=== PATIENT | male | born 1960 | race Two or more races ===

== ENCOUNTER → 2020-05-09 12:31 | Outpatient (BNVA) | payer OTHER, SELFPAY | PROVIDERS: PCP Internal Medicine; Visit Provider Internal Medicine Cardiovascular Disease | DX: I48.0 Paroxysmal atrial fibrillation (principal); I25.10 Atherosclerotic heart disease of native coronary artery without angina pectoris | CPT/HCPCS: 93005 ==

== ENCOUNTER → 2020-05-11 15:02 | Outpatient (BNVA) | payer OTHER, SELFPAY | PROVIDERS: PCP Internal Medicine; Visit Provider Nurse Practitioner Gerontology ==

== ENCOUNTER → 2020-08-01 14:59 | Outpatient (BNVA) | payer OTHER, SELFPAY | PROVIDERS: PCP Internal Medicine; Referring Provider Family Medicine Adult Medicine; Visit Provider Internal Medicine Cardiovascular Disease ==

== ENCOUNTER → 2020-09-14 08:10 | Outpatient (BNVA) | payer OTHER, SELFPAY | PROVIDERS: PCP Internal Medicine; Visit Provider Nurse Practitioner Gerontology | DX: E11.42 Type 2 diabetes mellitus with diabetic polyneuropathy (principal); E11.29 Type 2 diabetes mellitus with other diabetic kidney complication; E78.5 Hyperlipidemia, unspecified; R80.9 Proteinuria, unspecified; I10 Essential (primary) hypertension; Z79.4 Long term (current) use of insulin | CPT/HCPCS: 82947 ==

== ENCOUNTER → 2020-11-08 14:42 | Outpatient (BNVA) | payer OTHER, SELFPAY | PROVIDERS: PCP Internal Medicine; Referring Provider Internal Medicine; Visit Provider Internal Medicine Cardiovascular Disease | DX: I48.0 Paroxysmal atrial fibrillation (principal); I25.10 Atherosclerotic heart disease of native coronary artery without angina pectoris; I10 Essential (primary) hypertension; E11.42 Type 2 diabetes mellitus with diabetic polyneuropathy; R80.9 Proteinuria, unspecified; E78.5 Hyperlipidemia, unspecified; Z87.891 Personal history of nicotine dependence | CPT/HCPCS: 93005 ==

== ENCOUNTER 2020-12-13 07:29 | Emergency (ER) | payer OTHER, SELFPAY ==
[2020-12-13 08:01] VITALS: BP 147/75; PULSE 78; RESP 18; TEMP 36.1; O2SAT 96; BMI 32.3
--- NOTE | 2020-12-13 08:29 | ED.EAR ---
HPI - Ear Problem General Chief complaint: Ear Problems Stated complaint: ear pain Time Seen by Provider: 12/13/20 08:13 Source: patient Mode of arrival: ambulatory Limitations: no limitations History of Present Illness HPI Narrative: 60-year-old male with right ear pain that started yesterday. No fevers, no sore throat, no nasal congestion. Patient feels that his right ear is muffled, and feels a ringing in his ear. No recent trauma or illness, no ear discharge, no headache, no neck pain. No other symptoms. MD Complaint: ear pain Location: right ear Duration: constant Severity: mild Relieving factors: nothing Exacerbating factors: nothing Discharge from ear: no Related Data Home Medications Medication Instructions Recorded Confirmed trazodone 50 mg tablet 25 mg PO BEDTIME cap 11/08/20 11/08/20 Previous Rx's Medication Instructions Recorded pen needle, diabetic 32 gauge x #30 ea 02/20/20 5/32 (BD Ultra-Fine Lou Pen Needle) pen needle, diabetic 32 gauge x #150 ea 03/13/20 5/32 (BD Ultra-Fine Lou Pen Needle) rosuvastatin 20 mg tablet 20 mg PO DAILY #90 tab 04/18/20 dronedarone 400 mg tablet (Multaq) 400 mg PO BID #180 cap 06/20/20 rivaroxaban 20 mg tablet (Xarelto) 20 mg PO DAILY #90 cap 06/20/20 flash glucose sensor (FreeStyle 1 ea TOPICAL .COMPLEX #2 cap 09/08/20 Iris 14 Day Sensor) Humalog KwikPen Insulin 100 See Rx Instructions SUBCUT QID 30 09/14/20 unit/mL subcutaneous (insulin Days #30 ml NS lispro) insulin degludec 200 unit/mL (3 80 unit SUBCUT DAILY 30 Days #18 ml 09/14/20 mL) subcutaneous pen (Tresiba FlexTouch U-200 insulin) empagliflozin 25 mg tablet 25 mg PO QAM #30 tab 09/23/20 (Jardiance) lisinopril 20 mg tablet 20 mg PO DAILY #30 tab 09/30/20 omeprazole 20 mg capsule,delayed 20 mg PO DAILY #30 cap 09/30/20 release metformin 1,000 mg tablet 1,000 mg PO BID #180 tab 10/24/20 amoxicillin 875 mg-potassium 1 tab PO BID 7 Days #14 tab 12/13/20 clavulanate 125 mg tablet (Augmentin) ofloxacin 0.3 % ear drops 10 drp OTIC (EARS) BID 14 Days 12/13/20 #280 ml Allergies Allergy/AdvReac Type Severity Reaction Status Date / Time acetaminophen [From PERCOCET] Allergy Intermediate CONSTIPATED Verified 09/14/20 08:47 oxycodone [From PERCOCET] Allergy Intermediate CONSTIPATED Verified 09/14/20 08:47 Review of Systems Review of Systems: Constitutional : No Weight loss, No Fever, No Chills, No Night Sweats,No Fatigue, No Malaise ENT/Mouth : No Hearing loss, No Ear Pain, No Nasal Congestion, NoSinus Pain, No Hoarseness, No sore throat, No Rhinorrhea, NoSwallowing Difficulty Eyes: No Eye Pain, No Swelling, No Redness, No Foreign Body, NoDischarge, No Vision Changes Cardiovascular : No Chest Pain, No SOB, No Dyspnea on Exertion, NoOrthopnea, No Edema, No Palpitations Respiratory : No Cough, No Sputum, No Wheezing, No Smoke Exposure, No Dyspnea Gastrointestinal : No Nausea, No Vomiting, No Diarrhea, NoConstipation, No abdominal Pain, No Hematochezia, No Melena Musculoskeletal : No joint pain, No Myalgias, No Joint Swelling Skin : No Skin Lesions, No rash Neuro: NO headache PMFSH Past Medical History Medical History Afib BMI 33.0-33.9,adult CAD (coronary artery disease) Depression Essential hypertension GERD (gastroesophageal reflux disease) Hyperlipidemia LDL goal <100 Paroxysmal atrial fibrillation 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 Surgical History History of arthroscopy of right shoulder History of cataract surgery History of eye surgery History of inguinal hernia repair History of laparoscopic cholecystectomy Family History Family History Father Diabetes Mother Alzheimers disease Bone cancer Sister Heart failure Sister Hypertension Sister Diabetes Kidney failure Social History Social History Household Members: Spouse Patient Tobacco Use Status: Former Tobacco user Advance Directives: No Advance Directives Information Provided: No Physical Exam Vital Signs: Vital Signs: Last Vital Signs Temp 97.0 F 12/13/20 08:01 Pulse 78 12/13/20 08:01 Resp 18 12/13/20 08:01 BP 147/75 H 12/13/20 08:01 Pulse Ox 96 12/13/20 08:01 Body Mass Index 32.3 Const: General: cooperative, no acute distress, well developed, alert and awake Nutritional Appearance: well nourished Orientation/consciousness: patient oriented x3 Limitations: no limitations HENMT: Head: Yes normal to inspection, Yes normocephalic and Yes atraumatic Ears: external ears normal, TM normal on the left, EAC's normal and TM abnormal wth effusion purulent (surrounding perforation) and perforated (central) Outer ear/TM images: 1. 2. perforation 3. surrounding purulence behind TM Eyes: Conjunctivae: conjunctivae normal Pupils: Equal, round and reactive pupils present EOM: EOMs intact bilaterally Neck: Neck: Yes full ROM, Yes no lymphadenopathy and Yes supple Resp: Effort & Inspection: normal respiratory effort and able to speak in complete sentences Auscultation: clear to auscultation bilaterally, no crackles, no rales, no rhonchi and no wheezes Cardio: Rate: regular rate Rhythm: regular rhythm Heart sounds: S1 normal heart sound present and S2 normal heart sound present Skin: General skin exam: no rashes or lesions noted Neuro: General: patient oriented x3, tone normal and moves all extremities Cranial nerves: Yes Equal, round and reactive pupils present Extrem: General: Yes normal to inspection and Yes full ROM Psych: Appearance: grossly normal Affect: normal affect Attitude: cooperative Thought process: Normal thought process present Course Course Course Narrative: Eight TM perforation withsurrounding purulent effusion Ofloxacin drops, Augmentin, f/u with ENT Discharge Plan Discharge Clinical Impression: Acute otitis media of right ear with perforated tympanic membrane Patient Disposition: Home, Self-Care Instructions: Ear Infection (ED) Additional Instructions: Use the ear drops, 10 drops in your right ear twice a day for 14 days. Take the antibiotic I prescribed as well. Please call ear nose throat, Dr Shearer, at [phone]. I have referred you to them, but I want you to call them if you have not heard by the end of the day. Prescriptions: New ofloxacin 0.3 % drops 10 drp otic (ears) BID 14 Days Qty: 280 RF: 0 amoxicillin-pot clavulanate [Augmentin] 875-125 mg tablet 1 tab PO BID 7 Days Qty: 14 RF: 0 No Action (DME) pen needle, diabetic [BD Ultra-Fine Lou Pen Needle] 32 gauge x 5/32 needle See Rx Instructions .ROUTE .MEDSUPPLY Qty: 30 RF: 1 (DME) pen needle, diabetic [BD Ultra-Fine Lou Pen Needle] 32 gauge x 5/32 needle See Rx Instructions .ROUTE .MEDSUPPLY Qty: 150 RF: 11 rosuvastatin 20 mg tablet 20 mg PO DAILY Qty: 90 RF: 4 rivaroxaban [Xarelto] 20 mg tablet 20 mg PO DAILY Qty: 90 RF: 1 dronedarone [Multaq] 400 mg tablet 400 mg PO BID Qty: 180 RF: 1 FreeStyle Iris 14 Day Sensor Kit 1 ea topical .COMPLEX Qty: 2 RF: 0 empagliflozin [Jardiance] 25 mg tablet 25 mg PO QAM Qty: 30 RF: 3 lisinopril 20 mg tablet 20 mg PO DAILY Qty: 30 RF: 1 omeprazole 20 mg capsule,delayed release(DR/EC) 20 mg PO DAILY Qty: 30 RF: 1 metformin 1,000 mg tablet 1,000 mg PO BID Qty: 180 RF: 0 trazodone 50 mg tablet 25 mg PO BEDTIME RF: 0 Tresiba FlexTouch U-200 200 unit/mL (3 mL) insulin pen 80 unit subcut DAILY 30 Days Qty: 18 RF: 3 insulin lispro [Humalog KwikPen Insulin] 100 unit/mL insulin pen See Rx Instructions subcut QID 30 Days Qty: 30 RF: 3 Referrals: Julius Shearer [Physician] - 2 days (right perforated TM with purulent effusion, tinnitus) Interventions: ED Discharge Assessment Last Done: 12/13/20 08:44 Discharge Date/Time: 12/13/20 08:46
--- NOTE | 2020-12-13 08:38 | PC.NURSE ---
PT EVALUATED BY ATIYA STERN PLAN IS FOR [place] HOME. PT AGREEABLE TO PLAN. STATES NO QUESTIONS.
== END 2020-12-13 08:46 | disposition home or self-care (01) ==
PROVIDERS: Emergency Provider Internal Medicine; PCP Internal Medicine
DX: H66.91 Otitis media, unspecified, right ear (principal); H72.91 Unspecified perforation of tympanic membrane, right ear
CPT/HCPCS: 99283

== ENCOUNTER → 2020-12-21 14:32 | Outpatient (BNVA) | payer OTHER, SELFPAY | PROVIDERS: PCP Internal Medicine; Visit Provider Nurse Practitioner Gerontology | DX: E11.42 Type 2 diabetes mellitus with diabetic polyneuropathy (principal); E11.29 Type 2 diabetes mellitus with other diabetic kidney complication; E78.5 Hyperlipidemia, unspecified; I10 Essential (primary) hypertension; R80.9 Proteinuria, unspecified; Z68.33 Body mass index [BMI] 33.0-33.9, adult; Z79.4 Long term (current) use of insulin | CPT/HCPCS: 82947; 83036 ==

== ENCOUNTER 2021-02-01 14:29 | Outpatient (REF) | payer OTHER, SELFPAY ==
--- NOTE | ~2021-02-01 | MR_ITS ---
EXAMINATION: MR BRAIN WITHOUT AND WITH CONTRAST CLINICAL INFORMATION: Sudden hearing loss right ear. COMPARISON: CT head 03/20/2019. CT head 03/19/2019. TECHNIQUE: Multiplanar, multisequence MRI of the brain was obtained before and after the intravenous administration of 10 mL Gadavist. Internal auditory canal protocol images are obtained. FINDINGS: Mild diffuse commensurate prominence of ventricles and sulci is noted. A mild number scattered supratentorial subcortical and periventricular white matter punctate T2 hyperintensities are visualized. No intracranial hemorrhage, tumors or acute infarcts are noted. Susceptibility weighted images reveal no evidence of acute or chronic hemorrhage within the brain parenchyma. The craniocervical junction cerebellar tonsils are normal in configuration. No suspicious marrow abnormalities. Normal flow-related signal intensity is identified in the major intrarenal vessels and dural sinuses. Normal appearance of the internal auditory canals and visualized components of the left and right 7th and 8th cranial nerve complexes. Normal configuration of the left and right temporal bone labyrinths. No mastoid effusions. No abnormal enhancement within the internal auditory canals to suggest the presence of vestibular schwannomas. No abnormal enhancement the brain parenchyma. MR/MR head/brain wo/w con IMPRESSION: -Mild white matter chronic small vessel ischemic changes. -No evidence of vestibular schwannomas. No findings to specifically correlate with right-sided hearing loss.
[2021-02-01 14:33] LABS: Blood Urea Nitrogen 19 mg/dL (9-16); Estimated Glomerular Filt Rate 58
== END 2021-02-01 14:30 | disposition home or self-care (01) ==
LOC: HO.MRI 14:29
PROVIDERS: Visit Provider Otolaryngology
DX: H91.21 Sudden idiopathic hearing loss, right ear (principal); H81.13 Benign paroxysmal vertigo, bilateral; D33.3 Benign neoplasm of cranial nerves
CPT/HCPCS: 36415; 70553; 82565; 84520; A9585

== ENCOUNTER → 2021-02-16 14:25 | Outpatient (BNVA) | payer OTHER, SELFPAY | PROVIDERS: PCP Internal Medicine; Referring Provider Internal Medicine; Visit Provider Internal Medicine Cardiovascular Disease ==

== ENCOUNTER → 2021-04-28 14:21 | Outpatient (BNVA) | payer OTHER, SELFPAY | PROVIDERS: PCP Internal Medicine; Visit Provider Nurse Practitioner Gerontology | DX: E11.42 Type 2 diabetes mellitus with diabetic polyneuropathy (principal); E11.29 Type 2 diabetes mellitus with other diabetic kidney complication; Z79.4 Long term (current) use of insulin; I10 Essential (primary) hypertension; E78.5 Hyperlipidemia, unspecified | CPT/HCPCS: 82947 ==

== ENCOUNTER → 2021-05-08 08:47 | Outpatient (REF) | payer OTHER, SELFPAY ==
--- NOTE | 2021-05-08 08:52 | CA_ITS ---
Transthoracic Echocardiogram Patient (Last, First, Middle): Abdoulaye Luo, Gender: Male Date of : 1960 Age: 61 Procedure Date: 05/08/2021 Procedure Type: Transthoracic Echocardiogram Location: OP Height: 167.64 cm Weight: 90.72 kg BSA: 2.00 m2 Heart Rate: bpm BP: 132 / 80 mmHg [facility] Agent: ALEIDA Referring MD: Ian Pappas MD Symptoms: I48.0 - Paroxysmal atrial fibrillation Study Quality: Fair Conclusions: - The left ventricular systolic function is normal. The calculated ejection fraction is 61% by biplane method. There is no evidence of regional wall motion abnormalities. - No obvious valvular pathology seen on this study. Findings Left Ventricle Normal left ventricular cavity size. There is mildly increased left ventricular wall thickness. The left ventricular systolic function is normal. The calculated ejection fraction is 61% by biplane method. There is no evidence of regional wall motion abnormalities. Diastolic function is normal for age. Right Ventricle Normal right ventricular cavity size and systolic function. Atria Both atria are normal in size. Aortic Valve There is a normal trileaflet aortic valve. There is no aortic valve stenosis. There is no aortic valve regurgitation. Mitral Valve The mitral valve appears normal. There is trace mitral valve regurgitation. There is no mitral valve stenosis. Pulmonic Valve The pulmonic valve was not well visualized. Tricuspid Valve Normal tricuspid valve structure. There is trace tricuspid valve regurgitation. The pulmonary artery systolic pressure is normal. Great Vessels The aortic annulus, sinuses of valsalva, and asc aorta are normal in size. Venous The inferior vena cava is normal in size and collapses greater than 50% with inspiration. Pericardium/Pleural There is no evidence of pericardial effusion. Prior Study Comparison No significant change compared to prior study dated: 05/26/2019. Recommendations, Care & Conclusions No obvious valvular pathology seen on this study. Measurements 2D Linear Measurements IVSd: 1.08 0.6-0.9/0.6-1.0 cm LVIDd: 4.56 3.9-5.3/4.2-5.9 cm LVIDd Index: 2.28 2.4-3.2/2.2-3.1 cm/m2 LVIDs: 3.33 2.0-3.6 cm LVPWd: 1.07 0.7-1.1 cm Ao Root: 3.10 2.1-3.5 cm LA Diam: 3.60 2.7-3.8/3.0-4.0 cm LAIDs Index: 1.80 1.5-2.3 cm/m2 LV Mass: 215.58 67-162/88-224 g LV Mass Index: 107.79 43-95/49-115 g/m2 LVOT Diam: 2.00 3.0+(-)1.3 cm 2D Systolic Function EF 4C: 59.70 >55% EF 2C: 61.60 >55% EF BiP: 60.70 >55% Mitral Valve MV Pk E: 0.80 MV PK A: 0.69 MV Decel Time: 243.00 E/A: 1.20 E'Lateral: 7.29 E'Medial: 5.87 E/E' Med: 13.60 E/E' Lat: 11.00 PHT: 71.00 MVA PHT: 3.10 Decel [place]: 3.30 Aortic Valve AoV Pk Kobe: 1.48 AoV Mn Kobe: 1.04 AoV VTI: 0.31 AoV Pk Grad: 9.00 Aov Mn Grad: 5.00 TELMA Cont.VTI: 1.96 LVOT LVOT Pk Kobe: 0.93 LVOT Mn Kobe: 0.63 LVOT VTI: 0.19 LVOT Pk Grad: 3.00 LVOT Mn Grad: 2.00 LVOT Diam: 2.00 LVOT Area: 3.14 Diastolic Function MV Pk E: 0.80 MV Pk A: 0.69 E/A: 1.20 E'Medial: 5.87 E/E' Med: 13.60 E' Laterial: 7.29 E/E' Lat: 11.00 Right Ventricle TAPSE (mm): 1.95 TVS' Kobe: 13.20 Tricuspid Valve TR Pk Kobe: 2.42 TR Pk Grad: 23.00 RA Press: 3.00 RVSP: 26.00 Great Vessels Aorta Ao Root-2D: 3.10 2.0-3.7 cm Ao Asc: 3.00 2.1-3.4 cm Ao Arch: 2.90 Updated in Other Vendor System with Status of Final Rafael Hanley MD electronically signed on 05/08/2021 1:22:41 PM with status of Final
== END ==
LOC: HO.CARD 08:47
PROVIDERS: PCP Internal Medicine; Visit Provider Internal Medicine Cardiovascular Disease
DX: I48.0 Paroxysmal atrial fibrillation (principal)
CPT/HCPCS: 93005; 93306

== ENCOUNTER → 2021-08-07 15:29 | Outpatient (BNVA) | payer OTHER, SELFPAY | PROVIDERS: PCP Internal Medicine; Referring Provider Internal Medicine; Visit Provider Internal Medicine Cardiovascular Disease | DX: Z13.89 Encounter for screening for other disorder (principal) ==

== ENCOUNTER 2021-08-11 05:59 | Outpatient (REF) | payer OTHER, SELFPAY ==
[2021-08-11 06:14] LABS: MANUAL DIFF FLAG NO
[2021-08-11 06:20] LABS: Basophils Percent Auto 0.7 % (0-2); Eosinophils Absolute Auto 0.2 X10*3/uL (0.0-0.4); Eosinophils Percent Auto 3.7 % (0-4); Hematocrit 38.1 % (42.0-52.0); Hemoglobin 13.1 g/dl (14.0-18.0); Imm Gran Abs Auto 0.01 X10*3/uL (0.00-0.03); Imm Gran Pct Auto 0.2 % (0.0-0.4); Lymphocytes Absolute Auto 1.7 X10*3/uL (1.2-4.9); Lymphocytes Percent Auto 30.1 % (20-40); Mean Corpuscular HGB Conc 34.4 g/dl (31.0-36.0); Mean Corpuscular Hemoglobin 28.4 pg (27.0-33.0); Mean Corpuscular Volume 82.6 fL (80.0-98.0); Mean Platelet Volume 11.1 fL (9.4-12.4); Monocytes Absolute Auto 0.5 X10*3/uL (0.1-1.2); Monocytes Percent Auto 9.2 % (2-11); Neutrophils Absolute Auto 3.2 x10*3/uL (2.0-8.3); Neutrophils Percent Auto 56.1 % (45-73); Platelet Count 161 X10*3/uL (160-400); Red Blood Count 4.61 X10*6/uL (4.60-5.80); Red Cell Distribution Width 12.7 % (11.0-16.0); White Blood Count 5.7 X10*3/uL (4.8-10.8)
[2021-08-11 06:45] LABS: Alanine Aminotransferase 31 U/L (0-40); Albumin Level 4.1 g/dL (3.5-5.0); Alkaline Phosphatase 80 U/L (39-117); Anion Gap 12 (12-20); Aspartate Amino Transferase 32 U/L (5-37); Bilirubin Total 0.3 mg/dL (0.0-1.0); Blood Urea Nitrogen 17 mg/dL (9-16); Calcium 9.3 mg/dL (8.4-10.2); Carbon Dioxide 24 mmol/L (22-29); Chloride 108 mmol/L (96-108); Cholesterol 139 mg/dL; Estimated Glomerular Filt Rate 57; Glucose Fasting 150 mg/dL (60-99); HDL Cholesterol 32 mg/dL; LDL Cholesterol Calculated 45 mg/dl; Potassium 4.2 mmol/L (3.3-5.1); Sodium 140 mmol/L (135-145); Total Protein 7.1 g/dL (6.5-8.0); Triglycerides 314 mg/dL
[2021-08-11 06:59] LABS: Prostate Specific Antigen 0.37 ng/mL (<0.05-4.0); Vitamin D 25-OH Total 15.1 ng/mL (>30)
[2021-08-11 07:23] LABS: Appearance Urine CLEAR; Color Urine YELLOW; Glucose Urine UA >=1000 MG/DL (NEG); Leukocyte Esterase Urine NEG (NEG); Nitrite Urine NEG (NEG); PH 5.5 (5.0-8.0); Urine Blood NEG (NEG); Urine Ketones NEG (NEG); Urine Protein NEG (NEG-TRACE)
[2021-08-11 07:36] LABS: RBC Urine 0 /HPF (0); Squamous Epithelial Cell Urine TRACE /LPF; WBC Urine 0 /HPF (0-4)
[2021-08-11 08:00] LABS: Creatinine Urine 85.51 mg/dL; Microalbum/Creatinine Ratio Ur 67.8 ug/mg cr
== END 2021-08-11 06:00 | disposition home or self-care (01) ==
LOC: HO.LAB 05:59
PROVIDERS: PCP Internal Medicine; Visit Provider Internal Medicine
DX: Z12.5 Encounter for screening for malignant neoplasm of prostate (principal); E11.9 Type 2 diabetes mellitus without complications; I10 Essential (primary) hypertension; E55.9 Vitamin D deficiency, unspecified; E78.00 Pure hypercholesterolemia, unspecified; N40.0 Benign prostatic hyperplasia without lower urinary tract symptoms
CPT/HCPCS: 36415; 80053; 80061; 81001; 82043; 82306; 84153; 84443; 85025

== ENCOUNTER → 2021-11-06 15:48 | Outpatient (BNVA) | payer OTHER, SELFPAY | PROVIDERS: PCP Internal Medicine; Referring Provider Internal Medicine; Visit Provider Internal Medicine Cardiovascular Disease | DX: Z13.6 Encounter for screening for cardiovascular disorders (principal) | CPT/HCPCS: 93005 ==

== ENCOUNTER 2022-01-07 05:55 | Emergency (ER) | payer OTHER, SELFPAY ==
[2022-01-07 06:03] VITALS: BP 154/50; PULSE 79; RESP 18; TEMP 36.6; O2SAT 96; BMI 32.3
[2022-01-07 06:12] LABS: Hematocrit 39.6 % (42.0-52.0); Hemoglobin 13.4 g/dl (14.0-18.0); Mean Corpuscular HGB Conc 33.8 g/dl (31.0-36.0); Mean Corpuscular Hemoglobin 28.5 pg (27.0-33.0); Mean Corpuscular Volume 84.3 fL (80.0-98.0); Mean Platelet Volume 10.7 fL (9.4-12.4); Platelet Count 167 X10*3/uL (160-400); Red Cell Distribution Width 12.8 % (11.0-16.0); White Blood Count 8.2 X10*3/uL (4.8-10.8)
[2022-01-07 06:14] LABS: Appearance Urine Clear; Color Urine Yellow; Glucose Urine UA >=1000 mg/dL (Negative); Leukocyte Esterase Urine Negative (Negative); Nitrite Urine Negative (Negative); Specific Gravity - Urine >= 1.030 (1.005-1.025); UMIC TRIGGER UACC YES; Urine Blood Negative (Negative); Urine Ketones Negative (Negative); Urine Protein 30 (1+) mg/dL (Neg-Trace)
[2022-01-07 06:19] LABS: Bacteria Urine None Seen (None Seen); Hyaline Casts Urine 0-2 /LPF (0-2); RBC Urine 0-2 /HPF (0-2); Squamous Epithelial Cell Urine 0-2 /HPF (0-2); WBC Urine 0-5 /HPF (0-5)
[2022-01-07 06:42] LABS: Alanine Aminotransferase 25 U/L (0-40); Albumin Level 4.3 g/dL (3.5-5.0); Alkaline Phosphatase 98 U/L (39-117); Anion Gap 16 (12-20); Aspartate Amino Transferase 25 U/L (5-37); Bilirubin Direct 0.3 mg/dL (0.0-0.5); Bilirubin Total 0.6 mg/dL (0.0-1.0); Blood Urea Nitrogen 15 mg/dL (9-16); Calcium 9.1 mg/dL (8.4-10.2); Carbon Dioxide 23 mmol/L (22-29); Chloride 107 mmol/L (96-108); Creatinine Clr Calc Pharmacy 91.9; Estimated Glomerular Filt Rate > 60; Glucose Random 102 mg/dL (60-115); Lipase 127 U/L (8-78); Potassium 4.2 mmol/L (3.3-5.1); Sodium 142 mmol/L (135-145); Total Protein 7.5 g/dL (6.5-8.0)
[2022-01-07 08:00] VITALS: BP 151/67; PULSE 75; RESP 18; O2SAT 96
--- NOTE | 2022-01-07 08:41 | ED.GENADULT ---
HPI - General Adult General Chief complaint: Abdominal Pain Stated complaint: Flank pain Time Seen by Provider: 01/07/22 08:16 Source: patient Mode of arrival: ambulatory Limitations: no limitations History of Present Illness HPI narrative: Since 1-year-old male past medical history of GERD, atrial fibrillation, diabetes, hypertension, coronary artery disease presents to ED abdominal pain, nausea, right flank pain, and constipation for the past 5 days. Patient secondary complaints 3 days ago he had mild epigastric pain and slight palpitation but presently does not have any palpitation or chest pain. Patient wanted make sure he was not in uncontrolled AFib. Patient presently denies any chest pain, shortness of breath, weakness, dizziness, leg sweling, calf pain, fever, or chills. Related Data Home Medications Medication Instructions Recorded Confirmed trazodone 50 mg tablet 25 mg PO BEDTIME 11/08/20 12/12/21 Previous Rx's Medication Instructions Recorded pen needle, diabetic 32 gauge x #30 ea 02/20/20/32 (BD Ultra-Fine Lou Pen Needle) ofloxacin 0.3 % ear drops 10 drp otic (ears) BID 14 days 12/13/20 #280 mL pen needle, diabetic 32 gauge x 1 ea miscellaneous .COMPLEX #150 ea 03/16/21/32 (BD Lou 2nd Gen Pen Needle) Humalog KwikPen Insulin 100 See Rx Instructions subcut QID 30 04/28/21 unit/mL subcutaneous (insulin days #30 mL lispro) dulaglutide 1.5 mg/0.5 mL 1.5 mg (0.5 mL) subcut QWEEK 28 04/28/21 subcutaneous pen injector days #2 mL (Trulicity) dronedarone 400 mg tablet (Multaq) 400 mg PO BID #180 caps 07/03/21 rivaroxaban 20 mg tablet (Xarelto) 20 mg PO DAILY #90 caps 07/05/21 empagliflozin 25 mg tablet 25 mg PO QAM #30 tabs 08/07/21 (Jardiance) rosuvastatin 20 mg tablet 20 mg PO DAILY #90 tabs 08/22/21 metformin 1,000 mg tablet 1,000 mg PO BID #180 tabs 08/23/21 insulin degludec 200 unit/mL (3 86 unit (0.43 mL) subcut DAILY 30 06/20/22 mL) subcutaneous pen (Tresiba days #12.9 mL FlexTouch U-200 insulin) omeprazole 20 mg capsule,delayed 20 mg PO DAILY 90 days #90 caps 09/20/21 release flash glucose sensor (FreeStyle 1 ea topical .COMPLEX #2 caps 10/27/21 Iris 14 Day Sensor kit) lisinopril 20 mg tablet 20 mg PO DAILY #30 tabs 12/13/21 ondansetron HCl 4 mg tablet 4 mg PO Q6H PRN nausea and 01/07/22 vomiting 2 days #8 tabs tramadol 50 mg tablet 50 mg PO TID PRN pain 3 days #9 01/07/22 tabs Allergies Allergy/AdvReac Type Severity Reaction Status Date / Time acetaminophen [From PERCOCET] Allergy Intermediate CONSTIPATED Verified 12/01/21 16:11 oxycodone [From PERCOCET] Allergy Intermediate CONSTIPATED Verified 12/01/21 16:11 Review of Systems Review of Systems: abdominal pain, constipation, nausea, right flank pain. 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 Vitamin D deficiency Surgical History History of arthroscopy of right shoulder History of cataract surgery History of eye surgery History of inguinal hernia repair History of laparoscopic cholecystectomy Family History Family History Father Diabetes Mother Alzheimers disease Bone cancer Sister Heart failure Sister Hypertension Sister Diabetes Kidney failure Social History Social History Household Members: Spouse Housing: House Alcohol intake: current Alcohol intake frequency: holidays/special occasions only Patient Tobacco Use Status: Former Tobacco user Quit Date: 35 years ago Years Smoked: 8 years Second Hand Smoke Exposure: Yes Advance Directives: No Advance Directives Information Provided: Yes service: No Current occupational status: employed 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 [employer] Cognitive needs: No Hearing needs: No Vision needs: Yes Physical Exam ED Vital Signs: Vital Signs - 24 hr 01/07/22 06:03 01/07/22 08:00 01/07/22 10:15 Temperature 98 F Pulse Rate 79 75 Respiratory Rate 18 18 16 Blood Pressure 154/50 H 151/67 H Pulse Oximetry 96 96 Oxygen Delivery Method Room Air Room Air 01/07/22 12:00 Temperature Pulse Rate 79 Respiratory Rate 20 Blood Pressure 136/70 Pulse Oximetry 93 Oxygen Delivery Method Room Air BMI result Body Mass Index 32.3 Const General: cooperative, healthy appearing, comfortable, no acute distress, well developed, alert, awake and Physically active Orientation/consciousness: oriented to time and patient oriented x3 HENMT Head: Yes normal to inspection, Yes No palpable skull fracture present, Yes normocephalic, Yes atraumatic and No abrasion Eyes General: appearance normal, both eyes and all related structures Neck Neck: Yes normal visual inspection, Yes full ROM, Yes no lymphadenopathy, Yes no meningeal signs, Yes trachea midline, Yes supple, No anterior neck swelling and No tender Chest Chest palpation & inspection: normal inspection of the chest and normal palpation of entire chest wall Resp Effort & Inspection: normal respiratory effort and able to speak in complete sentences Auscultation: clear to auscultation bilaterally Cardio Jugular venous distension: no JVD Heart sounds: S1 normal heart sound present and S2 normal heart sound present GI Inspection: Yes normal to inspection and No abdominal wall ecchymosis Palpation (GI): Soft to palpation, not firm, nontender, no guarding and not rigid General: No CVA tenderness and Yes no CVA tenderness Back/Spine/Pelvis Back: no CVA tenderness, No CVA tenderness and No back tenderness Skin General skin exam: no rashes or lesions noted and elasticity normal Neuro General: oriented to time, patient oriented x3, gait normal, no meningeal signs and CN's II-XI intact bilaterally Cranial nerves: Yes CN's II-XII intact bilaterally Extrem General: Yes normal to inspection and Yes full ROM Psych Appearance: grossly normal, well kempt and not disheveled Course Course Course Narrative: Initial labs drawn in triage. Although patient does not have any chest pain or palpitation presently will do EKG and is 1 troponin. UA came back negative for any blood or infection was sent for CT scan to rule out any small bowel obstruction. Patient well-appearing Reevaluation(s) Reevaluation #1: EKG negative STEMI. troponin negative. UA normal. White blood cell count normal. Patient was sent for abdominal CT scan to rule out any small bowel obstruction instead CT scan showed acute pancreatitis without any abscess. Lipase 127. Patient denies history of alcohol abuse. CT scan does not show any gallstones. Patient was observed in the ED and passed p.o. challenge. Patient drank can of kelsey chantelle and 3 packs of crackers. Admission was discussed with patient, but patient feels better and preferred to go home. [place] [employer] Attendant Dr. Joya was informed of case and agreed that patient can go home. Patient educated on low fat diet. Patient educated oral hydration. Patient informed to follow-up with supervisor paper products. Patient well-appearing and was asymptomatic at discharge. Time: 12:44 Medical Decision Making MDM Narrative Medical decision making narrative: Acute pancreatitis Lab Data Result diagrams: 01/07/22 06:07 01/07/22 06:07 Labs: Lab Results 01/07/22 01/07/22 01/07/22 Range/Units 06:07 06:07 06:07 WBC 8.2 (4.8-10.8) X10*3/uL RBC 4.70 (4.60-5.80) X10*6/uL Hgb 13.4 L (14.0-18.0) g/dl Hct 39.6 L (42.0-52.0) % MCV 84.3 (80.0-98.0) fL MCH 28.5 (27.0-33.0) pg MCHC 33.8 (31.0-36.0) g/dl RDW 12.8 (11.0-16.0) % Plt Count 167 (160-400) X10*3/uL MPV 10.7 (9.4-12.4) fL Absolute Nucleated RBC 0.000 (0.0-0.012) X10*3/uL Nucleated RBC % (auto) 0.0 (0.0-0.2) /100WBC Sodium 142 (135-145) mmol/L Potassium 4.2 (3.3-5.1) mmol/L Chloride 107 (96-108) mmol/L Carbon Dioxide 23 (22-29) mmol/L Anion Gap 16 (12-20) BUN 15 (9-16) mg/dL Creatinine 0.89 (0.5-1.4) mg/dL Estim Creat Clear Calc 91.9 Estimated GFR > 60 Random Glucose 102 (60-115) mg/dL Calcium 9.1 (8.4-10.2) mg/dL Total Bilirubin 0.6 (0.0-1.0) mg/dL Direct Bilirubin 0.3 (0.0-0.5) mg/dL AST 25 (5-37) U/L ALT 25 (0-40) U/L Alkaline Phosphatase 98 D (39-117) U/L Troponin I High Sens (<3.5-35.0) ng/L Total Protein 7.5 (6.5-8.0) g/dL Albumin 4.3 (3.5-5.0) g/dL Lipase 127 H (8-78) U/L Urine Color Yellow Urine Appearance Clear Urine pH 6.0 (5.0-9.0) Ur Specific [place] >= 1.030 H (1.005-1.025) Urine Protein 30 (1+) H (Neg-Trace) mg/dL Urine Glucose (UA) >=1000 H (Negative) mg/dL Urine Ketones Negative (Negative) mg/dL Urine Blood Negative (Negative) Urine Nitrite Negative (Negative) Ur Leukocyte Esterase Negative (Negative) Urine RBC 0-2 (0-2) /HPF Urine WBC 0-5 (0-5) /HPF Ur Squamous Epith Cells 0-2 (0-2) /HPF Urine Bacteria None Seen (None Seen) Hyaline Casts 0-2 (0-2) /LPF 01/07/22 Range/Units 06:11 WBC (4.8-10.8) X10*3/uL RBC (4.60-5.80) X10*6/uL Hgb (14.0-18.0) g/dl Hct (42.0-52.0) % MCV (80.0-98.0) fL MCH (27.0-33.0) pg MCHC (31.0-36.0) g/dl RDW (11.0-16.0) % Plt Count (160-400) X10*3/uL MPV (9.4-12.4) fL Absolute Nucleated RBC (0.0-0.012) X10*3/uL Nucleated RBC % (auto) (0.0-0.2) /100WBC Sodium (135-145) mmol/L Potassium (3.3-5.1) mmol/L Chloride (96-108) mmol/L Carbon Dioxide (22-29) mmol/L Anion Gap (12-20) BUN (9-16) mg/dL Creatinine (0.5-1.4) mg/dL Estim Creat Clear Calc Estimated GFR Random Glucose (60-115) mg/dL Calcium (8.4-10.2) mg/dL Total Bilirubin (0.0-1.0) mg/dL Direct Bilirubin (0.0-0.5) mg/dL AST (5-37) U/L ALT (0-40) U/L Alkaline Phosphatase (39-117) U/L Troponin I High Sens 3.6 (<3.5-35.0) ng/L Total Protein (6.5-8.0) g/dL Albumin (3.5-5.0) g/dL Lipase (8-78) U/L Urine Color Urine Appearance Urine pH (5.0-9.0) Ur Specific [place] (1.005-1.025) Urine Protein (Neg-Trace) mg/dL Urine Glucose (UA) (Negative) mg/dL Urine Ketones (Negative) mg/dL Urine Blood (Negative) Urine Nitrite (Negative) Ur Leukocyte Esterase (Negative) Urine RBC (0-2) /HPF Urine WBC (0-5) /HPF Ur Squamous Epith Cells (0-2) /HPF Urine Bacteria (None Seen) Hyaline Casts (0-2) /LPF ECG Data Interpretation: Normal sinus rhythm. Ventricular rate 70. MO interval 140. QRS 84. QTC 436. Negative STEMI Discharge Plan Discharge Clinical Impression: Pancreatitis Patient Disposition: Home, Self-Care Instructions: Pancreatitis (ED) Additional Instructions: Return to the ED immediately for worsening abdominal pain, nausea, vomiting, fever, chills, flank pain, dysuria, hematuria, weakness, dehydration, or any other concerning symptoms. Recommend low-fat soft diet. Recommend oral hydration, mostly broth and soup, at least the 1st 24 hours. You will need follow-up with supervisor paper products and primary care provider Prescriptions: New tramadol 50 mg tablet 50 mg PO TID PRN (Reason: pain) 3 Days Qty: 9 0RF Rx Instructions: side effect is drowsiness. Do not take while driving or at work. ondansetron HCl 4 mg tablet 4 mg PO Q6H PRN (Reason: nausea and vomiting) 2 Days Qty: 8 0RF No Action (DME) pen needle, diabetic [BD Ultra-Fine Lou Pen Needle] 32 gauge x 5/32 needle See Rx Instructions .ROUTE .MEDSUPPLY Qty: 30 1RF Rx Instructions: As directed once aday pen needle, diabetic [BD Lou 2nd Gen Pen Needle] 32 gauge x 5/32 needle 1 ea miscellaneous .COMPLEX Qty: 150 11RF Rx Instructions: 1 ea miscellaneous five times a day; Multaq 400 mg tablet 400 mg PO BID Qty: 180 3RF Xarelto 20 mg tablet 20 mg PO DAILY Qty: 90 3RF Jardiance 25 mg tablet 25 mg PO QAM Qty: 30 6RF rosuvastatin 20 mg tablet 20 mg PO DAILY Qty: 90 3RF metformin 1,000 mg tablet 1,000 mg PO BID Qty: 180 2RF Tresiba FlexTouch U-200 200 unit/mL (3 mL) insulin pen 86 unit subcut DAILY 30 Days Qty: 12.9 4RF omeprazole 20 mg capsule,delayed release(DR/EC) 20 mg PO DAILY 90 Days Qty: 90 1RF FreeStyle Iris 14 Day Sensor Kit 1 ea topical .COMPLEX Qty: 2 6RF Rx Instructions: 1 ea topical every 14 days; lisinopril 20 mg tablet 20 mg PO DAILY Qty: 30 3RF ofloxacin 0.3 % drops 10 drp otic (ears) BID 14 Days Qty: 280 0RF trazodone 50 mg tablet 25 mg PO BEDTIME insulin lispro [Humalog KwikPen Insulin] 100 unit/mL insulin pen See Rx Instructions subcut QID 30 Days Qty: 30 3RF Rx Instructions: breakfast 16 units, Lunch 26 units, Dinner 28 units, Snack 10 units subcut 4 times a day; No substitutions. Trulicity 1.5 mg/0.5 mL pen injector 1.5 mg subcut QWEEK 28 Days Qty: 2 6RF Referrals: [facility] G[facility] Services [Provider Group] (Acute pancreatitis) Interventions: ED Discharge Assessment Last Done: 01/07/22 13:21 Discharge Date/Time: 01/07/22 13:21 Print Language: Kiswahili
[2022-01-07 09:01] LABS: Troponin-I High Sensitivity 3.6 ng/L (<3.5-35.0)
[2022-01-07] MEDS: 0.9 % Sodium Chloride 1,000 ML 999 ML IV ×2 (10:09→11:05)
[2022-01-07 10:15] VITALS: RESP 16
[2022-01-07] MEDS: Morphine Sulfate 4 MG/ML CARTRIDGE IVPUSH (10:15)
--- NOTE | 2022-01-07 10:25 | PC.NURSE ---
PT reports upper gastric pain radiating to the right side with nausea and vomiting. +BSx4, last BM was 4 days ago. Reports tender to touch. Also reports palpitations for the past 3 days, denies chest pain and SOB.
[2022-01-07 12:00] VITALS: BP 136/70; PULSE 79; RESP 20; O2SAT 93
== END 2022-01-07 13:21 | disposition home or self-care (01) ==
PROVIDERS: Emergency Provider Emergency Medicine; PCP Internal Medicine
DX: K85.90 Acute pancreatitis without necrosis or infection, unspecified (principal); R00.2 Palpitations; Z87.891 Personal history of nicotine dependence; Z79.899 Other long term (current) drug therapy
CPT/HCPCS: 36415; 74176; 80053; 81001; 82248; 83690; 84484; 85027; 93005; 96374; 99284; 99285; J2270

== ENCOUNTER 2022-01-08 17:06 | Emergency (ER) | payer OTHER, SELFPAY ==
[2022-01-08 18:00] VITALS: BP 144/65; PULSE 75; RESP 20; TEMP 36.8; O2SAT 94; BMI 32.3
[2022-01-08 18:11] LABS: MANUAL DIFF FLAG NO
[2022-01-08 18:13] LABS: Basophils Percent Auto 0.5 % (0-2); Eosinophils Absolute Auto 0.3 X10*3/uL (0.0-0.4); Eosinophils Percent Auto 3.4 % (0-4); Hemoglobin 12.2 g/dl (14.0-18.0); Imm Gran Abs Auto 0.02 X10*3/uL (0.00-0.03); Imm Gran Pct Auto 0.2 % (0.0-0.4); Lymphocytes Absolute Auto 1.1 X10*3/uL (1.2-4.9); Lymphocytes Percent Auto 12.4 % (20-40); Mean Corpuscular HGB Conc 33.9 g/dl (31.0-36.0); Mean Corpuscular Hemoglobin 28.4 pg (27.0-33.0); Mean Corpuscular Volume 83.9 fL (80.0-98.0); Mean Platelet Volume 11.1 fL (9.4-12.4); Monocytes Absolute Auto 0.7 X10*3/uL (0.1-1.2); Monocytes Percent Auto 8.2 % (2-11); Neutrophils Absolute Auto 6.5 x10*3/uL (2.0-8.3); Neutrophils Percent Auto 75.3 % (45-73); Platelet Count 170 X10*3/uL (160-400); Red Blood Count 4.29 X10*6/uL (4.60-5.80); Red Cell Distribution Width 12.5 % (11.0-16.0); White Blood Count 8.6 X10*3/uL (4.8-10.8)
[2022-01-08 18:32] LABS: Alanine Aminotransferase 26 U/L (0-40); Albumin Level 4.1 g/dL (3.5-5.0); Alkaline Phosphatase 105 U/L (39-117); Anion Gap 14 (12-20); Aspartate Amino Transferase 27 U/L (5-37); Bilirubin Direct 0.2 mg/dL (0.0-0.5); Bilirubin Total 0.4 mg/dL (0.0-1.0); Blood Urea Nitrogen 17 mg/dL (9-16); Carbon Dioxide 25 mmol/L (22-29); Chloride 105 mmol/L (96-108); Creatinine Clr Calc Pharmacy 80.2; Estimated Glomerular Filt Rate > 60; Glucose Random 138 mg/dL (60-115); Lipase 45 U/L (8-78); Potassium 4.4 mmol/L (3.3-5.1); Sodium 140 mmol/L (135-145)
[2022-01-08 23:33] VITALS: BP 151/61; PULSE 81; RESP 16; TEMP 36.6; O2SAT 96
--- NOTE | 2022-01-09 00:01 | ED_ITS ---
HPI - Abdominal Pain General Chief Complaint: Abdominal Pain Stated Complaint: Abdominal pain/Nose bleed Time Seen by Provider: 01/08/22 23:58 Source: patient Mode of arrival: ambulatory Limitations: no limitations History of Present Illness HPI narrative: Patient been complaining of upper abdominal pain for last 2 days was seen here yesterday for the same diagnosed with acute pancreatitis. Apparently patient rodgers d few drinks 3 days ago since then pain started now getting worse with nausea and vomiting. Patient was seen yesterday and went home pain got worse with increased nausea and vomiting unable to hold down much fluid today no fever no chills Related Data Home Medications Medication Instructions Recorded Confirmed trazodone 50 mg tablet 25 mg PO BEDTIME 11/08/20 12/12/21 Previous Rx's Medication Instructions Recorded pen needle, diabetic 32 gauge x #30 ea 02/20/20/32 (BD Ultra-Fine Lou Pen Needle) ofloxacin 0.3 % ear drops 10 drp otic (ears) BID 14 days 12/13/20 #280 mL pen needle, diabetic 32 gauge x 1 ea miscellaneous .COMPLEX #150 ea 03/16/21/32 (BD Lou 2nd Gen Pen Needle) Humalog KwikPen Insulin 100 See Rx Instructions subcut QID 30 04/28/21 unit/mL subcutaneous (insulin days #30 mL lispro) dulaglutide 1.5 mg/0.5 mL 1.5 mg (0.5 mL) subcut QWEEK 28 04/28/21 subcutaneous pen injector days #2 mL (Trulicity) dronedarone 400 mg tablet (Multaq) 400 mg PO BID #180 caps 07/03/21 rivaroxaban 20 mg tablet (Xarelto) 20 mg PO DAILY #90 caps 07/05/21 empagliflozin 25 mg tablet 25 mg PO QAM #30 tabs 08/07/21 (Jardiance) rosuvastatin 20 mg tablet 20 mg PO DAILY #90 tabs 08/22/21 metformin 1,000 mg tablet 1,000 mg PO BID #180 tabs 08/23/21 insulin degludec 200 unit/mL (3 86 unit (0.43 mL) subcut DAILY 30 09/18/21 mL) subcutaneous pen (Tresiba days #12.9 mL FlexTouch U-200 insulin) omeprazole 20 mg capsule,delayed 20 mg PO DAILY 90 days #90 caps 09/20/21 release flash glucose sensor (FreeStyle 1 ea topical .COMPLEX #2 caps 10/27/21 Iris 14 Day Sensor kit) lisinopril 20 mg tablet 20 mg PO DAILY #30 tabs 12/13/21 ondansetron HCl 4 mg tablet 4 mg PO Q6H PRN nausea and 01/07/22 vomiting 2 days #8 tabs tramadol 50 mg tablet 50 mg PO TID PRN pain 3 days #9 01/07/22 tabs acetaminophen 300 mg-codeine 15 mg 1 tab PO Q6H PRN pain #20 tabs 01/09/22 tablet lipase 16,800-protease 1 cap PO TID #30 caps 01/09/22 56,800-amylase 98,400 unit capsule, delayed rel (Pancreaze) sucralfate 1 gram tablet 1 g PO TID #60 tabs 01/09/22 Allergies Allergy/AdvReac Type Severity Reaction Status Date / Time acetaminophen [From PERCOCET] Allergy Intermediate CONSTIPATED Verified 12/01/21 16:11 oxycodone [From PERCOCET] Allergy Intermediate CONSTIPATED Verified 12/01/21 16:11 Review of Systems Review of Systems Yes all other systems are reviewed and are negative [facility] Past Medical History Medical History Afib BMI 33.0-33.9,adult CAD (coronary artery disease) Diabetic polyneuropathy Diabetic retinopathy Essential hypertension GERD (gastroesophageal reflux disease) Hearing loss Hyperlipidemia LDL goal <100 Insomnia Obesity (BMI 30-39.9) On anticoagulant therapy Paroxysmal atrial fibrillation Pure hypercholesterolemia 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 Vitamin D deficiency Surgical History History of arthroscopy of right shoulder History of cataract surgery History of eye surgery History of inguinal hernia repair History of laparoscopic cholecystectomy Family History Family History Father Diabetes Mother Alzheimers disease Bone cancer Sister Heart failure Sister Hypertension Sister Diabetes Kidney failure Social History Social History Household Members: Spouse Housing: House Alcohol intake: current Alcohol intake frequency: holidays/special occasions only Alcohol type: beer Patient Tobacco Use Status: Former Tobacco user Quit Date: 35 years ago Years Smoked: 8 years Second Hand Smoke Exposure: Yes Use of substances other than those prescribed or required for medical reasons: No Advance Directives: No service: No Current occupational status: employed 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 Oriented X3. No acute distress. Eyes: PERRLA, No Nystagmus ENT: Pharynx normal. Oral Mucosa moist Neck: Normal inspection. Neck supple. CVS: Normal heart rate and rhythm. Pulses normal. Respiratory: No respiratory distress. Equal air entry bilateral, no wheezing /rales/rhonchi Abdomen: Soft and tender epigastric with abdomen area no rebound tenderness or guarding Bowel sounds are present, no mass palpable, no CVA tenderness Skin: Skin warm and dry. Normal skin color. Normal skin turgor. Extremities: No lower extremity edema. No calf tenderness Neuro: Oriented X 3. No motor deficit. No sensory deficit.No cerebellar signs , cranial nerves II-XII intact MDM - Abdominal Pain MDM Narrative Medical decision making narrative: Patient with normal lipase level stable labs tramadol did not work will give Tylenol with codeine from pancreatic tablets advised to have clear liquids report to the ER if pain continued to get worse patient triglyceride level was 314 on 08/20 and patient is on rosuvastatin Differential Diagnosis Differential diagnosis: Likely pancreatitis Medical Records Attestation: I reviewed the patient's medical records. Lab Data Attestation: I reviewed the patient's lab results. Result diagrams: 01/08/22 18:06 01/08/22 18:06 Labs: Lab Results 01/08/22 01/08/22 Range/Units 18:06 18:06 WBC 8.6 (4.8-10.8) X10*3/uL RBC 4.29 L (4.60-5.80) X10*6/uL Hgb 12.2 L (14.0-18.0) g/dl Hct 36.0 L (42.0-52.0) % MCV 83.9 (80.0-98.0) fL MCH 28.4 (27.0-33.0) pg MCHC 33.9 (31.0-36.0) g/dl RDW 12.5 (11.0-16.0) % Plt Count 170 (160-400) X10*3/uL MPV 11.1 (9.4-12.4) fL Immature Gran % (Auto) 0.2 (0.0-0.4) % Neut % (Auto) 75.3 H (45-73) % Lymph % (Auto) 12.4 L (20-40) % Cook % (Auto) 8.2 (2-11) % Eos % (Auto) 3.4 (0-4) % Baso % (Auto) 0.5 (0-2) % Lymph # (Auto) 1.1 L (1.2-4.9) X10*3/uL Cook # (Auto) 0.7 (0.1-1.2) X10*3/uL Eos # (Auto) 0.3 (0.0-0.4) X10*3/uL Baso # (Auto) 0.0 (0.0-0.2) X10*3/uL Abs Immat Gran (auto) 0.02 (0.00-0.03) X10*3/uL Absolute Neuts (auto) 6.5 (2.0-8.3) x10*3/uL Absolute Nucleated RBC 0.000 (0.0-0.012) X10*3/uL Nucleated RBC % (auto) 0.0 (0.0-0.2) /100WBC Sodium 140 (135-145) mmol/L Potassium 4.4 (3.3-5.1) mmol/L Chloride 105 (96-108) mmol/L Carbon Dioxide 25 (22-29) mmol/L Anion Gap 14 (12-20) BUN 17 H (9-16) mg/dL Creatinine 1.02 (0.5-1.4) mg/dL Estim Creat Clear Calc 80.2 Estimated GFR > 60 Random Glucose 138 H D (60-115) mg/dL Calcium 9.0 (8.4-10.2) mg/dL Total Bilirubin 0.4 (0.0-1.0) mg/dL Direct Bilirubin 0.2 (0.0-0.5) mg/dL AST 27 (5-37) U/L ALT 26 (0-40) U/L Alkaline Phosphatase 105 (39-117) U/L Total Protein 7.0 (6.5-8.0) g/dL Albumin 4.1 (3.5-5.0) g/dL Lipase 45 (8-78) U/L Discharge Plan Discharge Clinical Impression: Pancreatitis, acute Patient Disposition: Home, Self-Care Instructions: Pancreatitis (ED) Additional Instructions: Drink plenty of fluids Pain medication as prescribed Continue Prilosec Will add sucralfate in the regimen Prescriptions: New acetaminophen-codeine 300-15 mg tablet 1 tab PO Q6H PRN (Reason: pain) Qty: 20 0RF sucralfate 1 gram tablet 1 g PO TID Qty: 60 0RF Pancreaze 16,800-56,800- 98,400 unit capsule,delayed release(DR/EC) 1 cap PO TID Qty: 30 0RF Rx Instructions: administer with meals and/or snacks No Action (DME) pen needle, diabetic [BD Ultra-Fine Lou Pen Needle] 32 gauge x 5/32 needle See Rx Instructions .ROUTE .MEDSUPPLY Qty: 30 1RF Rx Instructions: As directed once aday pen needle, diabetic [BD Lou 2nd Gen Pen Needle] 32 gauge x 5/32 needle 1 ea miscellaneous .COMPLEX Qty: 150 11RF Rx Instructions: 1 ea miscellaneous five times a day; Multaq 400 mg tablet 400 mg PO BID Qty: 180 3RF Xarelto 20 mg tablet 20 mg PO DAILY Qty: 90 3RF Jardiance 25 mg tablet 25 mg PO QAM Qty: 30 6RF rosuvastatin 20 mg tablet 20 mg PO DAILY Qty: 90 3RF metformin 1,000 mg tablet 1,000 mg PO BID Qty: 180 2RF Tresiba FlexTouch U-200 200 unit/mL (3 mL) insulin pen 86 unit subcut DAILY 30 Days Qty: 12.9 4RF omeprazole 20 mg capsule,delayed release(DR/EC) 20 mg PO DAILY 90 Days Qty: 90 1RF FreeStyle Iris 14 Day Sensor Kit 1 ea topical .COMPLEX Qty: 2 6RF Rx Instructions: 1 ea topical every 14 days; lisinopril 20 mg tablet 20 mg PO DAILY Qty: 30 3RF ofloxacin 0.3 % drops 10 drp otic (ears) BID 14 Days Qty: 280 0RF tramadol 50 mg tablet 50 mg PO TID PRN (Reason: pain) 3 Days Qty: 9 0RF Rx Instructions: side effect is drowsiness. Do not take while driving or at work. ondansetron HCl 4 mg tablet 4 mg PO Q6H PRN (Reason: nausea and vomiting) 2 Days Qty: 8 0RF trazodone 50 mg tablet 25 mg PO BEDTIME insulin lispro [Humalog KwikPen Insulin] 100 unit/mL insulin pen See Rx Instructions subcut QID 30 Days Qty: 30 3RF Rx Instructions: breakfast 16 units, Lunch 26 units, Dinner 28 units, Snack 10 units subcut 4 times a day; No substitutions. Trulicity 1.5 mg/0.5 mL pen injector 1.5 mg subcut QWEEK 28 Days Qty: 2 6RF
--- NOTE | 2022-01-09 00:27 | PC.NURSE ---
Pt. on secured entrance monitor at this time
[2022-01-09 00:30] VITALS: BP 154/73; PULSE 72; RESP 22; TEMP 36.8; O2SAT 94
[2022-01-09] MEDS: 0.9 % Sodium Chloride 1,000 ML 999 ML IV (00:42)
[2022-01-09] MEDS: ondansetron HCL 4 MG/2 ML VIAL IVPUSH (00:46)
[2022-01-09] MEDS: Morphine Sulfate 4 MG/ML CARTRIDGE IVPUSH (00:46)
--- NOTE | 2022-01-09 00:48 | PC.NURSE ---
Zofran and Morphine administered to pt. Call light within reach.
[2022-01-09 02:30] VITALS: BP 145/71; PULSE 74; RESP 20; O2SAT 95
== END 2022-01-09 02:50 | disposition home or self-care (01) ==
PROVIDERS: Emergency Provider Internal Medicine; PCP Internal Medicine
DX: K85.90 Acute pancreatitis without necrosis or infection, unspecified (principal); R11.2 Nausea with vomiting, unspecified; I10 Essential (primary) hypertension; E11.9 Type 2 diabetes mellitus without complications; E78.00 Pure hypercholesterolemia, unspecified; I48.0 Paroxysmal atrial fibrillation; K21.9 Gastro-esophageal reflux disease without esophagitis; E66.9 Obesity, unspecified; Z68.32 Body mass index [BMI] 32.0-32.9, adult; Z87.891 Personal history of nicotine dependence; Z79.4 Long term (current) use of insulin; Z79.01 Long term (current) use of anticoagulants; Z79.02 Long term (current) use of antithrombotics/antiplatelets; Z79.899 Other long term (current) drug therapy
CPT/HCPCS: 36415; 80048; 80076; 83690; 85025; 96361; 96374; 96375; 99284; J2270; J2405

== ENCOUNTER 2022-01-31 07:13 | Day surgery (SDC) | payer OTHER, SELFPAY ==
--- NOTE | 2022-01-30 10:57 | HO.ANESPROP2 ---
Documented by User: Lenora Santizo NP 01/30/22 10:59 HPI - Anesthesia Eval Consult details Narrative: 61yo M for Upper Endoscopy and Colonoscopy Xarelto for afib 12/2021 [facility] [place] [facility] with pancreatitis. Per PCP f/u, resolved Stable at yearly cardiology visit 05/2021 [facility] Active Problems Active Problems: All Active Problems (Updated 01/15/22 @ 13:33 by Patrick Eden MD) Benign prostatic hyperplasia (BPH) with straining on urination (Acute) Allergic rhinitis (Acute) Pancreatitis (Acute) Tubular adenoma of colon (Acute) Hearing loss in right ear (Acute) Decreased urine stream (Acute) Obesity (BMI 30-39.9) (Acute) Insomnia (Acute) GERD (gastroesophageal reflux disease) (Acute) Vitamin D deficiency (Acute) Diabetic retinopathy (Acute) Pure hypercholesterolemia (Acute) Diabetic polyneuropathy (Acute) Paroxysmal atrial fibrillation (Acute) CAD (coronary artery disease) (Acute) Type 2 diabetes mellitus with diabetic polyneuropathy (Acute) Type 2 diabetes mellitus with proteinuria (Acute) Essential hypertension (Acute) Hyperlipidemia LDL goal <100 (Acute) BMI 33.0-33.9,adult (Acute) Past Medical History Medical History Afib Allergic rhinitis BMI 33.0-33.9,adult CAD (coronary artery disease) Diabetic polyneuropathy Diabetic retinopathy Essential hypertension GERD (gastroesophageal reflux disease) Hearing loss Hyperlipidemia LDL goal <100 Insomnia Obesity (BMI 30-39.9) On anticoagulant therapy Paroxysmal atrial fibrillation Pure hypercholesterolemia 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 Vitamin D deficiency Family History Family History Father Diabetes Mother Alzheimers disease Bone cancer Sister Heart failure Sister Hypertension Sister Diabetes Kidney failure Surgical History Surgical History History of arthroscopy of right shoulder History of cataract surgery History of eye surgery History of inguinal hernia repair History of laparoscopic cholecystectomy Social History Social History Household Members: Spouse Housing: House Alcohol intake: current Alcohol intake frequency: a few times a month Alcohol type: beer Patient Tobacco Use Status: Former Tobacco user Quit Date: 35 years ago Tobacco use type: Cigarette Years Smoked: 7 Smoked in Last 30 Days: No Second Hand Smoke Exposure: Yes Use of substances other than those prescribed or required for medical reasons: No Are you DNR?: No Advance Directives: No Advance Directives Information Provided: Yes service: No Current occupational status: employed 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 Rate : 070 BPM ? ? Atrial Rate : 070 BPM ?? P-R Int : 140 ms? QRS Dur : 084 ms ? ? QT Int : 404 ms ? ? ? P-R-T Axes : 091 037 070 degrees ?? QTc Int : 436 ms ? Normal sinus rhythm Normal ECG When compared with ECG of 19-MAR-2019 22:17, No significant change was found ECHO 05/2021 Conclusions: - The left ventricular systolic function is normal.? The ? calculated ejection fraction is 61% by biplane method.? There is no evidence of regional wall motion abnormalities. ? - No obvious valvular pathology seen on this study.? 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 Vitamin D deficiency Functional capacity: independent ambulation Family History Family History Father Diabetes Mother Alzheimers disease Bone cancer Sister Heart failure Sister Hypertension Sister Diabetes Kidney failure Family history of problems with anesthesia: No Surgical History Surgical History History of arthroscopy of right shoulder History of cataract surgery History of eye surgery History of inguinal hernia repair History of laparoscopic cholecystectomy History of Problems with Anesthesia: No Social History Social History Household Members: Spouse Housing: House Alcohol intake: current Alcohol intake frequency: a few times a month Alcohol type: beer Patient Tobacco Use Status: Former Tobacco user Quit Date: 35 years ago Tobacco use type: Cigarette Years Smoked: 7 Smoked in Last 30 Days: No Second Hand Smoke Exposure: Yes Use of substances other than those prescribed or required for medical reasons: No Are you DNR?: No Advance Directives: No Advance Directives Information Provided: Yes service: No Current occupational status: employed 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[employer] Cognitive needs: No Hearing needs: No Vision needs: Yes Meds Allergies Allergy/AdvReac Type Severity Reaction Status Date / Time acetaminophen [From PERCOCET] Allergy Intermediate CONSTIPATED Verified 01/31/22 08:05 oxycodone [From PERCOCET] Allergy Intermediate CONSTIPATED Verified 01/31/22 08:05 Home Medications Medication Instructions Recorded Confirmed Last Taken Type trazodone 50 mg tablet 25 mg PO BEDTIME 11/08/20 01/15/22 Unknown History Exam Airway Mallampati Class: II Denture: Upper Loose/Missing/Broken Teeth: Yes Heart: S1,S2 Lungs: b/l breath sounds Assessment and Plan Assessment Anesthesia Assessment: Anesthesia Plan Discussed Final Anesthetic Review Family History of Problems with Anesthesia: No History of Problems with Anesthesia: No NPO: Yes ASA Class: III Final Preanesthetic Review: Meds/Allgs Chart Reviewed, Consent Obtained/Reviewed and Anes Risks/Benef Reviewed Patient Risk: Intermediate Procedure Risk: Intermediate Anesthetic Plan Anesthetic Plan: MAC: Disposition: Standard PACU
[2022-01-31 07:52] VITALS: BMI 32.3
[2022-01-31 07:58] VITALS: BP 146/71; PULSE 92; RESP 16; TEMP 36.5; O2SAT 99
[2022-01-31 08:01] LABS: Glucose, Whole Blood 80 mg/dL (60-115)
[2022-01-31] MEDS: Lactated Ringers 1,000 ML 100 ML IVCONT (08:11)
--- NOTE | 2022-01-31 08:22 | MHC.SHP ---
Pre-Procedural Eval Section A Date of Service: 01/31/22 Section B Chief Complaint: screening,reflux Details of Present Illness: see H&P Relevant Family History (Specify if Yes): No Relevant Social History: None Present Medications: see Short Stay Collaborative assessment Medical History: No relevant PMH History of Previous Operations: No relevant previous surgery Allergies: Allergies Allergy/AdvReac Type Severity Reaction Status Date / Time acetaminophen [From PERCOCET] Allergy Intermediate CONSTIPATED Verified 01/31/22 08:05 oxycodone [From PERCOCET] Allergy Intermediate CONSTIPATED Verified 01/31/22 08:05 Review of Systems Sugical H&P ROS: Negative: Constitution, Cardiovascular, Respiratory, Neurological, Psychiatric, Hem-Onc, Allergic/Immunologic, Gastrointestinal, Genitourinary, Musculoskeletal, Integumentary, Endocrine and Eyes/Ears/Nose/Throat Exam Surgical H&P Exam: Normal: HEENT, Normal: Heart, Normal: Lungs, Normal: Extremities, Normal: Abdomen, Normal: Skin and Normal: Neurological Plan Diagnosis/Plan: Unchanged I have reviewed the history and physical and performed a pertinent physical examination on my patient. No changes have occurred unless specified.
[2022-01-31 09:06] VITALS: BP 95/35; PULSE 70; RESP 18; TEMP 36.9; O2SAT 96
--- NOTE | 2022-01-31 09:12 | PM.OP ---
Brief Operative Note Date of Service: 01/31/22 Pre-op diagnosis: gerd, screening Post-op diagnosis: same Surgeon: Hector Pepe Anesthesia: MAC Was an Online Merchandising Manager used for this Procedure?: No Estimated blood loss (mL): 2 Pathology: other Condition: stable Disposition: PACU
[2022-01-31 09:21] VITALS: BP 120/44; PULSE 79; RESP 18; TEMP 36.9; O2SAT 96
--- NOTE | 2022-01-31 09:46 | OP_ITS ---
SURGEON: Hector Pepe MD INDICATIONS: 1. Gastroesophageal reflux disease. 2. Colon cancer screening. PREOPERATIVE DIAGNOSIS: POSTOPERATIVE DIAGNOSIS: PROCEDURE PERFORMED: ESTIMATED BLOOD LOSS: COMPLICATIONS: ANESTHESIA: ASSISTANTS: SPECIMENS: PROCEDURES: Upper endoscopy with biopsy, colonoscopy to the cecum. MEDICATIONS: Monitored anesthesia care. PROCEDURE DESCRIPTION: The procedure was performed on 01/31/2022. History and physical was performed. The risks and benefits of the procedure were explained to the patient. Informed consent was obtained. The patient was placed in the left lateral decubitus position. The Olympus video gastroscope was introduced into the esophagus, stomach, and duodenum. Examination was performed and the scope was removed. He was repositioned for colonoscopy. A digital rectal exam was performed and was found to be normal. The Olympus pediatric video colonoscope was introduced into the rectum and advanced to the cecum without difficulty. The cecum was identified by transillumination, palpation, and identification of ileocecal valve. Examination was performed and the scope was removed. He tolerated both procedures well and sent to recovery area in stable condition. FINDINGS: UPPER ENDOSCOPY: 1. Esophagus: The esophagus showed an irregular EG junction. This was biopsied. There was no esophagitis. 2. Stomach: Stomach showed no evidence of masses, ulcers, or polyps. Antral biopsies were obtained to rule out H. pylori. 3. Duodenum: The bulb and second portion were normal. COLONOSCOPY: The terminal ileum was not examined. The exam was extremely limited by large amount of undigested food and liquid stool. This was washed and suctioned, but small polyps could have been missed. No polyps were identified. Retroflexed examination showed some small internal hemorrhoids. IMPRESSION: 1. Gastroesophageal reflux disease. 2. Limited colonoscopy, no lesions identified. RECOMMENDATIONS: 1. Follow up the biopsy results. 2. The colonoscopy exam is inadequate for screening and should be repeated with a different prep in 6 to 12 months. MD TITI Vazquez/LYNDSEY / [id number] MTDHema
== END 2022-01-31 09:40 | disposition home or self-care (01) ==
PROVIDERS: PCP Internal Medicine; Visit Provider Internal Medicine Gastroenterology
PROC: (CPT 45378; principal; 2022-01-31 08:30)
DX: Z12.11 Encounter for screening for malignant neoplasm of colon (principal); Z86.010 Personal history of colon polyps; K64.8 Other hemorrhoids; K21.9 Gastro-esophageal reflux disease without esophagitis; I48.91 Unspecified atrial fibrillation; E78.5 Hyperlipidemia, unspecified; E11.9 Type 2 diabetes mellitus without complications; Z79.4 Long term (current) use of insulin; Z90.49 Acquired absence of other specified parts of digestive tract; Z79.899 Other long term (current) drug therapy
CPT/HCPCS: 45378; 43239; 82947; 88305; 88342; J3010

== ENCOUNTER → 2022-02-06 15:19 | Outpatient (BNVA) | payer OTHER, SELFPAY | PROVIDERS: PCP Internal Medicine; Referring Provider Internal Medicine; Visit Provider Internal Medicine Cardiovascular Disease | DX: I48.0 Paroxysmal atrial fibrillation (principal) | CPT/HCPCS: 93005 ==

== ENCOUNTER 2022-03-10 07:23 | Outpatient (REF) | payer OTHER, SELFPAY ==
[2022-03-10 07:45] LABS: MANUAL DIFF FLAG NO
[2022-03-10 08:12] LABS: Basophils Percent Auto 0.6 % (0-2); Eosinophils Absolute Auto 0.1 X10*3/uL (0.0-0.4); Eosinophils Percent Auto 2.6 % (0-4); Hematocrit 39.8 % (42.0-52.0); Hemoglobin 13.4 g/dl (14.0-18.0); Imm Gran Abs Auto 0.01 X10*3/uL (0.00-0.03); Imm Gran Pct Auto 0.2 % (0.0-0.4); Lymphocytes Absolute Auto 1.3 X10*3/uL (1.2-4.9); Lymphocytes Percent Auto 25.1 % (20-40); Mean Corpuscular HGB Conc 33.7 g/dl (31.0-36.0); Mean Corpuscular Hemoglobin 27.7 pg (27.0-33.0); Mean Corpuscular Volume 82.4 fL (80.0-98.0); Mean Platelet Volume 11.2 fL (9.4-12.4); Monocytes Absolute Auto 0.5 X10*3/uL (0.1-1.2); Monocytes Percent Auto 9.4 % (2-11); Neutrophils Absolute Auto 3.1 x10*3/uL (2.0-8.3); Neutrophils Percent Auto 62.1 % (45-73); Platelet Count 161 X10*3/uL (160-400); Red Blood Count 4.83 X10*6/uL (4.60-5.80); Red Cell Distribution Width 12.3 % (11.0-16.0)
[2022-03-10 08:32] LABS: Estimated Average Glucose 177 mg/dL; Hemoglobin A1c % 7.8 %
[2022-03-10 09:00] LABS: Alanine Aminotransferase 32 U/L (0-40); Albumin Level 4.3 g/dL (3.5-5.0); Alkaline Phosphatase 79 U/L (39-117); Anion Gap 13 (12-20); Aspartate Amino Transferase 31 U/L (5-37); Bilirubin Total 0.4 mg/dL (0.0-1.0); Blood Urea Nitrogen 15 mg/dL (9-16); Calcium 9.6 mg/dL (8.4-10.2); Carbon Dioxide 25 mmol/L (22-29); Chloride 109 mmol/L (96-108); Cholesterol 113 mg/dL; Estimated Glomerular Filt Rate > 60; Glucose Fasting 150 mg/dL (60-99); HDL Cholesterol 35 mg/dL; LDL Cholesterol Calculated 39 mg/dl; Lipase 24 U/L (8-78); Potassium 5.1 mmol/L (3.3-5.1); Sodium 142 mmol/L (135-145); TSH reflex Free T4 0.88 uIU/mL (0.32-4.0); Total Protein 7.3 g/dL (6.5-8.0); Triglycerides 196 mg/dL; Vitamin D 25-OH Total 19.6 ng/mL (>30)
[2022-03-10 10:35] LABS: Appearance Urine Clear; Color Urine Yellow; Glucose Urine UA >=1000 mg/dL (Negative); Leukocyte Esterase Urine Negative (Negative); Nitrite Urine Negative (Negative); Specific Gravity - Urine >= 1.030 (1.005-1.025); UMIC TRIGGER UACC YES; Urine Blood Negative (Negative); Urine Ketones Negative (Negative); Urine Protein Negative (Neg-Trace)
[2022-03-10 10:42] LABS: Bacteria Urine None Seen (None Seen); Hyaline Casts Urine 0-2 /LPF (0-2); RBC Urine 0-2 /HPF (0-2); Squamous Epithelial Cell Urine 0-2 /HPF (0-2); WBC Urine 0-5 /HPF (0-5)
[2022-03-10 11:42] LABS: Creatinine Urine 58.99 mg/dL; Microalbum/Creatinine Ratio Ur 84.7 ug/mg cr
== END 2022-03-10 07:24 | disposition home or self-care (01) ==
LOC: HO.LAB 07:23
PROVIDERS: PCP Internal Medicine; Visit Provider Internal Medicine
DX: K85.90 Acute pancreatitis without necrosis or infection, unspecified (principal); I10 Essential (primary) hypertension; E55.9 Vitamin D deficiency, unspecified; E78.00 Pure hypercholesterolemia, unspecified; E11.9 Type 2 diabetes mellitus without complications
CPT/HCPCS: 36415; 80053; 80061; 81001; 82043; 82306; 83036; 83690; 84443; 85025

== ENCOUNTER 2022-04-27 05:53 | Day surgery (SDC) | payer OTHER, SELFPAY ==
--- NOTE | 2022-04-26 11:56 | P.CONAN_ITS ---
Documented by User: Lenora Santizo NP 04/26/22 12:13 HPI - Anesthesia Eval Consult details Narrative: 62yo M for Colonoscopy Xarelto for afib s/p EGD, [place] 01/2022 with MAC (poor prep) 12/2021 [facility] [place] [facility] with pancreatitis. Per PCP f/u, resolved Stable at yearly cardiology visit 05/2021 [facility] Active Problems Active Problems: All Active Problems (Updated 01/15/22 @ 13:33 by Patrick Eden MD) Benign prostatic hyperplasia (BPH) with straining on urination (Acute) Allergic rhinitis (Acute) Pancreatitis (Acute) Tubular adenoma of colon (Acute) Hearing loss in right ear (Acute) Decreased urine stream (Acute) Obesity (BMI 30-39.9) (Acute) Insomnia (Acute) GERD (gastroesophageal reflux disease) (Acute) Vitamin D deficiency (Acute) Diabetic retinopathy (Acute) Pure hypercholesterolemia (Acute) Diabetic polyneuropathy (Acute) Paroxysmal atrial fibrillation (Acute) CAD (coronary artery disease) (Acute) Type 2 diabetes mellitus with diabetic polyneuropathy (Acute) Type 2 diabetes mellitus with proteinuria (Acute) Essential hypertension (Acute) Hyperlipidemia LDL goal <100 (Acute) BMI 33.0-33.9,adult (Acute) Past Medical History Medical History Afib Allergic rhinitis BMI 33.0-33.9,adult CAD (coronary artery disease) Diabetic polyneuropathy Diabetic retinopathy Essential hypertension GERD (gastroesophageal reflux disease) Hearing loss Hyperlipidemia LDL goal <100 Insomnia Obesity (BMI 30-39.9) On anticoagulant therapy Paroxysmal atrial fibrillation Pure hypercholesterolemia 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 Vitamin D deficiency Family History Family History Father Diabetes Mother Alzheimers disease Bone cancer Sister Heart failure Sister Hypertension Sister Diabetes Kidney failure Family history of problems with anesthesia: No Surgical History Surgical History (Updated 04/27/22 @ 06:15 by Kristy Granger) H/O colonoscopy H/O endoscopy History of arthroscopy of right shoulder History of cataract surgery History of eye surgery History of inguinal hernia repair History of laparoscopic cholecystectomy History of Problems with Anesthesia: No Social History Social History Household Members: Spouse Housing: House Alcohol intake: current Alcohol intake frequency: holidays/special occasions only Alcohol type: beer Patient Tobacco Use Status: Former Tobacco user Quit Date: 1987 Tobacco use type: Cigarette Cigarette Packs Per Day: 1.5 Cigarettes Per Day: 30.0 Years Smoked: 25 Smoked in Last 30 Days: No Second Hand Smoke Exposure: Yes Use of substances other than those prescribed or required for medical reasons: No Are you DNR?: No Advance Directives: No Advance Directives Information Provided: Yes service: No Current occupational status: employed 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[employer] Cognitive needs: No Hearing needs: No Vision needs: Yes Meds Allergies Allergy/AdvReac Type Severity Reaction Status Date / Time acetaminophen [From PERCOCET] Allergy Intermediate CONSTIPATED Verified 04/27/22 06:15 oxycodone [From PERCOCET] Allergy Intermediate CONSTIPATED Verified 04/27/22 06:15 Home Medications Medication Instructions Recorded Confirmed Last Taken Type insulin degludec 200 unit/mL (3 86 unit subcut BEDTIME 04/27/22 04/27/22 04/25/22 History mL) subcutaneous pen (Tresiba FlexTouch U-200 insulin) Exam Exam Date and Time: April 26, 2022 1156 Pertinent Lab Results Pertinent Lab Results: Laboratory Tests 03/10/22 03/10/22 07:42 07:42 WBC 5.0 Hgb 13.4 L Hct 39.8 L Plt Count 161 Sodium 142 Potassium 5.1 Chloride 109 H Carbon Dioxide 25 BUN 15 Creatinine 1.12 Narrative Narrative: EKG 12/2021 Vent. Rate : 070 BPM ? ? Atrial Rate : 070 BPM ?? P-R Int : 140 ms? QRS Dur : 084 ms ? ? QT Int : 404 ms ? ? ? P-R-T Axes : 091 037 070 degrees ?? QTc Int : 436 ms ? Normal sinus rhythm Normal ECG When compared with ECG of 19-MAR-2019 22:17, No significant change was found ECHO 05/2021 Conclusions: - The left ventricular systolic function is normal.? The ? calculated ejection fraction is 61% by biplane method.? There is no evidence of regional wall motion abnormalities. ? - No obvious valvular pathology seen on this study.? Assessment and Plan Assessment Anesthesia Assessment: Chart Reviewed Final Anesthetic Review Family History of Problems with Anesthesia: No History of Problems with Anesthesia: No Documented by User: Ozzie Renner MD 04/27/22 13:24 [facility] Past Medical History Medical History Afib Allergic rhinitis BMI 33.0-33.9,adult CAD (coronary artery disease) Diabetic polyneuropathy Diabetic retinopathy Essential hypertension GERD (gastroesophageal reflux disease) Hearing loss Hyperlipidemia LDL goal <100 Insomnia Obesity (BMI 30-39.9) On anticoagulant therapy Paroxysmal atrial fibrillation Pure hypercholesterolemia 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 Vitamin D deficiency Family History Family History Father Diabetes Mother Alzheimers disease Bone cancer Sister Heart failure Sister Hypertension Sister Diabetes Kidney failure Surgical History Surgical History (Updated 04/27/22 @ 06:15 by Kristy Granger) H/O colonoscopy H/O endoscopy History of arthroscopy of right shoulder History of cataract surgery History of eye surgery History of inguinal hernia repair History of laparoscopic cholecystectomy Social History Social History Household Members: Spouse Housing: House Alcohol intake: current Alcohol intake frequency: holidays/special occasions only Alcohol type: beer Patient Tobacco Use Status: Former Tobacco user Quit Date: 1987 Tobacco use type: Cigarette Cigarette Packs Per Day: 1.5 Cigarettes Per Day: 30.0 Years Smoked: 25 Smoked in Last 30 Days: No Second Hand Smoke Exposure: Yes Use of substances other than those prescribed or required for medical reasons: No Are you DNR?: No Advance Directives: No Advance Directives Information Provided: Yes service: No Current occupational status: employed 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[employer] Cognitive needs: No Hearing needs: No Vision needs: Yes Meds Allergies Allergy/AdvReac Type Severity Reaction Status Date / Time acetaminophen [From PERCOCET] Allergy Intermediate CONSTIPATED Verified 04/27/22 06:15 oxycodone [From PERCOCET] Allergy Intermediate CONSTIPATED Verified 04/27/22 06:15 Home Medications Medication Instructions Recorded Confirmed Last Taken Type insulin degludec 200 unit/mL (3 86 unit subcut BEDTIME 04/27/22 04/27/22 04/25/22 History mL) subcutaneous pen (Tresiba FlexTouch U-200 insulin) Exam Airway Mallampati Class: IV TM Dist: >3cm Neck ROM: Full Denture: Upper Loose/Missing/Broken Teeth: Yes Heart: S1,S2 Lungs: b/l breath sounds Assessment and Plan Assessment Anesthesia Assessment: Anesthesia Plan Discussed Final Anesthetic Review NPO: Yes ASA Class: III Final Preanesthetic Review: Meds/Allgs Chart Reviewed, Consent Obtained/Reviewed and Anes Risks/Benef Reviewed Patient Risk: Intermediate Procedure Risk: Intermediate Anesthetic Plan Anesthetic Plan: MAC: Disposition: Standard PACU
[2022-04-27 06:30] VITALS: BP 133/70; PULSE 90; RESP 16; TEMP 36.3; O2SAT 97; BMI 31.9
[2022-04-27] MEDS: Lactated Ringers 1,000 ML 100 ML IVCONT (06:40)
[2022-04-27 06:41] LABS: Glucose, Whole Blood 86 mg/dL (60-115)
--- NOTE | 2022-04-27 06:42 | PC.NURSE ---
Patients blood sugar results in preop 86. States he is asymptomatic. Dr. Meyer made aware. No new orders at this time.
[2022-04-27 08:41] VITALS: BP 105/56; PULSE 79; RESP 17; TEMP 36.7; O2SAT 99
--- NOTE | 2022-04-27 08:41 | P.BOP_ITS ---
Brief Operative Note Date of Service: 04/27/22 Pre-op diagnosis: Screening Post-op diagnosis: other (Diverticulosis) Procedure: Colonoscopy to the cecum and TI Surgeon: Alex Valdovinos Anesthesia: MAC Was an Chinese Herbalist used for this Procedure?: No Estimated blood loss (mL): 0 Pathology: none sent Condition: stable Disposition: PACU
[2022-04-27 08:45] LABS: Glucose, Whole Blood 84 mg/dL (60-115)
[2022-04-27 08:56] VITALS: BP 120/65; PULSE 79; RESP 18; TEMP 36.7; O2SAT 99
--- NOTE | 2022-04-30 10:25 | OP_ITS ---
SURGEON: Alex Valdovinos MD INDICATIONS: The patient presents for evaluation of colorectal cancer screening and personal history of a tubular adenoma of colon. Full consent was obtained from him for this, including risks of bleeding and perforation. PREOPERATIVE DIAGNOSIS: Colorectal cancer screening and personal history of a tubular adenoma of colon. POSTOPERATIVE DIAGNOSIS: Colorectal cancer screening and personal history of a tubular adenoma of the colon, diverticulosis, and internal hemorrhoids. PROCEDURE PERFORMED: Colonoscopy to the cecum and terminal ileum. ESTIMATED BLOOD LOSS: COMPLICATIONS: ANESTHESIA: Monitored anesthesia care. ASSISTANTS: SPECIMENS: INSTRUMENT: Olympus. PROCEDURE IN DETAIL: The patient was placed in the left lateral decubitus position. The digital rectal exam revealed no abnormalities. The Olympus video pediatric colonoscope was entered into the rectum and advanced easily to the cecum. Once in the cecum, I did identify normal appearing cecal pouch with appendiceal orifice and a normal-appearing ileocecal valve. The terminal ileum was cannulated and appeared normal. The scope was then drawn back in the colon. The entire cecum was well visualized and appeared normal, without any sign of mass or ulceration. The scope was slowly withdrawn, assessing all mucosal surfaces carefully. Preparation throughout the colon was very good, althouigh there some small areas of liquid stool, which were irrigated and suctioned away. I did not visualize any type of polyps, colitis, or angiodysplasia. There was a mild amount diverticulosis. In the rectum the scope was reflexed visualizing internal hemorrhoids, but no other pathology. The rectal mucosa appeared normal. The scope was straightened and withdrawn from with the patient. He tolerated the procedure well and was returned to recovery area in stable condition. IMPRESSION: 1. Diverticulosis. 2. Internal hemorrhoids. PLAN: Given his previous history of a tubular adenoma, I wound recommend a repeat colonoscopy in 5 years for surveillance. He will otherwise see me on a p.r.n. basis. Of note, he did a 2-day prep for this procedure, which worked very well and he will do that again in the future for his other colonoscopies. MD KACY Miramontes/LYNDSEY / [id number] SELAM
== END 2022-04-27 09:40 | disposition home or self-care (01) ==
PROVIDERS: PCP Internal Medicine; Visit Provider Internal Medicine
PROC: 0DJD8ZZ Inspection of Lower Intestinal Tract, Via Natural or Artificial Opening Endoscopic (ICD-10-PCS; CPT 45378; principal; 2022-04-27 07:30)
DX: Z12.11 Encounter for screening for malignant neoplasm of colon (principal); Z86.010 Personal history of colon polyps; K57.30 Diverticulosis of large intestine without perforation or abscess without bleeding; K64.8 Other hemorrhoids; K21.9 Gastro-esophageal reflux disease without esophagitis; I48.91 Unspecified atrial fibrillation; E78.5 Hyperlipidemia, unspecified; E11.9 Type 2 diabetes mellitus without complications; Z79.4 Long term (current) use of insulin; Z79.899 Other long term (current) drug therapy; Z88.8 Allergy status to other drugs, medicaments and biological substances
CPT/HCPCS: 45378; 82947

== ENCOUNTER → 2022-05-08 14:50 | Outpatient (BNVA) | payer OTHER, SELFPAY | PROVIDERS: PCP Internal Medicine; Referring Provider Internal Medicine; Visit Provider Internal Medicine Cardiovascular Disease | DX: I48.0 Paroxysmal atrial fibrillation (principal); I25.10 Atherosclerotic heart disease of native coronary artery without angina pectoris | CPT/HCPCS: 93005 ==

== ENCOUNTER 2022-05-24 06:58 | Emergency (ER) | payer OTHER, SELFPAY ==
--- NOTE | ~2022-05-24 | CT_ITS ---
EXAMINATION: CT ABDOMEN AND PELVIS WITH CONTRAST CLINICAL INFORMATION: Abdominal pain with nausea and vomiting. History of colon carcinoma COMPARISON: CT abdomen pelvis 01/07/2022 TECHNIQUE: Multidetector volumetric images were obtained from the superior aspect of the liver through the pubic symphysis following administration 85 mL of Omnipaque 350 intravenous contrast. Sagittal and coronal reformatted images were obtained on the technologist's workstation. Oral contrast: No This CT examination was performed using dose optimization techniques as appropriate, variously including the following: *Automated exposure control *Adjustment of mA and/or kV according to patient size (this includes techniques or standardized protocols for targeted exams where dose is matched to indication/reason for exam; i.e. extremities or head) *Use of iterative reconstruction technique DLP: 599 mGy-cm FINDINGS: LUNG BASES: Bibasilar atelectasis is seen with some mild traction bronchiectasis. Arch size normal. No pleural effusions. LIVER, GALLBLADDER, AND BILIARY TREE: Status post cholecystectomy with air in the biliary tree. The liver is normal in size and shape. No focal hepatic lesion or biliary ductal dilatation is present. PANCREAS: There is fatty infiltration of the pancreas. The previously seen peripancreatic edematous changes in the surrounding fat in the region of the pancreatic head have resolved SPLEEN: Spleen is enlarged at 14.8 cm in greatest cephalocaudad dimension, previously 13.2 cm ADRENAL GLANDS: Unremarkable. KIDNEYS AND URETERS: The kidneys are normal in size, shape, and attenuation. No hydronephrosis, hydroureter, or calculi seen. No perinephric stranding. BLADDER: Unremarkable. GASTROINTESTINAL TRACT: The small and large bowel are unremarkable. The appendix is unremarkable. ABDOMINAL WALL: Small right inguinal hernia seen containing fat and a small amount of fluid similar in appearance to 01/07/2022. Tiny periumbilical hernia containing only fat is again seen. LYMPH NODES: No retroperitoneal lymphadenopathy. VASCULAR: Unremarkable. PELVIC VISCERA: The prostate and seminal vesicles are unremarkable. OSSEOUS STRUCTURES: Degenerative changes are present in the spine most marked at L4-L5 and L5-S1. CT/CT abdomen pelvis w IV con IMPRESSION: 1. A cause for the patient's acute abdominal pain and nausea has not been found. 2. Incidental note made of cholecystectomy, increasing splenomegaly resolved peripancreatic inflammatory change, small right inguinal hernia, degenerative changes in the spine and tiny periumbilical hernia containing only fat. Fleischner guidelines were followed.
[2022-05-24 07:39] VITALS: BP 113/71; PULSE 105; RESP 16; TEMP 36.8; O2SAT 100; BMI 31.9
[2022-05-24 07:55] LABS: MANUAL DIFF FLAG NO
[2022-05-24 07:58] LABS: Basophils Percent Auto 0.3 % (0-2); Eosinophils Absolute Auto 0.1 X10*3/uL (0.0-0.4); Eosinophils Percent Auto 0.7 % (0-4); Hemoglobin 13.9 g/dl (14.0-18.0); Imm Gran Abs Auto 0.05 X10*3/uL (0.00-0.03); Imm Gran Pct Auto 0.4 % (0.0-0.4); Lymphocytes Absolute Auto 0.7 X10*3/uL (1.2-4.9); Lymphocytes Percent Auto 6.3 % (20-40); Mean Corpuscular HGB Conc 33.9 g/dl (31.0-36.0); Mean Corpuscular Hemoglobin 27.1 pg (27.0-33.0); Mean Corpuscular Volume 80.1 fL (80.0-98.0); Mean Platelet Volume 10.5 fL (9.4-12.4); Monocytes Absolute Auto 0.7 X10*3/uL (0.1-1.2); Monocytes Percent Auto 6.1 % (2-11); Neutrophils Absolute Auto 9.8 x10*3/uL (2.0-8.3); Neutrophils Percent Auto 86.2 % (45-73); Platelet Count 145 X10*3/uL (160-400); Red Blood Count 5.12 X10*6/uL (4.60-5.80); Red Cell Distribution Width 12.9 % (11.0-16.0); White Blood Count 11.4 X10*3/uL (4.8-10.8)
[2022-05-24 08:07] LABS: Appearance Urine Clear; Color Urine Yellow; Glucose Urine UA >=1000 mg/dL (Negative); Leukocyte Esterase Urine Negative (Negative); Nitrite Urine Negative (Negative); Specific Gravity - Urine >= 1.030 (1.005-1.025); UMIC TRIGGER UACC YES; Urine Blood Negative (Negative); Urine Ketones Negative (Negative); Urine Protein 30 (1+) mg/dL (Neg-Trace)
[2022-05-24 08:12] LABS: Bacteria Urine None Seen (None Seen); Hyaline Casts Urine 0-2 /LPF (0-2); RBC Urine 0-2 /HPF (0-2); Squamous Epithelial Cell Urine 0-2 /HPF (0-2); WBC Urine 0-5 /HPF (0-5)
[2022-05-24 08:12] LABS: COVID-19 Test Negative (Negative); IDNOW Serial# 16C4AD1C
[2022-05-24 08:15] LABS: Anion Gap 14 (12-20); Blood Urea Nitrogen 15 mg/dL (9-16); Calcium 9.5 mg/dL (8.4-10.2); Carbon Dioxide 25 mmol/L (22-29); Chloride 111 mmol/L (96-108); Creatinine Clr Calc Pharmacy 65.8; Estimated Glomerular Filt Rate > 60; Glucose Random 138 mg/dL (60-115); Sodium 145 mmol/L (135-145)
--- NOTE | 2022-05-24 08:46 | ED.GENADULT ---
HPI - General Adult General Chief complaint: Nausea/Vomiting/Diarrhea Stated complaint: diarrhea vomiting shaking Time Seen by Provider: 05/24/22 08:45 Source: patient Mode of arrival: ambulatory Limitations: no limitations History of Present Illness HPI narrative: 62 year-old male with pmHx of pancreatitis, BPH, obesity, DM II, atrial fibrillation, HTN, and HLD, c/o diarrhea, nausea, and abdominal pain x 1.5 weeks. He reports approximately four episodes of watery diarrhea daily that is foul smelling and void of blood or mucus. He also endorses a generalized umbilical pain that occurred yesterday but is no longer present today. Last regular bowel movement was 1.5 weeks ago. He reports a prior history of this several years ago for which he had to have a cholecystectomy. He also reports a colonoscopy three weeks ago that was normal and after which he had normal bowel movements prior to diarrhea. He endorses chills, rigors, but denies fever, weight loss, fatigue. He denies recent travel, sick contacts, recent abx use, or questionable foods. He denies epigastric pain, dysuria, or chest pain. Onset (ago): week(s) (1.5) Location: abdomen Radiation: non-radiation Severity: mild Severity scale (1-10): 3 Pain Consistency: constant Relieving factors: none Exacerbating factors: none Associated symptoms: nausea/vomiting Treatments prior to arrival: none Related Data Previous Rx's Medication Instructions Recorded pen needle, diabetic 32 gauge x #30 ea 02/20/20 (BD Ultra-Fine Lou Pen Needle) dronedarone 400 mg tablet (Multaq) 400 mg PO BID #180 caps 07/03/21 rosuvastatin 20 mg tablet 20 mg PO DAILY #90 tabs 08/22/21 metformin 1,000 mg tablet 1,000 mg PO BID #180 tabs 08/23/21 fluticasone propionate 50 2 spray intranasal DAILY 30 days 01/15/22 mcg/actuation nasal #16 grams spray,suspension loratadine 10 mg tablet 10 mg PO DAILY PRN allergy 01/15/22 symptoms 90 days #90 tabs tamsulosin 0.4 mg capsule 0.4 mg PO BEDTIME 90 days #90 caps 01/15/22 rivaroxaban 20 mg tablet (Xarelto) 20 mg PO DAILY #90 caps 01/23/22 cholecalciferol (vitamin D3) 50 50 mcg PO DAILY 90 days #90 caps 03/16/22 mcg (2,000 unit) capsule pen needle, diabetic 32 gauge x 1 ea miscellaneous .COMPLEX #150 ea 03/20/22 (BD Lou 2nd Gen Pen Needle) omeprazole 20 mg capsule,delayed 20 mg PO DAILY 90 days #90 caps 04/02/22 release Humalog KwikPen Insulin 100 See Rx Instructions subcut QID 30 04/06/22 unit/mL subcutaneous (insulin days #30 mL lispro) empagliflozin 25 mg tablet 25 mg PO QAM #30 tabs 04/06/22 (Jardiance) flash glucose sensor (FreeStyle 1 ea topical .COMPLEX #2 caps 04/09/22 Iris 14 Day Sensor kit) Tresiba FlexTouch U-200 200 86 unit (0.43 mL) subcut BEDTIME 05/07/22 unit/mL (3 mL) subcutaneous pen #9 mL (insulin degludec) lisinopril 20 mg tablet 20 mg PO DAILY #90 tabs 05/07/22 dulaglutide 1.5 mg/0.5 mL 1.5 mg (0.5 mL) subcut QWEEK 28 05/17/22 subcutaneous pen injector days #2 mL (Trulicity) Allergies Allergy/AdvReac Type Severity Reaction Status Date / Time acetaminophen [From PERCOCET] Allergy Intermediate CONSTIPATED Verified 04/27/22 06:15 oxycodone [From PERCOCET] Allergy Intermediate CONSTIPATED Verified 04/27/22 06:15 Review of Systems Constitutional: Constitutional: Reports no additional constitutional complaints, Reports chills, Denies fever(s) and Denies night sweats Eyes: Eyes: Reports no additional eye complaints, Denies blurry vision, Denies change in vision, Denies diplopia, Denies eye discharge, Denies loss of vision and Denies eye pain ENT: Denies dizziness Cardiovascular: Cardiovascular: Reports no additional cardiovascular complaints, Denies chest pain, Denies lightheadedness, Denies Loss of Consciousness and Denies dyspnea Respiratory: Respiratory: Reports no additional respiratory complaints and Denies dyspnea Gastrointestinal: Gastrointestinal: Reports no additional gastrointestinal complaints, Reports abdominal pain, Denies melena, Reports bloating, Denies hematochezia, Denies change in bowel habits, Denies coffee ground emesis, Denies constipation, Reports diarrhea, Reports loose stools, Reports nausea and Reports vomiting Genitourinary: Genitourinary: Reports no additional male genitourinary complaints, Denies hematuria, Denies oliguria, Denies difficulty urinating, Denies dysuria, Denies urinary frequency, Denies urinary hesitancy, Denies urinary incontinence and Denies urinary urgency Musculoskeletal: Musculoskeletal: Reports no additional musculoskeletal complaints, Denies numbness and Denies tingling Neurologic: Denies dizziness, Denies loss of vision, Denies numbness and Denies tingling Psychiatric: Psychiatric: Reports no additional psychiatric complaints Endocrine: Endocrine: Reports no additional endocrine complaints Hematologic/Lymphatic: Hematologic/Lymphatic: Reports no additional hematologic/lymphatic complaints Allergic/Immunologic: Allergic/Immunologic: Reports no additional allergic/immunologic complaints [facility] Past Medical History Attestation statement: The following information was validated with the patient. 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 Vitamin D deficiency Surgical History H/O colonoscopy H/O endoscopy History of arthroscopy of right shoulder History of cataract surgery History of eye surgery History of inguinal hernia repair History of laparoscopic cholecystectomy Family History Family History Father Diabetes Mother Alzheimers disease Bone cancer Sister Heart failure Sister Hypertension Sister Diabetes Kidney failure Social History Social History Household Members: Spouse Housing: House Alcohol intake: current Alcohol intake frequency: holidays/special occasions only Alcohol type: beer Patient Tobacco Use Status: Former Tobacco user Quit Date: 1987 Tobacco use type: Cigarette Cigarette Packs Per Day: 1.5 Cigarettes Per Day: 30.0 Years Smoked: 25 Smoked in Last 30 Days: No Second Hand Smoke Exposure: Yes Advance Directives: No Advance Directives Information Provided: Yes service: No Current occupational status: employed 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 [employer] Cognitive needs: No Hearing needs: No Vision needs: Yes Physical Exam ED Vital Signs: Vital Signs - 24 hr 05/24/22 07:39 05/24/22 11:35 Temperature 98.3 F 99.1 F Pulse Rate 105 H 91 Respiratory Rate 16 20 Blood Pressure 113/71 131/69 Pulse Oximetry 100 94 Oxygen Delivery Method Room Air Room Air BMI result Body Mass Index 31.9 Const General: cooperative Nutritional Appearance: well nourished Orientation/consciousness: patient oriented x3 Limitations: no limitations HENMT Head: Yes normal to inspection and Yes atraumatic Ears: hearing grossly normal bilaterally and external ears normal General nose exam: Normal external nose present, no nasal discharge noted and no epistaxis Face and sinus: Yes normal facial exam, No abrasion and No laceration Mouth: Normal oral and palatal mucosa present, no drooling and no muffled voice Eyes General: appearance normal, both eyes and all related structures Periorbital: periorbital findings normal Eyelids: Yes eyelids normal Conjunctivae: conjunctivae normal Pupils: Equal, round and reactive pupils present EOM: EOMs intact bilaterally Neck Neck: Yes normal visual inspection, Yes full ROM and Yes no lymphadenopathy Chest Chest palpation & inspection: normal inspection of the chest Resp Effort & Inspection: normal respiratory effort and able to speak in complete sentences Auscultation: clear to auscultation bilaterally Cardio Palpation: normal PMI Rate: tachycardic Rhythm: regular rhythm Heart sounds: S1 normal heart sound present and S2 normal heart sound present GI Inspection: Yes normal to inspection and Yes distended (mildly) Percussion: Yes tympanic to percussion Auscultation: Hyperactive bowel sounds present Neuro General: patient oriented x3 and moves all extremities Cranial nerves: Yes Equal, round and reactive pupils present Cognition (Neuro): normal cognition Motor exam (neuro): 5/5 motor strength present throughout Sensory Exam: Normal double simultaneous stimulation for sensation Coordination: [id number] test normal Extrem General: Yes normal to inspection, Yes full ROM and Yes capillary refill normal Psych Appearance: grossly normal Mental Status: mental status grossly normal Affect: normal affect Attitude: cooperative Thought process: Normal thought process present Thought content: Normal thought content present Insight: Good insight present (Psych) Medications Administered Discontinued Medications Generic Name Dose Route Start Last Admin Trade Name Donovan PRN Reason Stop Dose Admin Sodium Chloride 1,000 mls @ 999 mls/hr 05/24/22 09:00 05/24/22 11:44 Ns IV 05/24/22 10:00 Infused .Q1H1M BRENDA Infusion Iohexol 85 ml 05/24/22 10:01 05/24/22 10:02 Iohexol 350 Mg/Ml 100 Ml Infus..Btl IV 05/24/22 10:02 85 ml ONCE ONE Administration Ondansetron HCl 4 mg 05/24/22 08:50 05/24/22 09:36 Ondansetron Hcl 4 Mg/2 Ml Vial IVPUSH 05/24/22 08:51 4 mg ONCE ONE Administration Medical Decision Making Medical Decision Making [facility] Narrative: 62 year-old male with pmHx of pancreatitis, BPH, DM II, atrial fibrillation, HTN, and HLD, c/o diarrhea, nausea, and abdominal pain x 1.5 weeks. Differential diagnosis includes but is not limited to gastroenteritis, colitis, IBD, SBO, LBO. Plan CBC, CMP, CT abd/pelvis with IV contrast Reeval Patient's lab work up was unremarkable. Patient's CT abd/pelvis was unremarkable. Patient felt significantly better after receiving IV fluids. I explained all results and my physical exam findings to the patient. I stressed the importance of the patient following up with his PCP and his GI specialist. Patient verbalized agreement and understanding with this treatment plan and discharge. Differential Diagnosis Differential Diagnoses: The differential diagnosis associated with the presentation includes Gastroenteritis, colitis, IBD, SBO, LBO Lab Data [facility] Lab Attestation statement: I reviewed the patient's lab results. 05/24/22 07:49 05/24/22 07:49 Labs: Lab Results 05/24/22 05/24/22 05/24/22 Range/Units 07:46 07:49 07:49 WBC 11.4 H (4.8-10.8) X10*3/uL RBC 5.12 (4.60-5.80) X10*6/uL Hgb 13.9 L (14.0-18.0) g/dl Hct 41.0 L (42.0-52.0) % MCV 80.1 (80.0-98.0) fL MCH 27.1 (27.0-33.0) pg MCHC 33.9 (31.0-36.0) g/dl RDW 12.9 (11.0-16.0) % Plt Count 145 L (160-400) X10*3/uL MPV 10.5 (9.4-12.4) fL Immature Gran % (Auto) 0.4 (0.0-0.4) % Neut % (Auto) 86.2 H (45-73) % Lymph % (Auto) 6.3 L (20-40) % [place] % (Auto) 6.1 (2-11) % Eos % (Auto) 0.7 (0-4) % Baso % (Auto) 0.3 (0-2) % Lymph # (Auto) 0.7 L (1.2-4.9) X10*3/uL [place] # (Auto) 0.7 (0.1-1.2) X10*3/uL Eos # (Auto) 0.1 (0.0-0.4) X10*3/uL Baso # (Auto) 0.0 (0.0-0.2) X10*3/uL Abs Immat Gran (auto) 0.05 H (0.00-0.03) X10*3/uL Absolute Neuts (auto) 9.8 H (2.0-8.3) x10*3/uL Absolute Nucleated RBC 0.000 (0.0-0.012) X10*3/uL Nucleated RBC % (auto) 0.0 (0.0-0.2) /100WBC Sodium 145 (135-145) mmol/L Potassium 5.0 (3.3-5.1) mmol/L Chloride 111 H (96-108) mmol/L Carbon Dioxide 25 (22-29) mmol/L Anion Gap 14 (12-20) BUN 15 (9-16) mg/dL Creatinine 1.22 (0.5-1.4) mg/dL Estim Creat Clear Calc 65.8 Estimated GFR > 60 Random Glucose 138 H (60-115) mg/dL Calcium 9.5 (8.4-10.2) mg/dL Magnesium 2.0 (1.6-2.6) mg/dL Urine Color Urine Appearance Urine pH (5.0-9.0) Ur Specific Parker (1.005-1.025) Urine Protein (Neg-Trace) mg/dL Urine Glucose (UA) (Negative) mg/dL Urine Ketones (Negative) mg/dL Urine Blood (Negative) Urine Nitrite (Negative) Ur Leukocyte Esterase (Negative) Urine RBC (0-2) /HPF Urine WBC (0-5) /HPF Ur Squamous Epith Cells (0-2) /HPF Urine Bacteria (None Seen) Hyaline Casts (0-2) /LPF COVID-19 (MANUEL) Negative (Negative) COVID-19 Clin Com See Note 05/24/22 Range/Units 07:56 WBC (4.8-10.8) X10*3/uL RBC (4.60-5.80) X10*6/uL Hgb (14.0-18.0) g/dl Hct (42.0-52.0) % MCV (80.0-98.0) fL MCH (27.0-33.0) pg MCHC (31.0-36.0) g/dl RDW (11.0-16.0) % Plt Count (160-400) X10*3/uL MPV (9.4-12.4) fL Immature Gran % (Auto) (0.0-0.4) % Neut % (Auto) (45-73) % Lymph % (Auto) (20-40) % [place] % (Auto) (2-11) % Eos % (Auto) (0-4) % Baso % (Auto) (0-2) % Lymph # (Auto) (1.2-4.9) X10*3/uL [place] # (Auto) (0.1-1.2) X10*3/uL Eos # (Auto) (0.0-0.4) X10*3/uL Baso # (Auto) (0.0-0.2) X10*3/uL Abs Immat Gran (auto) (0.00-0.03) X10*3/uL Absolute Neuts (auto) (2.0-8.3) x10*3/uL Absolute Nucleated RBC (0.0-0.012) X10*3/uL Nucleated RBC % (auto) (0.0-0.2) /100WBC Sodium (135-145) mmol/L Potassium (3.3-5.1) mmol/L Chloride (96-108) mmol/L Carbon Dioxide (22-29) mmol/L Anion Gap (12-20) BUN (9-16) mg/dL Creatinine (0.5-1.4) mg/dL Estim Creat Clear Calc Estimated GFR Random Glucose (60-115) mg/dL Calcium (8.4-10.2) mg/dL Magnesium (1.6-2.6) mg/dL Urine Color Yellow Urine Appearance Clear Urine pH 5.0 (5.0-9.0) Ur Specific Parker >= 1.030 H (1.005-1.025) Urine Protein 30 (1+) H (Neg-Trace) mg/dL Urine Glucose (UA) >=1000 H (Negative) mg/dL Urine Ketones Negative (Negative) mg/dL Urine Blood Negative (Negative) Urine Nitrite Negative (Negative) Ur Leukocyte Esterase Negative (Negative) Urine RBC 0-2 (0-2) /HPF Urine WBC 0-5 (0-5) /HPF Ur Squamous Epith Cells 0-2 (0-2) /HPF Urine Bacteria None Seen (None Seen) Hyaline Casts 0-2 (0-2) /LPF COVID-19 (MANUEL) (Negative) COVID-19 Clin Com Radiology Impression Radiologist Impression: My interpretation is in agreement with the radiologist's impression of this imaging study. EXAMINATION: CT ABDOMEN AND PELVIS WITH CONTRAST? CLINICAL INFORMATION: Abdominal pain with nausea and vomiting. History of colon carcinoma? COMPARISON: CT abdomen pelvis 01/07/2022? TECHNIQUE: Multidetector volumetric images were obtained from the superior aspect of the liver through the pubic symphysis following administration 85 mL of Omnipaque 350 intravenous contrast. Sagittal and coronal reformatted images were obtained on the technologist's workstation.? Oral contrast: No This CT examination was performed using dose optimization techniques as appropriate, variously including the following: *Automated exposure control *Adjustment of mA and/or kV according to patient size (this includes techniques or standardized protocols for targeted exams where dose is matched to indication/reason for exam; i.e. extremities or head) *Use of iterative reconstruction technique DLP: 599 mGy-cm FINDINGS: LUNG BASES: Bibasilar atelectasis is seen with some mild traction bronchiectasis. Arch size normal. No pleural effusions. LIVER, GALLBLADDER, AND BILIARY TREE: Status post cholecystectomy with air in the biliary tree. The liver is normal in size and shape. No focal hepatic lesion or biliary ductal dilatation is present. ? PANCREAS: There is fatty infiltration of the pancreas. The previously seen peripancreatic edematous changes in the surrounding fat in the region of the pancreatic head have resolved? SPLEEN: Spleen is enlarged at 14.8 cm in greatest cephalocaudad dimension, previously 13.2 cm ADRENAL GLANDS: Unremarkable.? KIDNEYS AND URETERS: The kidneys are normal in size, shape, and attenuation. No hydronephrosis, hydroureter, or calculi seen. No perinephric stranding. ? BLADDER: Unremarkable.? GASTROINTESTINAL TRACT: The small and large bowel are unremarkable. The appendix is unremarkable.? ABDOMINAL WALL: Small right inguinal hernia seen containing fat and a small amount of fluid similar in appearance to 01/07/2022. Tiny periumbilical hernia containing only fat is again seen. LYMPH NODES: No retroperitoneal lymphadenopathy. VASCULAR: Unremarkable. PELVIC VISCERA: The prostate and seminal vesicles are unremarkable.? OSSEOUS STRUCTURES: Degenerative changes are present in the spine most marked at L4-L5 and L5-S1.? CT/CT abdomen pelvis w IV con IMPRESSION: 1.? A cause for the patient's acute abdominal pain and nausea has not been found. 2.? Incidental note made of cholecystectomy, increasing splenomegaly resolved peripancreatic inflammatory change, small right inguinal hernia, degenerative changes in the spine and tiny periumbilical hernia containing only fat. ? Fleischner guidelines were followed. Dictated By: Celestino Ruiz MD Signed By: Electronically signed by Celestino Ruiz MD 05/24/22 1116 Discharge Plan Discharge Clinical Impression: Diarrhea Patient Disposition: Home, Self-Care Instructions: Acute Diarrhea (ED) Additional Instructions: Follow up with your primary care provider and your GI specialist. Return to the emergency department immediately if your symptoms worsen or if you develop any dizziness, shortness of breath, difficulty breathing, chest pain, blurry vision, loss of vision, nausea, vomiting, abdominal pain, fever, chills, back pain, or any other complaints. Prescriptions: No Action (DME) pen needle, diabetic [BD Ultra-Fine Lou Pen Needle] 32 gauge x 5/32 needle See Rx Instructions .ROUTE .MEDSUPPLY Qty: 30 1RF Rx Instructions: As directed once aday Multaq 400 mg tablet 400 mg PO BID Qty: 180 3RF rosuvastatin 20 mg tablet 20 mg PO DAILY Qty: 90 3RF metformin 1,000 mg tablet 1,000 mg PO BID Qty: 180 2RF Xarelto 20 mg tablet 20 mg PO DAILY Qty: 90 3RF pen needle, diabetic [BD Lou 2nd Gen Pen Needle] 32 gauge x 5/32 needle 1 ea miscellaneous .COMPLEX Qty: 150 0RF Rx Instructions: 1 ea miscellaneous five times a day; omeprazole 20 mg capsule,delayed release(DR/EC) 20 mg PO DAILY 90 Days Qty: 90 1RF Jardiance 25 mg tablet 25 mg PO QAM Qty: 30 6RF insulin lispro [Humalog KwikPen Insulin] 100 unit/mL insulin pen See Rx Instructions subcut QID 30 Days Qty: 30 3RF Rx Instructions: breakfast 16 units, Lunch 26 units, Dinner 28 units, Snack 10 units subcut 4 times a day; No substitutions. FreeStyle Iris 14 Day Sensor Kit 1 ea topical .COMPLEX Qty: 2 6RF Rx Instructions: 1 ea topical every 14 days; lisinopril 20 mg tablet 20 mg PO DAILY Qty: 90 3RF insulin degludec [Tresiba FlexTouch U-200] 200 unit/mL (3 mL) insulin pen 86 unit subcut BEDTIME Qty: 9 1RF Trulicity 1.5 mg/0.5 mL pen injector 1.5 mg subcut QWEEK 28 Days Qty: 2 3RF cholecalciferol (vitamin D3) 50 mcg (2,000 unit) capsule 50 mcg PO DAILY 90 Days Qty: 90 3RF loratadine 10 mg tablet 10 mg PO DAILY PRN (Reason: allergy symptoms) 90 Days Qty: 90 3RF fluticasone propionate 50 mcg/actuation spray,suspension 2 spray intranasal DAILY 30 Days Qty: 16 5RF Rx Instructions: administer into each nostril tamsulosin 0.4 mg capsule 0.4 mg PO BEDTIME 90 Days Qty: 90 1RF Referrals: Patrick Eden MD [Primary Care Provider] - Interventions: ED Discharge Assessment Last Done: 05/24/22 12:42 Print Language: Upper Sorbian
[2022-05-24] MEDS: 0.9 % Sodium Chloride 1,000 ML 999 ML IV (09:36)
[2022-05-24] MEDS: ondansetron HCL 4 MG/2 ML VIAL IVPUSH (09:36)
[2022-05-24] MEDS: iohexoL 350 MG/ML 100 ML INFUS..BTL 85 ML IV (10:02)
[2022-05-24 11:35] VITALS: BP 131/69; PULSE 91; RESP 20; TEMP 37.3; O2SAT 94
== END 2022-05-24 12:43 | disposition home or self-care (01) ==
PROVIDERS: Emergency Provider Emergency Medicine; PCP Internal Medicine
DX: R19.7 Diarrhea, unspecified (principal); Z20.822 Contact with and (suspected) exposure to COVID-19; E11.9 Type 2 diabetes mellitus without complications; I10 Essential (primary) hypertension; E78.5 Hyperlipidemia, unspecified; I48.91 Unspecified atrial fibrillation; Z79.02 Long term (current) use of antithrombotics/antiplatelets; Z79.84 Long term (current) use of oral hypoglycemic drugs; Z79.01 Long term (current) use of anticoagulants; Z87.891 Personal history of nicotine dependence
CPT/HCPCS: 74177; 80048; 81001; 83735; 85025; 87635; 96361; 96374; 99284; J2405; Q9967

== ENCOUNTER 2022-06-22 06:04 | Outpatient (REF) | payer OTHER, SELFPAY ==
[2022-06-22 06:17] LABS: MANUAL DIFF FLAG NO
[2022-06-22 07:31] LABS: Basophils Percent Auto 0.4 % (0-2); Eosinophils Absolute Auto 0.2 X10*3/uL (0.0-0.4); Eosinophils Percent Auto 3.1 % (0-4); Hematocrit 40.1 % (42.0-52.0); Hemoglobin 13.2 g/dl (14.0-18.0); Imm Gran Abs Auto 0.01 X10*3/uL (0.00-0.03); Imm Gran Pct Auto 0.1 % (0.0-0.4); Lymphocytes Absolute Auto 1.4 X10*3/uL (1.2-4.9); Lymphocytes Percent Auto 20.7 % (20-40); Mean Corpuscular HGB Conc 32.9 g/dl (31.0-36.0); Mean Corpuscular Hemoglobin 26.8 pg (27.0-33.0); Mean Corpuscular Volume 81.3 fL (80.0-98.0); Mean Platelet Volume 11.7 fL (9.4-12.4); Monocytes Absolute Auto 0.7 X10*3/uL (0.1-1.2); Monocytes Percent Auto 10.2 % (2-11); Neutrophils Absolute Auto 4.4 x10*3/uL (2.0-8.3); Neutrophils Percent Auto 65.5 % (45-73); Platelet Count 170 X10*3/uL (160-400); Red Blood Count 4.93 X10*6/uL (4.60-5.80); Red Cell Distribution Width 13.4 % (11.0-16.0); White Blood Count 6.7 X10*3/uL (4.8-10.8)
[2022-06-22 07:47] LABS: Estimated Average Glucose 174 mg/dL; Hemoglobin A1c % 7.7 %
[2022-06-22 07:58] LABS: Appearance Urine Clear; Color Urine Yellow; Glucose Urine UA >=1000 mg/dL (Negative); Leukocyte Esterase Urine Negative (Negative); Nitrite Urine Negative (Negative); PH 5.5 (5.0-9.0); Specific Gravity - Urine >= 1.030 (1.005-1.025); UMIC TRIGGER UACC YES; Urine Blood Negative (Negative); Urine Ketones Negative (Negative); Urine Protein Trace mg/dL (Neg-Trace)
[2022-06-22 08:04] LABS: Bacteria Urine None Seen (None Seen); Hyaline Casts Urine 0-2 /LPF (0-2); RBC Urine 0-2 /HPF (0-2); Squamous Epithelial Cell Urine 0-2 /HPF (0-2); WBC Urine 0-5 /HPF (0-5)
[2022-06-22 08:08] LABS: Alanine Aminotransferase 27 U/L (0-40); Albumin Level 4.1 g/dL (3.5-5.0); Alkaline Phosphatase 71 U/L (39-117); Anion Gap 14 (12-20); Aspartate Amino Transferase 36 U/L (5-37); Bilirubin Total 0.6 mg/dL (0.0-1.0); Blood Urea Nitrogen 18 mg/dL (9-16); Calcium 8.8 mg/dL (8.4-10.2); Carbon Dioxide 22 mmol/L (22-29); Chloride 110 mmol/L (96-108); Cholesterol 105 mg/dL; Estimated Glomerular Filt Rate > 60; Glucose Fasting 133 mg/dL (60-99); HDL Cholesterol 31 mg/dL; LDL Cholesterol Calculated 35 mg/dl; Potassium 4.7 mmol/L (3.3-5.1); Sodium 141 mmol/L (135-145); Total Protein 7.1 g/dL (6.5-8.0); Triglycerides 199 mg/dL
[2022-06-22 08:15] LABS: TSH reflex Free T4 0.93 uIU/mL (0.32-4.0); Vitamin D 25-OH Total 34.1 ng/mL (>30)
[2022-06-22 08:22] LABS: Creatinine Urine 114.87 mg/dL; Microalbum/Creatinine Ratio Ur 100.1 ug/mg cr
== END 2022-06-22 06:05 | disposition home or self-care (01) ==
LOC: HO.LAB 06:04
PROVIDERS: PCP Internal Medicine; Visit Provider Internal Medicine
DX: I10 Essential (primary) hypertension (principal); E78.00 Pure hypercholesterolemia, unspecified; E11.9 Type 2 diabetes mellitus without complications; E55.9 Vitamin D deficiency, unspecified; R30.0 Dysuria
CPT/HCPCS: 36415; 80053; 80061; 81001; 81003; 82043; 82306; 83036; 84443; 85025

== ENCOUNTER → 2022-07-10 14:24 | Outpatient (BNVA) | payer OTHER, SELFPAY | PROVIDERS: PCP Internal Medicine; Referring Provider Internal Medicine; Visit Provider Surgery | DX: Z13.89 Encounter for screening for other disorder (principal) ==

== ENCOUNTER → 2022-08-09 14:31 | Outpatient (BNVA) | payer OTHER, SELFPAY | PROVIDERS: PCP Internal Medicine; Referring Provider Internal Medicine; Visit Provider Internal Medicine Cardiovascular Disease | DX: Z79.899 Other long term (current) drug therapy (principal) | CPT/HCPCS: 93005 ==

== ENCOUNTER 2022-09-07 11:54 | Emergency (ER) | payer OTHER, SELFPAY ==
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
[2022-09-07 12:08] VITALS: BP 137/67; BP 138/82; PULSE 72; PULSE 78; RESP 18; TEMP 36.7; O2SAT 94; O2SAT 97; BMI 32.3
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
--- NOTE | 2022-09-07 12:13 | PC.NURSE ---
patient a&ox3, vss, pt c/o neck pain, no collar at this time-ems stated pt refused collar, pt to have ct scan, family at bedside, call [facility] within reach, will continue to monitor o
== END 2022-09-07 15:24 | disposition home or self-care (01) ==
PROVIDERS: Emergency Provider Internal Medicine; PCP Internal Medicine
DX: S13.4XXA Sprain of ligaments of cervical spine, initial encounter (principal); S16.1XXA Strain of muscle, fascia and tendon at neck level, initial encounter; M54.2 Cervicalgia; V53.5XXA Driver of pick-up truck or van injured in collision with car, pick-up truck or van in traffic accident, initial encounter; Y93.9 Activity, unspecified; Y92.410 Unspecified street and highway as the place of occurrence of the external cause; Y99.0 Civilian activity done for income or pay; R51.9 Headache, unspecified; Z79.899 Other long term (current) drug therapy; Z87.891 Personal history of nicotine dependence
CPT/HCPCS: 70450; 72125; 99283; 99284

== ENCOUNTER → 2022-09-11 12:14 | Outpatient (BNVA) | payer OTHER, SELFPAY | PROVIDERS: PCP Internal Medicine; Visit Provider Internal Medicine | DX: S16.1XXA Strain of muscle, fascia and tendon at neck level, initial encounter (principal); S09.90XA Unspecified injury of head, initial encounter; V89.0XXA Person injured in unspecified motor-vehicle accident, nontraffic, initial encounter | CPT/HCPCS: 99202 ==

== ENCOUNTER 2022-09-24 06:13 | Outpatient (REF) | payer OTHER, SELFPAY ==
[2022-09-24 06:33] LABS: MANUAL DIFF FLAG NO
[2022-09-24 07:24] LABS: Basophils Percent Auto 0.5 % (0-2); Eosinophils Absolute Auto 0.2 X10*3/uL (0.0-0.4); Eosinophils Percent Auto 3.5 % (0-4); Hematocrit 38.4 % (42.0-52.0); Hemoglobin 13.3 g/dl (14.0-18.0); Imm Gran Abs Auto 0.02 X10*3/uL (0.00-0.03); Imm Gran Pct Auto 0.3 % (0.0-0.4); Lymphocytes Absolute Auto 1.7 X10*3/uL (1.2-4.9); Lymphocytes Percent Auto 28.5 % (20-40); Mean Corpuscular HGB Conc 34.6 g/dl (31.0-36.0); Mean Corpuscular Hemoglobin 28.4 pg (27.0-33.0); Mean Corpuscular Volume 81.9 fL (80.0-98.0); Mean Platelet Volume 11.9 fL (9.4-12.4); Monocytes Absolute Auto 0.7 X10*3/uL (0.1-1.2); Neutrophils Absolute Auto 3.3 x10*3/uL (2.0-8.3); Neutrophils Percent Auto 55.2 % (45-73); Platelet Count 158 X10*3/uL (160-400); Red Blood Count 4.69 X10*6/uL (4.60-5.80); Red Cell Distribution Width 13.4 % (11.0-16.0); White Blood Count 6.1 X10*3/uL (4.8-10.8)
[2022-09-24 08:03] LABS: Estimated Average Glucose 169 mg/dL; Hemoglobin A1c % 7.5 %
[2022-09-24 08:15] LABS: Alanine Aminotransferase 23 U/L (0-40); Albumin Level 4.1 g/dL (3.5-5.0); Alkaline Phosphatase 75 U/L (39-117); Anion Gap 12 (12-20); Aspartate Amino Transferase 24 U/L (5-37); Bilirubin Total 0.6 mg/dL (0.0-1.0); Blood Urea Nitrogen 18 mg/dL (9-16); Calcium 9.7 mg/dL (8.4-10.2); Carbon Dioxide 27 mmol/L (22-29); Chloride 109 mmol/L (96-108); Cholesterol 124 mg/dL; Estimated Glomerular Filt Rate > 60; Glucose Fasting 94 mg/dL (60-99); HDL Cholesterol 37 mg/dL; LDL Cholesterol Calculated 53 mg/dl; Potassium 4.6 mmol/L (3.3-5.1); Sodium 143 mmol/L (135-145); Total Protein 7.2 g/dL (6.5-8.0); Triglycerides 171 mg/dL
[2022-09-24 08:20] LABS: Vitamin D 25-OH Total 40.3 ng/mL (>30)
[2022-09-24 08:27] LABS: Appearance Urine Clear; Color Urine Yellow; Glucose Urine UA >=1000 mg/dL (Negative); Leukocyte Esterase Urine Negative (Negative); Nitrite Urine Negative (Negative); PH 5.5 (5.0-9.0); Specific Gravity - Urine >= 1.030 (1.005-1.025); UMIC TRIGGER UACC YES; Urine Blood Negative (Negative); Urine Ketones Negative (Negative); Urine Protein Negative (Neg-Trace)
[2022-09-24 08:35] LABS: Bacteria Urine None Seen (None Seen); Hyaline Casts Urine 0-2 /LPF (0-2); RBC Urine 0-2 /HPF (0-2); Squamous Epithelial Cell Urine 0-2 /HPF (0-2); WBC Urine 0-5 /HPF (0-5)
[2022-09-24 09:00] LABS: Creatinine Urine 81.72 mg/dL; Microalbum/Creatinine Ratio Ur 64.8 ug/mg cr
== END 2022-09-24 06:14 | disposition home or self-care (01) ==
LOC: HO.LAB 06:13
PROVIDERS: PCP Internal Medicine; Visit Provider Internal Medicine
DX: E11.9 Type 2 diabetes mellitus without complications (principal); I10 Essential (primary) hypertension; E55.9 Vitamin D deficiency, unspecified; E78.00 Pure hypercholesterolemia, unspecified
CPT/HCPCS: 36415; 80053; 80061; 81001; 82043; 82306; 83036; 84443; 85025

== ENCOUNTER 2022-11-15 14:28 | Outpatient (AMB) | payer OTHER, SELFPAY ==
--- NOTE | 2022-11-15 14:54 | AM.OFFVISNUR ---
Intake Intake Visit Reasons: 3 MON EKG Intake Note: Pt here for f/up EKG. H/O afib. Feels good. No complaints. 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 Papaps Nursing Note EKG completed, EKG auto-reading sinus rhythm at 95bpm. EKG on Dr. Perry's desk for review and signature. Office Procedures EKG [id number], Complete Coding Level of Care Code Est Pt Level 1 (24325) Diagnoses CPT Codes EKG - CPT: 82048-[id number], Complete ([id number]) Comment EKG, Medication Reconciliation, Documentation, Education
== END 2022-11-15 14:52 | disposition home or self-care (01) ==
PROVIDERS: PCP Internal Medicine; Referring Provider Internal Medicine; Visit Provider Internal Medicine Cardiovascular Disease
DX: I48.0 Paroxysmal atrial fibrillation (principal)
CPT/HCPCS: 93010

== ENCOUNTER → 2022-11-15 14:28 | Outpatient (BNVA) | payer OTHER, SELFPAY | PROVIDERS: PCP Internal Medicine; Referring Provider Internal Medicine; Visit Provider Internal Medicine Cardiovascular Disease | DX: I48.91 Unspecified atrial fibrillation (principal) | CPT/HCPCS: 93005 ==

== ENCOUNTER → 2022-11-19 10:07 | Outpatient (BNVA) | payer OTHER, SELFPAY | PROVIDERS: PCP Internal Medicine; Visit Provider Physician Assistant Medical | DX: M54.50 Low back pain, unspecified (principal) | CPT/HCPCS: 99203 ==

== ENCOUNTER 2022-12-25 15:44 | Outpatient (AMB) | payer OTHER, SELFPAY ==
[2022-12-25 15:53] VITALS: BP 130/64; PULSE 84; O2SAT 94; BMI 33.6
--- NOTE | 2022-12-25 15:53 | MHC.PC.OV ---
Vital Signs 12/25/22 15:53 Height 5 ft 6 in Weight 208 lb BMI 33.6 BP 130/64 Blood Pressure Location Lt brachial Position Sitting Pulse 84 Pulse Source Pulse Oximeter Temp Source Skin Pulse Oximetry (%) 94 Oxygen Delivery Method Room Air Intake Visit Reasons: DM, hyperlipidemia Jet Worker Required: No Allergies acetaminophen [From PERCOCET] Allergy (Intermediate, Verified 12/25/22 16:02) CONSTIPATED oxycodone [From PERCOCET] Allergy (Intermediate, Verified 12/25/22 16:02) CONSTIPATED Medication List - Last Reconciled 12/25/22 by CAITIE Mckeon cholecalciferol (vitamin D3) 50 mcg PO DAILY 90 days cyclobenzaprine 10 mg PO TID PRN dronedarone (Multaq) 400 mg PO BID dulaglutide (Trulicity) 1.5 mg (0.5 mL) subcut QWEEK 28 days empagliflozin (Jardiance) 25 mg PO QAM flash glucose sensor (FreeStyle Iris 14 Day Sensor kit) 1 ea topical every 14 days; fluticasone propionate 50 mcg/actuation 2 sprays intranasal DAILY 30 days Humalog KwikPen Insulin (insulin lispro) breakfast 16 units, Lunch 26 units, Dinner 28 units, Snack 10 units subcut 4 times a day; No substitutions. 30 days NS lidocaine 5% 1 patch topical DAILY lisinopril 20 mg PO DAILY loratadine 10 mg PO DAILY PRN 90 days metformin 1,000 mg PO BID omeprazole 20 mg PO DAILY 90 days pen needle, diabetic (BD Lou 2nd Gen Pen Needle) 1 ea miscellaneous five times a day; pen needle, diabetic (BD Ultra-Fine Lou Pen Needle) As directed once aday rivaroxaban (Xarelto) 20 mg PO DAILY rosuvastatin 20 mg PO DAILY tamsulosin 0.4 mg PO BEDTIME 90 days Tresiba FlexTouch U-200 (insulin degludec) 86 units (0.43 mL) subcut BEDTIME NS Tobacco use date assessed: 12/25/22 Dental Screening Dental Screen Date: 12/25/22 (dentures ) Did you have a dental visit in the last 12 months?: No Did you have a dental problem in the last 6 months where you did not have access to dental care?: No HPI DM, hyperlipidemia HPI Details Patient is a 62-year-old male who presents today for a routine follow-up. Patient of Dr. Eden. Medical history significant for hyperlipidemia, hypertension, diabetes type 2, CAD, AFib-followed by Cardiology, diabetic retinopathy-patient reports diabetic eye exam couple weeks ago at [facility], GERD, obesity among others. Patient reports that he is compliant with medications and denies side effects. He reports blood sugars at home ranging between 80 and 150. He denies shortness of breath or chest pain. 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 Essential hypertension Hyperlipidemia LDL goal <100 Surgical History H/O colonoscopy H/O endoscopy History of laparoscopic cholecystectomy History of cataract surgery History of eye surgery History of inguinal hernia repair History of arthroscopy of right shoulder Family History Father Diabetes Mother Alzheimers disease Bone cancer Sister Heart failure Sister Hypertension Sister Diabetes Kidney failure Social History Household Members: Spouse Housing: House Alcohol intake: current Alcohol intake frequency: holidays/special occasions only Alcohol type: beer Patient Tobacco Use Status: Former Tobacco user Quit Date: 1987 Tobacco use type: Cigarette Cigarette Packs Per Day: 1.5 Cigarettes Per Day: 30.0 Years Smoked: 25 e-Cigarette/Vaping Use: Never Used Second Hand Smoke Exposure: Yes service: No Current occupational status: employed 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 1. Little interest or pleasure in doing things: not at all 2. Feeling down, depressed, or hopeless: not at all 3. Trouble falling or staying asleep, or sleeping too much: not at all 4. Feeling tired or having little energy: not at all 5. Poor appetite or overeating: not at all 6. Feeling bad about yourself - or that you are a failure or have let yourself or your family down: not at all 7. Trouble concentrating on things, such as reading the newspaper or watching television: not at all 8. Moving or speaking so slowly that other people could have noticed. Or the opposite - being so fidgety or restless that you have been moving around a lot more than usual: not at all 9. Thoughts that you would be better off or of hurting yourself in some way: not at all Total score: 0 Depression Screening Interpretation: Negative 15379 - PHQ-9 Billing: Yes Source: Developed by Drs. Alex Pack, Iva Zhao, Kd Jones and colleagues, with an educational sonu from [employer]. Thrive Questionnaire Date Thrive assessed: 06/26/22 AUDIT C Alcohol Use Questionnaire (AUDIT-C) 1. How often do you have a drink containing alcohol?: Never 3. How often do you have six or more drinks on one occasion?: Never Total Score: 0 Score Reviewed/Action Taken: No HANK-7 AMB Questionnaire HANK-7 Date HANK - 7 assessed: 06/26/22 Source: Developed by Drs. Alex Pack, Iva Zhao, Kd Jones and colleagues, with an educational sonu from [employer]. Review of Systems Const Denies body aches, Denies chills, Denies fever(s) and Denies headache(s) Eyes Denies change in vision ENT Denies dizziness, Denies otalgia, Denies headache(s), Denies nasal discharge, Denies sinus pain and Denies sore throat Card Denies chest pain, Denies edema, Denies lightheadedness and Denies dyspnea Resp Denies cough, Denies dyspnea and Denies wheezing GI Denies abdominal pain Denies dysuria Musc Denies myalgias Skin/Breast Denies rash Neuro Denies dizziness and Denies headache(s) Aller/Immun Denies wheezing Physical exam (Primary Care) Vital Signs: Last Vital Signs Pulse 84 12/25/22 15:53 BP 130/64 12/25/22 15:53 Pulse Ox 94 12/25/22 15:53 Oxygen Delivery Method Room Air 12/25/22 15:53 BMI result Body Mass Index 33.6 Tobacco/Smoking Status: Tobacco use Status Tobacco use date assessed 12/25/22 12/25/22 15:54 Patient Tobacco Use Status Former Tobacco user 12/25/22 15:54 Tobacco use type Cigarette 12/25/22 15:54 e-Cigarette/Vaping Use Never Used 12/25/22 15:54 PHQ-9: PHQ-9 Score PHQ-9: Total score 0 12/25/22 16:35 Depression Screening Interpretation: Negative Thrive Assessment: Date of Thrive Assessment Date Thrive assessed 06/26/22 12/25/22 15:54 Const General: cooperative and no acute distress Orientation/consciousness: patient oriented x3 HENMT Head: Yes normocephalic and Yes atraumatic Mouth: oropharynx normal and moist mucous membranes Throat: Yes posterior oropharynx normal Eyes General: appearance normal, both eyes and all related structures Pupils: Equal, round and reactive pupils present Neck Neck: Yes normal visual inspection and Yes full ROM Resp Effort & Inspection: normal respiratory effort and able to speak in complete sentences Auscultation: clear to auscultation bilaterally, no crackles, no rales, no rhonchi and no wheezes Cardio Rate: regular rate Rhythm: regular rhythm Heart sounds: S1 normal heart sound present and S2 normal heart sound present GI Auscultation: normal bowel sounds Skin General skin exam: no rashes or lesions noted Neuro General: patient oriented x3 Cranial nerves: Yes Equal, round and reactive pupils present Gait exam (Neuro): Normal gait present Extrem Other: Trace edema to bilateral lower extremity General: Yes full ROM Results AMB Hemoglobin A1c AMB Hemoglobin A1c 8.2 % Last Edit by DAPHNE Myles on 12/25/22 16:35 Results Reviewed Results Reviewed: Laboratory Last Values Hgb A1c (Clinic) 8.2 % (4.0-6.0) H 12/25/22 15:55 Assessment and Plan Assessment & Plan (1) Obesity (BMI 30-39.9): Code(s): E66.9 - Obesity, unspecified Plan: Healthy food choices and exercise as tolerated (2) GERD (gastroesophageal reflux disease): Code(s): K21.9 - Gastro-esophageal reflux disease without esophagitis Qualifiers: Esophagitis presence: without esophagitis Qualified Code(s): K21.9 - Gastro-esophageal reflux disease without esophagitis Plan: Continue omeprazole Avoid GERD trigger foods Do not lay down 2-3 hours after evening meal (3) Paroxysmal atrial fibrillation: Code(s): I48.0 - Paroxysmal atrial fibrillation Plan: Continue to follow-up with [facility] Continue Multaq and Xarelto (4) Type 2 diabetes mellitus with diabetic polyneuropathy: Code(s): E11.42 - Type 2 diabetes mellitus with diabetic polyneuropathy Qualifiers: Diabetes mellitus terminal makeup operator insulin use: with terminal makeup operator use Qualified Code(s): E11.42 - Type 2 diabetes mellitus with diabetic polyneuropathy; Z79.4 - remote computer terminal operator (current) use of insulin Plan: A1c 8.2 today, goal less than 7 Patient is to continue Trulicity, Jardiance, insulin lispro, metformin, and tresiba Reinforced low-carbohydrate diet and weight loss Continue to monitor blood sugars at home (5) Essential hypertension: Code(s): I10 - Essential (primary) hypertension Plan: Continue current treatment Low-sodium diet and weight loss (6) Hyperlipidemia LDL goal <100: Code(s): E78.5 - Hyperlipidemia, unspecified Plan: Continue rosuvastatin Low-cholesterol diet and weight loss Orders: Orders AMB Hemoglobin A1c Today E11.29 - Type 2 diabetes mellitus with other diabetic kidney complication, R80.9 - Proteinuria, unspecified Comprehensive [place]. Panel Fast 3 Months E11.42 - Type 2 diabetes mellitus with diabetic polyneuropathy Hemoglobin A1c 3 Months E11.42 - Type 2 diabetes mellitus with diabetic polyneuropathy Lipid Panel 3 Months E78.5 - Hyperlipidemia, unspecified Coding Level of Care Code Est Pt Level 4 (68200) Diagnoses Obesity (BMI 30-39.9) E66.9 Gastroesophageal reflux disease without esophagitis K21.9 Esophagitis presence: without esophagitis Paroxysmal atrial fibrillation I48.0 Type 2 diabetes mellitus with diabetic polyneuropathy, with long-term current use of insulin E11.42; Z79.4 Diabetes mellitus terminal makeup operator insulin use: with terminal makeup operator use Essential hypertension I10 Hyperlipidemia LDL goal <100 E78.5
== END 2022-12-25 16:17 | disposition home or self-care (01) ==
PROVIDERS: PCP Internal Medicine; Visit Provider Nurse Practitioner Family
DX: E11.42 Type 2 diabetes mellitus with diabetic polyneuropathy (principal); E66.9 Obesity, unspecified; Z68.33 Body mass index [BMI] 33.0-33.9, adult; I48.0 Paroxysmal atrial fibrillation; Z79.4 Long term (current) use of insulin; I10 Essential (primary) hypertension; K21.9 Gastro-esophageal reflux disease without esophagitis; E11.29 Type 2 diabetes mellitus with other diabetic kidney complication; E78.5 Hyperlipidemia, unspecified; R80.9 Proteinuria, unspecified
CPT/HCPCS: 83036; 99214

== ENCOUNTER → 2022-12-31 08:10 | Outpatient (BNVA) | payer OTHER, SELFPAY | PROVIDERS: PCP Internal Medicine; Visit Provider Physician Assistant Medical | DX: S01.111A Laceration without foreign body of right eyelid and periocular area, initial encounter (principal); W22.09XA Striking against other stationary object, initial encounter; Y93.02 Activity, running; Z23 Encounter for immunization | CPT/HCPCS: 90715; 92004; 99205 ==

== ENCOUNTER → 2023-01-04 08:06 | Outpatient (BNVA) | payer OTHER, SELFPAY | PROVIDERS: PCP Internal Medicine; Visit Provider Internal Medicine | DX: S01.111A Laceration without foreign body of right eyelid and periocular area, initial encounter (principal); W22.09XA Striking against other stationary object, initial encounter; Y93.02 Activity, running | CPT/HCPCS: 99212; 99213 ==

== ENCOUNTER → 2023-02-14 14:45 | Outpatient (BNVA) | payer OTHER, SELFPAY | PROVIDERS: Visit Provider Internal Medicine Cardiovascular Disease ==

== ENCOUNTER 2023-03-26 16:02 | Outpatient (AMB) | payer OTHER, SELFPAY ==
--- NOTE | 2023-03-26 16:03 | A.OFFPC_ITS ---
Vital Signs 03/26/23 16:04 Height 5 ft 6 in Weight 206 lb 2 oz BMI 33.3 BP 128/80 Blood Pressure Location Lt brachial Position Sitting Pulse 81 Pulse Source Pulse Oximeter Pulse Oximetry (%) 94 Oxygen Delivery Method Room Air Intake Visit Reasons: HLD, DM Technical Buyer Required: No Accompanied by: Self / Same As Patient Allergies acetaminophen [From PERCOCET] Allergy (Intermediate, Verified 03/26/23 17:05) CONSTIPATED oxycodone [From PERCOCET] Allergy (Intermediate, Verified 03/26/23 17:05) CONSTIPATED Medication List - Last Reconciled 03/26/23 by Patrick Eden MD cholecalciferol (vitamin D3) 50 mcg PO DAILY 90 days cyclobenzaprine 10 mg PO TID PRN dronedarone (Multaq) 400 mg PO BID dulaglutide (Trulicity) 1.5 mg (0.5 mL) subcut QWEEK 28 days empagliflozin (Jardiance) 25 mg PO QAM flash glucose sensor (FreeStyle Iris 14 Day Sensor kit) 1 ea topical every 14 days; fluticasone propionate 50 mcg/actuation 2 sprays intranasal DAILY 30 days Humalog KwikPen Insulin (insulin lispro) breakfast 16 units, Lunch 26 units, Dinner 28 units, Snack 10 units subcut 4 times a day; No substitutions. 30 days NS lidocaine 5% 1 patch topical DAILY lisinopril 20 mg PO DAILY loratadine 10 mg PO DAILY PRN 90 days metformin 1,000 mg PO BID omeprazole 20 mg PO DAILY 90 days pen needle, diabetic (BD Lou 2nd Gen Pen Needle) 1 ea miscellaneous five times a day; pen needle, diabetic (BD Ultra-Fine Lou Pen Needle) As directed once aday rivaroxaban (Xarelto) 20 mg PO DAILY rosuvastatin 20 mg PO DAILY tamsulosin 0.4 mg PO BEDTIME 90 days Tresiba FlexTouch U-200 (insulin degludec) 86 units (0.43 mL) subcut BEDTIME NS Tobacco use date assessed: 03/26/23 Dental Screening Dental Screen Date: 03/26/23 Did you have a dental visit in the last 12 months?: No Did you have a dental problem in the last 6 months where you did not have access to dental care?: No Was dental information given to patient?: No HPI HLD, DM HPI Details Patient comes in today for his follow up visit States that he has been experiencing frequent and recurrent pain, numbness and tingling sensation in both of his feet, which he states have been going on for a while now but feels that his symptoms have been getting worse lately Notes increased burning sensation in both of his feet at night, which he states is making it hard for his to go to sleep Adds that he has been feeling depressed lately - states that he lost his sister and a [id number] recently to illness and also got demoted at work a few weeks ago Cites increasing stress at work for the past few months, which he feels is contributing to his symptoms He denies any headaches or dizziness Denies any chest pains, no SOB No nausea/vomiting, no abdominal pain No change in bowel habits noted Was not able to get his follow up labs done yet - states that he can go and get them done tomorrow morning PFSH Medical History Allergic rhinitis On anticoagulant therapy Obesity (BMI 30-39.9) Insomnia Vitamin D deficiency Diabetic retinopathy Pure hypercholesterolemia Diabetic polyneuropathy Hearing loss BMI 33.0-33.9,adult Paroxysmal atrial fibrillation CAD (coronary artery disease) Afib GERD (gastroesophageal reflux disease) 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 Essential hypertension Hyperlipidemia LDL goal <100 Surgical History H/O colonoscopy H/O endoscopy History of laparoscopic cholecystectomy History of cataract surgery History of eye surgery History of inguinal hernia repair History of arthroscopy of right shoulder Family History Father Diabetes Mother Alzheimers disease Bone cancer Sister Heart failure Sister Hypertension Sister Diabetes Kidney failure Social History Household Members: Spouse Housing: House Alcohol intake: current Alcohol intake frequency: holidays/special occasions only Alcohol type: beer Patient Tobacco Use Status: Former Tobacco user Quit Date: 1987 Tobacco use type: Cigarette Cigarette Packs Per Day: 1.5 Cigarettes Per Day: 30.0 Years Smoked: 25 e-Cigarette/Vaping Use: Never Used Second Hand Smoke Exposure: Yes service: No Current occupational status: employed 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 1. Little interest or pleasure in doing things: more than half the days 2. Feeling down, depressed, or hopeless: more than half the days 3. Trouble falling or staying asleep, or sleeping too much: more than half the days 4. Feeling tired or having little energy: more than half the days 5. Poor appetite or overeating: several days 6. Feeling bad about yourself - or that you are a failure or have let yourself or your family down: several days 7. Trouble concentrating on things, such as reading the newspaper or watching television: several days 8. Moving or speaking so slowly that other people could have noticed. Or the opposite - being so fidgety or restless that you have been moving around a lot more than usual: not at all 9. Thoughts that you would be better off or of hurting yourself in some way: not at all Total score: 11 Depression Screening Interpretation: Positive Depression Screening Follow-up: Community Mental Health Worker F/U and Follow-up Visit Requested Depression Screening Done: Yes [id number] - PHQ-9 Billing: Yes Source: Developed by Drs. Alex Pack, Iva Zhao, Kd Jones and colleagues, with an educational sonu from [employer]. Thrive Questionnaire Date Thrive assessed: 03/26/23 I am a: Patient What is your living situation today?: I have a steady place to live Within the past 12 months, did the food you bought not last and you didn't have the money to get more?: Never true Within the past 12 months, did you worry whether your food would run out before you got money to buy more?: Never true Do you have trouble paying for medicines?: No Do you have trouble getting transportation to medical appointments?: No Do you have trouble paying your heating and electricity bill?: No Do you have trouble taking care of your child, family member or friend?: No Do you have trouble with day-to-day activities such as bathing, preparing meals, shopping, managing finances, etc.?: No Are you currently unemployed and looking for a job?: No Are you interested in more education?: No Please select the resources that you would like help with: None Currently or been in a relationship where the following occur: no concerns reported AUDIT C Alcohol Use Questionnaire (AUDIT-C) 1. How often do you have a drink containing alcohol?: Never 3. How often do you have six or more drinks on one occasion?: Never Total Score: 0 Score Reviewed/Action Taken: Yes HANK-7 AMB Questionnaire HANK-7 Date HANK - 7 assessed: 03/26/23 Feeling nervous, anxious, or on edge: 0 = Not at all Not being able to stop or control worryin = Not at all Worrying too much about different things: 0 = Not at all Trouble relaxin = Not at all Being so restless that it is hard to sit still: 0 = Not at all Becoming easily annoyed or irritable: 0 = Not at all Feeling afraid as if something awful might happen: 0 = Not at all Total HANK-7 score (0-4 normal; 5-9 mild; 10-14 moderate; 15-21 severe): 0 Source: Developed by Drs. Alex Pack, Iva Zhao, Kd Jones and colleagues, with an educational sonu from [employer]. Review of Systems Const Denies chills, Reports difficulty sleeping (lately), Reports fatigue, Denies fever(s) and Denies headache(s) ENT Denies dysphagia, Denies dizziness, Denies otalgia, Denies headache(s), Reports hearing loss (in right ear - chronic - now has a hearing aid in the right ear), Denies odynophagia and Denies sore throat Card Denies chest pain, Denies palpitations and Denies dyspnea Resp Denies cough and Denies dyspnea GI Denies abdominal pain, Denies bloating, Denies constipation, Denies dysphagia, Denies heartburn, Denies diarrhea, Denies nausea, Denies odynophagia and Denies vomiting Denies dysuria, Denies nocturia and Denies urinary frequency (improved with Rx) Musc Denies back pain, Reports numbness (on and off in both lower extremities - increasing) and Reports tingling (on and off in both lower extremities - increasing) Skin/Breast Denies rash Neuro Denies dizziness, Denies headache(s), Reports numbness (on and off in both lower extremities - increasing) and Reports tingling (on and off in both lower extremities - increasing) Psych Reports depression (increasing lately) and Denies suicidal ideation Endo Reports fatigue and Denies palpitations Aller/Immun Reports seasonal rhinorrhea Physical exam (Primary Care) Vital Signs: Last Vital Signs Pulse 81 03/26/23 16:04 BP 128/80 03/26/23 16:04 Pulse Ox 94 03/26/23 16:04 Oxygen Delivery Method Room Air 03/26/23 16:04 BMI result Body Mass Index 33.3 Tobacco/Smoking Status: Tobacco use Status Tobacco use date assessed 03/26/23 03/26/23 16:06 Patient Tobacco Use Status Former Tobacco user 03/26/23 16:06 Tobacco use type Cigarette 03/26/23 16:06 e-Cigarette/Vaping Use Never Used 03/26/23 16:06 PHQ-9: PHQ-9 Score PHQ-9: Total score 0 03/26/23 17:09 Depression Screening Interpretation: Positive Depression Screening Follow-up: Community Mental Health Worker F/U and Follow-up Visit Requested Thrive Assessment: Date of Thrive Assessment Date Thrive assessed 03/26/23 03/26/23 16:06 Currently or been in a relationship where the following occur: no concerns reported Const General: no acute distress and alert HENMT Ears: TM's normal bilaterally and EAC's normal Throat: Yes posterior oropharynx normal and Yes tonsils normal (no TP congestion noted) Neck Neck: Yes no lymphadenopathy and Yes supple Resp Auscultation: clear to auscultation bilaterally, no rales and no wheezes Cardio Rate: regular rate Rhythm: regular rhythm Heart sounds: no murmurs GI Other: (+) midline abdominal bulge with Valsalva Palpation (GI): Soft to palpation, nontender and Hernia present umbilical Extrem General: Yes no clubbing, cyanosis or edema Assessment and Plan Assessment & Plan (1) Type 2 diabetes mellitus with diabetic polyneuropathy: Code(s): E11.42 - Type 2 diabetes mellitus with diabetic polyneuropathy Qualifiers: Diabetes mellitus shelter insulin use: with shelter use Qualified Code(s): E11.42 - Type 2 diabetes mellitus with diabetic polyneuropathy; Z79.4 - senior living (current) use of insulin Plan: HgbA1c was at 7.5% when last checked in August 2022 (was at 7.7% previously) - goal is <7.0% Reinforced diabetic diet Continue Metformin 1000 mg BID, Jardiance 25 mg QD, Trulicity 1.5 mg subcutaneous injection once a week, Tresiba 86 units daily and Humalog 16 units for breakfast, 26 units for lunch, 28 units for dinner with 10 units for snacks Follow-up with endocrinology as scheduled (2) Diabetic polyneuropathy: Code(s): E11.42 - Type 2 diabetes mellitus with diabetic polyneuropathy Qualifiers: Diabetes mellitus type: type 2 Qualified Code(s): E11.42 - Type 2 diabetes mellitus with diabetic polyneuropathy Plan: EMG & NCV done on 11/26/2019 revealed (+) 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 Patient used to take Gabapentin 300 mg TID for his symptoms but has not been on this for a few months now - stated that he felt okay without any Rx back then but may need to start him back on this if his symptoms persist or get worse Will send him for repeat EMG and NCV for further evaluation He is also advised to get his follow up labs done MATT (3) Diabetic retinopathy: Code(s): E11.319 - Type 2 diabetes mellitus with unspecified diabetic retinopathy without macular edema Qualifiers: Diabetes mellitus macular edema: with macular edema Diabetes mellitus type: type 2 Diabetic retinopathy severity: with unspecified retinopathy severity Laterality: bilateral Qualified Code(s): 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 Plan: Follow up with ophthalmology as scheduled Reinforced tight glucose control to slow down disease progression (4) Pure hypercholesterolemia: Code(s): E78.00 - Pure hypercholesterolemia, unspecified Plan: He was not able to get his follow up labs done prior to his visit today and is instructed to get them done MATT Reinforced low-cholesterol diet Continue Rosuvastatin 20 mg QD Will recheck his labs and fasting lipids in 3 months for follow-up (5) Paroxysmal atrial fibrillation: Code(s): I48.0 - Paroxysmal atrial fibrillation Plan: Is currently still in (normal) sinus rhythm - patient reportedly responded very well to rhythm control approach and his highly symptomatic paroxysmal atrial fibrillation has remained suppressed with Multaq Continue Multaq 400 mg BID; continue Xarelto 20 mg QD for thromboembolism prophylaxis Is currently getting EKGs done every 3 months and echocardiogram every 6 months for follow-up and monitoring Follow-up with cardiology as scheduled (6) CAD (coronary artery disease): Comment: Cardiac catheterization, 2018, mid LAD 70% and RPL 70%. Remainder of the vessels had nonobstructive disease Code(s): I25.10 - Atherosclerotic heart disease of [place] coronary artery without angina pectoris Qualifiers: Associated angina: without angina Coronary Disease-Associated Artery/Lesion type: [place] artery [place] vs. transplanted heart: [place] heart Qualified Code(s): I25.10 - Atherosclerotic heart disease of [place] coronary artery without angina pectoris Plan: Patient remains asymptomatic with no recent angina symptoms Is currently anticoagulated with Xarelto Continue with aggressive risk reduction for primary prevention Follow-up with cardiology as scheduled (7) Essential hypertension: Code(s): I10 - Essential (primary) hypertension Plan: Reinforced low sodium diet - goal is systolic BP of 120 to 130 mm or less Continue Lisinopril 20 mg QD (8) Vitamin D deficiency: Code(s): E55.9 - Vitamin D deficiency, unspecified Plan: Continue Vitamin D3 2000 units QD (9) GERD (gastroesophageal reflux disease): Code(s): K21.9 - Gastro-esophageal reflux disease without esophagitis Qualifiers: Esophagitis presence: without esophagitis Qualified Code(s): K21.9 - Gastro-esophageal reflux disease without esophagitis Plan: Dietary restrictions reinforced Continue Omeprazole 20 mg QD (10) Allergic rhinitis: Code(s): J30.9 - Allergic rhinitis, unspecified Qualifiers: Allergic rhinitis seasonality: unspecified Allergic rhinitis trigger: unspecified Qualified Code(s): J30.9 - Allergic rhinitis, unspecified Plan: Continue Loratadine 10 mg QD PRN AND Fluticasone 50 mcg nasal spray QD PRN (11) Benign prostatic hyperplasia (BPH) with straining on urination: Code(s): N40.1 - Benign prostatic hyperplasia with lower urinary tract symptoms; R39.16 - Straining to void Plan: Most likely due to BPH; states that his symptoms have also been controlled on Rx Continue Tamsulosin 0.4 mg Q HS (12) Insomnia: Code(s): G47.00 - Insomnia, unspecified Qualifiers: Insomnia type: unspecified Qualified Code(s): G47.00 - Insomnia, unspecified Plan: Sleep hygiene reinforced Continue Trazodone 50 mg Q HS PRN (13) Depression: Code(s): F32.A - Depression, unspecified Qualifiers: Depression Type: unspecified Qualified Code(s): F32.A - Depression, unspecified Plan: Have offered to start patient on Rx for his depression and refer him to psychiatry but he declined - states that he would like to see if he can handle things for now without any Rx but will call if he feels his issues are getting worse (14) Obesity (BMI 30-39.9): Code(s): E66.9 - Obesity, unspecified Plan: Reinforced diet/exercise as tolerated/lose weight Plan Follow up in 3 months Orders: Orders Hemoglobin A1c Today E11.9 - Type 2 diabetes mellitus without complications Lipid Panel Today E78.00 - Pure hypercholesterolemia, unspecified Hemoglobin A1c 3 Months E11.9 - Type 2 diabetes mellitus without complications Comprehensive [place]. Panel Fast 3 Months E78.00 - Pure hypercholesterolemia, unspecified TSH reflex Free T4 3 Months E78.00 - Pure hypercholesterolemia, unspecified Microalbumin, Random (w Creat) 3 Months E11.9 - Type 2 diabetes mellitus without complications UA CC w/rflx Micro + Cult 3 Months R30.0 - Dysuria NE nerve conduction velocity 03/26/23 G57.93 - Unspecified mononeuropathy of bilateral lower limbs NE electromyogram (EMG) 03/26/23 G57.93 - Unspecified mononeuropathy of bilateral lower limbs Comprehensive [place]. Panel Fast Today E78.00 - Pure hypercholesterolemia, unspecified Complete Blood Count Auto Diff Today I10 - Essential (primary) hypertension Lipid Panel 3 Months E78.00 - Pure hypercholesterolemia, unspecified Complete Blood Count Auto Diff 3 Months I10 - Essential (primary) hypertension Vitamin B12 and Folate 3 Months E53.8 - Deficiency of other specified B group vitamins Vitamin D 25-OH Total 3 Months E55.9 - Vitamin D deficiency, unspecified Coding Level of Care Code Est Pt Level 4 (95070) Diagnoses Type 2 diabetes mellitus with diabetic polyneuropathy, with long-term current use of insulin E11.42; Z79.4 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 shelter use Diabetic polyneuropathy associated with type 2 diabetes mellitus E11.42 Diabetes mellitus type: type 2 Diabetic retinopathy of both eyes with macular edema associated with type 2 diabetes mellitus, unspecified retinopathy severity E11.311 Diabetes mellitus macular edema: with macular edema Diabetes mellitus type: type 2 Diabetic retinopathy severity: with unspecified retinopathy severity Laterality: bilateral Pure hypercholesterolemia E78.00 Paroxysmal atrial fibrillation I48.0 Coronary artery disease involving [place] coronary artery of [place] heart without angina pectoris I25.10 Associated angina: without angina Coronary Disease-Associated Artery/Lesion type: [place] artery [place] vs. transplanted heart: [place] heart Essential hypertension I10 Vitamin D deficiency E55.9 Gastroesophageal reflux disease without esophagitis K21.9 Esophagitis presence: without esophagitis Allergic rhinitis, unspecified seasonality, unspecified trigger J30.9 Allergic rhinitis seasonality: unspecified Allergic rhinitis trigger: unspecified Benign prostatic hyperplasia (BPH) with straining on urination N40.1; R39.16 Insomnia, unspecified type G47.00 Insomnia type: unspecified Depression, unspecified depression type F32.A Depression Type: unspecified Obesity (BMI 30-39.9) E66.9
[2023-03-26 16:04] VITALS: BP 128/80; PULSE 81; O2SAT 94; BMI 33.3
== END 2023-03-26 17:12 | disposition home or self-care (01) ==
PROVIDERS: PCP Internal Medicine; Visit Provider Internal Medicine
DX: E11.42 Type 2 diabetes mellitus with diabetic polyneuropathy (principal); Z79.4 Long term (current) use of insulin; E11.311 Type 2 diabetes mellitus with unspecified diabetic retinopathy with macular edema; I48.0 Paroxysmal atrial fibrillation; E78.00 Pure hypercholesterolemia, unspecified; I25.10 Atherosclerotic heart disease of native coronary artery without angina pectoris; I10 Essential (primary) hypertension; E55.9 Vitamin D deficiency, unspecified; K21.9 Gastro-esophageal reflux disease without esophagitis; J30.9 Allergic rhinitis, unspecified; N40.1 Benign prostatic hyperplasia with lower urinary tract symptoms; R39.16 Straining to void
CPT/HCPCS: 99214

== ENCOUNTER 2023-03-27 05:56 | Outpatient (REF) | payer OTHER, SELFPAY ==
[2023-03-27 06:12] LABS: MANUAL DIFF FLAG NO
[2023-03-27 07:28] LABS: Basophils Percent Auto 0.6 % (0-2); Eosinophils Absolute Auto 0.2 X10*3/uL (0.0-0.4); Eosinophils Percent Auto 3.2 % (0-4); Hematocrit 40.4 % (42.0-52.0); Hemoglobin 13.6 g/dl (14.0-18.0); Imm Gran Abs Auto 0.02 X10*3/uL (0.00-0.03); Imm Gran Pct Auto 0.3 % (0.0-0.4); Lymphocytes Absolute Auto 1.6 X10*3/uL (1.2-4.9); Lymphocytes Percent Auto 23.8 % (20-40); Mean Corpuscular HGB Conc 33.7 g/dl (31.0-36.0); Mean Corpuscular Hemoglobin 28.3 pg (27.0-33.0); Mean Corpuscular Volume 84.2 fL (80.0-98.0); Mean Platelet Volume 11.6 fL (9.4-12.4); Monocytes Absolute Auto 0.6 X10*3/uL (0.1-1.2); Monocytes Percent Auto 9.2 % (2-11); Neutrophils Absolute Auto 4.1 x10*3/uL (2.0-8.3); Neutrophils Percent Auto 62.9 % (45-73); Platelet Count 165 X10*3/uL (160-400); Red Cell Distribution Width 12.8 % (11.0-16.0); White Blood Count 6.6 X10*3/uL (4.8-10.8)
[2023-03-27 07:31] LABS: Appearance Urine Clear; Color Urine Yellow; Glucose Urine UA >=1000 mg/dL (Negative); Leukocyte Esterase Urine Negative (Negative); Nitrite Urine Negative (Negative); PH 5.5 (5.0-9.0); Specific Gravity - Urine >= 1.030 (1.005-1.025); UMIC TRIGGER UACC YES; Urine Blood Negative (Negative); Urine Ketones Negative (Negative); Urine Protein Negative (Neg-Trace)
[2023-03-27 07:36] LABS: Estimated Average Glucose 163 mg/dL; Hemoglobin A1c % 7.3 % (<6.0)
[2023-03-27 07:36] LABS: Bacteria Urine None Seen (None Seen); Hyaline Casts Urine 0-2 /LPF (0-2); RBC Urine 0-2 /HPF (0-2); Squamous Epithelial Cell Urine 0-2 /HPF (0-2); WBC Urine 0-5 /HPF (0-5)
[2023-03-27 07:48] LABS: Alanine Aminotransferase 28 U/L (0-40); Albumin Level 4.1 g/dL (3.5-5.0); Alkaline Phosphatase 69 U/L (39-117); Anion Gap 11 (12-20); Aspartate Amino Transferase 20 U/L (5-37); Bilirubin Total 0.3 mg/dL (0.0-1.0); Blood Urea Nitrogen 23 mg/dL (9-16); Calcium 9.3 mg/dL (8.4-10.2); Carbon Dioxide 27 mmol/L (22-29); Chloride 109 mmol/L (96-108); Cholesterol 115 mg/dL (<200); Estimated Glomerular Filt Rate 56; Glucose Fasting 158 mg/dL (60-99); HDL Cholesterol 37 mg/dL (>40); LDL Cholesterol Calculated 33 mg/dL (<100); Potassium 4.3 mmol/L (3.3-5.1); Sodium 143 mmol/L (135-145); Total Protein 7.3 g/dL (6.5-8.0); Triglycerides 226 mg/dL (<150)
== END 2023-03-27 05:57 | disposition home or self-care (01) ==
LOC: HO.LAB 05:56
PROVIDERS: PCP Internal Medicine; Visit Provider Internal Medicine
DX: E78.00 Pure hypercholesterolemia, unspecified (principal); E11.9 Type 2 diabetes mellitus without complications; I10 Essential (primary) hypertension; R30.0 Dysuria
CPT/HCPCS: 36415; 80053; 80061; 81001; 83036; 85025

== ENCOUNTER 2023-04-11 08:42 | Outpatient (REF) | payer OTHER, SELFPAY ==
--- NOTE | 2023-04-11 08:45 | EMG_ITS ---
Bilateral tibial and peroneal motor studies were performed. Bilateral superficial peroneal and sural sensory studies were performed and paraspinal muscles were tested with a needle. Tibial H reflexes were obtained. IMPRESSION: Moderate to severe axonal sensory motor peripheral neuropathy. MD BERNADINE Spangler/LYNDSEY / [id number]
== END 2023-04-11 08:43 | disposition home or self-care (01) ==
LOC: HO.NEURO 08:42
PROVIDERS: PCP Internal Medicine; Visit Provider Internal Medicine
DX: G57.93 Unspecified mononeuropathy of bilateral lower limbs (principal)
CPT/HCPCS: 95886; 95911

== ENCOUNTER → 2023-05-06 07:40 | Outpatient (REF) | payer OTHER, SELFPAY ==
--- NOTE | 2023-05-06 07:43 | CA_ITS ---
Transthoracic Echocardiogram Patient (Last, First, Middle): Abdoulaye Luo I Gender: Male Date of : 1960 Age: 63 Procedure Date: 05/06/2023 Procedure Type: Transthoracic Echocardiogram Location: OP Height: 167.64 cm Weight: 90.72 kg BSA: 2.00 m2 Heart Rate: bpm BP: 120 / 75 mmHg Director Business: GREGORIA Referring MD: Ian Pappas MD Symptoms: I48.0 - Paroxysmal atrial fibrillation Study Quality: Adequate with contrast ECG Rhythm: Sinus Conclusions: - The left ventricular systolic function is normal. The calculated ejection fraction is 67% by biplane method. - No obvious valvular pathology seen on this study. Findings Procedure Information Contrast agent, definity, is being given per protocol without apparent complications. Left Ventricle Normal left ventricular cavity size. There is mildly increased left ventricular wall thickness. The left ventricular systolic function is normal. The calculated ejection fraction is 67% by biplane method. There is no evidence of regional wall motion abnormalities. Diastolic function is normal for age. Right Ventricle Normal right ventricular cavity size and systolic function. Atria Both atria are normal in size. Aortic Valve There is a normal trileaflet aortic valve. There is no aortic valve stenosis. There is no aortic valve regurgitation. Mitral Valve The mitral valve appears normal. There is no mitral valve regurgitation. There is no mitral valve stenosis. Pulmonic Valve The pulmonic valve is likely normal. Tricuspid Valve There is trace tricuspid valve regurgitation. There is no evidence of pulmonary hypertension. Great Vessels The asc aorta is normal in size. Venous The inferior vena cava is normal in size and collapses greater than 50% with inspiration. Pericardium/Pleural There is no evidence of pericardial effusion. Prior Study Comparison No significant change compared to prior study dated: 05/08/2021. Recommendations, Care & Conclusions No obvious valvular pathology seen on this study. Measurements 2D Linear Measurements IVSd: 1.08 0.6-0.9/0.6-1.0 cm LVIDd: 4.40 3.9-5.3/4.2-5.9 cm LVIDd Index: 2.20 2.4-3.2/2.2-3.1 cm/m2 LVIDs: 2.80 2.0-3.6 cm LVPWd: 1.09 0.7-1.1 cm LA Diam: 3.70 2.7-3.8/3.0-4.0 cm LAIDs Index: 1.85 1.5-2.3 cm/m2 LV Mass: 206.35 67-162/88-224 g LV Mass Index: 103.17 43-95/49-115 g/m2 LVOT Diam: 2.00 3.0+(-)1.3 cm 2D Systolic Function EF 4C: 59.00 >55% EF 2C: 72.10 >55% EF BiP: 66.60 >55% Mitral Valve MV Pk E: 0.85 MV PK A: 0.65 MV Decel Time: 211.00 E/A: 1.30 E'Lateral: 7.29 E'Medial: 5.33 E/E' Med: 15.90 E/E' Lat: 11.60 PHT: 62.00 MVA PHT: 3.55 Decel Geary: 4.02 Aortic Valve AoV Pk Kobe: 1.32 AoV Mn Kobe: 1.00 AoV VTI: 0.34 AoV Pk Grad: 7.00 Aov Mn Grad: 4.00 TELMA Cont.VTI: 2.04 LVOT LVOT Pk Kobe: 0.91 LVOT Mn Kobe: 0.66 LVOT VTI: 0.22 LVOT Pk Grad: 3.00 LVOT Mn Grad: 2.00 LVOT Diam: 2.00 LVOT Area: 3.14 Diastolic Function MV Pk E: 0.85 MV Pk A: 0.65 E/A: 1.30 E'Medial: 5.33 E/E' Med: 15.90 E' Laterial: 7.29 E/E' Lat: 11.60 Right Ventricle TAPSE (mm): 24.90 TVS' Kobe: 12.90 Tricuspid Valve TR Pk Kobe: 2.25 TR Pk Grad: 20.00 RA Press: 3.00 RVSP: 23.00 Great Vessels Aorta Sinus of Valsalva: 3.01 2.0-3.[address] [place]: 2.29 1.7-3.4 cm Ao Asc: 3.00 2.1-3.4 cm Updated in Other Vendor System with Status of Final Rafael Hanley MD electronically signed on 05/06/2023 7:35:25 AM with status of Final
== END ==
LOC: HO.CARD 07:40
PROVIDERS: PCP Internal Medicine; Visit Provider Internal Medicine Cardiovascular Disease
DX: I48.0 Paroxysmal atrial fibrillation (principal)
CPT/HCPCS: 93306; Q9957

== ENCOUNTER → 2023-05-06 07:43 | Outpatient (BNV) | payer OTHER, SELFPAY | PROVIDERS: PCP Internal Medicine; Visit Provider Internal Medicine | DX: I48.0 Paroxysmal atrial fibrillation (principal) | CPT/HCPCS: 93306 ==

== ENCOUNTER 2023-05-09 14:45 | Outpatient (AMB) | payer OTHER, SELFPAY ==
[2023-05-09 15:08] VITALS: BP 110/60; PULSE 80; BMI 33.5
--- NOTE | 2023-05-09 15:08 | A.OFFVIS_ITS ---
Intake Vital Signs 05/09/23 15:08 Height 5 ft 6 in Weight 207 lb 10.807 oz BMI 33.5 BP 110/60 Blood Pressure Location Lt brachial Position Sitting Pulse 80 Intake Visit Reasons: 1 YEAR FOLLOW UP W/ EKG AFTER ECHO Intake Note: pt its in office for an 1 year f/up after echo, pt states that he its feeling fine, just a little unbalance dawson to one side hearing loss but he its doing fine. 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 Accompanied by: Self / Same As Patient Allergies acetaminophen [From PERCOCET] Allergy (Intermediate, Verified 03/26/23 17:05) CONSTIPATED oxycodone [From PERCOCET] Allergy (Intermediate, Verified 03/26/23 17:05) CONSTIPATED Medication List - Last Reconciled 05/09/23 by RONDA Apodaca cholecalciferol (vitamin D3) 50 mcg PO DAILY 90 days cyclobenzaprine 10 mg PO TID PRN dronedarone (Multaq) 400 mg PO BID dulaglutide (Trulicity) 1.5 mg (0.5 mL) subcut QWEEK 28 days empagliflozin (Jardiance) 25 mg PO QAM flash glucose sensor (FreeStyle Iris 14 Day Sensor kit) 1 ea topical every 14 days; fluticasone propionate 50 mcg/actuation 2 sprays intranasal DAILY 30 days Humalog KwikPen Insulin (insulin lispro) breakfast 16 units, Lunch 26 units, Dinner 28 units, Snack 10 units subcut 4 times a day; No substitutions. 30 days NS lisinopril 20 mg PO DAILY loratadine 10 mg PO DAILY PRN 90 days metformin 1,000 mg PO BID omeprazole 20 mg PO DAILY 90 days pen needle, diabetic (BD Lou 2nd Gen Pen Needle) 1 ea miscellaneous five times a day; pen needle, diabetic (BD Ultra-Fine Lou Pen Needle) As directed once aday rivaroxaban (Xarelto) 20 mg PO DAILY rosuvastatin 20 mg PO DAILY tamsulosin 0.4 mg PO BEDTIME 90 days Tresiba FlexTouch U-200 (insulin degludec) 86 units (0.43 mL) subcut BEDTIME NS HPI 1 YEAR FOLLOW UP W/ EKG AFTER ECHO HPI0 Details Abdoulaye is a 63-year-old male past medical history of hypertension, hyperlipidemia, diabetes, obesity, paroxysmal atrial fibrillation which is currently suppressed with Multaq, coronary artery disease who presents for follow-up. Today he reports he has been feeling well with no concerning symptoms. He denies any chest discomfort at rest or with activity. No shortness of breath, palpitations, lightheadedness, presyncope, syncope, PND, orthopnea or edema. 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 Takes his medications as directed. He has no cardiac questions or concerns. 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 Essential hypertension Hyperlipidemia LDL goal <100 Surgical History H/O colonoscopy H/O endoscopy History of laparoscopic cholecystectomy History of cataract surgery History of eye surgery History of inguinal hernia repair History of arthroscopy of right shoulder Family History Father Diabetes Mother Alzheimers disease Bone cancer Sister Heart failure Sister Hypertension Sister Diabetes Kidney failure Social History Household Members: Spouse Housing: House Alcohol intake: current Alcohol intake frequency: holidays/special occasions only Alcohol type: beer Patient Tobacco Use Status: Former Tobacco user Quit Date: 1987 Tobacco use type: Cigarette Cigarette Packs Per Day: 1.5 Cigarettes Per Day: 30.0 Years Smoked: 25 e-Cigarette/Vaping Use: Never Used Second Hand Smoke Exposure: Yes service: No Current occupational status: employed 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 [employer] Cognitive needs: No Hearing needs: No Vision needs: Yes Physical Exam Vital Signs: Last Vital Signs Pulse 80 05/09/23 15:08 BP 110/60 05/09/23 15:08 BMI result Body Mass Index 33.5 Const General: cooperative, healthy appearing, comfortable and no acute distress Orientation/consciousness: patient oriented x3 Neck Neck: Yes normal visual inspection and Yes no JVD Resp Effort & Inspection: normal respiratory effort Auscultation: clear to auscultation bilaterally, no rales, no rhonchi and no wheezes Cardio Jugular venous distension: no JVD Rate: regular rate Rhythm: regular rhythm Heart sounds: S1 normal heart sound present, S2 normal heart sound present, no murmurs and no rubs Skin General skin exam: no rashes or lesions noted Neuro General: patient oriented x3 Extrem General: Yes normal to inspection, No no pedal edema and No calf tenderness Psych Appearance: grossly normal Mental Status: mental status grossly normal Speech and movement: Normal speech and movement present Office Procedures EKG Details: Today, read by me, normal sinus rhythm, T-wave abnormality lead 1 and aVL, rate 80, QTC 429 milliseconds. Prior EKGs have nonspecific T-wave abnormalities noted, current EKG more pronounced. [id number], Complete Assessment & Plan Assessment & Plan (1) Paroxysmal atrial fibrillation: Code(s): I48.0 - Paroxysmal atrial fibrillation Plan: History of paroxysmal atrial fibrillation. Currently suppressed with Multaq 400 mg b.i.d.. He has not had any known recurrent atrial fibrillation in recent years. Echocardiogram done 05/06/2023 showed EF 67%, no valve abnormalities and normal atrial sizes. He denies any heart palpitations. Pulse is very regular on examination today. EKG today shows normal sinus rhythm, T-wave abnormality in lead 1 and aVL, rate 80, QTC 429 milliseconds. Will have him continue on Multaq. He is on Xarelto for anticoagulation. Labs done 03/27/2023 showed creatinine 1.3, GFR 56, hematocrit 40.4. No reports of bleeding. Continue Xarelto. Instructed to notify this office if he has any recurrent heart palpitations. Emergency care if needed. EKG in the office every 3 months. Cardiology follow-up with EKG in 1 year, sooner if needed. (2) CAD (coronary artery disease): Comment: Cardiac catheterization, 2018, mid LAD 70% and RPL 70%. Remainder of the vessels had nonobstructive disease Code(s): I25.10 - Atherosclerotic heart disease of kenaitze coronary artery without angina pectoris Qualifiers: Coronary Disease-Associated Artery/Lesion type: ken[place]ze artery [place] vs. transplanted heart: kenaitze heart Associated angina: without angina Qualified Code(s): I25.10 - Atherosclerotic heart disease of kenaitze coronary artery without angina pectoris Plan: History of coronary artery disease. Cardiac catheterization from 2018 showed mid LAD 70% stenosis, right PDA L 70% stenosis. He has no reports of anginal sounding symptoms. He reports good activity tolerance. His EKG today does have T-wave inversion aVL, slight in lead 1. Nonspecific T-wave abnormalities seen on prior EKGs however current EKG is more pronounced. In the absence of symptoms and recent echo showing normal EF and no regional wall motion abnormalities will continue to follow. Signs and symptoms of angina reviewed with him. If any concerning symptoms he will notify this office and stress testing will be ordered. Continue with med management. Is not on aspirin as he is on Xarelto. He is on rosuvastatin with ideal LDL goal less than 70. He is not on beta-madeleine as he is on the Multaq. Heart rate and blood pressure are controlled. (3) Essential hypertension: Code(s): I10 - Essential (primary) hypertension Plan: [place] goal less than 130/85. Well controlled at present. Continue lisinopril. (4) Pure hypercholesterolemia: Code(s): E78.00 - Pure hypercholesterolemia, unspecified Plan: [place] LDL goal less than 70. Labs done 03/27/2023 showed LDL 33. Continue rosuvastatin. (5) Abnormal finding on EKG: Code(s): R94.31 - Abnormal electrocardiogram [ECG] [EKG] Plan: As above Plan Time spent on chart review, documentation, interview and assessment Coding Level of Care Code Est Pt Level 4 (91102) Diagnoses Paroxysmal atrial fibrillation I48.0 Coronary artery disease involving kenaitze coronary artery of kenaitze heart without angina pectoris I25.10 Coronary Disease-Associated Artery/Lesion type: ken[place]ze artery [place] vs. transplanted heart: ken[place]ze heart Associated angina: without angina Essential hypertension I10 Pure hypercholesterolemia E78.00 Abnormal finding on EKG R94.31 CPT Codes EKG - CPT: 81929-[id number], Complete ([id number]) Time Spent (min) 28
== END 2023-05-09 15:36 | disposition home or self-care (01) ==
PROVIDERS: PCP Internal Medicine; Visit Provider Nurse Practitioner Family
DX: I48.0 Paroxysmal atrial fibrillation (principal); I25.10 Atherosclerotic heart disease of native coronary artery without angina pectoris; I10 Essential (primary) hypertension; E78.00 Pure hypercholesterolemia, unspecified; R94.31 Abnormal electrocardiogram [ECG] [EKG]
CPT/HCPCS: 93010; 99214

== ENCOUNTER → 2023-05-09 14:45 | Outpatient (BNVA) | payer OTHER, SELFPAY | PROVIDERS: Visit Provider Nurse Practitioner Family | DX: I48.0 Paroxysmal atrial fibrillation (principal); I25.10 Atherosclerotic heart disease of native coronary artery without angina pectoris; I10 Essential (primary) hypertension; E78.00 Pure hypercholesterolemia, unspecified; R94.31 Abnormal electrocardiogram [ECG] [EKG]; Z79.01 Long term (current) use of anticoagulants; Z79.899 Other long term (current) drug therapy | CPT/HCPCS: 93005 ==

== ENCOUNTER 2023-06-26 15:52 | Outpatient (AMB) | payer OTHER, SELFPAY ==
--- NOTE | 2023-06-26 15:56 | MHC.PC.OV ---
Vital Signs 06/26/23 15:58 Height 5 ft 6 in Weight 209 lb 2 oz BMI 33.7 BP 100/62 Blood Pressure Location Lt brachial Position Sitting Pulse 67 Pulse Source Pulse Oximeter Pulse Oximetry (%) 95 Oxygen Delivery Method Room Air Intake Visit Reasons: DM, hyperlipidemia Intake Note: Patient is here to follow up on DM, Hyperlipidemia. Production Supervisor Off Shift Required: No Hardware Test Engineer: Not Required per policy Accompanied by: Self / Same As Patient Allergies acetaminophen [From PERCOCET] Allergy (Intermediate, Verified 06/26/23 16:16) CONSTIPATED oxycodone [From PERCOCET] Allergy (Intermediate, Verified 06/26/23 16:16) CONSTIPATED Medication List - Last Reconciled 06/26/23 by Patrick Eden MD blood-glucose meter,continuous (Dexcom G6 Glove Parts Inspector) As directed blood-glucose sensor (Dexcom G7 Sensor device) As directed blood-glucose transmitter (Dexcom G6 Transmitter device) As directed cholecalciferol (vitamin D3) 50 mcg PO DAILY 90 days cyclobenzaprine 10 mg PO TID PRN dronedarone (Multaq) 400 mg PO BID dulaglutide (Trulicity) 1.5 mg (0.5 mL) subcut QWEEK 28 days empagliflozin (Jardiance) 25 mg PO QAM fluticasone propionate 50 mcg/actuation 2 sprays intranasal DAILY 30 days Humalog KwikPen Insulin (insulin lispro) breakfast 16 units, Lunch 26 units, Dinner 28 units, Snack 10 units subcut 4 times a day; No substitutions. 30 days NS lisinopril 20 mg PO DAILY loratadine 10 mg PO DAILY PRN 90 days metformin 1,000 mg PO BID omeprazole 20 mg PO DAILY 90 days pen needle, diabetic (BD Lou 2nd Gen Pen Needle) 1 ea miscellaneous five times a day; pen needle, diabetic (BD Ultra-Fine Lou Pen Needle) As directed once aday rivaroxaban (Xarelto) 20 mg PO DAILY rosuvastatin 20 mg PO DAILY tamsulosin 0.4 mg PO BEDTIME 90 days Tresiba FlexTouch U-200 (insulin degludec) 86 units (0.43 mL) subcut BEDTIME NS Tobacco use date assessed: 06/26/23 Dental Screening Dental Screen Date: 06/26/23 Did you have a dental visit in the last 12 months?: No Did you have a dental problem in the last 6 months where you did not have access to dental care?: No Was dental information given to patient?: No (dentures) [facility] Medical History Allergic rhinitis On anticoagulant therapy Obesity (BMI 30-39.9) Insomnia Vitamin D deficiency Diabetic retinopathy Pure hypercholesterolemia Diabetic polyneuropathy Hearing loss BMI 33.0-33.9,adult Paroxysmal atrial fibrillation CAD (coronary artery disease) Afib GERD (gastroesophageal reflux disease) 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 Essential hypertension Hyperlipidemia LDL goal <100 Surgical History H/O colonoscopy H/O endoscopy History of laparoscopic cholecystectomy History of cataract surgery History of eye surgery History of inguinal hernia repair History of arthroscopy of right shoulder Family History Father Diabetes Mother Alzheimers disease Bone cancer Sister Heart failure Sister Hypertension Sister Diabetes Kidney failure Social History Household Members: Spouse Housing: House Alcohol intake: current Alcohol intake frequency: holidays/special occasions only Alcohol type: beer Patient Tobacco Use Status: Former Tobacco user (30 years ago) Quit Date: 1987 Tobacco use type: Cigarette Cigarette Packs Per Day: 1.5 Cigarettes Per Day: 30.0 Years Smoked: 25 e-Cigarette/Vaping Use: Never Used Second Hand Smoke Exposure: Yes service: No Current occupational status: employed 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 1. Little interest or pleasure in doing things: not at all 2. Feeling down, depressed, or hopeless: not at all 3. Trouble falling or staying asleep, or sleeping too much: not at all 4. Feeling tired or having little energy: not at all 5. Poor appetite or overeating: not at all 6. Feeling bad about yourself - or that you are a failure or have let yourself or your family down: not at all 7. Trouble concentrating on things, such as reading the newspaper or watching television: not at all 8. Moving or speaking so slowly that other people could have noticed. Or the opposite - being so fidgety or restless that you have been moving around a lot more than usual: not at all 9. Thoughts that you would be better off or of hurting yourself in some way: not at all Total score: 0 Depression Screening Interpretation: Negative Depression Screening Done: Yes Source: Developed by Drs. Alex Pack, Iva Zhao, Kd Jnoes and colleagues, with an educational sonu from [id number]. Thrive Questionnaire Date Thrive assessed: 06/26/23 I am a: Patient What is your living situation today?: I have a steady place to live Within the past 12 months, did the food you bought not last and you didn't have the money to get more?: Never true Within the past 12 months, did you worry whether your food would run out before you got money to buy more?: Never true Do you have trouble paying for medicines?: No Do you have trouble getting transportation to medical appointments?: No Do you have trouble paying your heating and electricity bill?: No Do you have trouble taking care of your child, family member or friend?: No Do you have trouble with day-to-day activities such as bathing, preparing meals, shopping, managing finances, etc.?: No Are you currently unemployed and looking for a job?: No Are you interested in more education?: No Currently or been in a relationship where the following occur: no concerns reported THRIVE Score: 0 AUDIT C Alcohol Use Questionnaire (AUDIT-C) 1. How often do you have a drink containing alcohol?: Never Total Score: 0 HANK-7 AMB Questionnaire HANK-7 Date HANK - 7 assessed: 06/26/23 Feeling nervous, anxious, or on edge: 0 = Not at all Not being able to stop or control worryin = Not at all Worrying too much about different things: 0 = Not at all Trouble relaxin = Not at all Being so restless that it is hard to sit still: 0 = Not at all Becoming easily annoyed or irritable: 0 = Not at all Feeling afraid as if something awful might happen: 0 = Not at all Total HANK-7 score (0-4 normal; 5-9 mild; 10-14 moderate; 15-21 severe): 0 Source: Developed by Drs. Alex Pack, Iva Zhao, Kd Jones and colleagues, with an educational sonu from [id number]. Physical exam (Primary Care) Vital Signs: Last Vital Signs Pulse 67 06/26/23 15:58 BP 100/62 06/26/23 15:58 Pulse Ox 95 06/26/23 15:58 Oxygen Delivery Method Room Air 06/26/23 15:58 BMI result Body Mass Index 33.7 Tobacco/Smoking Status: Tobacco use Status Tobacco use date assessed 06/26/23 06/26/23 16:07 Patient Tobacco Use Status Former Tobacco user (30 06/26/23 16:07 years ago) Tobacco use type Cigarette 06/26/23 16:07 e-Cigarette/Vaping Use Never Used 06/26/23 16:07 PHQ-9: PHQ-9 Score PHQ-9: Total score 0 06/26/23 16:07 Depression Screening Interpretation: Negative Thrive Assessment: Date of Thrive Assessment Date Thrive assessed 06/26/23 06/26/23 16:07 Currently or been in a relationship where the following occur: no concerns reported Results AMB Hemoglobin A1c AMB Hemoglobin A1c 8.8 % Last Edit by DAPHNE Davis on 06/26/23 16:08 Results Reviewed Results Reviewed: Laboratory Last Values Hgb A1c (Clinic) 8.8 % (4.0-6.0) H 06/26/23 15:55 Laboratory Tests 03/27/23 03/27/23 03/27/23 06:02 06:02 06:02 WBC Hgb Hct Plt Count Sodium Potassium Creatinine Estimated GFR Fasting Glucose Hgb A1c (Clinic) Hemoglobin A1c % AST ALT Triglycerides Cholesterol LDL Cholesterol, Calc HDL Cholesterol Ur Specific [place] >= 1.030 H Urine Protein Negative Urine Glucose (UA) >=1000 H Urine Blood Negative Urine Nitrite Negative Ur Leukocyte Esterase Negative 03/27/23 03/27/23 03/27/23 06:05 06:05 06:05 WBC 6.6 Hgb 13.6 L Hct 40.4 L Plt Count 165 Sodium 143 Potassium Creatinine 1.30 Estimated GFR 56 Fasting Glucose 158 H Hgb A1c (Clinic) Hemoglobin A1c % 7.3 H AST 20 ALT 28 Triglycerides 226 H Cholesterol 115 LDL Cholesterol, Calc 33 HDL Cholesterol 37 L Ur Specific [place] Urine Protein Urine Glucose (UA) Urine Blood Urine Nitrite Ur Leukocyte Esterase 03/27/23 06/26/23 06:05 15:55 WBC Hgb Hct Plt Count Sodium Potassium 4.3 Creatinine Estimated GFR Fasting Glucose Hgb A1c (Clinic) 8.8 H Hemoglobin A1c % AST ALT Triglycerides Cholesterol LDL Cholesterol, Calc HDL Cholesterol Ur Specific [place] Urine Protein Urine Glucose (UA) Urine Blood Urine Nitrite Ur Leukocyte Esterase Assessment and Plan Assessment & Plan (1) Type 2 diabetes mellitus with diabetic polyneuropathy: Code(s): E11.42 - Type 2 diabetes mellitus with diabetic polyneuropathy Qualifiers: Diabetes mellitus intermediate project manager insulin use: with senior care use Qualified Code(s): E11.42 - Type 2 diabetes mellitus with diabetic polyneuropathy; Z79.4 - technician terminal and repeater (current) use of insulin Plan: HgbA1c was at 7.5% when last checked in August 2022 (was at 7.7% previously) - goal is <7.0% Reinforced diabetic diet Continue Metformin 1000 mg BID, Jardiance 25 mg QD, Trulicity 1.5 mg subcutaneous injection once a week, Tresiba 86 units daily and Humalog 16 units for breakfast, 26 units for lunch, 28 units for dinner with 10 units for snacks Follow-up with endocrinology as scheduled (2) Diabetic polyneuropathy: Code(s): E11.42 - Type 2 diabetes mellitus with diabetic polyneuropathy Qualifiers: Diabetes mellitus type: type 2 Qualified Code(s): E11.42 - Type 2 diabetes mellitus with diabetic polyneuropathy Plan: EMG & NCV done on 11/26/2019 revealed (+) 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 Patient used to take Gabapentin 300 mg TID for his symptoms but has not been on this for a few months now - stated that he felt okay without any Rx back then but may need to start him back on this if his symptoms persist or get worse Will send him for repeat EMG and NCV for further evaluation He is also advised to get his follow up labs done MATT (3) Diabetic retinopathy: Code(s): E11.319 - Type 2 diabetes mellitus with unspecified diabetic retinopathy without macular edema Qualifiers: Diabetes mellitus type: type 2 Diabetic retinopathy severity: with unspecified retinopathy severity Diabetes mellitus macular edema: with macular edema Laterality: bilateral Qualified Code(s): 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 Plan: Follow up with ophthalmology as scheduled Reinforced tight glucose control to slow down disease progression (4) Pure hypercholesterolemia: Code(s): E78.00 - Pure hypercholesterolemia, unspecified Plan: Reinforced low-cholesterol diet Continue Rosuvastatin 20 mg QD Will recheck his labs and fasting lipids in 3 months for follow-up (5) Paroxysmal atrial fibrillation: Code(s): I48.0 - Paroxysmal atrial fibrillation Plan: Is currently still in (normal) sinus rhythm - patient reportedly responded very well to rhythm control approach and his highly symptomatic paroxysmal atrial fibrillation has remained suppressed with Multaq Continue Multaq 400 mg BID; continue Xarelto 20 mg QD for thromboembolism prophylaxis Is currently getting EKGs done every 3 months and echocardiogram every 6 months for follow-up and monitoring Follow-up with cardiology as scheduled (6) CAD (coronary artery disease): Comment: Cardiac catheterization, 2018, mid LAD 70% and RPL 70%. Remainder of the vessels had nonobstructive disease Code(s): I25.10 - Atherosclerotic heart disease of [place] coronary artery without angina pectoris Qualifiers: Coronary Disease-Associated Artery/Lesion type: [place] artery [place] vs. transplanted heart: [place] heart Associated angina: without angina Qualified Code(s): I25.10 - Atherosclerotic heart disease of [place] coronary artery without angina pectoris Plan: Patient remains asymptomatic with no recent angina symptoms Is currently anticoagulated with Xarelto Continue with aggressive risk reduction for primary prevention Follow-up with cardiology as scheduled (7) Essential hypertension: Code(s): I10 - Essential (primary) hypertension Plan: Reinforced low sodium diet - goal is systolic BP of 120 to 130 mm or less Continue Lisinopril 20 mg QD (8) Vitamin D deficiency: Code(s): E55.9 - Vitamin D deficiency, unspecified Plan: Continue Vitamin D3 2000 units QD (9) GERD (gastroesophageal reflux disease): Code(s): K21.9 - Gastro-esophageal reflux disease without esophagitis Qualifiers: Esophagitis presence: without esophagitis Qualified Code(s): K21.9 - Gastro-esophageal reflux disease without esophagitis Plan: Dietary restrictions reinforced Continue Omeprazole 20 mg QD (10) Allergic rhinitis: Code(s): J30.9 - Allergic rhinitis, unspecified Qualifiers: Allergic rhinitis trigger: unspecified Allergic rhinitis seasonality: unspecified Qualified Code(s): J30.9 - Allergic rhinitis, unspecified Plan: Continue Loratadine 10 mg QD PRN AND Fluticasone 50 mcg nasal spray QD PRN (11) Benign prostatic hyperplasia (BPH) with straining on urination: Code(s): N40.1 - Benign prostatic hyperplasia with lower urinary tract symptoms; R39.16 - Straining to void Plan: Most likely due to BPH; states that his symptoms have also been controlled on Rx Continue Tamsulosin 0.4 mg Q HS (12) Insomnia: Code(s): G47.00 - Insomnia, unspecified Qualifiers: Insomnia type: unspecified Qualified Code(s): G47.00 - Insomnia, unspecified Plan: Sleep hygiene reinforced Continue Trazodone 50 mg Q HS PRN (13) Depression: Code(s): F32.A - Depression, unspecified Qualifiers: Depression Type: unspecified Qualified Code(s): F32.A - Depression, unspecified Plan: Have offered to start patient on Rx for his depression and refer him to psychiatry but he declined - states that he would like to see if he can handle things for now without any Rx but will call if he feels his issues are getting worse (14) Obesity (BMI 30-39.9): Code(s): E66.9 - Obesity, unspecified Plan: Reinforced diet/exercise as tolerated/lose weight Plan Follow up in 3 months Orders: Orders AMB Hemoglobin A1c Today E11.42 - Type 2 diabetes mellitus with diabetic polyneuropathy Complete Blood Count Auto Diff 3 Months D64.9 - Anemia, unspecified Lipid Panel 3 Months E78.00 - Pure hypercholesterolemia, unspecified UA CC w/rflx Micro + Cult 3 Months R30.0 - Dysuria Microalbumin, Random (w Creat) 3 Months E11.9 - Type 2 diabetes mellitus without complications Vitamin D 25-OH Total 3 Months E55.9 - Vitamin D deficiency, unspecified Comprehensive [place]. Panel Fast 3 Months E78.00 - Pure hypercholesterolemia, unspecified Hemoglobin A1c 3 Months E11.9 - Type 2 diabetes mellitus without complications TSH reflex Free T4 3 Months E78.00 - Pure hypercholesterolemia, unspecified Vitamin B12 and Folate 3 Months E53.8 - Deficiency of other specified B group vitamins Referrals Endocrinology Referral E11.42 - Type 2 diabetes mellitus with diabetic polyneuropathy General Surgery Referral K42.9 - Umbilical hernia without obstruction or gangrene Medications: New pregabalin 50 mg PO BEDTIME 30 caps 3RF 30 days E11.42 - Type 2 diabetes mellitus with diabetic polyneuropathy Coding Diagnoses Type 2 diabetes mellitus with diabetic polyneuropathy, with long-term current use of insulin E11.42; Z79.4 Diabetes mellitus senior care insulin use: with intermediate project manager use Diabetic polyneuropathy associated with type 2 diabetes mellitus E11.42 Diabetes mellitus type: type 2 Diabetic retinopathy of both eyes with macular edema associated with type 2 diabetes mellitus, unspecified retinopathy severity E11.311 Diabetes mellitus type: type 2 Diabetic retinopathy severity: with unspecified retinopathy severity Diabetes mellitus macular edema: with macular edema Laterality: bilateral Pure hypercholesterolemia E78.00 Paroxysmal atrial fibrillation I48.0 Coronary artery disease involving [place] coronary artery of [place] heart without angina pectoris I25.10 Coronary Disease-Associated Artery/Lesion type: [place] artery [place] vs. transplanted heart: [place] heart Associated angina: without angina Essential hypertension I10 Vitamin D deficiency E55.9 Gastroesophageal reflux disease without esophagitis K21.9 Esophagitis presence: without esophagitis Allergic rhinitis, unspecified seasonality, unspecified trigger J30.9 Allergic rhinitis trigger: unspecified Allergic rhinitis seasonality: unspecified Benign prostatic hyperplasia (BPH) with straining on urination N40.1; R39.16 Insomnia, unspecified type G47.00 Insomnia type: unspecified Depression, unspecified depression type F32.A Depression Type: unspecified Obesity (BMI 30-39.9) E66.9
[2023-06-26 15:58] VITALS: BP 100/62; PULSE 67; O2SAT 95; BMI 33.7
== END 2023-06-26 16:33 | disposition home or self-care (01) ==
PROVIDERS: PCP Internal Medicine; Visit Provider Internal Medicine
DX: E11.42 Type 2 diabetes mellitus with diabetic polyneuropathy (principal)
CPT/HCPCS: 83036

== ENCOUNTER 2023-07-02 14:14 | Outpatient (AMB) | payer OTHER, SELFPAY ==
--- NOTE | 2023-07-02 14:16 | MHC.OFFVIS ---
Intake Vital Signs 07/02/23 14:19 Height 5 ft 6 in Weight 210 lb BMI 33.9 BP 151/69 H Blood Pressure Location Rt brachial Position Sitting Pulse 91 Intake Visit Reasons: Umbilical hernia Intake Note: Patient referred by PCP Dr. Eden for umbilical hernia. Previously seen by Dr. Jarrett. Last visit June 2022. Patient c/o: states hernia has become more bothersome. ABD CT: 05-24-23. Aerotriangulation Specialist Required: No Accompanied by: Self / Same As Patient Allergies acetaminophen [From PERCOCET] Allergy (Intermediate, Verified 07/02/23 14:21) CONSTIPATED oxycodone [From PERCOCET] Allergy (Intermediate, Verified 07/02/23 14:21) CONSTIPATED HPI HPI Comments History of Present Illness Details Patient presents with a symptomatic umbilical hernia. He has had this several years time. His increasing size, become more symptomatic. Like to have repaired. He has no other GI issues or complaints. Tolerating feeding diet, having regular bowel habits. Patient is status post laparoscopic cholecystectomy. 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 Essential hypertension Hyperlipidemia LDL goal <100 Surgical History H/O colonoscopy H/O endoscopy History of laparoscopic cholecystectomy History of cataract surgery History of eye surgery History of inguinal hernia repair History of arthroscopy of right shoulder Family History Father Diabetes Mother Alzheimers disease Bone cancer Sister Heart failure Sister Hypertension Sister Diabetes Kidney failure Social History Household Members: Spouse Housing: House Alcohol intake: current Alcohol intake frequency: holidays/special occasions only Alcohol type: beer Patient Tobacco Use Status: Former Tobacco user (30 years ago) Quit Date: 1987 Tobacco use type: Cigarette Cigarette Packs Per Day: 1.5 Cigarettes Per Day: 30.0 Years Smoked: 25 e-Cigarette/Vaping Use: Never Used Second Hand Smoke Exposure: Yes service: No Current occupational status: employed 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 Genitalia within normal limits. Approximally 3 cm reducible umbilical hernia Assessment & Plan Assessment & Plan (1) Umbilical hernia: Code(s): K42.9 - Umbilical hernia without obstruction or gangrene Qualifiers: Obstruction and gangrene presence: without obstruction or gangrene Qualified Code(s): K42.9 - Umbilical hernia without obstruction or gangrene Plan Risks, benefits, alternatives of open umbilical hernia repair with mesh were reviewed with the patient and included but not limited to bleeding, infection, recurrence, numbness, pain, scarring, bowel injury and the patient wished to proceed. All questions answered. Arrangements were made for this. Coding Level of Care Code New Pt Level 5 (63568) Diagnoses Umbilical hernia without obstruction and without gangrene K42.9 Obstruction and gangrene presence: without obstruction or gangrene
[2023-07-02 14:19] VITALS: BP 151/69; PULSE 91; BMI 33.9
== END 2023-07-02 14:34 | disposition home or self-care (01) ==
PROVIDERS: PCP Internal Medicine; Referring Provider Internal Medicine; Visit Provider Surgery
DX: K42.9 Umbilical hernia without obstruction or gangrene (principal)
CPT/HCPCS: 99204

== ENCOUNTER → 2023-07-02 14:14 | Outpatient (BNVA) | payer OTHER, SELFPAY | PROVIDERS: PCP Internal Medicine; Referring Provider Internal Medicine; Visit Provider Surgery ==

== ENCOUNTER → 2023-07-31 09:04 | Outpatient (REF) | payer OTHER, SELFPAY ==
--- NOTE | ~2023-07-31 | NM_ITS ---
Exercise Myocardial perfusion study Indication: Atherosclerotic heart disease to evaluate for myocardial ischemia Technique: The patient was brought in for an exercise perfusion study on 07/31/2023. Patient performed exercise as per Gavino protocol and was injected 35 mCi of sestamibi was given intravenously one target HR was achieved. Images were obtained using the SPECT gamma camera interlaced with the gating device. Images were obtained in supine position. Resting perfusion study was performed on 08/01/2023. Patient was administered 35 mCi of sestamibi intravenously at rest. Images were then obtained in supine position. Images obtained with and without CT DLP 151 mGy-cm. Images were processed with the software and compared side to side in short axis, horizontal long axis and vertical long axis views. Findings: The stress perfusion study showed non attenuated images show minimally reduced uptake in the basal septum of the LV myocardium. Remainder of the LV myocardium is normally perfused. There is suggestion of left tubular hypertrophy. Attenuation corrected images show mildly reduced uptake in the apex of the LV myocardium.. The gated study shows normal LV systolic function with calculated LVEF of 64%. LV cavity is normal in size. The gated study shows normal systolic wall thickening and contraction of all segments. There is no transient ischemic dilation. Resting study shows no change in perfusion pattern compared to stress perfusion study. Gating at rest reveals normal systolic wall motion with ejection fraction at 73%. The findings are consistent with no reversible defect suggestive of ischemia. Likely normal myocardial perfusion. NM/NM cardiolite stress test Impression: 1. Normal myocardial perfusion 2. Gated LVEF is 64% 3. Transient ischemic dilatation not present Stress EKG is not suggestive of ischemia
--- NOTE | 2023-07-31 09:07 | CA_ITS ---
Acquisition Time: 2023-07-31 09:04:23 Total Exercise Time: 00:05:18 Test Indications: PREOP, AFIB Medications: Protocol: ILIANA Max HR: 142 BPM 90% of Pred: 157 BPM Max BP: 239/060 mmHG Max Work Load: 7.0 METS Exercise stress test exercise 5 min 18 sec of Iliana protocol achieving 91% MPHR, with mild to moderate SOB, no chest discomforrt, with isolated PACs, with normotensive response to exercise, without EKG changes. Breathing returned to normal with rest. Nuclear images pending. Test reviewed with Dr. Frias. Systolic BP of 238 was typo. Correct BP 128/60 Referred By: Miriam Slater Overread By: Mahnaz Mendoza
== END ==
LOC: HO.CARD 09:04
PROVIDERS: PCP Internal Medicine; Visit Provider Nurse Practitioner Family
DX: Z01.810 Encounter for preprocedural cardiovascular examination (principal); I25.10 Atherosclerotic heart disease of native coronary artery without angina pectoris; R94.31 Abnormal electrocardiogram [ECG] [EKG]
CPT/HCPCS: 78452; 93017; A9500

== ENCOUNTER → 2023-07-31 09:07 | Outpatient (BNV) | payer OTHER, SELFPAY | PROVIDERS: PCP Internal Medicine; Visit Provider Nurse Practitioner | DX: I25.10 Atherosclerotic heart disease of native coronary artery without angina pectoris (principal); R06.02 Shortness of breath | CPT/HCPCS: 78452; 93016; 93018 ==

== ENCOUNTER → 2023-08-05 09:55 | Outpatient (BNVA) | payer OTHER, SELFPAY | PROVIDERS: PCP Internal Medicine; Visit Provider Internal Medicine Cardiovascular Disease ==

== ENCOUNTER 2023-08-22 05:45 | Day surgery (SDC) | payer OTHER, SELFPAY ==
[2023-08-20 11:49] VITALS: BMI 33.9
--- NOTE | 2023-08-20 14:02 | HO.ANESPROP2 ---
HPI - Anesthesia Eval Consult details Narrative: 63yo M for Repair Hernia Umbilical Reducible with mesh Cardiac cleared: Exercise nuclear stress test completed 07/31/2023 with exercise 5 minutes 18 seconds, [id number] shortness of breath, no EKG changes of ischemia, normal myocardial perfusion imaging, EF 64%. Patient can proceed with hernia repair surgery with intermediate cardiac risk. He has a known history of nonobstructive coronary artery disease and paroxysmal atrial fibrillation. His Xarelto can be held 48 hours prior to procedure and restarted as soon as cleared by surgeon to do so. Continue cardiac meds including Multaq, lisinopril, Jardiance, rosuvastatin. Avoid fluid overload. Call/consult Cardiology if needed. Xarelto for afib Anesthesia Pre-Procedure Meds Is the patient on any of the following meds?: GLP1/DPP4 and SGLT2 Inhib PMFSH Active Problems Active Problems: All Active Problems Preop cardiovascular exam (Acute) Abnormal finding on EKG (Acute) Depression (Acute) Neuropathic pain, leg, bilateral (Acute) Scleral laceration of right eye (Acute) Laceration of orbit (Acute) Diastasis recti (Acute) Umbilical hernia (Acute) Tubular adenoma of colon (Acute) Hearing loss in right ear (Acute) Decreased urine stream (Acute) Pancreatitis (Acute) Benign prostatic hyperplasia (BPH) with straining on urination (Acute) Allergic rhinitis (Acute) Obesity (BMI 30-39.9) (Acute) Insomnia (Acute) GERD (gastroesophageal reflux disease) (Acute) Vitamin D deficiency (Acute) Diabetic retinopathy (Acute) Pure hypercholesterolemia (Acute) Diabetic polyneuropathy (Acute) Paroxysmal atrial fibrillation (Acute) CAD (coronary artery disease) (Acute) Type 2 diabetes mellitus with diabetic polyneuropathy (Acute) Type 2 diabetes mellitus with proteinuria (Acute) Essential hypertension (Acute) Hyperlipidemia LDL goal <100 (Acute) BMI 33.0-33.9,adult (Acute) Past Medical History Medical History Allergic rhinitis On anticoagulant therapy Obesity (BMI 30-39.9) Insomnia Vitamin D deficiency Diabetic retinopathy Pure hypercholesterolemia Diabetic polyneuropathy Hearing loss BMI 33.0-33.9,adult Paroxysmal atrial fibrillation CAD (coronary artery disease) Afib GERD (gastroesophageal reflux disease) 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 Essential hypertension Hyperlipidemia LDL goal <100 Family History Family History Father Diabetes Mother Alzheimers disease Bone cancer Sister Heart failure Sister Hypertension Sister Diabetes Kidney failure Family history of problems with anesthesia: No Surgical History Surgical History H/O colonoscopy H/O endoscopy History of laparoscopic cholecystectomy History of cataract surgery History of eye surgery History of inguinal hernia repair History of arthroscopy of right shoulder History of Problems with Anesthesia: No Social History Social History Household Members: Spouse Housing: House Alcohol intake: current Alcohol intake frequency: holidays/special occasions only Alcohol type: beer Patient Tobacco Use Status: Former Tobacco user Tobacco use type: Cigarette Cigarette Packs Per Day: 1.5 Cigarettes Per Day: 30.0 Years Smoked: 25 e-Cigarette/Vaping Use: Never Used Second Hand Smoke Exposure: Yes service: No Current occupational status: employed 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 Normal myocardial perfusion 2. Gated LVEF is 64% 3. Transient ischemic dilatation not present Stress EKG is not suggestive of ischemia ECHO 05/2023 Conclusions: - The left ventricular systolic function is normal. The calculated ejection fraction is 67% by biplane method. - No obvious valvular pathology seen on this study. Assessment and Plan Assessment Anesthesia Assessment: Chart Reviewed Final Anesthetic Review Family History of Problems with Anesthesia: No History of Problems with Anesthesia: No
--- NOTE | 2023-08-21 12:54 | MHC.SHP ---
Pre-Procedural Eval Section A - 24 Hr Update-Section A only Date of Service: 08/21/23 The patient is an INPATIENT: No Changes since office visit: No Cold of Flu in the past 2 weeks, No New Medical Problems, No Changes in Medication and No Patient answered all questions Section B - Complete if H&P > 30 days Chief Complaint: Umbilical hernia without obstruction or gangrene Details of Present Illness: Umbilical hernia repair with mesh Allergies: Allergies Allergy/AdvReac Type Severity Reaction Status Date / Time oxycodone [From PERCOCET] Allergy Intermediate CONSTIPATED Verified 07/02/23 14:21 Plan I have reviewed the history and physical and performed a pertinent physical examination on my patient. No changes have occurred unless specified. Time Spent With Patient Time: Total time managing care of this patient today ____ minutes.
[2023-08-22] VITALS (11 sets, daily range): BP systolic 110–145; BP diastolic 45–72; PULSE 64–76; RESP 11–18; TEMP 36.2–36.6; O2SAT 92–96; BMI 33.9
[2023-08-22] MEDS: Lactated Ringers 1,000 ML 100 ML IVCONT (06:47)
[2023-08-22 06:48] LABS: Anion Gap 12 (12-20); Blood Urea Nitrogen 21 mg/dL (9-16); Calcium 9.3 mg/dL (8.4-10.2); Carbon Dioxide 25 mmol/L (22-29); Chloride 108 mmol/L (96-108); Creatinine Clr Calc Pharmacy 77.7; Estimated Glomerular Filt Rate > 60; Glucose Fasting 138 mg/dL (60-99); Hemoglobin 12.8 g/dl (14.0-18.0); Mean Corpuscular HGB Conc 34.6 g/dl (31.0-36.0); Mean Corpuscular Hemoglobin 28.6 pg (27.0-33.0); Mean Corpuscular Volume 82.8 fL (80.0-98.0); Red Blood Count 4.47 X10*6/uL (4.60-5.80); Red Cell Distribution Width 13.1 % (11.0-16.0); Sodium 141 mmol/L (135-145); White Blood Count 5.7 X10*3/uL (4.8-10.8)
[2023-08-22 06:51] LABS: Estimated Average Glucose 163 mg/dL; Hemoglobin A1c % 7.3 % (<6.0)
[2023-08-22 07:09] LABS: Mean Platelet Volume 11.1 fL (9.4-12.4); Platelet Count 119 X10*3/uL (160-400)
--- NOTE | 2023-08-22 07:52 | P.CONAN_ITS ---
[facility] Active Problems Active Problems: All Active Problems Preop cardiovascular exam (Acute) Abnormal finding on EKG (Acute) Depression (Acute) Neuropathic pain, leg, bilateral (Acute) Scleral laceration of right eye (Acute) Laceration of orbit (Acute) Diastasis recti (Acute) Umbilical hernia (Acute) Tubular adenoma of colon (Acute) Hearing loss in right ear (Acute) Decreased urine stream (Acute) Pancreatitis (Acute) Benign prostatic hyperplasia (BPH) with straining on urination (Acute) Allergic rhinitis (Acute) Obesity (BMI 30-39.9) (Acute) Insomnia (Acute) GERD (gastroesophageal reflux disease) (Acute) Vitamin D deficiency (Acute) Diabetic retinopathy (Acute) Pure hypercholesterolemia (Acute) Diabetic polyneuropathy (Acute) Paroxysmal atrial fibrillation (Acute) CAD (coronary artery disease) (Acute) Type 2 diabetes mellitus with diabetic polyneuropathy (Acute) Type 2 diabetes mellitus with proteinuria (Acute) Essential hypertension (Acute) Hyperlipidemia LDL goal <100 (Acute) BMI 33.0-33.9,adult (Acute) Past Medical History Medical History Allergic rhinitis On anticoagulant therapy Obesity (BMI 30-39.9) Insomnia Vitamin D deficiency Diabetic retinopathy Pure hypercholesterolemia Diabetic polyneuropathy Hearing loss BMI 33.0-33.9,adult Paroxysmal atrial fibrillation CAD (coronary artery disease) Afib GERD (gastroesophageal reflux disease) 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 Essential hypertension Hyperlipidemia LDL goal <100 Functional capacity: independent ambulation Family History Family History Father Diabetes Mother Alzheimers disease Bone cancer Sister Heart failure Sister Hypertension Sister Diabetes Kidney failure Family history of problems with anesthesia: No Surgical History Surgical History H/O colonoscopy H/O endoscopy History of laparoscopic cholecystectomy History of cataract surgery History of eye surgery History of inguinal hernia repair History of arthroscopy of right shoulder History of Problems with Anesthesia: No Social History Social History Household Members: Spouse Housing: House Alcohol intake: current Alcohol intake frequency: holidays/special occasions only Alcohol type: beer Patient Tobacco Use Status: Former Tobacco user Quit Date: 1987 Tobacco use type: Cigarette Cigarette Packs Per Day: 1.5 Cigarettes Per Day: 30.0 Years Smoked: 25 e-Cigarette/Vaping Use: Never Used Second Hand Smoke Exposure: Yes Use of substances other than those prescribed or required for medical reasons: No Are you DNR?: No Advance Directives: No Advance Directives Information Provided: Yes service: No Current occupational status: employed 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 [employer] Cognitive needs: No Hearing needs: No Vision needs: Yes Meds Allergies Allergy/AdvReac Type Severity Reaction Status Date / Time oxycodone [From PERCOCET] Allergy Intermediate CONSTIPATED Verified 08/22/23 06:35 Active Medications: Current Medications Lactated Ringer's (Lr) 1,000 mls @ 100 mls/hr IVCONT .Q10H BRENDA Last Admin: 08/22/23 06:47 Dose: 100 mls/hr Exam Height,Weight and Vital Signs: Height 5 ft 6 in Weight 95.254 kg Last Vital Signs Temp 97.5 F 08/22/23 06:27 Pulse 72 08/22/23 06:27 Resp 16 08/22/23 06:27 BP 138/72 08/22/23 06:27 Pulse Ox 95 08/22/23 06:27 O2 Del Method Room Air 08/22/23 06:27 Pertinent Lab Results Pertinent Lab Results: Laboratory Tests 08/22/23 06:28 WBC 5.7 RBC 4.47 L Hgb 12.8 L Hct 37.0 L MCV 82.8 MCH 28.6 MCHC 34.6 RDW 13.1 Plt Count 119 L D MPV 11.1 Absolute Nucleated RBC 0.000 Nucleated RBC % (auto) 0.0 Sodium 141 Potassium 4.0 Chloride 108 Carbon Dioxide 25 Anion Gap 12 BUN 21 H Creatinine 1.05 Estim Creat Clear Calc 77.7 Estimated GFR > 60 Fasting Glucose 138 H Estimat Average Glucose 163 Hemoglobin A1c % 7.3 H Calcium 9.3 Airway Mallampati Class: IV TM Dist: >3cm Neck ROM: Full Denture: Upper Heart: RRR Lungs: CTA Assessment and Plan Assessment Anesthesia Assessment: Anesthesia Plan Discussed Final Anesthetic Review Family History of Problems with Anesthesia: No History of Problems with Anesthesia: No NPO: Yes ASA Class: III Final Preanesthetic Review: Meds/Allgs Chart Reviewed, Consent Obtained/Reviewed and Anes Risks/Benef Reviewed Patient Risk: Intermediate Procedure Risk: Low Anesthetic Plan Anesthetic Plan: GA Disposition: Standard PACU
--- NOTE | 2023-08-22 08:24 | W.PM.OPN ---
Operative Note Operative Note Date of Service: 08/22/23 Narrative: Preoperative diagnosis: [] Incarcerated umbilical hernia Postop diagnosis: [] The same Procedure [] open umbilical herniorrhaphy with Bard mesh Surgeon: [] Chance Fitting Room Attendant: [] Jonathan Type of Anesthesia: [] General Indication for surgery: [] Approximately 3 cm incarcerated umbilical hernia with omental contents. Corpulent abdomen Findings: [] Patient brought to the operating room, placed on operative table in supine position, after an adequate level of general anesthesia was induced, the patient's abdomen was prepped and draped in usual sterile fashion. Using a supraumbilical curvilinear incision, this carried down through skin, subcutaneous tissue, where hernia sac was identified and dissected off the posterior aspect of the umbilicus and dissected down through the fascia. Sac was opened were incarcerated omental contents were partially amputated and partially reduced using Bovie. Hernia sac and specimen was sent to pathology. Fascia margins were circumferentially cleared and a Bard mesh placed in the hernia defect. The superficial layer of the mesh was sutured circumferentially to the surrounding fascia using interrupted 0 Ethibond suture. At completion of the procedure, mesh was in good position with no tension or gallops. Wound was irrigated, secured hemostasis, and closed in the following manner; posterior aspect of the umbilicus was tacked to the wound floor using interrupted 3-0 Vicryl sutures. Skin was closed using interrupted inverted dermal 3-0 Vicryl sutures followed by Steri-Strips and sterile dressings. Wound was infiltrated 0.5% Marcaine at completion. Sponge, needle, and instrument counts were reported correct. Patient tolerated the procedure well and emerged from anesthesia stable condition. EBL minimal
--- NOTE | 2023-08-22 09:37 | HO.POSTANES ---
Post Anesthesia Evaluation Post Anesthesia Evaluation Date of Service: 08/22/23 Vital Signs: Vital Signs Temp Pulse Resp BP Pulse Ox O2 Del Method O2 Flow Rate 08/22/23 09:15 71 18 112/52 L 92 Room Air 08/22/23 09:05 95 Room Air 08/22/23 09:00 65 18 121/45 L 96 Nasal Cannula with ETCO2 2 08/22/23 08:45 70 18 138/61 96 Nasal Cannula with ETCO2 2 08/22/23 08:40 75 15 132/60 96 Nasal Cannula with ETCO2 2 08/22/23 08:35 71 11 L 132/56 L 96 Nasal Cannula with ETCO2 3 08/22/23 08:30 66 14 136/60 96 Nasal Cannula with ETCO2 4 08/22/23 08:27 68 13 145/68 H 95 Nasal Cannula with ETCO2 4 08/22/23 08:22 97.9 F 76 14 132/60 96 Nasal Cannula with ETCO2 4 08/22/23 06:27 97.5 F 72 16 138/72 95 Room Air Anesthesia: General LMA Mental Status: Awake Pain Control: Satisfactory Nausea/Vomiting: None Hydration: Adequate Anesthesia-Related Issues: No Anes. Related Issues
== END 2023-08-22 10:19 | disposition home or self-care (01) ==
PROVIDERS: Nurse Practitioner; PCP Internal Medicine; Visit Provider Surgery
PROC: (CPT 49593; principal; 2023-08-22 07:30)
DX: K42.9 Umbilical hernia without obstruction or gangrene (principal); E11.9 Type 2 diabetes mellitus without complications; I10 Essential (primary) hypertension; E78.00 Pure hypercholesterolemia, unspecified; I48.0 Paroxysmal atrial fibrillation; Z79.899 Other long term (current) drug therapy; Z79.85 Long-term (current) use of injectable non-insulin antidiabetic drugs; Z79.02 Long term (current) use of antithrombotics/antiplatelets; Z79.4 Long term (current) use of insulin; Z79.84 Long term (current) use of oral hypoglycemic drugs; Z79.01 Long term (current) use of anticoagulants
CPT/HCPCS: 49593; 36415; 80048; 83036; 85027; 88302; C1781; J0690; J1100; J2250; J2405; J2704; J2795; J3010

== ENCOUNTER → 2023-08-22 05:45 | Outpatient (BNV) | payer OTHER, SELFPAY | PROVIDERS: PCP Internal Medicine; Visit Provider Surgery | DX: K42.0 Umbilical hernia with obstruction, without gangrene (principal) | CPT/HCPCS: 49592 ==

== ENCOUNTER 2023-09-02 10:40 | Outpatient (AMB) | payer OTHER, SELFPAY ==
--- NOTE | 2023-09-02 10:44 | A.OFFVIS_ITS ---
Intake Visit Reasons: S/P umbilical hernia repair w/mesh Intake Note: Patient here for s/p umbilical hernia repair w/mesh. Reports incisions healing well. Patient c/o: no concerns. No longer taking rx pain meds. SX: 08-22-23. Increment Manager Required: No Accompanied by: Self / Same As Patient Allergies oxycodone [From PERCOCET] Allergy (Intermediate, Verified 09/02/23 10:45) CONSTIPATED HPI Comments Details: Patient presents for follow-up. He is doing quite well. Tolerating a diet. Having regular bowel habits. Minimal incisional discomfort. 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 Essential hypertension Hyperlipidemia LDL goal <100 Surgical History Umbilical hernia (08/22/23) H/O colonoscopy H/O endoscopy History of laparoscopic cholecystectomy History of cataract surgery History of eye surgery History of inguinal hernia repair History of arthroscopy of right shoulder Family History Father Diabetes Mother Alzheimers disease Bone cancer Sister Heart failure Sister Hypertension Sister Diabetes Kidney failure Social History Household Members: Spouse Housing: House Alcohol intake: current Alcohol intake frequency: holidays/special occasions only Alcohol type: beer Patient Tobacco Use Status: Former Tobacco user Tobacco use type: Cigarette Cigarette Packs Per Day: 1.5 Cigarettes Per Day: 30.0 Years Smoked: 25 e-Cigarette/Vaping Use: Never Used Second Hand Smoke Exposure: Yes service: No Current occupational status: employed 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 Wound clean dry and intact healing uneventfully Assessment & Plan Assessment & Plan (1) Status post umbilical hernia repair, follow-up exam: Code(s): Z09 - Encounter for follow-up examination after completed treatment for conditions other than malignant neoplasm Category: Medical Plan Patient has been given local instructions including avoiding strenuous activities weeks time and will otherwise follow-up p.r.n.. All questions answered. Coding Level of Care Code Global (55770) Diagnoses Status post umbilical hernia repair, follow-up exam Z09
== END 2023-09-02 11:31 | disposition home or self-care (01) ==
PROVIDERS: PCP Internal Medicine; Visit Provider Surgery
DX: Z09 Encounter for follow-up examination after completed treatment for conditions other than malignant neoplasm (principal)
CPT/HCPCS: 99212

== ENCOUNTER → 2023-09-02 10:40 | Outpatient (BNVA) | payer OTHER, SELFPAY | PROVIDERS: PCP Internal Medicine; Visit Provider Surgery ==

== ENCOUNTER 2023-10-04 06:38 | Outpatient (REF) | payer OTHER, SELFPAY ==
[2023-10-04 06:47] LABS: MANUAL DIFF FLAG NO
[2023-10-04 07:16] LABS: Estimated Average Glucose 151 mg/dL; Hemoglobin A1c % 6.9 % (<6.0)
[2023-10-04 07:23] LABS: Basophils Percent Auto 0.7 % (0-2); Eosinophils Absolute Auto 0.2 X10*3/uL (0.0-0.4); Eosinophils Percent Auto 3.9 % (0-4); Hematocrit 39.6 % (42.0-52.0); Hemoglobin 13.5 g/dl (14.0-18.0); Imm Gran Abs Auto 0.03 X10*3/uL (0.00-0.03); Imm Gran Pct Auto 0.5 % (0.0-0.4); Lymphocytes Absolute Auto 1.5 X10*3/uL (1.2-4.9); Lymphocytes Percent Auto 24.2 % (20-40); Mean Corpuscular HGB Conc 34.1 g/dl (31.0-36.0); Mean Corpuscular Hemoglobin 28.4 pg (27.0-33.0); Mean Corpuscular Volume 83.4 fL (80.0-98.0); Mean Platelet Volume 10.9 fL (9.4-12.4); Monocytes Absolute Auto 0.7 X10*3/uL (0.1-1.2); Monocytes Percent Auto 11.1 % (2-11); Neutrophils Absolute Auto 3.7 x10*3/uL (2.0-8.3); Neutrophils Percent Auto 59.6 % (45-73); Platelet Count 162 X10*3/uL (160-400); Red Blood Count 4.75 X10*6/uL (4.60-5.80); Red Cell Distribution Width 12.8 % (11.0-16.0); White Blood Count 6.2 X10*3/uL (4.8-10.8)
[2023-10-04 07:27] LABS: Alanine Aminotransferase 24 U/L (0-40); Albumin Level 4.2 g/dL (3.5-5.0); Alkaline Phosphatase 75 U/L (39-117); Anion Gap 12 (12-20); Aspartate Amino Transferase 30 U/L (5-37); Bilirubin Total 0.5 mg/dL (0.0-1.0); Blood Urea Nitrogen 20 mg/dL (9-16); Calcium 9.5 mg/dL (8.4-10.2); Carbon Dioxide 26 mmol/L (22-29); Chloride 106 mmol/L (96-108); Cholesterol 104 mg/dL (<200); Estimated Glomerular Filt Rate 56; Glucose Fasting 145 mg/dL (60-99); HDL Cholesterol 31 mg/dL (>40); LDL Cholesterol Calculated 12 mg/dL (<100); Potassium 4.8 mmol/L (3.3-5.1); Sodium 139 mmol/L (135-145); Total Protein 7.3 g/dL (6.5-8.0); Triglycerides 308 mg/dL (<150)
[2023-10-04 07:36] LABS: Appearance Urine Clear; Color Urine Yellow; Glucose Urine UA >=1000 mg/dL (Negative); Leukocyte Esterase Urine Negative (Negative); Nitrite Urine Negative (Negative); PH 5.5 (5.0-9.0); Specific Gravity - Urine 1.015 (1.005-1.025); UMIC TRIGGER UACC YES; Urine Blood Negative (Negative); Urine Ketones Negative (Negative); Urine Protein Negative (Neg-Trace)
[2023-10-04 07:43] LABS: Bacteria Urine None Seen (None Seen); Hyaline Casts Urine 0-2 /LPF (0-2); RBC Urine 0-2 /HPF (0-2); Squamous Epithelial Cell Urine 0-2 /HPF (0-2); WBC Urine 0-5 /HPF (0-5)
[2023-10-04 07:43] LABS: TSH reflex Free T4 1.28 uIU/mL (0.32-4.0); Vitamin D 25-OH Total 39.3 ng/mL (>30)
[2023-10-04 07:58] LABS: Creatinine Urine 34.74 mg/dL; Microalbum/Creatinine Ratio Ur 28.7 ug/mg cr (<30)
[2023-10-04 07:59] LABS: Folate 9.7 ng/mL (> or = 4.0); Vitamin B12 299 pg/mL (200-900)
== END 2023-10-04 06:39 | disposition home or self-care (01) ==
LOC: HO.LAB 06:38
PROVIDERS: PCP Internal Medicine; Visit Provider Internal Medicine
DX: E78.00 Pure hypercholesterolemia, unspecified (principal); E11.9 Type 2 diabetes mellitus without complications; D64.9 Anemia, unspecified; E53.8 Deficiency of other specified B group vitamins; E55.9 Vitamin D deficiency, unspecified
CPT/HCPCS: 36415; 80053; 80061; 81001; 82043; 82306; 82570; 82607; 82746; 83036; 84443; 85025

== ENCOUNTER 2023-10-07 09:57 | Outpatient (AMB) | payer OTHER, SELFPAY ==
--- NOTE | 2023-10-07 10:05 | A.OFFPC_ITS ---
Vital Signs 10/07/23 10:06 10/07/23 10:45 Height 5 ft 6 in Weight 207 lb BMI 33.4 BP 140/60 H 118/78 Blood Pressure Location Lt brachial Lt brachial Position Sitting Sitting Pulse 86 Pulse Source Pulse Oximeter Pulse Oximetry (%) 94 Oxygen Delivery Method Room Air Intake Visit Reasons: DM, neuropathy Intake Note: Patient is here to follow up on DM, Neuropathy. Wet Press Tender Required: No Dry Box Tender: Not Required per policy Accompanied by: Self / Same As Patient Allergies oxycodone [From PERCOCET] Allergy (Intermediate, Verified 10/07/23 10:47) CONSTIPATED Medication List - Last Reconciled 10/07/23 by Patrick Eden MD blood-glucose meter,continuous (Dexcom G6 Produce Shipper) As directed blood-glucose sensor (Dexcom G7 Sensor device) As directed blood-glucose transmitter (Dexcom G6 Transmitter device) As directed cholecalciferol (vitamin D3) 50 mcg PO DAILY 90 days dronedarone (Multaq) 400 mg PO BID dulaglutide (Trulicity) 1.5 mg (0.5 mL) subcut QWEEK 28 days empagliflozin (Jardiance) 25 mg PO QAM fluticasone propionate 50 mcg/actuation 2 sprays intranasal DAILY 30 days Humalog KwikPen Insulin (insulin lispro) breakfast 16 units, Lunch 26 units, Dinner 28 units, Snack 10 units subcut 4 times a day; No substitutions. 30 days NS lisinopril 20 mg PO DAILY loratadine 10 mg PO DAILY PRN 90 days metformin 1,000 mg PO BID omeprazole 20 mg PO DAILY 90 days pen needle, diabetic (BD Lou 2nd Gen Pen Needle) 1 ea miscellaneous five times a day; pen needle, diabetic (BD Ultra-Fine Lou Pen Needle) As directed once aday pregabalin 50 mg PO BEDTIME 30 days rivaroxaban (Xarelto) 20 mg PO DAILY rosuvastatin 20 mg PO DAILY tamsulosin 0.4 mg PO BEDTIME 90 days Tresiba FlexTouch U-200 (insulin degludec) 86 units (0.43 mL) subcut BEDTIME NS Tobacco use date assessed: 10/07/23 Dental Screening Dental Screen Date: 06/26/23 HPI DM, neuropathy HPI Details Patient comes in today for his follow up visit States that he currently feels okay He underwent umbilical hernia surgery and placement of mesh back in July 2023 (08/22/2023) and states that his surgery went well - he currently has no pain or any residual discomfort from his surgery He recalls being advised by anesthesia prior to his discharge that he should check with his PCP about being evaluated for sleep apnea He presently denies any headaches or dizziness Denies any chest pains, no SOB No nausea/vomiting, no abdominal pain No change in bowel habits noted He currently has what looks like a small abscess on his left lower abdominal wall (states that was where his sensor was recently until he took it off) - states that his has been keeping it clean and applying some OTC Abx ointment and it looks like it is starting to get better (per patient) Needs a few of his Rx refilled He had his follow up labs done a few days ago - to discuss his results States that he has an appointment to see endocrinology at [place] coming up on 10/22/2023 [facility] Medical History Allergic rhinitis On anticoagulant therapy Obesity (BMI 30-39.9) Insomnia Vitamin D deficiency Diabetic retinopathy Pure hypercholesterolemia Diabetic polyneuropathy Hearing loss BMI 33.0-33.9,adult Paroxysmal atrial fibrillation CAD (coronary artery disease) Afib GERD (gastroesophageal reflux disease) 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 Essential hypertension Hyperlipidemia LDL goal <100 Surgical History Umbilical hernia (08/22/23) H/O colonoscopy H/O endoscopy History of laparoscopic cholecystectomy History of cataract surgery History of eye surgery History of inguinal hernia repair History of arthroscopy of right shoulder Family History Father Diabetes Mother Alzheimers disease Bone cancer Sister Heart failure Sister Hypertension Sister Diabetes Kidney failure Social History Household Members: Spouse Housing: House Alcohol intake: current Alcohol intake frequency: holidays/special occasions only Alcohol type: beer Patient Tobacco Use Status: Former Tobacco user Tobacco use type: Cigarette Cigarette Packs Per Day: 1.5 Cigarettes Per Day: 30.0 Years Smoked: 25 e-Cigarette/Vaping Use: Never Used Second Hand Smoke Exposure: Yes service: No Current occupational status: employed 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 Alex Pack, Iva Zhao, Kd Jones and colleagues, with an educational sonu from [email or web address]. Review of Systems Const Denies chills, Reports difficulty sleeping (better lately), Denies fatigue, Denies fever(s) and Denies headache(s) ENT Denies dysphagia, Denies dizziness, Denies otalgia, Denies headache(s), Reports hearing loss (in right ear (chronic) - has a hearing aid in his right ear), Denies odynophagia and Denies sore throat Card Denies chest pain, Denies palpitations and Denies dyspnea Resp Denies cough and Denies dyspnea GI Denies abdominal pain, Denies bloating, Denies constipation, Denies dysphagia, Denies heartburn, Denies diarrhea, Denies nausea, Denies odynophagia and Denies vomiting Denies dysuria, Denies nocturia and Denies urinary frequency (improved with Rx) Musc Denies back pain, Reports numbness (on and off in both lower extremities ) and Reports tingling (on and off in both lower extremities ) Skin/Breast Denies rash Neuro Denies dizziness, Denies headache(s), Reports numbness (on and off in both lower extremities ) and Reports tingling (on and off in both lower extremities ) Psych Reports depression (better controlled at present) Endo Denies fatigue and Denies palpitations Physical exam (Primary Care) Vital Signs: Last Vital Signs Pulse 86 10/07/23 10:06 BP 140/60 H 10/07/23 10:06 Pulse Ox 94 10/07/23 10:06 Oxygen Delivery Method Room Air 10/07/23 10:06 BMI result Body Mass Index 33.4 Tobacco/Smoking Status: Tobacco use Status Tobacco use date assessed 10/07/23 10/07/23 10:12 Patient Tobacco Use Status Former Tobacco user 10/07/23 10:12 Tobacco use type Cigarette 10/07/23 10:12 e-Cigarette/Vaping Use Never Used 10/07/23 10:12 Thrive Assessment: Date of Thrive Assessment Date Thrive assessed 06/26/23 10/07/23 10:12 Const General: no acute distress and alert HENMT Ears: TM's normal bilaterally and EAC's normal Throat: Yes posterior oropharynx normal and Yes tonsils normal (no TP congestion noted) Neck Neck: Yes no lymphadenopathy and Yes supple Thyroid: Thyroid normal Resp Auscultation: clear to auscultation bilaterally, no rales and no wheezes Cardio Rate: regular rate Rhythm: regular rhythm Heart sounds: no murmurs GI Other: (+) small cutaneous abscess on the left lower abdominal wall Palpation (GI): Soft to palpation and nontender Auscultation: normal bowel sounds General: Yes no CVA tenderness Back/Spine/Pelvis Back: no CVA tenderness Thoracic/Lumbar Spine: No lumbar spinal tenderness Skin Other: (+) small erythematous abscess over the left lower abdominal wall Rashes: no rashes Extrem General: Yes no clubbing, cyanosis or edema Results Reviewed Results Reviewed: Laboratory Tests 10/04/23 10/04/23 06:41 06:46 WBC 6.2 Hgb 13.5 L Hct 39.6 L Plt Count 162 D Sodium 139 Potassium 4.8 Creatinine 1.30 Estimated GFR 56 Fasting Glucose 145 H Hemoglobin A1c % 6.9 H Calcium 9.5 AST 30 ALT 24 Triglycerides 308 H Cholesterol 104 LDL Cholesterol, Calc 12 HDL Cholesterol 31 L Vitamin B12 299 25-OH Vitamin D Total 39.3 TSH 1.28 Ur Specific [place] 1.015 Urine Protein Negative Urine Glucose (UA) >=1000 H Urine Blood Negative Urine Nitrite Negative Ur Leukocyte Esterase Negative Assessment and Plan Assessment & Plan (1) Type 2 diabetes mellitus with diabetic polyneuropathy: Code(s): E11.42 - Type 2 diabetes mellitus with diabetic polyneuropathy Qualifiers: Diabetes mellitus superintendent container terminal insulin use: with superintendent container terminal use Qualified Code(s): E11.42 - Type 2 diabetes mellitus with diabetic polyneuropathy; Z79.4 - long-term (current) use of insulin Plan: His HgbA1c was at 6.9% on his labs done a few days ago (HgbA1c was at 7.3% back in July and in-office HgbA1c went up to 8.8% as recently as in May 2023) - goal is <7.0% Reinforced diabetic diet Continue Metformin 1000 mg BID, Jardiance 25 mg QD, Trulicity 1.5 mg subcutaneous injection once a week, Tresiba 86 units daily and Humalog 16 units for breakfast, 26 units for lunch, 28 units for dinner with 10 units for snacks Follow-up with endocrinology as scheduled (2) Diabetic polyneuropathy: Code(s): E11.42 - Type 2 diabetes mellitus with diabetic polyneuropathy Qualifiers: Diabetes mellitus type: type 2 Qualified Code(s): E11.42 - Type 2 diabetes mellitus with diabetic polyneuropathy Plan: EMG & NCV done on 11/26/2019 revealed (+) 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 Repeat EMG and NCV in April 2023 revealed similar findings - (+) 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 Patient used to take Gabapentin 300 mg TID for his symptoms but has not been on this in a while now - stated that he felt okay without any Rx back then but may need to start him back on this if his symptoms persist or get worse (3) Diabetic retinopathy: Code(s): E11.319 - Type 2 diabetes mellitus with unspecified diabetic retinopathy without macular edema Qualifiers: Diabetes mellitus type: type 2 Diabetic retinopathy severity: with unspecified retinopathy severity Diabetes mellitus macular edema: with macular edema Laterality: bilateral Qualified Code(s): 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 Plan: Reinforced tight glucose control to slow down disease progression Follow up with ophthalmology as scheduled (4) Pure hypercholesterolemia: Code(s): E78.00 - Pure hypercholesterolemia, unspecified Plan: Results of his labs done a few days ago reviewed and discussed with patient Reinforced low-cholesterol diet Continue Rosuvastatin 20 mg QD Will recheck his labs and fasting lipids in 4 months for follow-up (5) Paroxysmal atrial fibrillation: Code(s): I48.0 - Paroxysmal atrial fibrillation Plan: He currently remains in (normal) sinus rhythm - patient reportedly responded very well to rhythm control approach and his highly symptomatic paroxysmal atrial fibrillation have remained suppressed with Multaq Continue Multaq 400 mg BID; continue Xarelto 20 mg QD for thromboembolism prophylaxis He is currently getting EKGs done every 3 months and echocardiogram every 6 months for follow-up and monitoring Follow-up with cardiology as scheduled (6) CAD (coronary artery disease): Comment: Cardiac catheterization, 2018, mid LAD 70% and RPL 70%. Remainder of the vessels had nonobstructive disease Code(s): I25.10 - Atherosclerotic heart disease of prairie band coronary artery without angina pectoris Qualifiers: Coronary Disease-Associated Artery/Lesion type: pra[place] band artery [place] vs. transplanted heart: prairie band heart Associated angina: without angina Qualified Code(s): I25.10 - Atherosclerotic heart disease of prairie band coronary artery without angina pectoris Plan: Patient remains asymptomatic with no recent angina symptoms Is currently anticoagulated with Xarelto Continue with aggressive risk reduction for primary prevention Follow-up with cardiology as scheduled (7) Essential hypertension: Code(s): I10 - Essential (primary) hypertension Plan: Reinforced low sodium diet - goal is systolic BP of 120 to 130 mm or less Continue Lisinopril 20 mg QD (8) At risk for obstructive sleep apnea: Code(s): Z91.89 - Other specified personal risk factors, not elsewhere classified Plan: Per recommendation of anesthesiologist during his hernia surgery in July 2023, will refer him to sleep medicine for evaluation for possible obstructive sleep a pnea (9) Vitamin D deficiency: Code(s): E55.9 - Vitamin D deficiency, unspecified Plan: Continue Vitamin D3 2000 units QD (10) GERD (gastroesophageal reflux disease): Code(s): K21.9 - Gastro-esophageal reflux disease without esophagitis Qualifiers: Esophagitis presence: without esophagitis Qualified Code(s): K21.9 - Gastro-esophageal reflux disease without esophagitis Plan: Dietary restrictions reinforced Continue Omeprazole 20 mg QD (11) Allergic rhinitis: Code(s): J30.9 - Allergic rhinitis, unspecified Qualifiers: Allergic rhinitis trigger: unspecified Allergic rhinitis seasonality: unspecified Qualified Code(s): J30.9 - Allergic rhinitis, unspecified Plan: Continue Loratadine 10 mg QD PRN AND Fluticasone 50 mcg nasal spray QD PRN (12) Cutaneous abscess of abdominal wall: Code(s): L02.211 - Cutaneous abscess of abdominal wall Plan: Patient states that his is currently managing his abdominal wall abscess with daily wound care and OTC Abx ointment and feels that this is slowly improving lately Have advised him to call if he feels that this is getting worse at any time or if it does not clear up completely over the next week or so - may need to start him on some oral Abx then (13) Benign prostatic hyperplasia (BPH) with straining on urination: Code(s): N40.1 - Benign prostatic hyperplasia with lower urinary tract symptoms; R39.16 - Straining to void Plan: Most likely due to BPH; states that his symptoms have also been controlled on Rx Continue Tamsulosin 0.4 mg Q HS (14) Insomnia: Code(s): G47.00 - Insomnia, unspecified Qualifiers: Insomnia type: unspecified Qualified Code(s): G47.00 - Insomnia, unspec ified Plan: Sleep hygiene reinforced Continue Trazodone 50 mg Q HS PRN (15) Depression: Code(s): F32.A - Depression, unspecified Qualifiers: Depression Type: unspecified Qualified Code(s): F32.A - Depression, unspecified Plan: Have offered to start patient on Rx for his depression and refer him to psychiatry previously but he declined Feels that he is currently doing much better on this and does not need anything else at this time for his mood disorder (16) Obesity (BMI 30-39.9): Code(s): E66.9 - Obesity, unspecified Plan: Reinforced diet/exercise as tolerated/lose weight Plan Follow up in 4 months Orders: Orders Lipid Panel 4 Months E78.00 - Pure hypercholesterolemia, unspecified Hemoglobin A1c 4 Months E11.9 - Type 2 diabetes mellitus without complications Complete Blood Count Auto Diff 4 Months D64.9 - Anemia, unspecified Comprehensive [place]. Panel Fast 4 Months E78.00 - Pure hypercholesterolemia, unspecified Referrals Sleep Medicine Referral Z91.89 - Other specified personal risk factors, not elsewhere classified Medications: Refilled blood-glucose sensor (Dexcom G7 Sensor device) As directed 1 ea 5RF E11.9 - Type 2 diabetes mellitus without complications rosuvastatin 20 mg PO DAILY 90 tabs 3RF blood-glucose transmitter (Dexcom G6 Transmitter device) As directed 1 ea 1RF E11.29 - Type 2 diabetes mellitus with other diabetic kidney complication, E11.42 - Type 2 diabetes mellitus with diabetic polyneuropathy, R80.9 - Proteinuria, unspecified, Z79.4 - exterminator termite (current) use of insulin omeprazole 20 mg PO DAILY 90 days 90 caps 1RF Coding Level of Care Code Est Pt Level 4 (72079) Complex EM visit Add On G2211 Diagnoses Type 2 diabetes mellitus with diabetic polyneuropathy, with long-term current use of insulin E11.42; Z79.4 Diabetes mellitus superintendent container terminal insulin use: with superintendent container terminal use Diabetic polyneuropathy associated with type 2 diabetes mellitus E11.42 Diabetes mellitus type: type 2 Diabetic retinopathy of both eyes with macular edema associated with type 2 diabetes mellitus, unspecified retinopathy severity E11.311 Diabetes mellitus type: type 2 Diabetic retinopathy severity: with unspecified retinopathy severity Diabetes mellitus macular edema: with macular edema Laterality: bilateral Pure hypercholesterolemia E78.00 Paroxysmal atrial fibrillation I48.0 Coronary artery disease involving prairie band coronary artery of pra[place] heart without angina pectoris I25.10 Coronary Disease-Associated Artery/Lesion type: [place] artery [place] vs. transplanted heart: prairie band heart Associated angina: without angina Essential hypertension I10 At risk for obstructive sleep apnea Z91.89 Vitamin D deficiency E55.9 Gastroesophageal reflux disease without esophagitis K21.9 Esophagitis presence: without esophagitis Allergic rhinitis, unspecified seasonality, unspecified trigger J30.9 Allergic rhinitis trigger: unspecified Allergic rhinitis seasonality: unspecified Cutaneous abscess of abdominal wall L02.211 Benign prostatic hyperplasia (BPH) with straining on urination N40.1; R39.16 Insomnia, unspecified type G47.00 Insomnia type: unspecified Depression, unspecified depression type F32.A Depression Type: unspecified Obesity (BMI 30-39.9) E66.9
[2023-10-07 10:06] VITALS: BP 140/60; PULSE 86; O2SAT 94; BMI 33.4
[2023-10-07 10:45] VITALS: BP 118/78
== END 2023-10-07 10:47 | disposition home or self-care (01) ==
PROVIDERS: PCP Internal Medicine; Visit Provider Internal Medicine
DX: E11.42 Type 2 diabetes mellitus with diabetic polyneuropathy (principal); Z79.4 Long term (current) use of insulin; E11.311 Type 2 diabetes mellitus with unspecified diabetic retinopathy with macular edema; I48.0 Paroxysmal atrial fibrillation; I25.10 Atherosclerotic heart disease of native coronary artery without angina pectoris; I10 Essential (primary) hypertension; Z91.89 Other specified personal risk factors, not elsewhere classified; E55.9 Vitamin D deficiency, unspecified; K21.9 Gastro-esophageal reflux disease without esophagitis
CPT/HCPCS: 99214

== ENCOUNTER → 2023-11-04 09:54 | Outpatient (BNVA) | payer OTHER, SELFPAY | PROVIDERS: PCP Internal Medicine; Visit Provider Internal Medicine Cardiovascular Disease ==

== ENCOUNTER 2024-02-03 10:03 | Outpatient (AMB) | payer OTHER, SELFPAY ==
--- NOTE | 2024-02-03 10:09 | AM.OFFVISNUR ---
Intake Visit Reasons: 9 month ekg Allergies oxycodone [From PERCOCET] Allergy (Intermediate, Verified 10/07/23 10:47) CONSTIPATED Nursing Note pt is here for nurse visit with ekg pt is on dronedarone 400 mg PO BID pt states he has no symptoms ekg left on providers desk for review Office Procedures EKG [id number], Complete
== END 2024-02-03 10:22 | disposition home or self-care (01) ==
LOC: HO.HCS 10:04
PROVIDERS: PCP Internal Medicine; Visit Provider Internal Medicine Cardiovascular Disease
DX: R94.31 Abnormal electrocardiogram [ECG] [EKG] (principal)
CPT/HCPCS: 93010

== ENCOUNTER → 2024-02-03 10:03 | Outpatient (BNVA) | payer OTHER, SELFPAY | PROVIDERS: PCP Internal Medicine; Visit Provider Internal Medicine Cardiovascular Disease | DX: Z79.899 Other long term (current) drug therapy (principal) | CPT/HCPCS: 93005 ==

== ENCOUNTER 2024-02-08 06:59 | Outpatient (REF) | payer OTHER, SELFPAY ==
[2024-02-08 07:22] LABS: MANUAL DIFF FLAG NO
[2024-02-08 08:03] LABS: Basophils Percent Auto 0.8 % (0-2); Eosinophils Absolute Auto 0.2 X10*3/uL (0.0-0.4); Eosinophils Percent Auto 4.1 % (0-4); Hematocrit 38.4 % (42.0-52.0); Hemoglobin 13.5 g/dl (14.0-18.0); Imm Gran Abs Auto 0.01 X10*3/uL (0.00-0.03); Imm Gran Pct Auto 0.2 % (0.0-0.4); Lymphocytes Absolute Auto 1.3 X10*3/uL (1.2-4.9); Lymphocytes Percent Auto 25.9 % (20-40); Mean Corpuscular HGB Conc 35.2 g/dl (31.0-36.0); Mean Corpuscular Hemoglobin 28.7 pg (27.0-33.0); Mean Corpuscular Volume 81.5 fL (80.0-98.0); Mean Platelet Volume 11.2 fL (9.4-12.4); Monocytes Absolute Auto 0.5 X10*3/uL (0.1-1.2); Monocytes Percent Auto 10.4 % (2-11); Neutrophils Percent Auto 58.6 % (45-73); Platelet Count 155 X10*3/uL (160-400); Red Blood Count 4.71 X10*6/uL (4.60-5.80); Red Cell Distribution Width 12.9 % (11.0-16.0); White Blood Count 5.2 X10*3/uL (4.8-10.8)
[2024-02-08 08:10] LABS: Estimated Average Glucose 137 mg/dL; Hemoglobin A1c % 6.4 % (<6.0); Total Hemoglobin (HGBA1C) 3578.4291 umol/L
[2024-02-08 08:45] LABS: Alanine Aminotransferase 55 U/L (0-40); Albumin Level 4.2 g/dL (3.5-5.0); Alkaline Phosphatase 51 U/L (39-117); Anion Gap 14 (12-20); Aspartate Amino Transferase 43 U/L (5-37); Bilirubin Total 0.4 mg/dL (0.0-1.0); Blood Urea Nitrogen 17 mg/dL (9-16); Calcium 9.6 mg/dL (8.4-10.2); Carbon Dioxide 21 mmol/L (22-29); Chloride 110 mmol/L (96-108); Cholesterol 111 mg/dL (<200); Estimated Glomerular Filt Rate > 60; Glucose Fasting 156 mg/dL (60-99); HDL Cholesterol 32 mg/dL (>40); LDL Cholesterol Calculated 19 mg/dL (<100); Potassium 4.4 mmol/L (3.3-5.1); Sodium 141 mmol/L (135-145); Total Protein 7.6 g/dL (6.5-8.0); Triglycerides 302 mg/dL (<150)
== END 2024-02-08 07:00 | disposition home or self-care (01) ==
LOC: HO.LAB 06:59
PROVIDERS: PCP Internal Medicine; Visit Provider Internal Medicine
DX: D64.9 Anemia, unspecified (principal); E11.9 Type 2 diabetes mellitus without complications; E78.00 Pure hypercholesterolemia, unspecified
CPT/HCPCS: 36415; 80053; 80061; 83036; 85025

== ENCOUNTER 2024-02-11 10:27 | Outpatient (AMB) | payer OTHER, SELFPAY ==
[2024-02-11 10:51] VITALS: BP 108/64; PULSE 87; BMI 33.6
--- NOTE | 2024-02-11 10:51 | A.OFFPC_ITS ---
Vital Signs 02/11/24 10:51 Height 5 ft 6 in Weight 208 lb 6 oz BMI 33.6 BP 108/64 Blood Pressure Location Lt brachial Position Sitting Pulse 87 Pulse Source Pulse Oximeter Oxygen Delivery Method Room Air Intake Visit Reasons: 4 Month F/U Harness Mender Required: No Accompanied by: Self / Same As Patient Allergies oxycodone [From PERCOCET] Allergy (Intermediate, Verified 02/11/24 12:33) CONSTIPATED Medication List - Last Reconciled 02/11/24 by Patrick Eden MD blood-glucose meter,continuous (Dexcom G6 Certified Alcohol And Drug Counselor) As directed blood-glucose sensor (Dexcom G6 Sensor device) As directed blood-glucose transmitter (Dexcom G6 Transmitter device) As directed cholecalciferol (vitamin D3) 50 mcg PO DAILY 90 days dronedarone (Multaq) 400 mg PO BID dulaglutide (Trulicity) 1.5 mg (0.5 mL) subcut QWEEK 28 days empagliflozin (Jardiance) 25 mg PO QAM fluticasone propionate 50 mcg/actuation 2 sprays intranasal DAILY 30 days Humalog KwikPen Insulin (insulin lispro) breakfast 16 units, Lunch 26 units, Dinner 28 units, Snack 10 units subcut 4 times a day; No substitutions. 30 days NS lisinopril 20 mg PO DAILY loratadine 10 mg PO DAILY PRN 90 days metformin 1,000 mg PO BID omeprazole 20 mg PO DAILY 90 days pen needle, diabetic (BD Lou 2nd Gen Pen Needle) 1 ea miscellaneous five times a day; pen needle, diabetic (BD Ultra-Fine Lou Pen Needle) As directed once aday pregabalin 50 mg PO BEDTIME 30 days rivaroxaban (Xarelto) 20 mg PO DAILY rosuvastatin 20 mg PO DAILY tamsulosin 0.4 mg PO BEDTIME 90 days Tresiba FlexTouch U-200 (insulin degludec) 86 units (0.43 mL) subcut BEDTIME NS Tobacco use date assessed: 02/11/24 Fall risk assessment: No Falls in past year Last assessed Fall Risk: 02/11/24 Dental Screening Dental Screen Date: 02/11/24 Did you have a dental visit in the last 12 months?: No Did you have a dental problem in the last 6 months where you did not have access to dental care?: No Was dental information given to patient?: No HPI 4 Month F/U HPI Details Patient comes in today for his follow up visit States that he feels okay He denies any headaches or dizziness Denies any chest pains, no increased SOB No nausea/vomiting, no abdominal pain No change in bowel habits noted He had his follow up labs done a few days ago - to discuss his results [facility] Medical History Allergic rhinitis On anticoagulant therapy Obesity (BMI 30-39.9) Insomnia Vitamin D deficiency Diabetic retinopathy Pure hypercholesterolemia Diabetic polyneuropathy Hearing loss BMI 33.0-33.9,adult Paroxysmal atrial fibrillation CAD (coronary artery disease) Afib GERD (gastroesophageal reflux disease) 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 Essential hypertension Hyperlipidemia LDL goal <100 Surgical History Umbilical hernia (08/22/23) H/O colonoscopy H/O endoscopy History of laparoscopic cholecystectomy History of cataract surgery History of eye surgery History of inguinal hernia repair History of arthroscopy of right shoulder Family History Father Diabetes Mother Alzheimers disease Bone cancer Sister Heart failure Sister Hypertension Sister Diabetes Kidney failure Social History Household Members: Spouse Housing: House Alcohol intake: current Alcohol intake frequency: holidays/special occasions only Alcohol type: beer Patient Tobacco Use Status: Former Tobacco user Tobacco use type: Cigarette Cigarette Packs Per Day: 1.5 Cigarettes Per Day: 30.0 Years Smoked: 25 e-Cigarette/Vaping Use: Never Used Second Hand Smoke Exposure: Yes service: No Current occupational status: employed 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 1. Little interest or pleasure in doing things: not at all 2. Feeling down, depressed, or hopeless: not at all 3. Trouble falling or staying asleep, or sleeping too much: not at all 4. Feeling tired or having little energy: not at all 5. Poor appetite or overeating: not at all 6. Feeling bad about yourself - or that you are a failure or have let yourself or your family down: not at all 7. Trouble concentrating on things, such as reading the newspaper or watching television: not at all 8. Moving or speaking so slowly that other people could have noticed. Or the opposite - being so fidgety or restless that you have been moving around a lot more than usual: not at all 9. Thoughts that you would be better off or of hurting yourself in some way: not at all Total score: 0 Depression Screening Interpretation: Negative Depression Screening Done: Yes 52155 - PHQ-9 Billing: Yes Source: Developed by Drs. Alex Pack, Iav Zhao, Kd Jones and colleagues, with an educational sonu from [facility]. Thrive Questionnaire Date Thrive assessed: 02/11/24 I am a: Patient What is your living situation today?: I have a steady place to live Within the past 12 months, did the food you bought not last and you didn't have the money to get more?: Never true Within the past 12 months, did you worry whether your food would run out before you got money to buy more?: Never true Do you have trouble paying for medicines?: No Do you have trouble getting transportation to medical appointments?: No Do you have trouble paying your heating and electricity bill?: No Do you have trouble taking care of your child, family member or friend?: No Do you have trouble with day-to-day activities such as bathing, preparing meals, shopping, managing finances, etc.?: No Are you currently unemployed and looking for a job?: No Are you interested in more education?: No Please select the resources that you would like help with: None Currently or been in a relationship where the following occur: No concerns reported THRIVE Score: 0 AUDIT C Alcohol Use Questionnaire (AUDIT-C) 1. How often do you have a drink containing alcohol?: Never 3. How often do you have six or more drinks on one occasion?: Never Total Score: 0 Score Reviewed/Action Taken: Yes HANK-7 AMB Questionnaire HANK-7 Date HANK - 7 assessed: 02/11/24 Feeling nervous, anxious, or on edge: 0 = Not at all Not being able to stop or control worryin = Not at all Worrying too much about different things: 0 = Not at all Trouble relaxin = Not at all Being so restless that it is hard to sit still: 0 = Not at all Becoming easily annoyed or irritable: 0 = Not at all Feeling afraid as if something awful might happen: 0 = Not at all Total HANK-7 score (0-4 normal; 5-9 mild; 10-14 moderate; 15-21 severe): 0 Source: Developed by Drs. Alex Pack, Iva Zhao, Kd Jones and colleagues, with an educational sonu from [facility]. Review of Systems Const Denies chills, Denies fatigue, Denies fever(s) and Denies headache(s) ENT Denies dysphagia, Denies dizziness, Denies otalgia, Denies headache(s), Reports hearing loss (in right ear (chronic) - has a hearing aid in his right ear), Denies neck pain, Denies odynophagia and Denies sore throat Card Denies chest pain, Denies palpitations and Denies dyspnea Resp Denies chest congestion, Denies cough and Denies dyspnea GI Denies abdominal pain, Denies constipation, Denies dysphagia, Denies heartburn, Denies diarrhea, Denies nausea, Denies odynophagia and Denies vomiting Denies dysuria, Denies nocturia and Denies urinary frequency (improved with Rx) Musc Denies back pain, Denies neck pain, Reports numbness (on and off in both lower extremities ) and Reports tingling (on and off in both lower extremities ) Skin/Breast Denies rash Neuro Denies dizziness, Denies headache(s), Reports numbness (on and off in both lower extremities ) and Reports tingling (on and off in both lower extremities ) Psych Reports depression (better controlled at present) Endo Denies fatigue and Denies palpitations Physical exam (Primary Care) Vital Signs: Last Vital Signs Pulse 87 02/11/24 10:51 BP 108/64 02/11/24 10:51 Oxygen Delivery Method Room Air 02/11/24 10:51 BMI result Body Mass Index 33.6 Tobacco/Smoking Status: Tobacco use Status Tobacco use date assessed 02/11/24 02/11/24 10:58 Patient Tobacco Use Status Former Tobacco user 02/11/24 10:58 Tobacco use type Cigarette 02/11/24 10:58 e-Cigarette/Vaping Use Never Used 02/11/24 10:58 PHQ-9: PHQ-9 Score PHQ-9: Total score 0 02/11/24 11:06 Depression Screening Interpretation: Negative Thrive Assessment: Date of Thrive Assessment Date Thrive assessed 02/11/24 02/11/24 10:58 Currently or been in a relationship where the following occur: No concerns repo rted Const General: no acute distress and alert HENMT Ears: TM's normal bilaterally and EAC's normal Throat: Yes posterior oropharynx normal and Yes tonsils normal (no TP congestion noted) Neck Neck: Yes no lymphadenopathy and Yes supple Thyroid: Thyroid normal Resp Auscultation: clear to auscultation bilaterally, no rales and no wheezes Cardio Rate: regular rate Rhythm: regular rhythm Heart sounds: no murmurs GI Palpation (GI): Soft to palpation and nontender Auscultation: normal bowel sounds General: Yes no CVA tenderness Back/Spine/Pelvis Back: no CVA tenderness Thoracic/Lumbar Spine: No lumbar spinal tenderness Skin Rashes: no rashes Extrem General: Yes no clubbing, cyanosis or edema Office Procedures Flu Questionnaire Does the patient have a severe egg allergy?: No Immunizations Fluarix Triv [id number] (PF) 45 mcg (15 mcg x 3)/0.5 mL IM syringe Performing Provider: Patrick Eden MD [facility] Documented (not given) by: DAPHNE Sainz on 02/11/24 11:06 Reason Not Given: Received Previously Results Reviewed Results Reviewed: Laboratory Tests 02/08/24 07:21 WBC 5.2 Hgb 13.5 L Hct 38.4 L Plt Count 155 L Sodium 141 Potassium 4.4 Creatinine 1.13 Estimated GFR > 60 Fasting Glucose 156 H Hemoglobin A1c % 6.4 H Calcium 9.6 AST 43 H ALT 55 H Triglycerides 302 H Cholesterol 111 LDL Cholesterol, Calc 19 HDL Cholesterol 32 L Coding Level of Care Code Est Pt Level 4 (49202) Diagnoses Type 2 diabetes mellitus with diabetic polyneuropathy, with long-term current use of insulin E11.42; Z79.4 Diabetes mellitus [facility] insulin use: with [facility] use Diabetic polyneuropathy associated with type 2 diabetes mellitus E11.42 Diabetes mellitus type: type 2 Diabetic 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 transplanted heart: prairie band heart Associated angina: without angina Essential hypertension I10 At risk for obstructive sleep apnea Z91.89 Vitamin D deficiency E55.9 Gastroesophageal reflux disease without esophagitis K21.9 Esophagitis presence: without esophagitis Allergic rhinitis, unspecified seasonality, unspecified trigger J30.9 Allergic rhinitis trigger: unspecified Allergic rhinitis seasonality: unspecified Benign prostatic hyperplasia (BPH) with straining on urination N40.1; R39.16 Insomnia, unspecified type G47.00 Insomnia type: unspecified Depression, unspecified depression type F32.A Depression Type: unspecified Obesity (BMI 30-39.9) E66.9 Additional Codes PHQ-9 - 97319 - PHQ-9 Billing: Yes ([id number]) Assessment & Plan Assessment & Plan (1) Type 2 diabetes mellitus with diabetic polyneuropathy: Code(s): E11.42 - Type 2 diabetes mellitus with diabetic polyneuropathy Category: Medical Qualifiers: Diabetes mellitus [facility] insulin use: with [facility] use Qualified Code(s): E11.42 - Type 2 diabetes mellitus with diabetic polyneuropathy; Z79.4 - ferry 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 Plan: His HgbA1c was at 6.4% on his labs done a few days ago (was previously at 6.9% a few months ago) - goal is <7.0% Reinforced diabetic diet Continue Metformin 1000 mg BID, Jardiance 25 mg QD, Trulicity 1.5 mg subcutaneous injection once a week, Tresiba 86 units daily and Humalog 16 units for breakfast, 26 units for lunch, 28 units for dinner with 10 units for snacks Follow-up with endocrinology as scheduled - he is now seeing endocrinology over at [facility] (2) Diabetic polyneuropathy: Code(s): E11.42 - Type 2 diabetes mellitus with diabetic polyneuropathy Category: Medical Qualifiers: Diabetes mellitus type: type 2 Qualified Code(s): E11.42 - Type 2 diabetes mellitus with diabetic polyneuropathy Plan: EMG & NCV done on 11/26/2019 revealed (+) 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 Repeat EMG and NCV in April 2023 revealed similar findings - (+) 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 Patient used to take Gabapentin 300 mg TID for his symptoms but has not been on this in a while now - stated that he felt okay without any Rx back then but may need to start him back on this if his symptoms persist or get worse (3) Diabetic retinopathy: Code(s): E11.319 - Type 2 diabetes mellitus with unspecified diabetic retinopathy without macular edema Category: Medical Qualifiers: Diabetes mellitus type: type 2 Diabetic retinopathy severity: with unspecified retinopathy severity Diabetes mellitus macular edema: with macular edema Laterality: bilateral Qualified Code(s): 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 Plan: Reinforced tight glucose control to slow down disease progression Follow up with ophthalmology as scheduled (4) Pure hypercholesterolemia: Code(s): E78.00 - Pure hypercholesterolemia, unspecified Category: Medical Plan: Results of his labs done a few days ago reviewed and discussed with patient Reinforced low-cholesterol diet Continue Rosuvastatin 20 mg QD Will recheck his labs and fasting lipids in 4 months for follow-up (5) Paroxysmal atrial fibrillation: Code(s): I48.0 - Paroxysmal atrial fibrillation Category: Medical Plan: Patient currently remains in (normal) sinus rhythm - he reportedly responded very well to rhythm control approach and his highly symptomatic paroxysmal atrial fibrillation have remained suppressed with Multaq Continue Multaq 400 mg BID; continue Xarelto 20 mg QD for thromboembolism prophylaxis He is currently getting EKGs done every 3 months and echocardiogram every 6 months for follow-up and monitoring Follow-up with cardiology as scheduled (6) CAD (coronary artery disease): Comment: Cardiac catheterization, 2018, mid LAD 70% and RPL 70%. Remainder of the vessels had nonobstructive disease Code(s): I25.10 - Atherosclerotic heart disease of prairie band coronary artery without angina pectoris Category: Medical Qualifiers: Coronary Disease-Associated Artery/Lesion type: pra[place] band artery [place] vs. transplanted heart: prairie band heart Associated angina: without angina Qualified Code(s): I25.10 - Atherosclerotic heart disease of prairie band coronary artery without angina pectoris Plan: Patient remains asymptomatic with no recent angina symptoms Is currently anticoagulated with Xarelto Continue with aggressive risk reduction for primary prevention Follow-up with cardiology as scheduled (7) Essential hypertension: Code(s): I10 - Essential (primary) hypertension Category: Medical Plan: Reinforced low sodium diet - goal is systolic BP of 120 to 130 mm or less Continue Lisinopril 20 mg QD (8) At risk for obstructive sleep apnea: Code(s): Z91.89 - Other specified personal risk factors, not elsewhere classified Category: Medical Plan: Per recommendation of anesthesiologist during his hernia surgery in July 2023, he was referred to Sleep Medicine for evaluation for possible obstructive sleep apnea He is now scheduled to be seen by Sleep Medicine in April 2024 (9) Vitamin D deficiency: Code(s): E55.9 - Vitamin D deficiency, unspecified Category: Medical Plan: Continue Vitamin D3 2000 units QD (10) GERD (gastroesophageal reflux disease): Code(s): K21.9 - Gastro-esophageal reflux disease without esophagitis Category: Medical Qualifiers: Esophagitis presence: without esophagitis Qualified Code(s): K21.9 - Gastro-esophageal reflux disease without esophagitis Plan: Dietary restrictions reinforced Continue Omeprazole 20 mg QD (11) Allergic rhinitis: Code(s): J30.9 - Allergic rhinitis, unspecified Category: Medical Qualifiers: Allergic rhinitis trigger: unspecified Allergic rhinitis seasonality: unspecified Qualified Code(s): J30.9 - Allergic rhinitis, unspecified Plan: Continue Loratadine 10 mg QD PRN AND Fluticasone 50 mcg nasal spray QD PRN (12) Benign prostatic hyperplasia (BPH) with straining on urination: Code(s): N40.1 - Benign prostatic hyperplasia with lower urinary tract symptoms; R39.16 - Straining to void Category: Medical Plan: Most likely due to BPH; states that his symptoms have also been controlled on Rx Continue Tamsulosin 0.4 mg Q HS (13) Insomnia: Code(s): G47.00 - Insomnia, unspecified Category: Medical Qualifiers: Insomnia type: unspecified Qualified Code(s): G47.00 - Insomnia, unspecified Plan: Sleep hygiene reinforced Continue Trazodone 50 mg Q HS PRN (14) Depression: Code(s): F32.A - Depression, unspecified Category: Medical Qualifiers: Depression Type: unspecified Qualified Code(s): F32.A - Depression, unspecified Plan: Have offered to start patient on Rx for his depression and refer him to psychiatry previously but he declined Feels that he is currently doing much better on this and does not need anything else at this time for his mood disorder (15) Obesity (BMI 30-39.9): Code(s): E66.9 - Obesity, unspecified Category: Medical Plan: Reinforced diet/exercise as tolerated/lose weight Plan Follow up in 4 months Orders: Orders Lipid Panel 4 Months E78.00 - Pure hypercholesterolemia, unspecified Comprehensive [place]. Panel Fast 4 Months E78.00 - Pure hypercholesterolemia, unspecified Complete Blood Count Auto Diff 4 Months D64.9 - Anemia, unspecified Microalbumin, Random (w Creat) 4 Months E11.9 - Type 2 diabetes mellitus without complications UA CC w/rflx Micro + Cult 4 Months R30.0 - Dysuria Vitamin B12 and Folate 4 Months E53.8 - Deficiency of other specified B group vitamins Influenza [id number] Immunization Today Z23 - Encounter for immunization Hemoglobin A1c 4 Months E11.9 - Type 2 diabetes mellitus without complications TSH reflex Free T4 4 Months E78.00 - Pure hypercholesterolemia, unspecified Vitamin D 25-OH Total 4 Months E55.9 - Vitamin D deficiency, unspecified
== END 2024-02-11 11:54 | disposition home or self-care (01) ==
PROVIDERS: PCP Internal Medicine; Visit Provider Internal Medicine
DX: E11.42 Type 2 diabetes mellitus with diabetic polyneuropathy (principal); Z79.4 Long term (current) use of insulin; E11.311 Type 2 diabetes mellitus with unspecified diabetic retinopathy with macular edema; I48.0 Paroxysmal atrial fibrillation; E78.00 Pure hypercholesterolemia, unspecified; I25.10 Atherosclerotic heart disease of native coronary artery without angina pectoris; I10 Essential (primary) hypertension; Z91.89 Other specified personal risk factors, not elsewhere classified; E55.9 Vitamin D deficiency, unspecified; K21.9 Gastro-esophageal reflux disease without esophagitis; J30.9 Allergic rhinitis, unspecified; N40.1 Benign prostatic hyperplasia with lower urinary tract symptoms

== ENCOUNTER → 2024-02-11 10:27 | Outpatient (BNVA) | payer OTHER, SELFPAY | PROVIDERS: PCP Internal Medicine; Visit Provider Internal Medicine | DX: E11.42 Type 2 diabetes mellitus with diabetic polyneuropathy (principal); E11.311 Type 2 diabetes mellitus with unspecified diabetic retinopathy with macular edema; E78.00 Pure hypercholesterolemia, unspecified; I48.0 Paroxysmal atrial fibrillation; I25.10 Atherosclerotic heart disease of native coronary artery without angina pectoris; I10 Essential (primary) hypertension; E55.9 Vitamin D deficiency, unspecified; K21.9 Gastro-esophageal reflux disease without esophagitis; J30.9 Allergic rhinitis, unspecified; N40.1 Benign prostatic hyperplasia with lower urinary tract symptoms; R39.16 Straining to void; G47.00 Insomnia, unspecified; F32.A Depression, unspecified; E66.9 Obesity, unspecified; Z68.33 Body mass index [BMI] 33.0-33.9, adult; Z91.89 Other specified personal risk factors, not elsewhere classified; Z79.01 Long term (current) use of anticoagulants; Z79.4 Long term (current) use of insulin; Z79.899 Other long term (current) drug therapy | CPT/HCPCS: 96127 ==

== ENCOUNTER 2024-04-16 14:03 | Outpatient (AMB) | payer OTHER, SELFPAY ==
[2024-04-16 14:11] VITALS: BP 122/64; PULSE 69; O2SAT 96; BMI 35.9
--- NOTE | 2024-04-16 14:11 | MHC.OFFVIS ---
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 Main complaints-witnessed apneas Sleep questionnaire- Difficulty falling asleep-yes Difficulty staying asleep-no Number of arousals-1 Snoring-yes Witnessed apneas-yes Gasping arousals-no Nocturia-no GERD-yes Vivid dreams-no Acting out dreams -no Abnormal behavior in sleep-/no ABnormal movements in sleep-no Morning headaches-no Excessive daytime sleepiness-yes Daytime naps- yes restless legs- yes, has diabetic neuropathy Hallucinations- no sleep paralysis- no Drop attacks- no Sleep study-no Sleep Hygiene- Sleep time 11pm Wake time 6am coffee/stimulant use 1 cup Phone Electronics use - minimal Exercise none- Bedroom comfort- yes [facility] Medical History (Updated 04/16/24 @ 14:36 by Flora Chatterjee MD) Restless legs syndrome (RLS) Hypersomnia Snoring Witnessed apneic spells Allergic rhinitis On anticoagulant therapy Obesity (BMI 30-39.9) Insomnia Vitamin D deficiency Diabetic retinopathy Pure hypercholesterolemia Diabetic polyneuropathy Hearing loss BMI 33.0-33.9,adult Paroxysmal atrial fibrillation CAD (coronary artery disease) Afib GERD (gastroesophageal reflux disease) 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 Essential hypertension Hyperlipidemia LDL goal <100 Surgical History Umbilical hernia (08/22/23) H/O colonoscopy H/O endoscopy History of laparoscopic cholecystectomy History of cataract surgery History of eye surgery History of inguinal hernia repair History of arthroscopy of right shoulder Family History Father Diabetes Mother Alzheimers disease Bone cancer Sister Heart failure Sister Hypertension Sister Diabetes Kidney failure Social History Household Members: Spouse Housing: House Alcohol intake: current Alcohol intake frequency: holidays/special occasions only Alcohol type: beer Patient Tobacco Use Status: Former Tobacco user Tobacco use type: Cigarette Cigarette Packs Per Day: 1.5 Cigarettes Per Day: 30.0 Years Smoked: 25 e-Cigarette/Vaping Use: Never Used Second Hand Smoke Exposure: Yes service: No Current occupational status: employed 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 [employer] Cognitive needs: No Hearing needs: No Vision needs: Yes Physical Exam Vital Signs: Last Vital Signs Pulse 69 04/16/24 14:11 BP 122/64 04/16/24 14:11 Pulse Ox 96 04/16/24 14:11 Oxygen Delivery Method Room Air 04/16/24 14:11 BMI result Body Mass Index 35.9 Const General: cooperative, healthy appearing and comfortable Nutritional Appearance: obese Orientation/consciousness: patient oriented x3 Eyes Pupils: Equal, round and reactive pupils present Neuro Other: mallampatti grade 4 General: patient oriented x3, gait normal, tone normal, moves all extremities and no focal motor deficits Cranial nerves: Yes Facial sensation intact/muscles of mastication intact, Yes Equal, round and reactive pupils present, Yes Bilaterally intact EOM present, Yes Nystagmus not present, Yes Normal facial strength present, Yes Midline tongue present and Yes Symmetric palate elevation present Cognition (Neuro): normal cognition Gait exam (Neuro): Normal gait present Motor exam (neuro): 5/5 motor strength present throughout and Normal motor muscle tone present throughout Assessment & Plan Assessment & Plan (1) Witnessed apneic spells: Code(s): R06.81 - Apnea, not elsewhere classified Category: Medical (2) Snoring: Code(s): R06.83 - Snoring Category: Medical (3) Hypersomnia: Code(s): G47.10 - Hypersomnia, unspecified Category: Medical (4) Restless legs syndrome (RLS): Code(s): G25.81 - Restless legs syndrome Category: Medical Plan In lab sleep study for sleep apnea and possible PLMD Continue pregabalin 50mg qhs Counseled on increasing physical activity. Orders: Orders RT PSG in-lab sleep study Today G25.81 - Restless legs syndrome, G47.10 - Hypersomnia, unspecified, I48.0 - Paroxysmal atrial fibrillation, R06.81 - Apnea, not elsewhere classified, R06.83 - Snoring Coding Level of Care Code New Pt Level 4 (98771) Diagnoses Witnessed apneic spells R06.81 Snoring R06.83 Hypersomnia G47.10 Restless legs syndrome (RLS) G25.81 [place]eebles Sleepiness Scale Questions Sitting and reading: slight chance of dozing Watching TV: high chance of dozing Sitting inactive in a theater, movie etc.: would never doze As a passenger in a car for an hour without break: slight chance of dozing Lying down in the afternoon when circumstances permit: slight chance of dozing Sitting and talking to someone: would never doze Sitting quietly after lunch without alcohol: would never doze In a car, while stopped for a few minutes in the traffic: would never doze ESS < 10: normal, ESS > 12: pathologic: 6
== END 2024-04-16 14:42 | disposition home or self-care (01) ==
PROVIDERS: PCP Internal Medicine; Visit Provider Psychiatry & Neurology Neurology
DX: R06.81 Apnea, not elsewhere classified (principal); R06.83 Snoring; G47.10 Hypersomnia, unspecified; G25.81 Restless legs syndrome
CPT/HCPCS: 99204

== ENCOUNTER → 2024-04-16 14:03 | Outpatient (BNVA) | payer OTHER, SELFPAY | PROVIDERS: PCP Internal Medicine; Visit Provider Psychiatry & Neurology Neurology ==

== ENCOUNTER 2024-05-02 09:06 | Emergency (ER) | payer OTHER, SELFPAY ==
--- NOTE | ~2024-05-02 | CT_ITS ---
CLINICAL HISTORY: Right-sided abd pain, SBO CT abdomen and pelvis without contrast Comparison: CT/SR - CT ABDOMEN PELVIS W IV CON - 05/24/22 09:56 EST Findings: No consolidation or effusion. There is mild splenomegaly unchanged. The patient is status post cholecystectomy. There is minimal pneumobilia. There are inflammatory changes adjacent to the pancreatic head consistent with acute pancreatitis. No bowel obstruction, pneumoperitoneum, or pneumatosis. The appendix is not identified. There is no evidence of appendicitis. No acute fracture. IMPRESSION: There are inflammatory changes adjacent to the pancreatic head consistent with acute pancreatitis. This document has been electronically signed by: Jimi Diaz MD on 05/02/2024 11:25:43
[2024-05-02 09:12] VITALS: BP 136/62; PULSE 99; RESP 18; TEMP 36.6; O2SAT 99; BMI 33.1
[2024-05-02 09:36] LABS: MANUAL DIFF FLAG NO
[2024-05-02 09:52] LABS: Alanine Aminotransferase 19 U/L (0-40); Albumin Level 4.4 g/dL (3.5-5.0); Alkaline Phosphatase 35 U/L (39-117); Anion Gap 12 (12-20); Aspartate Amino Transferase 25 U/L (5-37); Bilirubin Direct 0.2 mg/dL (0.0-0.5); Bilirubin Total 0.6 mg/dL (0.0-1.0); Blood Urea Nitrogen 17 mg/dL (9-16); Calcium 9.5 mg/dL (8.4-10.2); Carbon Dioxide 25 mmol/L (22-29); Chloride 109 mmol/L (96-108); Creatinine Clr Calc Pharmacy 83.8; Estimated Glomerular Filt Rate > 60; Glucose Random 121 mg/dL (60-115); Lipase 20 U/L (8-78); Potassium 4.2 mmol/L (3.3-5.1); Sodium 142 mmol/L (135-145)
[2024-05-02 10:09] LABS: Basophils Percent Auto 0.4 % (0-2); Eosinophils Absolute Auto 0.1 X10*3/uL (0.0-0.4); Eosinophils Percent Auto 0.7 % (0-4); Hematocrit 38.1 % (42.0-52.0); Hemoglobin 13.1 g/dl (14.0-18.0); Imm Gran Abs Auto 0.03 X10*3/uL (0.00-0.03); Imm Gran Pct Auto 0.4 % (0.0-0.4); Lymphocytes Percent Auto 12.4 % (20-40); Mean Corpuscular HGB Conc 34.4 g/dl (31.0-36.0); Mean Corpuscular Hemoglobin 28.7 pg (27.0-33.0); Mean Corpuscular Volume 83.4 fL (80.0-98.0); Monocytes Absolute Auto 0.7 X10*3/uL (0.1-1.2); Monocytes Percent Auto 8.2 % (2-11); Neutrophils Absolute Auto 6.4 x10*3/uL (2.0-8.3); Neutrophils Percent Auto 77.9 % (45-73); Platelet Count 143 X10*3/uL (160-400); Red Blood Count 4.57 X10*6/uL (4.60-5.80); Red Cell Distribution Width 12.8 % (11.0-16.0); White Blood Count 8.2 X10*3/uL (4.8-10.8)
--- NOTE | 2024-05-02 10:50 | ED_ITS ---
HPI - Abdominal Pain General Chief Complaint: Abdominal Pain Stated Complaint: r side abd pain Time Seen by Provider: 05/02/24 10:13 Source: patient Mode of arrival: ambulatory Limitations: no limitations History of Present Illness ED Provider: DR. Joya HPI narrative: 64-year-old male came in for evaluation of right-sided abdominal pain x3 days. Three days of right abdominal pain, no bowel movement, not passing flatus, decreased p.o. appetite. No fever, no chills. No history of alcohol use. Past intra-abdominal surgery significant for hernia repair and cholecystectomy, no history of SBO. Related Data Previous Rx's ?Medication ?Instructions ?Recorded pen needle, diabetic 32 gauge x #30 ea 02/20/20 (BD Ultra-Fine Lou Pen Needle) cholecalciferol (vitamin D3) 50 50 mcg PO DAILY 90 days #90 caps 03/16/22 mcg (2,000 unit) capsule lisinopril 20 mg tablet 20 mg PO DAILY #90 tabs 04/23/23 metformin 1,000 mg tablet 1,000 mg PO BID #180 tabs 07/10/23 rosuvastatin 20 mg tablet 20 mg PO DAILY #90 tabs 10/07/23 blood-glucose meter,continuous #1 ea 10/09/23 (Dexcom G6 Emergency Medical Service Coordinator) blood-glucose sensor (Dexcom G6 #3 ea 10/15/23 Sensor device) blood-glucose transmitter (Dexcom #1 ea 10/15/23 G6 Transmitter device) empagliflozin 25 mg tablet 25 mg PO QAM #30 tabs 10/21/23 (Jardiance) tamsulosin 0.4 mg capsule 0.4 mg PO BEDTIME 90 days #90 caps 10/21/23 dulaglutide 1.5 mg/0.5 mL 1.5 mg (0.5 mL) subcut QWEEK 28 12/11/23 subcutaneous pen injector days #2 mL (Trulicity) dronedarone 400 mg tablet (Multaq) 400 mg PO BID #180 tabs 01/14/24 fluticasone propionate 50 2 spray intranasal DAILY 30 days 01/30/24 mcg/actuation nasal #16 grams spray,suspension rivaroxaban 20 mg tablet (Xarelto) 20 mg PO DAILY #90 tabs 02/03/24 Humalog KwikPen Insulin 100 See Rx Instructions subcut QID 30 02/18/24 unit/mL subcutaneous (insulin days #30 mL lispro) pen needle, diabetic 32 gauge x 1 ea miscellaneous .COMPLEX #150 ea 02/18/24 (BD Lou 2nd Gen Pen Needle) pregabalin 50 mg capsule 50 mg PO BEDTIME 30 days #30 caps 02/25/24 Tresiba FlexTouch U-200 200 86 unit (0.43 mL) subcut BEDTIME 03/10/24 unit/mL (3 mL) subcutaneous pen #9 mL (insulin degludec) omeprazole 20 mg capsule,delayed 20 mg PO DAILY 90 days #90 caps 03/10/24 release loratadine 10 mg tablet 10 mg PO DAILY PRN allergy 04/13/24 symptoms 90 days #90 tabs Allergies Allergy/AdvReac Type Severity Reaction Status Date / Time oxycodone [From PERCOCET] Allergy Intermediate CONSTIPATED Verified 05/02/24 09:14 Review of Systems Review of Systems All other systems are reviewed and are negative Constitutional: Reports as per HPI and Reports no additional constitutional complaints Eyes: Reports as per HPI and Reports no additional eye complaints Reports system reviewed and no additional complaints, except as documented Cardiovascular: Reports as per HPI and Reports no additional cardiovascular complaints Respiratory: Reports as per HPI and Reports no additional respiratory complaints Gastrointestinal: Reports as per HPI and Reports no additional gastrointestinal complaints Genitourinary: Reports no additional female genitourinary complaints Musculoskeletal: Reports no additional musculoskeletal complaints Skin/Breast: Reports system reviewed and no additional complaints, except as docu Psychiatric: Reports no additional psychiatric complaints Endocrine: Reports no additional endocrine complaints Hematologic/Lymphatic: Reports no additional hematologic/lymphatic complaints Allergic/Immunologic: Reports no additional allergic/immunologic complaints Reports system reviewed and no additional complaints, except as documented and Reports Abnormal speech present FOR[facility]LY [facility], [facility] Past Medical History Medical History Restless legs syndrome (RLS) Hypersomnia Snoring Witnessed apneic spells Allergic rhinitis On anticoagulant therapy Obesity (BMI 30-39.9) Insomnia Vitamin D deficiency Diabetic retinopathy Pure hypercholesterolemia Diabetic polyneuropathy Hearing loss BMI 33.0-33.9,adult Paroxysmal atrial fibrillation CAD (coronary artery disease) Afib GERD (gastroesophageal reflux disease) 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 Essential hypertension Hyperlipidemia LDL goal <100 Surgical History Umbilical hernia (08/22/23) H/O colonoscopy H/O endoscopy History of laparoscopic cholecystectomy History of cataract surgery History of eye surgery History of inguinal hernia repair History of arthroscopy of right shoulder Family History Family History Father Diabetes Mother Alzheimers disease Bone cancer Sister Heart failure Sister Hypertension Sister Diabetes Kidney failure Social History Social History Household Members: Spouse Housing: House Alcohol intake: current Alcohol intake frequency: holidays/special occasions only Alcohol type: beer Patient Tobacco Use Status: Former Tobacco user Tobacco use type: Cigarette Cigarette Packs Per Day: 1.5 Cigarettes Per Day: 30.0 Years Smoked: 25 e-Cigarette/Vaping Use: Never Used Second Hand Smoke Exposure: Yes Advance Directives: No Advance Directives Information Provided: No Do you have a plan to hurt others: No Plan service: No Current occupational status: employed 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 Blood pressure elevated. Heart rate normal. Respiratory rate normal. Temperature normal. Oxygen saturation normal. Appearance: Alert. Oriented X3. No acute distress. Head: Normal external exam. Normocephalic. Atraumatic. No Yuan signs noted. No raccoon eyes noted Eyes: PERRLA. EOMI. Conjunctiva and sclera normal. Eyelids normal. ENT: TM's Normal. Pharynx normal. Uvula midline. Moist mucous membranes. No trismus noted. No drooling noted. No muffled voice noted. Neck: Normal inspection. Neck supple. FROM. No adenopathy. Thyroid Normal. No meningeal signs. No neck mass noted. CVS: Normal heart rate and rhythm. Heart sound normal. No murmurs noted. Pulses normal throughout. Respiratory: No respiratory distress. Painless inspiration. Breath sounds normal. No wheezes/rales/rhonchi noted. Chest nontender. No accessory muscle usage noted or decreased air movement noted. Abdomen: Soft, mild right-sided abdominal tenderness, no guarding, no rebound tenderness. Bowel sounds normal in all 4 quadrants. No distention noted. No organomegaly noted. No visible injury noted. Back: No CVA tenderness. Full range of motion noted. Skin: Skin warm and dry. Normal skin color. Normal skin turgor. No rashes/lesions/lacerations noted. Extremities: No lower extremity edema. Extremities exhibit normal range of motion. Extremities nontender. Neuro: Oriented X 3. Cranial nerve exam: II-XII are grossly intact No motor deficit. No sensory deficit. Reflexes normal. Course Reevaluation(s) Reevaluation #1: Intermittent abdominal pain, abdominal exam is unremarkable, CT abdomen pelvis is showing mild acute pancreatitis, labs are unremarkable. CT is not consistent with acute appendicitis. Will discharge home was encouraged to drink plenty of fluids stay away from greasy food patient do not drink alcohol. Tylenol if needed for pain. Will discharge to follow-up with GI. Time: 12:30 Medical Decision Making Differential Diagnosis Differential Diagnoses: The differential diagnosis associated with the presentation includes (SBO, pancreatitis, colitis, diverticulitis, acute appendicitis, electrolyte derangement, severe anemia) Admission/Observation Consideration of admission/observation: Escalation of care including admission/observation considered Lab Data MDM Lab Attestation statement: I reviewed the patient's lab results. 05/02/24 09:28 05/02/24 09:28 Labs: Lab Results 05/02/24 Range/Units 09:28 WBC 8.2 (4.8-10.8) X10*3/uL RBC 4.57 L (4.60-5.80) X10*6/uL Hgb 13.1 L (14.0-18.0) g/dl Hct 38.1 L (42.0-52.0) % MCV 83.4 (80.0-98.0) fL MCH 28.7 (27.0-33.0) pg MCHC 34.4 (31.0-36.0) g/dl RDW 12.8 (11.0-16.0) % Plt Count 143 L (160-400) X10*3/uL MPV 11.0 (9.4-12.4) fL Immature Gran % (Auto) 0.4 (0.0-0.4) % Neut % (Auto) 77.9 H (45-73) % Lymph % (Auto) 12.4 L (20-40) % Robertson % (Auto) 8.2 (2-11) % Eos % (Auto) 0.7 (0-4) % Baso % (Auto) 0.4 (0-2) % Lymph # (Auto) 1.0 L (1.2-4.9) X10*3/uL Robertson # (Auto) 0.7 (0.1-1.2) X10*3/uL Eos # (Auto) 0.1 (0.0-0.4) X10*3/uL Baso # (Auto) 0.0 (0.0-0.2) X10*3/uL Abs Immat Gran (auto) 0.03 (0.00-0.03) X10*3/uL Absolute Neuts (auto) 6.4 (2.0-8.3) x10*3/uL Absolute Nucleated RBC 0.000 (0.0-0.012) X10*3/uL Nucleated RBC % (auto) 0.0 (0.0-0.2) /100WBC Sodium 142 (135-145) mmol/L Potassium 4.2 (3.3-5.1) mmol/L Chloride 109 H (96-108) mmol/L Carbon Dioxide 25 (22-29) mmol/L Anion Gap 12 (12-20) BUN 17 H (9-16) mg/dL Creatinine 0.95 (0.5-1.4) mg/dL Estim Creat Clear Calc 83.8 Estimated GFR > 60 Random Glucose 121 H (60-115) mg/dL Calcium 9.5 (8.4-10.2) mg/dL Total Bilirubin 0.6 (0.0-1.0) mg/dL Direct Bilirubin 0.2 (0.0-0.5) mg/dL AST 25 (5-37) U/L ALT 19 (0-40) U/L Alkaline Phosphatase 35 L (39-117) U/L Total Protein 8.0 (6.5-8.0) g/dL Albumin 4.4 (3.5-5.0) g/dL Lipase 20 (8-78) U/L Independent Interpretation I performed an independent interpretation of an: CT Scan (Abdomen pelvis:There is mild splenomegaly unchanged. The patient is status post cholecystectomy. There is minimal pneumobilia. There are inflammatory changes adjacent to the pancreatic head consistent with acute pancreatitis. No bowel obstruction, pneumoperitoneum, or pneumatosis. The appendix is ) Radiology Impression Discussion of test interpretation with radiology: I have reviewed the radiologist's reading. Discharge Plan Discharge Clinical Impression: Pancreatitis Patient Disposition: Home, Self-Care Instructions: Pancreatitis (ED) Prescriptions: No Action (DME) pen needle, diabetic [BD Ultra-Fine Lou Pen Needle] 32 gauge x 5/32 needle See Rx Instructions .ROUTE .MEDSUPPLY Qty: 30 1RF Rx Instructions: As directed once aday lisinopril 20 mg tablet 20 mg PO DAILY Qty: 90 3RF metformin 1,000 mg tablet 1,000 mg PO BID Qty: 180 2RF (DME) Dexcom G6 Emergency Medical Service Coordinator Misc See Rx Instructions .Route Qty: 1 5RF Rx Instructions: As directed (DME) Dexcom G6 Transmitter Device See Rx Instructions .Route Qty: 1 1RF Rx Instructions: As directed (DME) Dexcom G6 Sensor Device See Rx Instructions .Route Qty: 3 3RF Rx Instructions: As directed Jardiance 25 mg tablet 25 mg PO QAM Qty: 30 6RF tamsulosin 0.4 mg capsule 0.4 mg PO BEDTIME 90 Days Qty: 90 1RF Trulicity 1.5 mg/0.5 mL pen injector 1.5 mg subcut QWEEK 28 Days Qty: 2 3RF Multaq 400 mg tablet 400 mg PO BID Qty: 180 3RF fluticasone propionate 50 mcg/actuation spray,suspension 2 spray intranasal DAILY 30 Days Qty: 16 5RF Rx Instructions: administer into each nostril Xarelto 20 mg tablet 20 mg PO DAILY Qty: 90 3RF pen needle, diabetic [BD Lou 2nd Gen Pen Needle] 32 gauge x 5/32 needle 1 ea miscellaneous .COMPLEX Qty: 150 5RF Rx Instructions: 1 ea miscellaneous five times a day; insulin lispro [Humalog KwikPen Insulin] 100 unit/mL insulin pen See Rx Instructions subcut QID 30 Days Qty: 30 3RF Rx Instructions: breakfast 16 units, Lunch 26 units, Dinner 28 units, Snack 10 units subcut 4 times a day; No substitutions. pregabalin 50 mg capsule 50 mg PO BEDTIME 30 Days Qty: 30 3RF insulin degludec [Tresiba FlexTouch U-200] 200 unit/mL (3 mL) insulin pen 86 unit subcut BEDTIME Qty: 9 1RF Rx Instructions: Patient needs to schedule an appointment omeprazole 20 mg capsule,delayed release(DR/EC) 20 mg PO DAILY 90 Days Qty: 90 1RF loratadine 10 mg tablet 10 mg PO DAILY PRN (Reason: allergy symptoms) 90 Days Qty: 90 3RF rosuvastatin 20 mg tablet 20 mg PO DAILY Qty: 90 3RF cholecalciferol (vitamin D3) 50 mcg (2,000 unit) capsule 50 mcg PO DAILY 90 Days Qty: 90 3RF Referrals: Patrick Eden MD [Primary Care Provider] - Selene Ewing MD [Physician] - Print Language: Swedish
[2024-05-02 12:30] VITALS: BP 118/59; PULSE 89; RESP 18; TEMP 37.1; O2SAT 94
[2024-05-02 12:35] LABS: Appearance Urine Clear; Color Urine Yellow; Glucose Urine UA >=1000 mg/dL (Negative); Leukocyte Esterase Urine Negative (Negative); Nitrite Urine Negative (Negative); PH 5.5 (5.0-9.0); Specific Gravity - Urine >= 1.030 (1.005-1.025); UMIC TRIGGER UACC YES; Urine Blood Negative (Negative); Urine Ketones Negative (Negative); Urine Protein 30 (1+) mg/dL (Neg-Trace)
[2024-05-02 12:37] LABS: Bacteria Urine None Seen (None Seen); Hyaline Casts Urine 0-2 /LPF (0-2); RBC Urine 0-2 /HPF (0-2); Squamous Epithelial Cell Urine 0-2 /HPF (0-2); WBC Urine 0-5 /HPF (0-5)
[2024-05-02 14:11] VITALS: BP 120/63; PULSE 85; RESP 18; TEMP 37; O2SAT 95
[2024-05-02 14:18] VITALS: BP 120/63; PULSE 85; RESP 18; TEMP 37; O2SAT 95
== END 2024-05-02 14:19 | disposition home or self-care (01) ==
PROVIDERS: Emergency Provider Emergency Medicine; PCP Internal Medicine
DX: K85.90 Acute pancreatitis without necrosis or infection, unspecified (principal); E11.9 Type 2 diabetes mellitus without complications; I10 Essential (primary) hypertension; E78.00 Pure hypercholesterolemia, unspecified; I48.0 Paroxysmal atrial fibrillation; F17.210 Nicotine dependence, cigarettes, uncomplicated; Z79.84 Long term (current) use of oral hypoglycemic drugs; Z79.02 Long term (current) use of antithrombotics/antiplatelets; Z79.85 Long-term (current) use of injectable non-insulin antidiabetic drugs; Z79.899 Other long term (current) drug therapy; Z79.4 Long term (current) use of insulin; Z79.01 Long term (current) use of anticoagulants
CPT/HCPCS: 36415; 74176; 80048; 80076; 81001; 83690; 85025; 99283; 99284

== ENCOUNTER → 2024-05-02 10:25 | Outpatient (BNV) | payer OTHER, SELFPAY | PROVIDERS: Emergency Provider Emergency Medicine; PCP Internal Medicine; Visit Provider Radiology Diagnostic Radiology | DX: K56.609 Unspecified intestinal obstruction, unspecified as to partial versus complete obstruction (principal); R10.9 Unspecified abdominal pain | CPT/HCPCS: 74176 ==

== ENCOUNTER → 2024-05-05 19:11 | Outpatient (REF) | payer OTHER, SELFPAY ==
--- OUTSIDE RECORDS SUMMARY | 2024-05-06 07:14 | XMS_ITS | Clinical Summary ---
Author Organization [address] Address [address] [place] [phone] Phone Care Team Providers Care Ultrasonographer Name Role Phone Mehrdad Mon MD Primary Care Provider [phone] Allergies No known active allergies Medications Medication Sig Dispensed Refills Start Date End Date Status atorvastatin (LIPITOR) 40 mg tablet Take 1 tablet (40 mg total) by mouth. 06/26/2017 Active Multaq 400 mg tablet Take 1 tablet (400 mg total) by mouth 2 (two) times a day. 10/17/2023 Active Trulicity 1.5 mg/0.5 mL pen injector injection Inject 0.5 mL (1.5 mg total) under the skin every 7 (seven) days. 03/28/2024 Active Jardiance 25 mg tablet Take 1 tablet (25 mg total) by mouth 1 (one) time each day in the morning. 03/28/2024 Active insulin degludec (TRESIBA FlexTouch U-200) 200 unit/mL (3 mL) CONCENTRATED injection penIndications:Ty pe 2 diabetes mellitus with other specified complication, with long-term current use of insulin (CMS/FORMERLY [facility]) Inject 86 Units under the skin at bedtime. 90 mL 2 04/21/2024 Active insulin lispro (HumaLOG KwikPen) 100 unit/mL injection penIndications:Ty pe 2 diabetes mellitus with other specified complication, with long-term current use of insulin (CMS/HCC) Three times a day before meals, as directed up to 75 units day 75 mL 2 04/21/2024 Active blood-glucose meter,continuous (FreeStyle Iris 3 [place]) miscIndications:T ype 2 diabetes mellitus with other specified complication, with long-term current use of insulin (CMS/HCC) Check sugars regularly 1 each 04/21/2024 Active blood-glucose sensor (FreeStyle Iris 3 Sensor) deviceIndications :Type 2 diabetes mellitus with other specified complication, with long-term current use of insulin (CMS/HCC) Box = Kit = EA, change sensor every 14 days 6 kit 1 04/21/2024 Active blood-glucose sensor (DEXCOM G7 SENSOR MISC) 1 Device by Does not apply route See Admin Instructions. Change sensor every 10 days - Does not apply 10/22/2023 5 Discontinued blood-glucose meter,continuous (Dexcom G7 Employee Operations Examiner) misc 1 Device by Does not apply route See Admin Instructions. Use daily with dexcom g 7 sensors - Does not apply 10/22/2023 5 Discontinued blood-glucose sensor (FreeStyle Iris 3 Sensor) deviceIndications :Type 2 diabetes mellitus with other specified complication, with long-term current use of insulin (CMS/HCC) Box = Kit = EA, change sensor every 14 days 6 kit 1 04/21/2024 5 Discontinued(Akin liu) Encounters Date Type Department Care Team Description 04/21/2024 9:00 AM EST Office Visit Endocrinology [address] [phone] Alejandro Albrecht MD Type 2 diabetes mellitus with other specified complication, with long-term current use of insulin (CMS/HCC) (Primary Dx) from Last 3 Months Immunizations Name Administration Dates Next Due COVID-19 (Moderna) 6mo to less than 12yr 022 Social History Tobacco Use Types Packs/Day Years Used Date Smoking Tobacco: Never Smokeless Tobacco: Never Tobacco Cessation:Counseling Given: Not Answered Alcohol Use Standard Drinks/Week Comments Never 0 (1 standard drink = 0.6 oz pur e alcohol) Sex and Gender Information Value Date Recorded Sex Assigned at Not on file Gender Identity Not on file Sexual Orientation Not on file Job Start Date Occupation Industry Not on file Not on file Not on file Obstetrics History Last Filed Vital Signs Vital Sign Reading Time Taken Comments Blood Pressure 139/73 10/22/2023 7:48 AM EDT Pulse 87 04/21/2024 8:54 AM EST Temperature 36.4 ??C (97.5 ??F) 04/21/2024 8:54 AM ES T Respiratory Rate - - Oxygen Saturation 95% 04/21/2024 8:54 AM EST Inhaled Oxygen Concentration - - Weight 96.6 kg (213 lb) 04/21/2024 8:54 AM EST Height 167.6 cm (5' 6 ) 04/21/2024 8:54 AM EST Body Mass Index 34.38 04/21/2024 8:54 AM EST Plan of Treatment Health Maintenance Due Date Last Done Comments Diabetes: Annual GFR (Glomerular Filtration Rate) 1960 Diabetes: Annual Foot Exam 02/07/1970 Diabetes: Annual Retina Eye Exam 02/07/1970 Zoster Vaccines (1 of 2) 02/07/2010 Pneumococcal Vaccine: Pediatrics (0 to 5 Years) and At-Risk Patients (6 to 64 Years) (2 of 2 - PCV) 01/03/2019 01/03/2018 RSV Immunization Patients 60+ Years Old (1 - Risk 60-74 years 1-dose series) 2020 Colorectal Cancer Screening: Colonoscopy 10/25/2023 Depression Screening 10/25/2023 HIV Screening 10/25/2023 Hepatitis C Screening 10/25/2023 Social Influencers of Health Screening 10/25/2023 Diabetes: Blood Sugar Control Test (HGBA1C) 04/23/2024 10/22/2023 Diabetes: Annual Urine Albumin-Creatinine Ratio (uACR) 10/21/2024 10/22/2023 Cholesterol Screening (Lipid Panel) 10/21/2028 10/22/2023 DTaP,Tdap,and Td Vaccines (2 - Td or Tdap) 12/31/2032 12/31/2022 COVID-19 Vaccine Completed 12/12/2023, , 02/27/2022, Additional history exists Influenza Vaccine Completed 12/12/2023, , 01/15/2022, Additional history exists HIB Vaccines Aged Out No longer eligi ble based on patient's age to complete this topic HPV Vaccines Aged Out No longer eligi ble based on patient's age to complete this topic Hepatitis A Vaccines Aged Out No long er eligible based on patient's age to complete this topic Hepatitis B Vaccines Aged Out No long er eligible based on patient's age to complete this topic IPV Vaccines Aged Out No longer eligi ble based on patient's age to complete this topic MMR Vaccines Aged Out No longer eligi ble based on patient's age to complete this topic Meningococcal ACWY Vaccine Aged Out N o longer eligible based on patient's age to complete this topic RSV Immunization Patients Under 20 months Aged Out No longer eligible based on patient's age to complete this topic Varicella Vaccines Aged Out No longer eligible based on patient's age to complete this topic Procedures Procedure Name Priority Date/Time Associated Diagnosis Comments HM URINE ALBUMIN CREATININE RATIO Routine 10/22/2023 HEMOGLOBIN A1C Routine 10/22/2023 LIPID PANEL Routine 10/22/2023 from Last 3 Months or Most Recently Relevant to Health Maintenance Results * HM Urine Albumin Creatinine Ratio (10/22/2023) HM Urine Albumin Creatinine Ratio abstracted Historical Provider [facility] * Hemoglobin A1c (10/22/2023) Hemoglobin A1C 0.0 % Comment:no interpretation Blood Venous blood specimen / Unknown Historical Provider LAB BLOOD ORDERAB LES * Lipid panel (10/22/2023) Triglycerides 0 mg/dL Comment:no interpretation Cholesterol 0 mg/dL Comment:no interpretation HDL 0 mg/dL Comment:no interpretation LDL Cholesterol 0 mg/dL Comment:no interpretation Blood Venous blood specimen / Unknown Historical Provider LAB BLOOD ORDERAB LES from Last 3 Months or Most Recently Relevant to Health Maintenance Care Teams Ultrasonographer Relationship Specialty Start Date End Date Mehrdad Mon MD [address] [place] [address] [address] [facility] [place] [address] PCP - General 06/21/11
== END ==
LOC: HO.SL 19:11
PROVIDERS: PCP Internal Medicine; Visit Provider Psychiatry & Neurology Neurology
DX: G47.10 Hypersomnia, unspecified (principal); R06.83 Snoring; R06.81 Apnea, not elsewhere classified
CPT/HCPCS: 95810

== ENCOUNTER → 2024-05-07 10:23 | Outpatient (BNVA) | payer OTHER, SELFPAY | PROVIDERS: PCP Internal Medicine; Visit Provider Internal Medicine Cardiovascular Disease | DX: I48.0 Paroxysmal atrial fibrillation (principal); I25.10 Atherosclerotic heart disease of native coronary artery without angina pectoris | CPT/HCPCS: 93005 ==

== ENCOUNTER 2024-06-18 06:10 | Outpatient (REF) | payer OTHER, SELFPAY ==
[2024-06-18 06:25] LABS: MANUAL DIFF FLAG NO
[2024-06-18 07:23] LABS: Basophils Absolute Auto 0.1 X10*3/uL (0.0-0.2); Eosinophils Absolute Auto 0.2 X10*3/uL (0.0-0.4); Eosinophils Percent Auto 3.1 % (0-4); Hematocrit 40.7 % (42.0-52.0); Hemoglobin 13.8 g/dl (14.0-18.0); Imm Gran Abs Auto 0.01 X10*3/uL (0.00-0.03); Imm Gran Pct Auto 0.2 % (0.0-0.4); Lymphocytes Absolute Auto 1.5 X10*3/uL (1.2-4.9); Lymphocytes Percent Auto 31.4 % (20-40); Mean Corpuscular HGB Conc 33.9 g/dl (31.0-36.0); Mean Corpuscular Hemoglobin 28.6 pg (27.0-33.0); Mean Corpuscular Volume 84.3 fL (80.0-98.0); Mean Platelet Volume 11.3 fL (9.4-12.4); Monocytes Absolute Auto 0.6 X10*3/uL (0.1-1.2); Monocytes Percent Auto 11.2 % (2-11); Neutrophils Absolute Auto 2.6 x10*3/uL (2.0-8.3); Neutrophils Percent Auto 53.1 % (45-73); Platelet Count 159 X10*3/uL (160-400); Red Blood Count 4.83 X10*6/uL (4.60-5.80); Red Cell Distribution Width 12.7 % (11.0-16.0); White Blood Count 4.9 X10*3/uL (4.8-10.8)
[2024-06-18 07:31] LABS: Estimated Average Glucose 140 mg/dL; Hemoglobin A1c % 6.5 % (<6.0)
[2024-06-18 07:31] LABS: Appearance Urine Clear; Color Urine Yellow; Glucose Urine UA >=1000 mg/dL (Negative); Leukocyte Esterase Urine Negative (Negative); Nitrite Urine Negative (Negative); Specific Gravity - Urine >= 1.030 (1.005-1.025); UMIC TRIGGER UACC YES; Urine Blood Negative (Negative); Urine Ketones Negative (Negative); Urine Protein Trace mg/dL (Neg-Trace)
[2024-06-18 07:37] LABS: Bacteria Urine None Seen (None Seen); Hyaline Casts Urine 0-2 /LPF (0-2); RBC Urine 0-2 /HPF (0-2); Squamous Epithelial Cell Urine 0-2 /HPF (0-2); WBC Urine 0-5 /HPF (0-5)
[2024-06-18 07:56] LABS: Creatinine Urine 119.44 mg/dL; Microalbum/Creatinine Ratio Ur 109.6 ug/mg cr (<30)
[2024-06-18 07:57] LABS: Alanine Aminotransferase 35 U/L (0-40); Albumin Level 4.3 g/dL (3.5-5.0); Anion Gap 12 (12-20); Aspartate Amino Transferase 36 U/L (5-37); Bilirubin Total 0.4 mg/dL (0.0-1.0); Blood Urea Nitrogen 23 mg/dL (9-16); Calcium 9.7 mg/dL (8.4-10.2); Carbon Dioxide 26 mmol/L (22-29); Chloride 109 mmol/L (96-108); Cholesterol 129 mg/dL (<200); Estimated Glomerular Filt Rate > 60; Glucose Fasting 120 mg/dL (60-99); HDL Cholesterol 36 mg/dL (>40); LDL Cholesterol Calculated 59 mg/dL (<100); Potassium 4.8 mmol/L (3.3-5.1); Sodium 142 mmol/L (135-145); Total Protein 8.1 g/dL (6.5-8.0); Triglycerides 170 mg/dL (<150)
[2024-06-18 07:58] LABS: Alkaline Phosphatase 25 U/L (39-117)
[2024-06-18 08:18] LABS: Folate 12.6 ng/mL (> or = 4.0); Vitamin B12 300 pg/mL (200-900)
[2024-06-18 08:34] LABS: TSH reflex Free T4 1.48 uIU/mL (0.32-4.0); Vitamin D 25-OH Total 34.7 ng/mL (>30)
== END 2024-06-18 06:11 | disposition home or self-care (01) ==
LOC: HO.LAB 06:10
PROVIDERS: PCP Internal Medicine; Visit Provider Internal Medicine
DX: D64.9 Anemia, unspecified (principal); E78.00 Pure hypercholesterolemia, unspecified; E11.9 Type 2 diabetes mellitus without complications; E53.8 Deficiency of other specified B group vitamins; E55.9 Vitamin D deficiency, unspecified
CPT/HCPCS: 36415; 80053; 80061; 81001; 82043; 82306; 82570; 82607; 82746; 83036; 84443; 85025

== ENCOUNTER 2024-06-22 10:39 | Outpatient (AMB) | payer OTHER, SELFPAY ==
[2024-06-22 10:56] VITALS: BP 110/72; PULSE 81; O2SAT 97; BMI 33.9
--- NOTE | 2024-06-22 10:56 | A.OFFPC_ITS ---
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: No Accompanied by: Self / Same As Patient Allergies oxycodone [From PERCOCET] Allergy (Intermediate, Verified 06/22/24 11:36) CONSTIPATED Medication List - Last Reconciled 06/22/24 by JULIEN Bautista blood-glucose meter,continuous (Dexcom G6 V Belt Inspector) As directed blood-glucose sensor (Dexcom G6 Sensor device) As directed blood-glucose transmitter (Dexcom G6 Transmitter device) As directed cholecalciferol (vitamin D3) 50 mcg PO DAILY 90 days dronedarone (Multaq) 400 mg PO BID dulaglutide (Trulicity) 1.5 mg (0.5 mL) subcut QWEEK 28 days empagliflozin (Jardiance) 25 mg PO QAM fluticasone propionate 50 mcg/actuation 2 sprays intranasal DAILY 30 days Humalog KwikPen Insulin (insulin lispro) breakfast 16 units, Lunch 26 units, Dinner 28 units, Snack 10 units subcut 4 times a day; No substitutions. 30 days NS lisinopril 20 mg PO DAILY loratadine 10 mg PO DAILY PRN 90 days metformin 1,000 mg PO BID omeprazole 20 mg PO DAILY 90 days pen needle, diabetic (BD Ultra-Fine Lou Pen Needle) As directed once aday pen needle, diabetic (BD Lou 2nd Gen Pen Needle) 1 ea miscellaneous five times a day; pregabalin 50 mg PO BEDTIME 30 days rivaroxaban (Xarelto) 20 mg PO DAILY rosuvastatin 20 mg PO DAILY tamsulosin 0.4 mg PO BEDTIME 90 days Tresiba FlexTouch U-200 (insulin degludec) 86 units (0.43 mL) subcut BEDTIME NS Tobacco use date assessed: 06/22/24 Fall risk assessment: No Falls in past year Last assessed Fall Risk: 06/22/24 Dental Screening Dental Screen Date: 06/22/24 Did you have a dental visit in the last 12 months?: No Did you have a dental problem in the last 6 months where you did not have access to dental care?: No Was dental information given to patient?: No HPI 4mth f/u HPI Details The patient is a 64-year-old male presenting for his 4 month follow-up Patient reports that he does not have any concerns today Reports that he is not in pain all the time but if he walks for a distance both hips starts to hurt Reports that he gets on the treadmill enough to take breaks in order to finish his walk Patient reports that the last time he saw Dr. Eden he was sent to go have a sleep study done Patient reports that he was too restless I was unable to sleep and was told to have his doctor prescribed something prior to his next appointment. Patient reports that he will update us when he gets his new appointment at [facility] The patient reports that he has AFib and has been seeing Cardiology once a year and an EKG every 3 months, on echocardiogram every year He denies chest pain, shortness of breath, heart palpitation and dizziness Patient denies any change in bowel habits and abdominal pain Patient reports that he has been urinating okay since taking something for his prostate He reports that he lost his hearing in his right ear 4-5 years ago otherwise he is doing well [facility] Medical History Restless legs syndrome (RLS) Hypersomnia Snoring Witnessed apneic spells Allergic rhinitis On anticoagulant therapy Obesity (BMI 30-39.9) Insomnia Vitamin D deficiency Diabetic retinopathy Pure hypercholesterolemia Diabetic polyneuropathy Hearing loss BMI 33.0-33.9,adult Paroxysmal atrial fibrillation CAD (coronary artery disease) Afib GERD (gastroesophageal reflux disease) 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 Essential hypertension Hyperlipidemia LDL goal <100 Surgical History Umbilical hernia (08/22/23) H/O colonoscopy H/O endoscopy History of laparoscopic cholecystectomy History of cataract surgery History of eye surgery History of inguinal hernia repair History of arthroscopy of right shoulder Family History Father Diabetes Mother Alzheimers disease Bone cancer Sister Heart failure Sister Hypertension Sister Diabetes Kidney failure Social History Household Members: Spouse Housing: House Alcohol intake: current Alcohol intake frequency: holidays/special occasions only Alcohol type: beer Patient Tobacco Use Status: Former Tobacco user Tobacco use type: Cigarette Cigarette Packs Per Day: 1.5 Cigarettes Per Day: 30.0 Years Smoked: 25 e-Cigarette/Vaping Use: Never Used Second Hand Smoke Exposure: Yes service: No Current occupational status: employed 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 1. Little interest or pleasure in doing things: not at all 2. Feeling down, depressed, or hopeless: not at all 3. Trouble falling or staying asleep, or sleeping too much: not at all 4. Feeling tired or having little energy: not at all 5. Poor appetite or overeating: not at all 6. Feeling bad about yourself - or that you are a failure or have let yourself or your family down: not at all 7. Trouble concentrating on things, such as reading the newspaper or watching television: not at all 8. Moving or speaking so slowly that other people could have noticed. Or the opposite - being so fidgety or restless that you have been moving around a lot more than usual: not at all 9. Thoughts that you would be better off or of hurting yourself in some way: not at all Total score: 0 Depression Screening Interpretation: Negative Depression Screening Done: Yes 41783 - PHQ-9 Billing: Yes Source: Developed by Drs. Alex Pack, Iva Zhao, Kd Jones and colleagues, with an educational sonu from [employer]. Thrive Questionnaire Date Thrive assessed: 06/22/24 I am a: Patient What is your living situation today?: I have a steady place to live Within the past 12 months, did the food you bought not last and you didn't have the money to get more?: Never true Within the past 12 months, did you worry whether your food would run out before you got money to buy more?: Never true Do you have trouble paying for medicines?: No Do you have trouble getting transportation to medical appointments?: No Do you have trouble paying your heating and electricity bill?: No Do you have trouble taking care of your child, family member or friend?: No Do you have trouble with day-to-day activities such as bathing, preparing meals, shopping, managing finances, etc.?: No Are you currently unemployed and looking for a job?: No Are you interested in more education?: No Please select the resources that you would like help with: None Currently or been in a relationship where the following occur: No concerns reported THRIVE Score: 0 AUDIT C Alcohol Use Questionnaire (AUDIT-C) 1. How often do you have a drink containing alcohol?: Never 3. How often do you have six or more drinks on one occasion?: Never Total Score: 0 Score Reviewed/Action Taken: Yes HANK-7 AMB Questionnaire HANK-7 Date HANK - 7 assessed: 06/22/24 Feeling nervous, anxious, or on edge: 0 = Not at all Not being able to stop or control worryin = Not at all Worrying too much about different things: 0 = Not at all Trouble relaxin = Not at all Being so restless that it is hard to sit still: 0 = Not at all Becoming easily annoyed or irritable: 0 = Not at all Feeling afraid as if something awful might happen: 0 = Not at all Total HANK-7 score (0-4 normal; 5-9 mild; 10-14 moderate; 15-21 severe): 0 Source: Developed by Drs. Alex Pack, Iva Zhao, Kd Jones and colleagues, with an educational sonu from [employer]. HANK-7 Assessment Billing HANK-7 Assessment Tool: HANK-7 Assessment 98489 Review of Systems Const Denies headache(s) Eyes Denies loss of vision ENT Denies vertigo, Denies dizziness, Denies headache(s), Reports hearing loss (right ear (chronic-wears earing aid)) and Denies sore throat Card Denies chest pain, Denies leg edema and Denies lightheadedness Resp Denies cough, Denies hemoptysis and Denies wheezing GI Denies abdominal pain, Denies melena, Denies constipation, Denies diarrhea and Denies vomiting Denies dysuria, Denies urinary frequency and Denies urinary urgency Musc Denies arthralgias, Denies joint swelling, Denies numbness and Denies tingling Neuro Denies Abnormal speech present, Denies behavioral changes, Denies vertigo, Denies dizziness, Denies headache(s), Denies loss of vision, Denies memory loss, Denies numbness and Denies tingling Psych Denies anxiety, Denies behavioral changes, Denies depression, Denies memory loss and Denies panic attacks Phillip/Lymph Denies easy bleeding and Denies easy bruising Aller/Immun Denies wheezing Physical exam (Primary Care) Vital Signs: Last Vital Signs Pulse 81 06/22/24 10:56 BP 110/72 06/22/24 10:56 Pulse Ox 97 06/22/24 10:56 Oxygen Delivery Method Room Air 06/22/24 10:56 BMI result Body Mass Index 33.9 Tobacco/Smoking Status: Tobacco use Status Tobacco use date assessed 06/22/24 06/22/24 11:01 Patient Tobacco Use Status Former Tobacco user 06/22/24 11:01 Tobacco use type Cigarette 06/22/24 11:01 e-Cigarette/Vaping Use Never Used 06/22/24 11:01 PHQ-9: PHQ-9 Score PHQ-9: Total score 0 06/22/24 11:45 Depression Screening Interpretation: Negative Thrive Assessment: Date of Thrive Assessment Date Thrive assessed 06/22/24 06/22/24 11:01 Currently or been in a relationship where the following occur: No concerns reported Const General: healthy appearing, no acute distress, alert and awake Nutritional Appearance: well nourished Orientation/consciousness: oriented to person, oriented to place and oriented to time HENMT Ears: TM's normal bilaterally General nose exam: Normal nasal mucous membranes and turbinates present Eyes Conjunctivae: conjunctivae normal Sclerae: sclerae normal Pupils: Equal, round and reactive pupils present Neck Neck: Yes no lymphadenopathy and Yes no JVD Thyroid: Thyroid normal Carotids: no bruits Resp Effort & Inspection: normal respiratory effort and not tachypneic Auscultation: no crackles, no rales, no rhonchi and no wheezes Cardio Rate: regular rate Rhythm: regular rhythm Heart sounds: no murmurs and normal S1 and S2 GI Palpation (GI): Soft to palpation, nontender, no hepatomegaly and no splenomegaly Auscultation: normal bowel sounds Skin General skin exam: no rashes or lesions noted and dry skin Neuro General: oriented to person, oriented to place and oriented to time Cranial nerves: Yes Equal, round and reactive pupils present Speech: No Abnormal speech present Gait exam (Neuro): Normal gait present Motor exam (neuro): no tremor noted Extrem Right upper extremity: full ROM Left upper extremity: full ROM Right lower extremity: full ROM; no edema Left lower extremity: full ROM; no edema Psych Mental Status: mental status grossly normal Speech and movement: Normal speech and movement present Affect: normal affect Attitude: cooperative Thought process: Normal thought process present Results Reviewed Results Reviewed: Laboratory Tests 06/18/24 06/18/24 06:23 06:25 WBC 4.9 RBC 4.83 Hgb 13.8 L Hct 40.7 L MCV 84.3 MCH 28.6 RDW 12.7 Plt Count 159 L Sodium 142 Potassium 4.8 Chloride 109 H Carbon Dioxide 26 Anion Gap 12 BUN 23 H Creatinine 1.02 Estimated GFR > 60 Fasting Glucose 120 H Hemoglobin A1c % 6.5 H Calcium 9.7 Total Bilirubin 0.4 AST 36 ALT 35 Alkaline Phosphatase 25 L Total Protein 8.1 H Albumin 4.3 Triglycerides 170 H Cholesterol 129 LDL Cholesterol, Calc 59 HDL Cholesterol 36 L Vitamin B12 300 25-OH Vitamin D Total 34.7 Folate 12.6 TSH 1.48 Urine Color Yellow Urine Appearance Clear Urine pH 5.0 Ur Specific Harvey >= 1.030 H Urine Protein Trace Urine Glucose (UA) >=1000 H Urine Ketones Negative Urine Blood Negative Urine Nitrite Negative Ur Leukocyte Esterase Negative Urine RBC 0-2 Urine WBC 0-5 Ur Squamous Epith Cells 0-2 Urine Bacteria None Seen Hyaline Casts 0-2 Urine Creatinine 119.44 Urine Microalbumin 131.0 Microalb/Creat Ratio 109.6 H Coding Level of Care Code Est Pt Level 4 (41015) Diagnoses At risk for obstructive sleep apnea Z91.89 Depression, unspecified depression type F32.A Depression Type: unspecified Benign prostatic hyperplasia (BPH) with straining on urination N40.1; R39.16 Allergic rhinitis, unspecified seasonality, unspecified trigger J30.9 Allergic rhinitis trigger: unspecified Allergic rhinitis seasonality: unspecified Insomnia, unspecified type G47.00 Insomnia type: unspecified Gastroesophageal reflux disease without esophagitis K21.9 Esophagitis presence: without esophagitis Vitamin D deficiency E55.9 Pure hypercholesterolemia E78.00 Diabetic polyneuropathy associated with type 2 diabetes mellitus E11.42 Diabetes mellitus type: type 2 Paroxysmal atrial fibrillation I48.0 Coronary artery disease involving [place] coronary artery of [place] heart without angina pectoris I25.10 Coronary Disease-Associated Artery/Lesion type: [place] artery [place] vs. transplanted heart: [place] heart Associated angina: without angina Type 2 diabetes mellitus with proteinuria E11.29; R80.9 Essential hypertension I10 Hyperlipidemia LDL goal <100 E78.5 BMI 33.0-33.9,adult Z68.33 Additional Codes PHQ-9 - 35841 - PHQ-9 Billing: Yes ([id number]) HANK-7 Assessment Billing - HANK-7 Assessment Tool: HANK-7 Assessment [id number] ([id number]) Time Spent (min) 41 Assessment & Plan Assessment & Plan (1) At risk for obstructive sleep apnea: Code(s): Z91.89 - Other specified personal risk factors, not elsewhere classified Category: Medical Plan: Patient was sent for a sleep study but was unable to stay still and fall asleep (he thinks it has to do with his restless leg). He was recommended to be pre- medicated prior to next appointment. The patient will notify us of this appt in order for something to be ordered (2) Depression: Code(s): F32.A - Depression, unspecified Category: Medical Qualifiers: Depression Type: unspecified Qualified Code(s): F32.A - Depression, unspecified Plan: Encouraged CBT Denies SI/HI (3) Benign prostatic hyperplasia (BPH) with straining on urination: Code(s): N40.1 - Benign prostatic hyperplasia with lower urinary tract symptoms; R39.16 - Straining to void Category: Medical Plan: Continue tamsulosin 0.4 mg p.o. bedtime (4) Allergic rhinitis: Code(s): J30.9 - Allergic rhinitis, unspecified Category: Medical Qualifiers: Allergic rhinitis trigger: unspecified Allergic rhinitis seasonality: unspecified Qualified Code(s): J30.9 - Allergic rhinitis, unspecified Plan: Continue fluticasone propionate 50 mcg/actuation 2 sprays intranasally daily and loratadine 10 mg daily p.r.n. (5) Insomnia: Code(s): G47.00 - Insomnia, unspecified Category: Medical Qualifiers: Insomnia type: unspecified Qualified Code(s): G47.00 - Insomnia, u nspecified Plan: Sleep hygiene: Exercise regularly, but not within 4 hour of bedtime. Limit fluid intake and avoid large meals in the evening hours. Limit overall caffeine, tobacco, and alcohol intake; no night cap. Maintain a regular sleep- wake cycle without naps in the daytime. Lie down to sleep only when feeling sleepy; leave the bed if unable to fall asleep within 20 minutes; stay in bed for only the hours actually sleeping(but not less than 5 hour in 24 hours). (6) GERD (gastroesophageal reflux disease): Code(s): K21.9 - Gastro-esophageal reflux disease without esophagitis Category: Medical Qualifiers: Esophagitis presence: without esophagitis Qualified Code(s): K21.9 - Gastro-esophageal reflux disease without esophagitis Plan: Reinforced dietary restrictions Continue omeprazole 20 mg daily (7) Vitamin D deficiency: Code(s): E55.9 - Vitamin D deficiency, unspecified Category: Medical Plan: Continue cholecalciferol 50 mcg daily (8) Pure hypercholesterolemia: Code(s): E78.00 - Pure hypercholesterolemia, unspecified Category: Medical Plan: trig 170, t-chol 129, LDL 59, HDL 36 REINFORCED DIETARY RESTRICTIONS Continue rosuvastatin 20 mg daily (9) Diabetic polyneuropathy: Code(s): E11.42 - Type 2 diabetes mellitus with diabetic polyneuropathy Category: Medical Qualifiers: Diabetes mellitus type: type 2 Qualified Code(s): E11.42 - Type 2 diabetes mellitus with diabetic polyneuropathy Plan: Continue pregabalin 50 mg at bedtime (10) Paroxysmal atrial fibrillation: Code(s): I48.0 - Paroxysmal atrial fibrillation Category: Medical Plan: Rhythm currently controlled. EKGs every 3 months and follow up with Cardiology as scheduled Avoid stimulants Continue multaq 400mg BID, Xarelto 20 mg daily (11) CAD (coronary artery disease): Comment: Cardiac catheterization, 2018, mid LAD 70% and RPL 70%. Remainder of the vessels had nonobstructive disease Code(s): I25.10 - Atherosclerotic heart disease of [place] coronary artery without angina pectoris Category: Medical Qualifiers: Coronary Disease-Associated Artery/Lesion type: [place] artery [place] vs. transplanted heart: [place] heart Associated angina: without angina Qualified Code(s): I25.10 - Atherosclerotic heart disease of [place] coronary artery without angina pectoris Plan: CAD status post cardiac catheterization with moderately severe disease in the LAD and RPL with no recurrent symptoms of angina current medical therapy. Continue Xarelto 20 mg daily and rosuvastatin 20 mg daily. A1c 6.5%, Continue aggressive diabetes management goal hemoglobin A1c less than 10%. Continue high-intensity statin therapy with target goal LDL less than 60 mg/dL. LDL is currently at 59. Blood pressure is currently well optimized encouraged to maintain activity level as tolerated. (12) Type 2 diabetes mellitus with proteinuria: Code(s): E11.29 - Type 2 diabetes mellitus with other diabetic kidney complication; R80.9 - Proteinuria, unspecified Category: Medical Plan: Reinforced low sugar/carbohydrate diet and activity as tolerated Continue Trulicity 1.5 mg q.week, Jardiance 25 mg q.a.m., metformin 1000 mg b.i.d., lispro insulin with meals as ordered, Tresiba 86 units subQ at bedtime Follow up with Endocrine as scheduled (13) Essential hypertension: Code(s): I10 - Essential (primary) hypertension Category: Medical Plan: Blood pressure well controlled. Reinforced low-sodium diet Continue lisinopril 20 mg daily (14) Hyperlipidemia LDL goal <100: Code(s): E78.5 - Hyperlipidemia, unspecified Category: Medical Plan: Triglycerides 170, total cholesterol 129, LDL 59, HDL 36 Reinforced low-sodium diet and continue rosuvastatin 20 mg daily (15) BMI 33.0-33.9,adult: Code(s): Z68.33 - Body mass index [BMI] 33.0-33.9, adult Category: Medical Plan: Encouraged to exercise for at least 30 minutes a day/5 days a week Healthy eating discussed. Encouraged to eat fruits/vegetables, protein- fish/baked chicken, and to avoid salty/fried foods, sweets, caffeine and carbohydrates. Encouraged to increase water intake 6-8 glasses a day Orders: Orders Complete Blood Count Auto Diff 3 Months 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, E11.42 - Type 2 diabetes mellitus with diabetic polyneuropathy, E55.9 - Vitamin D deficiency, unspecifi ed, E66.9 - Obesity, unspecified, E78.00 - Pure hypercholesterolemia, unspecified, E78.5 - Hyperlipidemia, unspecified, F32.A - Depression, unspecified, G25.81 - Restless legs syndrome, G47.00 - Insomnia, unspecified, G47.10 - Hypersomnia, unspecified, H91.91 - Unspecified hearing loss, right ear, I10 - Essential (primary) hypertension, I25.10 - Atherosclerotic heart disease of [place] coronary artery without angina pectoris, I48.0 - Paroxysmal atrial fibrillation, J30.9 - Allergic rhinitis, unspecified, K21.9 - Gastro-esophageal reflux disease without esophagitis, K42.9 - Umbilical hernia without obstruction or gangrene, K85.90 - Acute pancreatitis without necrosis or infection, unspecified, N40.1 - Benign prostatic hyperplasia with lower urinary tract symptoms, R39.16 - Straining to void, Z09 - Encounter for follow-up examination after completed treatment for conditions other than malignant neoplasm, Z68.33 - Body mass index [BMI] 33.0-33.9, adult, Z91.89 - Other specified personal risk factors, not elsewhere classified Lipid Panel 3 Months 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, E11.42 - Type 2 diabetes mellitus with diabetic polyneuropathy, E55.9 - Vitamin D deficiency, unspecified, E66.9 - Obesity, unspecified, E78.00 - Pure hypercholesterolemia, unspecified, E78.5 - Hyperlipidemia, unspecified, F32.A - Depression, unspecified, G25.81 - Restless legs syndrome, G47.00 - Insomnia, unspecified, G47.10 - Hypersomnia, unspecified, H91.91 - Unspecified hearing loss, right ear, I10 - Essential (karen tristin) hypertension, I25.10 - Atherosclerotic heart disease of [place] coronary artery without angina pectoris, I48.0 - Paroxysmal atrial fibrillation, J30.9 - Allergic rhinitis, unspecified, K21.9 - Gastro-esophageal reflux disease without esophagitis, K42.9 - Umbilical hernia without obstruction or gangrene, K85.90 - Acute pancreatitis without necrosis or infection, unspecified, N40.1 - Benign prostatic hyperplasia with lower urinary tract symptoms, R39.16 - Straining to void, Z09 - Encounter for follow-up examination after completed treatment for conditions other than malignant neoplasm, Z68.33 - Body mass index [BMI] 33.0- 33.9, adult, Z91.89 - Other specified personal risk factors, not elsewhere classified Glucose Fasting 3 Months 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, E11.42 - Type 2 diabetes mellitus with diabetic polyneuropathy, E55.9 - Vitamin D deficiency, unspecified, E66.9 - Obesity, unspecified, E78.00 - Pure hypercholesterolemia, unspecified, E78.5 - Hyperlipidemia, unspecified, F32.A - Depression, unspecified, G25.81 - Restless legs syndrome, G47.00 - Insomnia, unspecified, G47.10 - Hypersomnia, unspecified, H91.91 - Unspecified hearing loss, right ear, I10 - Essential (primary) hypertension, I25.10 - Atherosclerotic heart disease of [place] coronary artery without angina pectoris, I48.0 - Paroxysmal atrial fibrillation, J30.9 - Allergic rhinitis, unspecified, K21.9 - Gastro-esophageal reflux disease without esophagitis, K42.9 - Umbilical hernia without obstruction or gangrene, K85.90 - Acute pancreatitis without necrosis or infection, unspecified, N40.1 - Benign prostatic hyperplasia with lower urinary tract symptoms, R39.16 - Straining to void, Z09 - Encounter for follow-up examination after completed treatment for conditions other than malignant neoplasm, Z68.33 - Body mass index [BMI] 33.0-33.9, adult, Z91.89 - Other specified personal risk factors, not elsewhere classified Hemoglobin A1c 3 Months 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, E11.42 - Type 2 diabetes mellitus with diabetic polyneuropathy, E55.9 - Vitamin D deficiency, unspecified, E66.9 - Obesity, unspecified, E78.00 - Pure hypercholesterolemia, unspecified, E78.5 - Hyperlipidemia, unspecified, F32.A - Depression, unspecified, G25.81 - Restless legs syndrome, G47.00 - Insomnia, unspecified, G47.10 - Hypersomnia, unspecified, H91.91 - Unspecified hearing loss, right ear, I10 - Essential (primary) hypertension, I25.10 - Atherosclerotic heart disease of [place] coronary artery without angina pectoris, I48.0 - Paroxysmal atrial fibrillation, J30.9 - Allergic rhinitis, unspecified, K21.9 - Gastro-esophageal reflux disease without esophagitis, K42.9 - Umbilical hernia without obstruction or gangrene, K85.90 - Acute pancreatitis without necrosis or infection, unspecified, N40.1 - Benign prostatic hyperplasia with lower urinary tract symptoms, R39.16 - Straining to void, Z09 - Encounter for follow-up examination after completed treatment for conditions other than malignant neoplasm, Z68.33 - Body mass index [BMI] 33.0-33.9, adult, Z91.89 - Other specified personal risk factors, not elsewhere classified TSH reflex Free T4 3 Months 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, E11.42 - Type 2 diabetes mellitus with diabetic polyneuropathy, E55.9 - Vitamin D deficiency, unspecified, E66.9 - Obesity, unspecified, E78.00 - Pure hypercholesterolemia, unspecified, E78.5 - Hyperlipidemia, unspecified, F32.A - Depression, unspecified, G25.81 - Restless legs syndrome, G47.00 - Insomnia, unspecified, G47.10 - Hypersomnia, unspecified, H91.91 - Unspecified hearing loss, right ear, I10 - Essential (primary) hypertension, I25.10 - Atherosclerotic heart disease of [place] coronary artery without angina pectoris, I48.0 - Paroxysmal atrial fibrillation, J30.9 - Allergic rhinitis, unspecified, K21.9 - Gastro-esophageal reflux disease without esophagitis, K42.9 - Umbilical hernia without obstruction or gangrene, K85.90 - Acute pancreatitis without necrosis or infection, unspecified, N40.1 - Benign prostatic hyperplasia with lower urinary tract symptoms, R39.16 - Straining to void, Z09 - Encounter for follow-up examination after completed treatment for conditions other than malignant neoplasm, Z68.33 - Body mass index [BMI] 33.0-33.9, adult, Z91.89 - Other specified personal risk factors, not elsewhere classified UA CC w/rflx Micro + Cult 3 Months 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, E11.42 - Type 2 diabetes mellitus with diabetic polyneuropathy, E55.9 - Vitamin D deficiency, unspecified, E66.9 - Obesity, unspecified, E78.00 - Pure hypercholesterolemia, unspecified, E78.5 - Hyperlipidemia, unspecified, F32.A - Depression, unspecified, G25.81 - Restless legs syndrome, G47.00 - Insomnia, unspecified, G47.10 - Hypersomnia, unspecified, H91.91 - Unspecified hearing loss, right ear, I10 - Essential (primary) hypertension, I25.10 - Atherosclerotic heart disease of [place] coronary artery without angina pectoris, I48.0 - Paroxysmal atrial fibrillation, J30.9 - Allergic rhinitis, unspecified, K21.9 - Gastro-esophageal reflux disease without esophagitis, K42.9 - Umbilical hernia without obstruction or gangrene, K85.90 - Acute pancreatitis without necrosis or infection, unspecified, N40.1 - Benign prostatic hyperplasia with lower urinary tract symp toms, R39.16 - Straining to void, Z09 - Encounter for follow-up examination after completed treatment for conditions other than malignant neoplasm, Z68.33 - Body mass index [BMI] 33.0-33.9, adult, Z91.89 - Other specified personal risk factors, not elsewhere classified Vitamin D 25-OH Total 3 Months 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, E11.42 - Type 2 diabetes mellitus with diabetic polyneuropathy, E55.9 - Vitamin D deficiency, unspecified, E66.9 - Obesity, unspecified, E78.00 - Pure hypercholesterolemia, unspecified, E78.5 - Hyperlipidemia, unspecified, F32.A - Depression, unspecified, G25.81 - Restless legs syndrome, G47.00 - Insomnia, unspecified, G47.10 - Hypersomnia, unspecified, H91.91 - Unspecified hearing loss, right ear, I10 - Essential (primary) hypertension, I25.10 - Atherosclerotic heart disease of [place] coronary artery without angina pectoris, I48.0 - Paroxysmal atrial fibrillation, J30.9 - Allergic rhinitis, unspecified, K21.9 - Gastro-esophageal reflux disease without esophagitis, K42.9 - Umbilical hernia without obstruction or gangrene, K85.90 - Acute pancreatitis without necrosis or infection, unspecified, N40.1 - Benign prostatic hyperplasia with lower urinary tract symptoms, R39.16 - Straining to void, Z09 - Encounter for follow-up examination after completed treatment for conditions other than malignant neoplasm, Z68.33 - Body mass index [BMI] 33.0-33.9, adult, Z91.89 - Other specified personal risk factors, not elsewhere classified Microalbumin, Random (w Creat) 3 Months 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, E11.42 - Type 2 diabetes mellitus with diabetic polyneuropathy, E55.9 - Vitamin D deficiency, unspecified, E66.9 - Obesity, unspecified, E78.00 - Pure hypercholesterolemia, unspecified, E78.5 - Hyperlipidemia, unspecified, F32.A - Depression, unspecified, G25.81 - Restless legs syndrome, G47.00 - Insomnia, unspecified, G47.10 - Hypersomnia, unspecified, H91.91 - Unspecified hearing loss, right ear, I10 - Essential (primary) hypertension, I25.10 - Atherosclerotic heart disease of [place] coronary artery without angina pectoris, I48.0 - Paroxysmal atrial fibrillation, J30.9 - Allergic rhinitis, unspecified, K21.9 - Gastro-esophageal reflux disease without esophagitis, K42.9 - Umbilical hernia without obstruction or gangrene, K85.90 - Acute pancreatitis without necrosis or infection, unspecified, N40.1 - Benign prostatic hyperplasia with lower urinary tract symptoms, R39.16 - Straining to void, Z09 - Encounter for follow-up examination after completed treatment for conditions other than malignant neoplasm, Z68.33 - Body mass index [BMI] 33.0-33.9, adult, Z91.89 - Other specified personal risk factors, not elsewhere classified
== END 2024-06-22 11:56 | disposition home or self-care (01) ==
LOC: HO.HMCH 10:40
PROVIDERS: PCP Internal Medicine
DX: I48.0 Paroxysmal atrial fibrillation (principal); E11.42 Type 2 diabetes mellitus with diabetic polyneuropathy; E11.29 Type 2 diabetes mellitus with other diabetic kidney complication; Z91.89 Other specified personal risk factors, not elsewhere classified; F32.A Depression, unspecified; N40.1 Benign prostatic hyperplasia with lower urinary tract symptoms; R39.16 Straining to void; J30.9 Allergic rhinitis, unspecified; G47.00 Insomnia, unspecified; K21.9 Gastro-esophageal reflux disease without esophagitis; E55.9 Vitamin D deficiency, unspecified; E78.00 Pure hypercholesterolemia, unspecified

== ENCOUNTER → 2024-06-22 10:39 | Outpatient (BNVA) | payer OTHER, SELFPAY | PROVIDERS: PCP Internal Medicine | DX: F32.A Depression, unspecified (principal); N40.1 Benign prostatic hyperplasia with lower urinary tract symptoms; R39.16 Straining to void; J30.9 Allergic rhinitis, unspecified; G47.00 Insomnia, unspecified; K21.9 Gastro-esophageal reflux disease without esophagitis; E55.9 Vitamin D deficiency, unspecified; E78.00 Pure hypercholesterolemia, unspecified; E11.42 Type 2 diabetes mellitus with diabetic polyneuropathy; I48.0 Paroxysmal atrial fibrillation; I25.10 Atherosclerotic heart disease of native coronary artery without angina pectoris; E11.29 Type 2 diabetes mellitus with other diabetic kidney complication; R80.9 Proteinuria, unspecified; I10 Essential (primary) hypertension; E78.5 Hyperlipidemia, unspecified; Z79.01 Long term (current) use of anticoagulants; Z79.4 Long term (current) use of insulin; Z79.84 Long term (current) use of oral hypoglycemic drugs; Z79.899 Other long term (current) drug therapy; Z91.89 Other specified personal risk factors, not elsewhere classified | CPT/HCPCS: 96127 ==

== ENCOUNTER 2024-08-13 09:47 | Outpatient (AMB) | payer OTHER, SELFPAY ==
--- NOTE | 2024-08-13 09:58 | AM.OFFVISNUR ---
Intake Visit Reasons: EKG Allergies oxycodone [From PERCOCET] Allergy (Intermediate, Verified 06/22/24 11:36) CONSTIPATED Nursing Note pt is here for nurse visit with ekg pt is on dronedarone 400 mg PO BID pt has no complaints ekg left on Dr MCCRAY desk for review Office Procedures EKG [id number], Complete Coding CPT Codes EKG - CPT: 18581-[id number], Complete ([id number])
--- OUTSIDE RECORDS SUMMARY | 2024-08-13 10:39 | XMS_ITS | Clinical Summary ---
Author Organization [address] Address [address] [place] [phone] Phone Care Team Providers Care Group Fitness Manager Name Role Phone Mehrdad Mon MD Primary Care Provider [phone] Allergies No known active allergies Medications atorvastatin (LIPITOR) 40 mg tablet Take 1 tablet (40 mg total) by mouth. 06/27/19 18 Active Multaq 400 mg tablet Take 1 tablet (400 mg total) by mouth 2 (two) times a day. 10/17/19 24 Active Trulicity 1.5 mg/0.5 mL pen injector injection Inject 0.5 mL (1.5 mg total) under the skin every 7 (seven) days. 03/28/20 24 Active Jardiance 25 mg tablet Take 1 tablet (25 mg total) by mouth 1 (one) time each day in the morning. 03/28/20 24 Active insulin degludec (TRESIBA FlexTouch U-200) 200 unit/mL (3 mL) CONCENTRATED injection penIndications:T ype 2 diabetes mellitus with other specified complication, with long-term current use of insulin (CMS/HCC V24, CMS/HCC V28) Inject 86 Units under the skin at bedtime. 90 mL 2 04/21/19 25 Active insulin lispro (HumaLOG KwikPen) 100 unit/mL injection penIndications:T ype 2 diabetes mellitus with other specified complication, with long-term current use of insulin (CMS/HCC V24, CMS/HCC V28) Three times a day before meals, as directed up to 75 units day 75 mL 2 04/21/19 25 Active blood-glucose meter,continuous (FreeStyle Iris 3 [place]) miscIndications: Type 2 diabetes mellitus with other specified complication, with long-term current use of insulin ([facility] V24, CMS/[facility] V28) Check sugars regularly 1 each 04/21/19 Active blood-glucose sensor (FreeStyle Iris 3 Sensor) deviceIndication s:Type 2 diabetes mellitus with other specified complication, with long-term current use of insulin (CMS/HCC V24, CMS/HCC V28) Box = Kit = EA, change sensor every 14 days 6 kit 1 04/21/19 Active blood-glucose sensor (Dexcom G7 Sensor) deviceIndication s:Type 2 diabetes mellitus without complication, with long-term current use of insulin ([facility] V24, CMS/[facility] V28) 1 EA See administration instructions. Change sensor every 10 days. 9 each 1 06/24/19 Active Encounters Date Type Department Care Team Description 06/24/2024 Telephone Endocrinology [address] [phone] Alejandro Albrecht MD prior auth from Last 3 Months Immunizations Name Administration [...] Recorded Sex Assigned at Not on file Legal Sex Male 11:02 AM EDT Gender Identity Not on file Sexual Orientation Not on file Obstetrics History Last Filed [...] Vaccines (1 of 2) 02/07/2010 Pneumococcal Vaccine: 50+ Years (2 of 2 - PCV) 01/03/2019 01/03/2018 Pneumococcal Vaccine: Pediatrics (0 to 5 Years) and At-Risk Patients (6 to 64 Years) (2 of 2 - PCV) 01/03/2019 01/03/2018 RSV Immunization Adult Patients (1 - Risk 60-74 years 1-dose series) [...] patient's age to complete this topic Meningococcal B Vaccine Aged Out No l onger eligible based on patient's age to complete [...] (10/22/2023) HM Urine Albumin Creatinine Ratio abstracted [facility] Provider HEALTH MAINTENANCE Final Result * Hemoglobin A1c (10/22/2023) Hemoglobin A1C 0.0 % Comment:no interpretation Blood Venous blood specimen / Unknown [facility] Provider LAB BLOOD ORDERABLES Martha l Result * Lipid panel (10/22/2023) Triglycerides 0 mg/dL Comment:no interpretation Cholesterol 0 mg/dL Comment:no interpretation HDL 0 mg/dL Comment:no interpretation LDL Cholesterol 0 mg/dL Comment:no interpretation Blood Venous blood specimen / Unknown [facility] Provider LAB BLOOD ORDERABLES Martha l Result from Last 3 Months or Most Recently Relevant to Health Maintenance Insurance [facility] [id number] Care Teams Group Fitness Manager Relationship Specialty Start Date End Date Mehrdad Mon MD 2 [facility] [address] [facility] [place] [address] PCP - General 06/21/11
== END 2024-08-13 10:15 | disposition home or self-care (01) ==
LOC: HO.HCS 09:48
PROVIDERS: PCP Internal Medicine; Visit Provider Internal Medicine Cardiovascular Disease
DX: R94.31 Abnormal electrocardiogram [ECG] [EKG] (principal)
CPT/HCPCS: 93010

== ENCOUNTER → 2024-08-13 09:47 | Outpatient (BNVA) | payer OTHER, SELFPAY | PROVIDERS: PCP Internal Medicine; Visit Provider Internal Medicine Cardiovascular Disease | DX: Z13.6 Encounter for screening for cardiovascular disorders (principal) | CPT/HCPCS: 93005 ==

== ENCOUNTER 2024-10-17 06:48 | Outpatient (REF) | payer OTHER, SELFPAY ==
--- OUTSIDE RECORDS SUMMARY | 2024-10-17 06:51 | XMS_ITS | Clinical Summary ---
Author Organization [address] Address [address] [place] [phone] Phone Care Team Providers Care Fan Installer Name Role Phone Mehrdad Mon MD Primary Care Provider [phone] Allergies No known active allergies Medications atorvastatin [...] 25 Active blood-glucose meter,continuous (FreeStyle Iris 3 [place]) miscIndications: Type 2 diabetes mellitus with other specified complication, with long-term current use of insulin ([facility] V24, [facility] V28) Check sugars regularly 1 each 04/21/19 25 Active blood-glucose sensor (FreeStyle Iris 3 Sensor) deviceIndication s:Type 2 diabetes mellitus with other specified complication, with long-term current use of insulin (CMS/[facility] V24, CMS/HCC V28) Box = Kit = EA, change sensor every 14 days 6 kit 1 04/21/19 25 Active blood-glucose sensor (Dexcom G7 Sensor) deviceIndication s:Type 2 diabetes mellitus without complication, with long-term current use of insulin ([facility] V24, [facility] V28) 1 EA See administration instructions. Change sensor every 10 days. 9 each 1 06/24/19 25 Active Immunizations Name Administration Dates Next Due COVID-19 [...] 87 04/21/2024 8:54 AM EST Temperature 36.4 C (97.5 F) 04/21/2024 8:54 AM EST Respiratory Rate - - Oxygen Saturation 95% 04/21/2024 8:54 AM EST Inhaled Oxygen Concentration - - Weight 96.6 kg (213 lb) 04/21/2024 8:54 AM EST Height 167.6 cm (5' 6 ) 04/21/2024 8:54 AM EST Body Mass Index 34.38 04/21/2024 8:54 AM EST Plan of Treatment Health Maintenance Due Date Last Done Comments Zoster Vaccines (1 of 2) 02/07/2010 Pneumococcal Vaccine: 50+ Years (2 of 2 - PCV) 01/03/2019 01/03/2018 RSV Immunization Adult Patients (1 - Risk 60-74 years 1-dose series) 2020 Colorectal Cancer Screening: Colonoscopy 10/25/2023 Depression Screening 10/25/2023 HIV Screening 10/25/2023 Hepatitis C Screening 10/25/2023 Social Influencers of Health Screening 10/25/2023 Influenza Vaccine (#1) 2024 , 01/22/2023, 01/15/2022, Additional history exists Cholesterol Screening (Lipid Panel) 10/21/2028 10/22/2023 DTaP,Tdap,and Td Vaccines (2 - Td or Tdap) 12/31/2032 12/31/2022 COVID-19 Vaccine Completed 12/12/2023, , 02/27/2022, Additional history exists HIB Vaccines Aged Out [...] Procedure Name Priority Date/Time Associated Diagnosis Comments LIPID PANEL Routine 10/22/2023 from Last 3 Months or Most Recently Relevant to Health Maintenance Results * Lipid panel (10/22/2023) Triglycerides 0 mg/dL Comment:no interpretation Cholesterol 0 mg/dL Comment:no interpretation HDL 0 mg/dL Comment:no interpretation LDL Cholesterol 0 mg/dL Comment:no interpretation Blood Venous blood specimen / Unknown Historical Provider LAB BLOOD ORDERABLES Martha l Result from Last 3 Months or Most Recently Relevant to Health Maintenance Insurance [facility] Care Teams Fan Installer Relationship Specialty Start Date End Date Mehrdad Mon MD 2 [facility] [address] [facility] [place] [address] PCP - General 06/21/11
[2024-10-17 07:15] LABS: MANUAL DIFF FLAG NO
[2024-10-17 08:18] LABS: Hematocrit 39.6 % (42.0-52.0); Hemoglobin 13.3 g/dl (14.0-18.0); Imm Gran Abs Auto 0.02 X10*3/uL (0.00-0.03); Imm Gran Pct Auto 0.3 % (0.0-0.4); Lymphocytes Absolute Auto 1.3 X10*3/uL (1.2-4.9); Mean Corpuscular HGB Conc 33.6 g/dl (31.0-36.0); Mean Corpuscular Hemoglobin 28.6 pg (27.0-33.0); Mean Corpuscular Volume 85.2 fL (80.0-98.0); NRBC Abs Auto 0.000 X10*3/uL (0.0-0.012); NRBC Pct Auto 0.0 /100WBC (0.0-0.2); Platelet Count 153 X10*3/uL (160-400); Red Blood Count 4.65 X10*6/uL (4.60-5.80); White Blood Count 6.2 X10*3/uL (4.8-10.8)
[2024-10-17 08:21] LABS: Hemoglobin A1C 175.4285 umol/L; Total Hemoglobin (HGBA1C) 3471.7611 umol/L
[2024-10-17 08:38] LABS: Appearance Urine Clear; Glucose Urine UA >=1000 mg/dL (Negative); PH 5.5 (5.0-9.0); Specific Gravity - Urine >= 1.030 (1.005-1.025); UMIC TRIGGER UACC YES
[2024-10-17 09:10] LABS: Cholesterol 132 mg/dL (<200); HDL Cholesterol 31 mg/dL (>40); Triglycerides 219 mg/dL (<150)
[2024-10-17 09:44] LABS: Microalbum/Creatinine Ratio Ur 19.9 ug/mg cr (<30)
== END 2024-10-17 06:49 | disposition home or self-care (01) ==
LOC: HO.LAB 06:48
PROVIDERS: PCP Internal Medicine
DX: Z09 Encounter for follow-up examination after completed treatment for conditions other than malignant neoplasm (principal); I10 Essential (primary) hypertension; I25.10 Atherosclerotic heart disease of native coronary artery without angina pectoris; I48.0 Paroxysmal atrial fibrillation; K21.9 Gastro-esophageal reflux disease without esophagitis; E11.311 Type 2 diabetes mellitus with unspecified diabetic retinopathy with macular edema; E11.42 Type 2 diabetes mellitus with diabetic polyneuropathy; N40.1 Benign prostatic hyperplasia with lower urinary tract symptoms; K42.9 Umbilical hernia without obstruction or gangrene; K85.90 Acute pancreatitis without necrosis or infection, unspecified; G25.81 Restless legs syndrome; R39.16 Straining to void; H91.91 Unspecified hearing loss, right ear; E78.00 Pure hypercholesterolemia, unspecified; G47.10 Hypersomnia, unspecified; F32.A Depression, unspecified; E66.9 Obesity, unspecified; J30.9 Allergic rhinitis, unspecified; G47.00 Insomnia, unspecified; E55.9 Vitamin D deficiency, unspecified; Z91.89 Other specified personal risk factors, not elsewhere classified; Z68.33 Body mass index [BMI] 33.0-33.9, adult
CPT/HCPCS: 36415; 80061; 81001; 82043; 82306; 82570; 82947; 83036; 84443; 85025

== ENCOUNTER 2024-10-22 09:23 | Outpatient (AMB) | payer OTHER, SELFPAY ==
[2024-10-22 09:30] VITALS: BP 112/72; PULSE 73; O2SAT 96; BMI 33.1
--- NOTE | 2024-10-22 09:30 | MHC.PC.OV ---
Vital Signs 10/22/24 09:30 Height 5 ft 6 in Weight 205 lb 2 oz BMI 33.1 BP 112/72 Blood Pressure Location Lt brachial Position Sitting Pulse 73 Pulse Source Pulse Oximeter Pulse Oximetry (%) 96 Oxygen Delivery Method Room Air Intake Visit Reasons: dm/htn/gerd Cake Puller Required: No Accompanied by: Self / Same As Patient Allergies oxycodone (From PERCOCET) Allergy (Intermediate, Verified 10/22/24 09:49) CONSTIPATED Medication List - Last Reconciled 10/22/24 by Patrick Eden MD blood-glucose sensor (Dexcom G6 Sensor device) As directed blood-glucose transmitter (Dexcom G6 Transmitter device) As directed blood-glucose,bellstaff,cont (Dexcom G6 Tour Leader) As directed cholecalciferol (vitamin D3) 50 mcg PO DAILY 90 days dronedarone (Multaq) 400 mg PO BID dulaglutide (Trulicity) 1.5 mg (0.5 mL) subcut QWEEK 28 days empagliflozin (Jardiance) 25 mg PO QAM fluticasone propionate 50 mcg/actuation 2 sprays intranasal DAILY 30 days Humalog KwikPen Insulin (insulin lispro) breakfast 16 units, Lunch 26 units, Dinner 28 units, Snack 10 units subcut 4 times a day; No substitutions. 30 days NS lisinopril 20 mg PO DAILY loratadine 10 mg PO DAILY PRN 90 days metformin 1,000 mg PO BID omeprazole 20 mg PO DAILY 90 days pen needle, diabetic (BD Ultra-Fine Lou Pen Needle) As directed once aday pen needle, diabetic (BD Lou 2nd Gen Pen Needle) 1 ea miscellaneous five times a day; pregabalin 50 mg PO BEDTIME 30 days rivaroxaban (Xarelto) 20 mg PO DAILY rosuvastatin 20 mg PO DAILY tamsulosin 0.4 mg PO BEDTIME 90 days Tresiba FlexTouch U-200 (insulin degludec) 86 units (0.43 mL) subcut BEDTIME NS Tobacco use date assessed: 10/22/24 Fall risk assessment: No Falls in past year Last assessed Fall Risk: 10/22/24 Dental Screening Dental Screen Date: 10/22/24 Did you have a dental visit in the last 12 months?: No Did you have a dental problem in the last 6 months where you did not have access to dental care?: No Was dental information given to patient?: No HPI dm/htn/gerd HPI Details Patient comes in today for his follow up visit States that he feels okay He denies any headaches or dizziness Denies any chest pains, no increased SOB No nausea/vomiting, no abdominal pain No change in bowel habits noted Needs his Pregabalin Rx refilled today He had his follow up labs done this past weekend - to discuss his results [facility] Medical History Restless legs syndrome (RLS) Hypersomnia Snoring Witnessed apneic spells Allergic rhinitis On anticoagulant therapy Obesity (BMI 30-39.9) Insomnia Vitamin D deficiency Diabetic retinopathy Pure hypercholesterolemia Diabetic polyneuropathy Hearing loss BMI 33.0-33.9,adult Paroxysmal atrial fibrillation CAD (coronary artery disease) Afib GERD (gastroesophageal reflux disease) 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 Essential hypertension Hyperlipidemia LDL goal <100 Surgical History Umbilical hernia (08/22/23) H/O colonoscopy H/O endoscopy History of laparoscopic cholecystectomy History of cataract surgery History of eye surgery History of inguinal hernia repair History of arthroscopy of right shoulder Family History Father Diabetes Mother Alzheimers disease Bone cancer Sister Heart failure Sister Hypertension Sister Diabetes Kidney failure Social History Household Members: Spouse Housing: House Alcohol intake: current Alcohol intake frequency: holidays/special occasions only Alcohol type: beer Patient Tobacco Use Status: Former Tobacco user Tobacco use type: Cigarette Cigarette Packs Per Day: 1.5 Cigarettes Per Day: 30.0 Years Smoked: 25 e-Cigarette/Vaping Use: Never Used Second Hand Smoke Exposure: Yes service: No Current occupational status: employed 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 1. Little interest or pleasure in doing things: not at all 2. Feeling down, depressed, or hopeless: not at all 3. Trouble falling or staying asleep, or sleeping too much: not at all 4. Feeling tired or having little energy: several days 5. Poor appetite or overeating: not at all 6. Feeling bad about yourself - or that you are a failure or have let yourself or your family down: not at all 7. Trouble concentrating on things, such as reading the newspaper or watching television: not at all 8. Moving or speaking so slowly that other people could have noticed. Or the opposite - being so fidgety or restless that you have been moving around a lot more than usual: not at all 9. Thoughts that you would be better off or of hurting yourself in some way: not at all Total score: 1 Depression Screening Interpretation: Negative Depression Screening Done: Yes 48579 - PHQ-9 Billing: Yes Source: Developed by Drs. Alex Pack, Iva Zhao, Kd Jones and colleagues, with an educational sonu from [employer]. Thrive Questionnaire Date Thrive assessed: 10/22/24 I am a: Patient What is your living situation today?: I have a steady place to live Within the past 12 months, did the food you bought not last and you didn't have the money to get more?: Never true Within the past 12 months, did you worry whether your food would run out before you got money to buy more?: Never true Do you have trouble paying for medicines?: No Do you have trouble getting transportation to medical appointments?: No Do you have trouble paying your heating and electricity bill?: No Do you have trouble taking care of your child, family member or friend?: No Do you have trouble with day-to-day activities such as bathing, preparing meals, shopping, managing finances, etc.?: No Are you currently unemployed and looking for a job?: No Are you interested in more education?: No Please select the resources that you would like help with: None Currently or been in a relationship where the following occur: No concerns reported THRIVE Score: 0 AUDIT C Alcohol Use Questionnaire (AUDIT-C) 1. How often do you have a drink containing alcohol?: Never 3. How often do you have six or more drinks on one occasion?: Never Total Score: 0 Score Reviewed/Action Taken: Yes HANK-7 AMB Questionnaire HANK-7 Date HANK - 7 assessed: 10/22/24 Feeling nervous, anxious, or on edge: 0 = Not at all Not being able to stop or control worryin = Not at all Worrying too much about different things: 0 = Not at all Trouble relaxin = Not at all Being so restless that it is hard to sit still: 0 = Not at all Becoming easily annoyed or irritable: 0 = Not at all Feeling afraid as if something awful might happen: 0 = Not at all Total HANK-7 score (0-4 normal; 5-9 mild; 10-14 moderate; 15-21 severe): 0 Source: Developed by Drs. Alex Pack, Iva Zhao, Kd Jones and colleagues, with an educational sonu from [employer]. Review of Systems Const Denies chills, Denies fatigue, Denies fever(s) and Denies headache(s) ENT Denies dysphagia, Reports dizziness (on and off dizziness/unsteadiness at times lately ), Denies otalgia, Denies headache(s), Reports hearing loss (in right ear (chronic) - has a hearing aid in his right ear), Denies neck pain, Denies odynophagia and Denies sore throat Card Denies chest pain, Denies palpitations and Denies dyspnea Resp Denies chest congestion, Denies cough and Denies dyspnea GI Denies abdominal pain, Denies constipation, Denies dysphagia, Denies heartburn, Denies diarrhea, Denies nausea, Denies odynophagia and Denies vomiting Denies difficulty urinating, Denies dysuria, Denies nocturia and Denies urinary frequency (improved with Rx) Musc Denies back pain, Denies neck pain, Reports numbness (on and off in both lower extremities ) and Reports tingling (on and off in both lower extremities ) Skin/Breast Denies rash Neuro Reports dizziness (on and off dizziness/unsteadiness at times lately ), Denies headache(s), Reports numbness (on and off in both lower extremities ) and Reports tingling (on and off in both lower extremities ) Psych Reports depression (better controlled at present) Endo Denies fatigue and Denies palpitations Physical exam (Primary Care) Vital Signs: Last Vital Signs Pulse 73 10/22/24 09:30 BP 112/72 10/22/24 09:30 Pulse Ox 96 10/22/24 09:30 Oxygen Delivery Method Room Air 10/22/24 09:30 BMI result Body Mass Index 33.1 Tobacco/Smoking Status: Tobacco use Status Tobacco use date assessed 10/22/24 10/22/24 09:37 Patient Tobacco Use Status Former Tobacco user 10/22/24 09:37 Tobacco use type Cigarette 10/22/24 09:37 e-Cigarette/Vaping Use Never Used 10/22/24 09:37 PHQ-9: PHQ-9 Score PHQ-9: Total score 1 10/22/24 09:37 Depression Screening Interpretation: Negative Thrive Assessment: Date of Thrive Assessment Date Thrive assessed 10/22/24 10/22/24 09:37 Currently or been in a relationship where the following occur: No concerns reported Const General: no acute distress and alert HENMT Other: (+) hearing aid in the right ear Ears: TM's normal bilaterally and EAC's normal Throat: Yes posterior oropharynx normal and Yes tonsils normal (no TP congestion noted) Neck Neck: Yes no lymphadenopathy and Yes supple Thyroid: Thyroid normal Resp Auscultation: clear to auscultation bilaterally, no rales and no wheezes Cardio Rate: regular rate Rhythm: regular rhythm Heart sounds: no murmurs GI Palpation (GI): Soft to palpation and nontender Auscultation: normal bowel sounds General: Yes no CVA tenderness Back/Spine/Pelvis Back: no CVA tenderness Thoracic/Lumbar Spine: No lumbar spinal tenderness Skin Rashes: no rashes Extrem General: Yes no clubbing, cyanosis or edema Results Reviewed Results Reviewed: Laboratory Tests 06/18/24 10/17/24 10/17/24 06:23 07:09 07:12 WBC 6.2 Hgb 13.3 L Hct 39.6 L Plt Count 153 L Sodium 142 Potassium 4.8 Creatinine 1.02 Estimated GFR > 60 Fasting Glucose 101 H Hemoglobin A1c % 6.8 H Calcium 9.7 AST 36 ALT 35 Triglycerides 219 H Cholesterol 132 LDL Cholesterol, Calc 58 HDL Cholesterol 31 L 25-OH Vitamin D Total 35.8 TSH 1.05 Ur Specific Bascom >= 1.030 H Urine Protein Negative Urine Glucose (UA) >=1000 H Urine Blood Negative Urine Nitrite Negative Ur Leukocyte Esterase Negative Microalb/Creat Ratio 19.9 Coding Level of Care Code Est Pt Level 4 (73203) Complex EM visit Add On G2211 Diagnoses Type 2 diabetes mellitus with diabetic polyneuropathy, with long-term current use of insulin E11.42; Z79.4 Diabetes mellitus fdc insulin use: with ocean transportation intermediary use Diabetic polyneuropathy associated with type 2 diabetes mellitus E11.42 Diabetes mellitus type: type 2 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 transplanted heart: [place] heart Associated angina: without angina Essential hypertension I10 At risk for obstructive sleep apnea Z91.89 Vitamin D deficiency E55.9 Gastroesophageal reflux disease without esophagitis K21.9 Esophagitis presence: without esophagitis Allergic rhinitis, unspecified seasonality, unspecified trigger J30.9 Allergic rhinitis trigger: unspecified Allergic rhinitis seasonality: unspecified Benign prostatic hyperplasia (BPH) with straining on urination N40.1; R39.16 Insomnia, unspecified type G47.00 Insomnia type: unspecified Depression, unspecified depression type F32.A Depression Type: unspecified Obesity (BMI 30-39.9) E66.9 Additional Codes PHQ-9 - 82470 - PHQ-9 Billing: Yes ([id number]) Assessment & Plan Assessment & Plan (1) Type 2 diabetes mellitus with diabetic polyneuropathy: Code(s): E11.42 - Type 2 diabetes mellitus with diabetic polyneuropathy Category: Medical Qualifiers: Diabetes mellitus ocean transportation intermediary insulin use: with ocean transportation intermediary use Qualified Code(s): E11.42 - Type 2 diabetes mellitus with diabetic polyneuropathy; Z79.4 - half-way (current) use of insulin Plan: His HgbA1c was at 6.8% on his labs done a few days ago (he was previously at 6.5% a few months ago in May 2024) - goal is <7.0% Reinforced diabetic diet Continue Metformin 1000 mg BID, Jardiance 25 mg QD, Trulicity 1.5 mg subcutaneous injection once a week, Tresiba 86 units daily and Humalog 16 units for breakfast, 26 units for lunch, 28 units for dinner with 10 units for snacks He was seeing endocrinology at [place] but states that his appointment keeps getting cancelled and rescheduled often and he can barely get in to see the doctor every few months and he would like to try switching over here to [facility] instead - referral to [facility] [place] [place] (2) Diabetic polyneuropathy: Code(s): E11.42 - Type 2 diabetes mellitus with diabetic polyneuropathy Category: Medical Qualifiers: Diabetes mellitus type: type 2 Qualified Code(s): E11.42 - Type 2 diabetes mellitus with diabetic polyneuropathy Plan: EMG & NCV done on 11/26/2019 revealed (+) 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 Repeat EMG and NCV in April 2023 revealed similar findings - (+) 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 Patient used to take Gabapentin 300 mg TID for his symptoms; is currently on Pregabalin 50 mg Q HS instead (Rx refilled) (3) Diabetic retinopathy: Code(s): E11.319 - Type 2 diabetes mellitus with unspecified diabetic retinopathy without macular edema Category: Medical Qualifiers: Diabetes mellitus type: type 2 Diabetic retinopathy severity: with unspecified retinopathy severity Diabetes mellitus macular edema: with macular edema Laterality: bilateral Qualified Code(s): 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 Plan: Reinforced tight glucose control to slow down disease progression Follow up with ophthalmology as scheduled (4) Pure hypercholesterolemia: Code(s): E78.00 - Pure hypercholesterolemia, unspecified Category: Medical Plan: Results of his labs done a few days ago reviewed and discussed with patient Reinforced low-cholesterol diet Continue Rosuvastatin 20 mg QD Will recheck his labs and fasting lipids in 4 months for follow-up (5) Paroxysmal atrial fibrillation: Code(s): I48.0 - Paroxysmal atrial fibrillation Category: Medical Plan: Patient currently remains in (normal) sinus rhythm - he has reportedly responded very well to rhythm control approach and his highly symptomatic paroxysmal atrial fibrillation have remained suppressed with Multaq Continue Multaq 400 mg BID; continue Xarelto 20 mg QD for thromboembolism prophylaxis He is currently getting EKGs done every 3 months and echocardiogram every 6 months for follow-up and monitoring Follow-up with cardiology as scheduled (6) CAD (coronary artery disease): Comment: Cardiac catheterization, 2018, mid LAD 70% and RPL 70%. Remainder of the vessels had nonobstructive disease Code(s): I25.10 - Atherosclerotic heart disease of [place] coronary artery without angina pectoris Category: Medical Qualifiers: Coronary Disease-Associated Artery/Lesion type: [place] artery [place] vs. transplanted heart: [place] heart Associated angina: without angina Qualified Code(s): I25.10 - Atherosclerotic heart disease of [place] coronary artery without angina pectoris Plan: Patient remains asymptomatic with no recent angina symptoms He is currently anticoagulated with Xarelto Continue with aggressive risk reduction for primary prevention Follow-up with cardiology as scheduled (7) Essential hypertension: Code(s): I10 - Essential (primary) hypertension Category: Medical Plan: Reinforced low sodium diet - goal is systolic BP of 120 to 130 mm or less Continue Lisinopril 20 mg QD (8) At risk for obstructive sleep apnea: Code(s): Z91.89 - Other specified personal risk factors, not elsewhere classified Category: Medical Plan: Per recommendation of anesthesiologist during his hernia surgery in July 2023, he was referred to Sleep Medicine for evaluation for possible obstructive sleep apnea A sleep study was attempted earlier this year but he could not fall asleep and the study was cancelled He has been advised to call back to reschedule this when he has something that he can take to help him sleep but he has not been able to get this rescheduled yet Have advised him to call Sleep Medicine to reschedule his sleep study MATT and once he has this set up, we can send in something for him to take prior to his study to help him fall asleep (9) Vitamin D deficiency: Code(s): E55.9 - Vitamin D deficiency, unspecified Category: Medical Plan: Continue Vitamin D3 2000 units QD (10) GERD (gastroesophageal reflux disease): Code(s): K21.9 - Gastro-esophageal reflux disease without esophagitis Category: Medical Qualifiers: Esophagitis presence: without esophagitis Qualified Code(s): K21.9 - Gastro-esophageal reflux disease without esophagitis Plan: Dietary restrictions reinforced Continue Omeprazole 20 mg QD (11) Allergic rhinitis: Code(s): J30.9 - Allergic rhinitis, unspecified Category: Medical Qualifiers: Allergic rhinitis trigger: unspecified Allergic rhinitis seasonality: unspecified Qualified Code(s): J30.9 - Allergic rhinitis, unspecified Plan: Continue Loratadine 10 mg QD PRN AND Fluticasone 50 mcg nasal spray QD PRN (12) Benign prostatic hyperplasia (BPH) with straining on urination: Code(s): N40.1 - Benign prostatic hyperplasia with lower urinary tract symptoms; R39.16 - Straining to void Category: Medical Plan: Most likely due to BPH; states that his symptoms have also been controlled on Rx Continue Tamsulosin 0.4 mg Q HS (13) Insomnia: Code(s): G47.00 - Insomnia, unspecified Category: Medical Qualifiers: Insomnia type: unspecified Qualified Code(s): G47.00 - Insomnia, unspecified Plan: Sleep hygiene reinforced He used to take Trazodone 50 mg Q HS PRN but unclear at this time as to why he is no longer on it Can try him on this again for his sleep study when it is rescheduled (14) Depression: Code(s): F32.A - Depression, unspecified Category: Medical Qualifiers: Depression Type: unspecified Qualified Code(s): F32.A - Depression, unspecified Plan: Have offered to start patient on Rx for his depression and refer him to psychiatry previously but he declined Feels that he is currently doing much better on this and does not need anything else at this time for his mood disorder (15) Obesity (BMI 30-39.9): Code(s): E66.9 - Obesity, unspecified Category: Medical Plan: Reinforced diet/exercise as tolerated/lose weight Plan Follow up in 4 months Orders: Orders Complete Blood Count Auto Diff 4 Months D64.9 - Anemia, unspecified Comprehensive [place]. Panel Fast 4 Months E78.00 - Pure hypercholesterolemia, unspecified Lipid Panel 4 Months E78.00 - Pure hypercholesterolemia, unspecified Hemoglobin A1c 4 Months E11.9 - Type 2 diabetes mellitus without complications Vitamin D 25-OH Total 4 Months E55.9 - Vitamin D deficiency, unspecified Vitamin B12 and Folate 4 Months E53.8 - Deficiency of other specified B group vitamins Microalbumin, Random (w Creat) 4 Months E11.9 - Type 2 diabetes mellitus without complications TSH reflex Free T4 4 Months E78.00 - Pure hypercholesterolemia, unspecified UA CC w/rflx Micro + Cult 4 Months R30.0 - Dysuria Referrals Endocrinology Referral E11.29 - Type 2 diabetes mellitus with other diabetic kidney complication, R80.9 - Proteinuria, unspecified Medications: Refilled pregabalin 50 mg PO BEDTIME 30 caps 3RF 30 days E11.42 - Type 2 diabetes mellitus with diabetic polyneuropathy
--- OUTSIDE RECORDS SUMMARY | 2024-10-22 09:56 | XMS_ITS | Clinical Summary ---
Author Organization [address] Address [address] [place] [id number] Phone Care Team Providers Care Head Cd Reactor Operator Name Role Phone Mehrdad Mon MD Primary Care Provider [phone] Allergies No known active allergies Medications atorvastatin [...] 25 Active blood-glucose meter,continuous (FreeStyle Iris 3 [place]) miscIndications: Type 2 diabetes mellitus with other specified complication, with long-term current use of insulin ([facility] V24, [facility] V28) Check sugars regularly 1 each 04/21/19 25 Active blood-glucose sensor (FreeStyle Iris 3 Sensor) deviceIndication s:Type 2 diabetes mellitus with other specified complication, with long-term current use of insulin (CMS/[facility] V24, CMS/HCC V28) Box = Kit = EA, change sensor every 14 days 6 kit 1 04/21/19 25 Active blood-glucose sensor (Dexcom G7 Sensor) deviceIndication s:Type 2 diabetes mellitus without complication, with long-term current use of insulin ([facility] V24, [facility] V28) 1 EA See administration instructions. Change [...] series) 2020 Colorectal Cancer Screening: Colonoscopy 10/25/2023 HIV Screening 10/25/2023 Hepatitis C Screening 10/25/2023 Social Influencers of Health Screening 10/25/2023 Depression Screening 04/01/2024 Influenza Vaccine (#1) 2024 , 01/22/2023, 01/15/2022, [...] Recently Relevant to Health Maintenance Insurance [facility] Care Teams Head Cd Reactor Operator Relationship Specialty Start Date End Date Mehrdad Mon MD 2 [facility] [address] [facility] [place] [address] PCP - General 06/21/11
== END 2024-10-22 10:12 | disposition home or self-care (01) ==
LOC: HO.HMCH 09:24
PROVIDERS: PCP Internal Medicine; Visit Provider Internal Medicine
DX: E11.42 Type 2 diabetes mellitus with diabetic polyneuropathy (principal); Z79.4 Long term (current) use of insulin; E11.311 Type 2 diabetes mellitus with unspecified diabetic retinopathy with macular edema; I48.0 Paroxysmal atrial fibrillation; E78.00 Pure hypercholesterolemia, unspecified; I25.10 Atherosclerotic heart disease of native coronary artery without angina pectoris; I10 Essential (primary) hypertension; Z91.89 Other specified personal risk factors, not elsewhere classified; E55.9 Vitamin D deficiency, unspecified; K21.9 Gastro-esophageal reflux disease without esophagitis; J30.9 Allergic rhinitis, unspecified; N40.1 Benign prostatic hyperplasia with lower urinary tract symptoms

== ENCOUNTER → 2024-10-22 09:23 | Outpatient (BNVA) | payer OTHER, SELFPAY | PROVIDERS: PCP Internal Medicine; Visit Provider Internal Medicine | DX: E11.42 Type 2 diabetes mellitus with diabetic polyneuropathy (principal); E11.311 Type 2 diabetes mellitus with unspecified diabetic retinopathy with macular edema; E78.00 Pure hypercholesterolemia, unspecified; I48.0 Paroxysmal atrial fibrillation; I25.10 Atherosclerotic heart disease of native coronary artery without angina pectoris; I10 Essential (primary) hypertension; E55.9 Vitamin D deficiency, unspecified; K21.9 Gastro-esophageal reflux disease without esophagitis; J30.9 Allergic rhinitis, unspecified; N40.1 Benign prostatic hyperplasia with lower urinary tract symptoms; R39.16 Straining to void; G47.00 Insomnia, unspecified; E66.9 Obesity, unspecified; Z68.33 Body mass index [BMI] 33.0-33.9, adult; Z79.01 Long term (current) use of anticoagulants; Z79.4 Long term (current) use of insulin; Z79.84 Long term (current) use of oral hypoglycemic drugs; Z79.899 Other long term (current) drug therapy; Z91.89 Other specified personal risk factors, not elsewhere classified; Z13.31 Encounter for screening for depression; Z13.39 Encounter for screening examination for other mental health and behavioral disorders | CPT/HCPCS: 96127 ==

== ENCOUNTER 2024-12-03 10:31 | Outpatient (AMB) | payer OTHER, SELFPAY ==
--- NOTE | 2024-12-03 10:40 | A.OFFVIS_ITS ---
Vital Signs 12/03/24 10:44 Height 5 ft 6 in Weight 210 lb 12.191 oz BMI 34.0 BP 92/58 L Blood Pressure Location Rt brachial Position Sitting Pulse 78 Pulse Source Pulse Oximeter Pulse Oximetry (%) 98 Oxygen Delivery Method Room Air Intake Visit Reasons: T2DM Intake Note: New patient internally referred by PCP for T2DM management. Last Diabetic Eye exam: Retina Specialty was seen within the year, is seen yearly. Seen on 05/2024 with [facility] Last Podiatry Visit: Does not see a Vehicle Dismantler Random Glucose: 101 mg/dl Hgb A1C: 6.8% 10/17/2024 Trust Manager Assistant Required: No Accompanied by: Self / Same As Patient Allergies oxycodone (From PERCOCET) Allergy (Intermediate, Verified 12/03/24 10:46) CONSTIPATED Medication List - Last Reconciled 12/03/24 by Alex Washington MD blood-glucose sensor (Dexcom G7 Sensor device) As directed cholecalciferol (vitamin D3) 50 mcg PO DAILY 90 days dronedarone (Multaq) 400 mg PO BID dulaglutide (Trulicity) 1.5 mg (0.5 mL) subcut QWEEK 28 days empagliflozin (Jardiance) 25 mg PO QAM fluticasone propionate 50 mcg/actuation 2 sprays intranasal DAILY 30 days Humalog KwikPen Insulin (insulin lispro) breakfast 16 units, Lunch 26 units, Dinner 28 units, Snack 10 units subcut 4 times a day; No substitutions. 30 days NS lisinopril 20 mg PO DAILY loratadine 10 mg PO DAILY PRN 90 days metformin 1,000 mg PO BID omeprazole 20 mg PO DAILY 90 days pen needle, diabetic (BD Ultra-Fine Lou Pen Needle) As directed once aday pen needle, diabetic 1 ea miscellaneous five times a day; pregabalin 50 mg PO BEDTIME 30 days rivaroxaban (Xarelto) 20 mg PO DAILY rosuvastatin 20 mg PO DAILY tamsulosin 0.4 mg PO BEDTIME 90 days Tresiba FlexTouch U-200 (insulin degludec) 86 units (0.43 mL) subcut BEDTIME NS HPI Comments Details: Patient is a 64 yo male with DM type 2 diagnosed in approximately 2008 who presents for management of diabetes. Patient was last seen 04/08/21 by Samanta Franklin NP . He was started on Trulicity. Past medical history includes : DM2, HTN, HLD, afib, neuropathy, retinopathy, afib Micro and macrovascular complications: + retinopathy s/p laser treatment, + nephropathy, +neuropathy, Diabetes medications: Tresiba 86 units, Humalog to 16 units for breakfast, 26 units for lunch, 28 units for dinner with 10 units for snack, metformin 1000 BID, Jardiance 25mg. Trulicity1.5 mg/dl CGM: The past 14 days C GM is active 90% an average blood glucose of 173, glucose variability 28.1%. 64% of blood glucose in target range of 70-180. 28% high from 181-250. 8% very high over 250, . Pen shows elevated blood sugars overnight with drop post-breakfast and then elevation post-dinner Symptoms: + numbness, tingling. 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 Eye exam: last exam 04/2024 Ou-proliferative diabetic retinopathy - stable Laboratory Tests 02/01/21 03/08/21 14:06 16:57 Creatinine 1.27 Estimated GFR 58 Hgb A1c (Clinic) 8.0 H PFSH Medical History Restless legs syndrome (RLS) Hypersomnia Snoring Witnessed apneic spells Allergic rhinitis On anticoagulant therapy Obesity (BMI 30-39.9) Insomnia Vitamin D deficiency Diabetic retinopathy Pure hypercholesterolemia Diabetic polyneuropathy Hearing loss BMI 33.0-33.9,adult Paroxysmal atrial fibrillation CAD (coronary artery disease) Afib GERD (gastroesophageal reflux disease) 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 Essential hypertension Hyperlipidemia LDL goal <100 Surgical History Umbilical hernia (08/22/23) H/O colonoscopy H/O endoscopy History of laparoscopic cholecystectomy History of cataract surgery History of eye surgery History of inguinal hernia repair History of arthroscopy of right shoulder Family History Father Diabetes Mother Alzheimers disease Bone cancer Sister Heart failure Sister Hypertension Sister Diabetes Kidney failure Social History Household Members: Spouse Housing: House Alcohol intake: current Alcohol intake frequency: holidays/special occasions only Alcohol type: beer Patient Tobacco Use Status: Former Tobacco user Tobacco use type: Cigarette Cigarette Packs Per Day: 1.5 Cigarettes Per Day: 30.0 Years Smoked: 25 e-Cigarette/Vaping Use: Never Used Second Hand Smoke Exposure: Yes service: No Current occupational status: employed 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 Absence of acromegalic features. Neck exam reveals nl size thyroid about 15 gms. No thyroid nodules palpable. No carotid bruits present. Lungs CTA. Heart S1 S2, Reg R/R. No M/R/ G. Skin exam reveals absence of vitiligo or acanthosis nigricans. Abdominal exam reveals Soft NT/ND with NA BS. No organomegaly present. Neck Other: . Extrem Other: Visual exam of foot performed. No ulcerations or open lesions. No onchomycosis, no callouses.Pulses 2 + distally Sensation intact to monofilament exam. Vibratory sensation sensed is decreased with 128 Hz tuning fork Assessment & Plan Assessment & Plan (1) Type 2 diabetes mellitus with diabetic polyneuropathy: Code(s): E11.42 - Type 2 diabetes mellitus with diabetic polyneuropathy Category: Medical Qualifiers: Diabetes mellitus [facility] insulin use: with [facility] use Qualified Code(s): E11.42 - Type 2 diabetes mellitus with diabetic polyneuropathy; Z79.4 - long-term (current) use of insulin Plan: This is a 64-year-old male with a history of type 2 diabetes being treated with metformin, Jardiance and Trulicity and basal-bolus insulin with excellent improved glycemic control and known microvascular complications namely retinopathy s/p laser treatment, + nephropathy, +neuropathy. The plan is to change the Trulicity to Mounjaro 2.5 mg Q weekly. Went over side effects of Mounjaro including but not limited to nausea, vomiting and rare risk of pancreatitis. We will also refer patient to Podiatry. We will have patient follow up with primary care diabetes team in 4 months. Orders: Referrals Podiatry Referral E11.42 - Type 2 diabetes mellitus with diabetic polyneuropathy, Z79.4 - extermination supervisor (current) use of insulin Medications: New tirzepatide (Mounjaro) for 4 weeks 2.5 mg (0.5 mL) subcut QWEEK 2 mL 4RF Baqsimi 3 mg/actuation (glucagon) 3 mg intranasal ONCE 2 ea 0RF NS Discontinued dulaglutide (Trulicity) Discontinued Reason: Doctor's Order 1.5 mg (0.5 mL) subcut QWEEK 28 days 2 mL 3RF Coding Level of Care Code New Pt Level 4 (93536) Complex EM visit Add On G2211 Diagnoses Type 2 diabetes mellitus with diabetic polyneuropathy, with long-term current use of insulin E11.42; Z79.4 Diabetes mellitus intermediate accountant insulin use: with intermediate accountant use
[2024-12-03 10:44] VITALS: BP 92/58; PULSE 78; O2SAT 98; BMI 34.0
[2024-12-03 10:57] LABS: Glucose, Whole Blood 101 mg/dL (60-115)
--- OUTSIDE RECORDS SUMMARY | 2024-12-03 11:55 | XMS_ITS | Clinical Summary ---
Author Organization [address] Address [address] [place] [id number] Phone Care Team Providers Care King Maker Name Role Phone Mehrdad Mon MD Primary Care Provider [phone] Allergies No known active allergies Medications atorvastatin [...] 25 Active blood-glucose meter,continuous (FreeStyle Iris 3 Bowlus) miscIndications: Type 2 diabetes mellitus with other specified complication, with long-term current use of insulin ([facility] V24, [facility] V28) Check sugars regularly 1 each 04/21/19 25 Active blood-glucose sensor (FreeStyle Iris 3 Sensor) deviceIndication s:Type 2 diabetes mellitus with other specified complication, with long-term current use of insulin ([facility] V24, CMS/HCC V28) Box = Kit = EA, change sensor every 14 days 6 kit 1 04/21/19 25 Active blood-glucose sensor (Dexcom G7 Sensor) deviceIndication s:Type 2 diabetes mellitus without complication, with long-term current use of insulin ([facility] V24, [facility] V28) 1 EA See administration instructions. Change [...] Most Recently Relevant to Health Maintenance Insurance [facility] Care Teams King Maker Relationship Specialty Start Date End Date Mehrdad Mon MD 2 [facility] [address] [facility] [place] [address] PCP - General 06/21/11
== END 2024-12-03 11:14 | disposition home or self-care (01) ==
LOC: HO.ENCR 10:31
PROVIDERS: PCP Internal Medicine; Visit Provider Internal Medicine Endocrinology, Diabetes & Metabolism
DX: E11.42 Type 2 diabetes mellitus with diabetic polyneuropathy (principal); Z79.4 Long term (current) use of insulin
CPT/HCPCS: 99204; G2211

== ENCOUNTER → 2024-12-03 10:31 | Outpatient (BNVA) | payer OTHER, SELFPAY | PROVIDERS: PCP Internal Medicine; Visit Provider Internal Medicine Endocrinology, Diabetes & Metabolism | DX: E11.42 Type 2 diabetes mellitus with diabetic polyneuropathy (principal); Z79.4 Long term (current) use of insulin | CPT/HCPCS: 82947 ==

== ENCOUNTER 2024-12-16 08:40 | Outpatient (AMB) | payer OTHER, SELFPAY ==
[2024-12-16 08:58] VITALS: BMI 33.9
--- NOTE | 2024-12-16 08:58 | A.OFFVIS_ITS ---
Vital Signs 12/16/24 08:58 Height 5 ft 6 in Weight 210 lb BMI 33.9 Intake Visit Reasons: Type 2 diabetes mellitus w/diabetic polyneuropathy Intake Note: Abdoulaye is a 64 year old male who presents to the office today as a new patient referred by his Youth Services Librarian Dr. Washington for Type 2 diabetes mellitus with diabetic polyneuropathy. He states his sugar is currently at 181 via his dexcom 7 sensor but he notices discrepancies between his sensor as it reads higher then when he checks via finger prick. He reports bilateral tingling and numbness. Patient is concerned of fungal growth on his 1st to 3rd toes of the left foot. Allergies oxycodone (From PERCOCET) Allergy (Intermediate, Verified 12/16/24 08:59) CONSTIPATED Medication List - Last Reconciled 12/16/24 by Bruno Leung DPM Baqsimi 3 mg/actuation (glucagon) 3 mg intranasal ONCE NS blood-glucose sensor (Dexcom G7 Sensor device) As directed cholecalciferol (vitamin D3) 50 mcg PO DAILY 90 days ciclopirox 0.77% 1 appl topical DAILY 4 months dronedarone (Multaq) 400 mg PO BID empagliflozin (Jardiance) 25 mg PO QAM fluticasone propionate 50 mcg/actuation 2 sprays intranasal DAILY 30 days Humalog KwikPen Insulin (insulin lispro) breakfast 16 units, Lunch 26 units, Dinner 28 units, Snack 10 units subcut 4 times a day; No substitutions. 30 days NS lisinopril 20 mg PO DAILY loratadine 10 mg PO DAILY PRN 90 days metformin 1,000 mg PO BID omeprazole 20 mg PO DAILY 90 days pen needle, diabetic (BD Ultra-Fine Lou Pen Needle) As directed once aday pen needle, diabetic 1 ea miscellaneous five times a day; pregabalin 50 mg PO BEDTIME 30 days rivaroxaban (Xarelto) 20 mg PO DAILY rosuvastatin 20 mg PO DAILY tamsulosin 0.4 mg PO BEDTIME 90 days tirzepatide (Mounjaro) 2.5 mg (0.5 mL) subcut QWEEK Tresiba FlexTouch U-200 (insulin degludec) 86 units (0.43 mL) subcut BEDTIME NS HPI HPI Type 2 diabetes mellitus w/diabetic polyneuropathy: Details: 64-year-old male with past medical history of diabetes mellitus type 2, coronary artery disease, hypertension, hyperlipidemia, GERD, obesity, presents for diabetic foot evaluation and discolored toenails. Patient endorses complaints of tingling to his feet bilaterally, that gets worse when sitting with his legs up or when getting up after sitting for awhile. He denies any symptoms of burning, numbness, or shooting pain to his legs. He notes a history of burning symptoms to his feet and then was started on pregabalin which states has helped treat most of his nerve pain symptoms that he would experience at nighttime. He also notes a history of lower back pain, does not see a spine surgeon. Also states he has symptoms of sciatica. The patient is also complaining of discolor ed left big toenail. He states that he had injured his left toe and the entire nail had fallen off approximately 1 year ago. When the nail grew back, it grew back discolored and thickened. Has tried [id number] medications which have not helped thus far. Patient states he is not able to trim his own toenails due to his lower back pain and inability to bend over. 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 Essential hypertension Hyperlipidemia LDL goal <100 Surgical History Umbilical hernia (08/22/23) H/O colonoscopy H/O endoscopy History of laparoscopic cholecystectomy History of cataract surgery History of eye surgery History of inguinal hernia repair History of arthroscopy of right shoulder Family History Father Diabetes Mother Alzheimers disease Bone cancer Sister Heart failure Sister Hypertension Sister Diabetes Kidney failure Social History Household Members: Spouse Housing: House Alcohol intake: current Alcohol intake frequency: holidays/special occasions only Alcohol type: beer Patient Tobacco Use Status: Former Tobacco user Tobacco use type: Cigarette Cigarette Packs Per Day: 1.5 Cigarettes Per Day: 30.0 Years Smoked: 25 e-Cigarette/Vaping Use: Never Used Second Hand Smoke Exposure: Yes service: No Current occupational status: employed 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 Monophasic AT and PT arteries on Doppler to the left foot. Biphasic PT artery to the right foot, monophasic DP to the right foot., CFT<3s to digits, TG warm to cool, no pedal edema, pedal hair absent Derm: Skin: No open lesions, ulcerations, or calluses. Interdigital spaces: Clear, no maceration or fungal infection. Nails: Thickened discolored elongated left hallux toenail with proximal clearing, ecchymosis underneath the nail plate to the left 2nd and 3rd toe, yellow discoloration without thickening to the right hallux nail. Elongated nails atx 10 bilaterally. Neuro: [place]-al[place]na monofilament (10g) test 10/10 intact to right foot, 9/10 intact to left foot. Msk: Deformities: No evidence of hammertoes, bunions, Charcot changes, or other structural abnormalities. Muscle strength: 5/5 in all muscle groups. Gait: Normal, no antalgic or steppage gait observed. Footwear Assessment: Shoes inspected; appropriate fit, no excessive wear, or foreign objects noted. Office Procedures AMB Debridement/Avulsion Podia Details: 1. Left hallux nail biopsy Procedure: Nail biopsy Indication: Hypertrophic, discolored, thickened, elongated left hallux nail Anesthesia: None Description: The digit was prepped. A sterile nail Nipper was used to resect the distal portion of the nail. The specimen was collected and sent for pathology. Tolerance: Patient tolerated procedure well, no immediate complications. 2. Nail debridement x9 All elongated, thickened, discolored toenails x 9 using a sterile nail nipper. The patient tolerated the procedure well with no complications. Class B findings as per physical exam findings above. The patient has a diagnosis of diabetes mellitus and presents with elongated, thickened toenails. Due to underlying diabetic neuropathy and mild vascular disease findings, the patient is at increased risk for complications such as ulceration, infection, and difficulty with self-care. Debridement of elongated toenails is medically necessary to prevent development of pressure-related lesions, reduce risk of secondary infection, and maintain foot health in her high-risk comorbidities. 07062-Fbnsmnrchgv of Nail 6+ (Debridement of right foot nails x5, left foot nails x4.) Nail Biopsy: 55934 Nail unit biopsy (Left hallux nail) Procedure code (CPT) selection complete Results Reviewed Results Reviewed: Laboratory Tests 10/17/24 07:12 Hemoglobin A1c % 6.8 H Assessment & Plan Assessment & Plan (1) Type 2 diabetes mellitus with diabetic polyneuropathy: Code(s): E11.42 - Type 2 diabetes mellitus with diabetic polyneuropathy Category: Medical Qualifiers: Diabetes mellitus fdc insulin use: with predatory animal exterminator use Qualified Code(s): E11.42 - Type 2 diabetes mellitus with diabetic polyneuropathy; Z79.4 - longterm (current) use of insulin Plan: Risk Stratification: No current ulceration, infection, or pre-ulcerative lesion. No loss of protective sensation. The patient has clinical findings of peripheral artery disease with diminished blood flow, absent pedal hair, and skin dystrophic changes. Patient is at moderate risk for diabetic foot complications due to his findings of peripheral artery disease however no signs of wound formation at this time. Recommendations: He is referred for a bilateral lower extremity arterial ultrasound test. Based on the test results, he will likely be referred to vascular surgery. Continue routine foot care and daily self-inspection. Recommend moisturizing daily. Recommend supportive proper fitting shoe-wear. The patient may require diabetic shoes in the future. Reinforced diabetic foot education and risks from peripheral neuropathy. (2) Tinea unguium: Code(s): B35.1 - Tinea unguium Category: Medical Plan: * Nail biopsy performed of left hallux nail. * Discussed treatment options including topical treatment versus oral antifungal medications. * Explained that oral antifungals such as terbinafine (Lamisil) may cause gastrointestinal upset, headache, rash, taste disturbances, and hepatotoxicity. Baseline and monthly liver function monitoring is recommended during therapy. The patient notes a history of a gallstone with admission in the hospital for treatment. He prefers to avoid oral antifungal treatment at this time. * Rx ciclopirox to be applied daily. Explained that it will take at least six- month + to see results and improvement in clinical appearance. * Debrided elongated thickened nails x9 using a sterile nail nipper. (3) Peripheral artery disease: Code(s): I73.9 - Peripheral vascular disease, unspecified Category: Medical Plan: * The patient has clinical findings of peripheral artery disease with diminished blood flow, absent pedal hair, and skin dystrophic changes. * He is referred for a bilateral lower extremity arterial ultrasound test. Based on the test results, he will likely be referred to vascular surgery. (4) Neuropathic pain, leg, bilateral: Code(s): G57.93 - Unspecified mononeuropathy of bilateral lower limbs Category: Medical Plan: * Recommended spinal x-rays/MRI workup and referral to neuro-spine for evaluation of radiculopathy based on his clinical symptoms. Patient deferred at this time and states he will consider it when he returns at his next appointment. Orders: Orders US arterial duplex LE BI Today I73.9 - Peripheral vascular disease, unspecified AMB Debridement/Avulsion Podiatry Today B35.1 - Tinea unguium Surgical Today B35.1 - Tinea unguium Medications: New ciclopirox 0.77% Apply to nails daily. Remove build up at the end of the week. 1 appl topical DAILY 30 mL 3RF apply to big toe nails daily 4 months B35.1 - Tinea unguium Coding Level of Care Code New Pt Level 4 (53534) Diagnoses Type 2 diabetes mellitus with diabetic polyneuropathy, with long-term current use of insulin E11.42; Z79.4 Diabetes mellitus predatory animal exterminator insulin use: with predatory animal exterminator use Tinea unguium B35.1 Peripheral artery disease I73.9 Neuropathic pain, leg, bilateral G57.93 CPT Codes Skin Debridement - CPT: 57291-Ianzgcfnymj of Nail 6+ ([id number]) Skin Debridement - CPT: 37439 Nail unit biopsy ([id number]) Time Spent (min) 50
--- OUTSIDE RECORDS SUMMARY | 2024-12-16 10:06 | XMS_ITS | Clinical Summary ---
Author Organization [address] Address [address] [place] [phone] Phone Care Team Providers Care Burlap Spreader Name Role Phone Mehrdad Mon MD Primary Care Provider [phone] Allergies No known active allergies Medications atorvastatin [...] 25 Active blood-glucose meter,continuous (FreeStyle Iris 3 O'Brien) miscIndications: Type 2 diabetes mellitus with other specified complication, with long-term current use of insulin ([facility] V24, [facility] V28) Check sugars regularly 1 each 04/21/19 25 Active blood-glucose sensor (FreeStyle Iris 3 Sensor) deviceIndication s:Type 2 diabetes mellitus with other specified complication, with long-term current use of insulin ([facility] V24, CMS/[facility] V28) Box = Kit = EA, change sensor every 14 days 6 kit 1 04/21/19 25 Active blood-glucose sensor (Dexcom G7 Sensor) deviceIndication s:Type 2 diabetes mellitus without complication, with long-term current use of insulin ([facility] V24, [facility] V28) 1 EA See administration instructions. [...] Relevant to Health Maintenance Insurance [facility] Care Teams Burlap Spreader Relationship Specialty Start Date End Date Mehrdad Mon MD 2 [facility] [address] [facility] [place] [address] PCP - General 06/21/11
== END 2024-12-16 09:30 | disposition home or self-care (01) ==
LOC: HO.HPODS 08:41
PROVIDERS: PCP Internal Medicine; Visit Provider Student in an Organized Health Care Education/Training Program
DX: E11.42 Type 2 diabetes mellitus with diabetic polyneuropathy (principal); Z79.4 Long term (current) use of insulin; B35.1 Tinea unguium; I73.9 Peripheral vascular disease, unspecified; G57.93 Unspecified mononeuropathy of bilateral lower limbs
CPT/HCPCS: 11721; 99204

== ENCOUNTER 2024-12-16 09:27 | Outpatient (REF) | payer OTHER, SELFPAY | END 2024-12-16 09:28 | disposition home or self-care (01) | LOC: HO.LNP 09:27 | PROVIDERS: Visit Provider Student in an Organized Health Care Education/Training Program | DX: E11.42 Type 2 diabetes mellitus with diabetic polyneuropathy (principal); E11.51 Type 2 diabetes mellitus with diabetic peripheral angiopathy without gangrene; B35.1 Tinea unguium; L60.2 Onychogryphosis; E11.41 Type 2 diabetes mellitus with diabetic mononeuropathy; G57.93 Unspecified mononeuropathy of bilateral lower limbs | CPT/HCPCS: 11721; 11755; 88304; 88312 ==

== ENCOUNTER 2025-01-05 09:03 | Outpatient (AMB) | payer OTHER, SELFPAY ==
[2025-01-05 09:12] VITALS: BP 120/72; PULSE 62; O2SAT 95; BMI 34.0
--- NOTE | 2025-01-05 09:12 | MHC.OFFVIS ---
Vital Signs 01/05/25 09:12 Height 5 ft 6 in Weight 210 lb 12.191 oz BMI 34.0 BP 120/72 Blood Pressure Location Rt brachial Position Sitting Pulse 62 Pulse Source Pulse Oximeter Pulse Oximetry (%) 95 Oxygen Delivery Method Room Air Intake Visit Reasons: T2DM F/U Intake Note: Patient present today for T2DM. Last Diabetic Eye exam: Retina Specialty was seen within the year, is seen yearly. Seen on 05/2024 with [facility] Last Podiatry Visit: Does not see a Card Room Manager? Random Glucose: 89 mg/dl Hgb A1C: DUE Patient is requesting test strips to test his blood sugar. Sweet Pickled Fruit Maker Required: No Sweet Pickled Fruit Maker Services: Sweet Pickled Fruit Maker Offered & Declined (irish) Accompanied by: Self / Same As Patient Allergies oxycodone (From PERCOCET) Allergy (Intermediate, Verified 01/05/25 09:14) CONSTIPATED Medication List - Last Reconciled 01/05/25 by Alex Washington MD Baqsimi 3 mg/actuation (glucagon) 3 mg intranasal ONCE NS blood-glucose sensor (Dexcom G7 Sensor device) As directed cholecalciferol (vitamin D3) 50 mcg PO DAILY 90 days ciclopirox 0.77% 1 appl topical DAILY 4 months dronedarone (Multaq) 400 mg PO BID empagliflozin (Jardiance) 25 mg PO QAM fluticasone propionate 50 mcg/actuation 2 sprays intranasal DAILY 30 days Humalog KwikPen Insulin (insulin lispro) breakfast 16 units, Lunch 26 units, Dinner 28 units, Snack 10 units subcut 4 times a day; No substitutions. 30 days NS lisinopril 20 mg PO DAILY loratadine 10 mg PO DAILY PRN 90 days metformin 1,000 mg PO BID omeprazole 20 mg PO DAILY 90 days pen needle, diabetic (BD Ultra-Fine Lou Pen Needle) As directed once aday pen needle, diabetic 1 ea miscellaneous five times a day; pregabalin 50 mg PO BEDTIME 30 days rivaroxaban (Xarelto) 20 mg PO DAILY rosuvastatin 20 mg PO DAILY tamsulosin 0.4 mg PO BEDTIME 90 days tirzepatide (Mounjaro) 2.5 mg (0.5 mL) subcut QWEEK Tresiba FlexTouch U-200 (insulin degludec) 86 units (0.43 mL) subcut BEDTIME NS HPI Comments Details: Patient is a 64 yo male with DM type 2 diagnosed in approximately 2008 who presents for management of diabetes. Past medical history includes : DM2, HTN, HLD, afib, neuropathy, retinopathy, afib Micro and macrovascular complications: + retinopathy s/p laser treatment, + nephropathy, +neuropathy, Diabetes medications: Tresiba 86 units, Humalog to 16 units for breakfast, 26 units for lunch, 28 units for dinner with 10 units for snack, metformin 1000 BID, Jardiance 25mg. Mounjaro 2.5 mg Qwkly CGM: The past 14 days C GM is active 95% an average blood glucose of 174, glucose variability 26.6%. 59% of blood glucose in target range of 70-180. 34% high from 181-250. 7% very high over 250, . Pen shows elevated blood sugars overnight with drop post-breakfast and then elevation post-dinner Symptoms: + numbness, tingling. 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 Eye exam: last exam 04/2024 Ou-proliferative diabetic retinopathy - stable Laboratory Tests 02/01/21 03/08/21 14:06 16:57 Creatinine 1.27 Estimated GFR 58 Hgb A1c (Clinic) 8.0 H PFSH Medical History Restless legs syndrome (RLS) Hypersomnia Snoring Witnessed apneic spells Allergic rhinitis On anticoagulant therapy Obesity (BMI 30-39.9) Insomnia Vitamin D deficiency Diabetic retinopathy Pure hypercholesterolemia Diabetic polyneuropathy Hearing loss BMI 33.0-33.9,adult Paroxysmal atrial fibrillation CAD (coronary artery disease) Afib GERD (gastroesophageal reflux disease) 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 Essential hypertension Hyperlipidemia LDL goal <100 Surgical History Umbilical hernia (08/22/23) H/O colonoscopy H/O endoscopy History of laparoscopic cholecystectomy History of cataract surgery History of eye surgery History of inguinal hernia repair History of arthroscopy of right shoulder Family History Father Diabetes Mother Alzheimers disease Bone cancer Sister Heart failure Sister Hypertension Sister Diabetes Kidney failure Social History Household Members: Spouse Housing: House Alcohol intake: current Alcohol intake frequency: holidays/special occasions only Alcohol type: beer Patient Tobacco Use Status: Former Tobacco user Tobacco use type: Cigarette Cigarette Packs Per Day: 1.5 Cigarettes Per Day: 30.0 Years Smoked: 25 e-Cigarette/Vaping Use: Never Used Second Hand Smoke Exposure: Yes service: No Current occupational status: employed 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 [employer] Cognitive needs: No Hearing needs: No Vision needs: Yes Physical Exam Vital Signs: Last Vital Signs Pulse 62 01/05/25 09:12 BP 120/72 01/05/25 09:12 Pulse Ox 95 01/05/25 09:12 Oxygen Delivery Method Room Air 01/05/25 09:12 BMI result Body Mass Index 34.0 Results AMB Hemoglobin A1c AMB Hemoglobin A1c 6.9 % Last Edit by Violeta Hammer CMA on 01/05/25 09:35 Results Reviewed Results Reviewed: Laboratory Last Values Glucose (Clinic) 89 mg/dL (60-115) 01/05/25 09:22 Hgb A1c (Clinic) 6.9 % (4.0-6.0) H 01/05/25 09:33 Assessment & Plan Assessment & Plan (1) Type 2 diabetes mellitus with diabetic polyneuropathy: Code(s): E11.42 - Type 2 diabetes mellitus with diabetic polyneuropathy Category: Medical Qualifiers: 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 The plan is to incrase Mounjaro to 5mg Qwkly after completes 4 wks of 2.5 mg . We will have patient follow up with primary care diabetes team in 4 months. Pt never had a definitive dx of pancreatitis but was seen many yrs ago with abd pain. Pt warned to report any abdominal pain immediately. 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
[2025-01-05 09:28] LABS: Glucose, Whole Blood 89 mg/dL (60-115)
--- OUTSIDE RECORDS SUMMARY | 2025-01-05 09:56 | XMS_ITS | Clinical Summary ---
Author Organization [address] Address [address] [place] [id number] Phone Care Team Providers Care Contract Associate Name Role Phone Mehrdad Mon MD Primary Care Provider [phone] Allergies No known active allergies Medications atorvastatin [...] 25 Active blood-glucose meter,continuous (FreeStyle Iris 3 [place]) miscIndications: Type 2 diabetes mellitus with other specified complication, with long-term current use of insulin ([facility] V24, [facility] V28) Check sugars regularly 1 each 04/21/19 25 Active blood-glucose sensor (FreeStyle Iris 3 Sensor) deviceIndication s:Type 2 diabetes mellitus with other specified complication, with long-term current use of insulin ([facility] V24, CMS/HCC V28) Box = Kit = EA, change sensor every 14 days 6 kit 1 04/21/19 25 Active blood-glucose sensor (Dexcom G7 Sensor) deviceIndication s:Type 2 diabetes mellitus without complication, with long-term current use of insulin ([facility] V24, [facility] V28) 1 EA See administration instructions. Change sensor every 10 days. 9 each 1 06/24/19 25 Active Immunizations Immunization Administration Dates Next Due COVID-19 (Moderna) 6mo [...] Health Maintenance Due Date Last Done Comments Colorectal Cancer Screening: Colonoscopy 1960 Zoster Vaccines (1 of 2) 02/07/2010 Pneumococcal Vaccine: 50+ Years (2 of 2 - PCV) 01/03/2019 01/03/2018 RSV Immunization Adult Patients (1 - Risk 60-74 years 1-dose series) 2020 HIV Screening 10/25/2023 Hepatitis C Screening 10/25/2023 [...] Relevant to Health Maintenance Insurance [facility] Care Teams Contract Associate Relationship Specialty Start Date End Date Mehrdad Mon MD [facility] [address] [facility] [place] [address] PCP - General 06/21/11
== END 2025-01-05 09:46 | disposition home or self-care (01) ==
LOC: HO.ENCR 09:05
PROVIDERS: PCP Internal Medicine; Visit Provider Internal Medicine Endocrinology, Diabetes & Metabolism
DX: E11.42 Type 2 diabetes mellitus with diabetic polyneuropathy (principal); Z79.4 Long term (current) use of insulin
CPT/HCPCS: 99214; G2211

== ENCOUNTER → 2025-01-05 09:03 | Outpatient (BNVA) | payer OTHER, SELFPAY | PROVIDERS: PCP Internal Medicine; Visit Provider Internal Medicine Endocrinology, Diabetes & Metabolism | DX: E11.42 Type 2 diabetes mellitus with diabetic polyneuropathy (principal); E11.319 Type 2 diabetes mellitus with unspecified diabetic retinopathy without macular edema; E11.21 Type 2 diabetes mellitus with diabetic nephropathy; R80.9 Proteinuria, unspecified; Z79.4 Long term (current) use of insulin | CPT/HCPCS: 82947; 83036 ==

== ENCOUNTER 2025-01-29 06:06 | Outpatient (REF) | payer OTHER, SELFPAY ==
[2025-01-29 06:39] LABS: MANUAL DIFF FLAG NO
[2025-01-29 07:21] LABS: Hematocrit 34.9 % (42.0-52.0); Hemoglobin 11.5 g/dl (14.0-18.0); Imm Gran Abs Auto 0.02 X10*3/uL (0.00-0.03); Imm Gran Pct Auto 0.4 % (0.0-0.4); Lymphocytes Absolute Auto 1.1 X10*3/uL (1.2-4.9); Mean Corpuscular HGB Conc 33.0 g/dl (31.0-36.0); Mean Corpuscular Hemoglobin 28.3 pg (27.0-33.0); Mean Corpuscular Volume 85.7 fL (80.0-98.0); NRBC Abs Auto 0.000 X10*3/uL (0.0-0.012); NRBC Pct Auto 0.0 /100WBC (0.0-0.2); Platelet Count 130 X10*3/uL (160-400); Red Blood Count 4.07 X10*6/uL (4.60-5.80); White Blood Count 5.1 X10*3/uL (4.8-10.8)
[2025-01-29 07:31] LABS: Appearance Urine Clear; Glucose Urine UA >=1000 mg/dL (Negative); PH 5.5 (5.0-9.0); Specific Gravity - Urine >= 1.030 (1.005-1.025); UMIC TRIGGER UACC YES
[2025-01-29 08:03] LABS: Alanine Aminotransferase 22 U/L (0-40); Albumin Level 4.1 g/dL (3.5-5.0); Alkaline Phosphatase 37 U/L (39-117); Anion Gap 10 (12-20); Aspartate Amino Transferase 28 U/L (5-37); Blood Urea Nitrogen 17 mg/dL (9-16); Calcium 8.9 mg/dL (8.4-10.2); Carbon Dioxide 27 mmol/L (22-29); Chloride 112 mmol/L (96-108); Cholesterol 92 mg/dL (<200); Estimated Glomerular Filt Rate > 60; HDL Cholesterol 31 mg/dL (>40); Potassium 4.5 mmol/L (3.3-5.1); Sodium 144 mmol/L (135-145); Total Protein 6.9 g/dL (6.5-8.0); Triglycerides 136 mg/dL (<150)
[2025-01-29 08:29] LABS: Folate 7.9 ng/mL (> or = 4.0); Vitamin B12 231 pg/mL (200-900)
[2025-01-29 08:30] LABS: Microalbum/Creatinine Ratio Ur 36.2 ug/mg cr (<30)
== END 2025-01-29 06:07 | disposition home or self-care (01) ==
LOC: HO.LAB 06:06
PROVIDERS: PCP Internal Medicine; Visit Provider Internal Medicine
DX: E11.9 Type 2 diabetes mellitus without complications (principal); E78.00 Pure hypercholesterolemia, unspecified; D64.9 Anemia, unspecified; E53.8 Deficiency of other specified B group vitamins; E55.9 Vitamin D deficiency, unspecified; R30.0 Dysuria
CPT/HCPCS: 36415; 80053; 80061; 81001; 82043; 82306; 82570; 82607; 82746; 83036; 84443; 85025

== ENCOUNTER 2025-02-02 09:24 | Outpatient (AMB) | payer MEDICARE, OTHER, SELFPAY ==
--- NOTE | 2025-02-02 09:29 | A.OFFPC_ITS ---
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 Accompanied by: Self / Same As Patient Allergies oxycodone (From PERCOCET) Allergy (Intermediate, Verified 02/02/25 10:14) CONSTIPATED Medication List - Last Reconciled 02/02/25 by Patrick Eden MD Baqsimi 3 mg/actuation (glucagon) 3 mg intranasal ONCE NS blood-glucose sensor (Dexcom G7 Sensor device) As directed cholecalciferol (vitamin D3) 50 mcg PO DAILY 90 days ciclopirox 0.77% 1 appl topical DAILY 4 months dronedarone (Multaq) 400 mg PO BID empagliflozin (Jardiance) 25 mg PO QAM fluticasone propionate 50 mcg/actuation 2 sprays intranasal DAILY 30 days Humalog KwikPen Insulin (insulin lispro) breakfast 16 units, Lunch 26 units, Dinner 28 units, Snack 10 units subcut 4 times a day; No substitutions. 30 days NS lisinopril 20 mg PO DAILY loratadine 10 mg PO DAILY PRN 90 days metformin 1,000 mg PO BID Mounjaro (tirzepatide) 5 mg (0.5 mL) subcut QWEEK NS omeprazole 20 mg PO DAILY 90 days pen needle, diabetic (BD Ultra-Fine Lou Pen Needle) As directed once aday pen needle, diabetic 1 ea miscellaneous five times a day; pregabalin 50 mg PO BEDTIME 30 days rivaroxaban (Xarelto) 20 mg PO DAILY rosuvastatin 20 mg PO DAILY tamsulosin 0.4 mg PO BEDTIME 90 days Tresiba FlexTouch U-200 (insulin degludec) 86 units (0.43 mL) subcut BEDTIME NS Tobacco use date assessed: 02/02/25 Last assessed Fall Risk: 02/02/25 Dental Screening Dental Screen Date: 02/02/25 HPI 3 mnth f/u HPI Details Patient comes in today for his follow up visit States that he feels okay Reports that he lost his balance and fell a few days ago - states that he was able to catch himself from falling over completely by hanging on to his but he still ended up with some bruising/hematoma and contusion over his right thigh area States that he did not hit his head and does not appear to have sustained any other injuries Relates that he was experiencing some cramping pain over his right thigh and right leg a couple of days ago but these have subsided and he now only has (+) pain over the anterior aspect of his right thigh, which still has (+) bruising and is somewhat tender on palpation but states that he is able to walk around with no significant issues He denies any headaches or dizziness Denies any chest pains, no increased SOB No nausea/vomiting, no abdominal pain No change in bowel habits noted He had his follow up labs done a few days ago - to discuss his results [facility] Medical History Restless legs syndrome (RLS) Hypersomnia Snoring Witnessed apneic spells Allergic rhinitis On anticoagulant therapy Obesity (BMI 30-39.9) Insomnia Vitamin D deficiency Diabetic retinopathy Pure hypercholesterolemia Diabetic polyneuropathy Hearing loss BMI 33.0-33.9,adult Paroxysmal atrial fibrillation CAD (coronary artery disease) Afib GERD (gastroesophageal reflux disease) 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 Essential hypertension Hyperlipidemia LDL goal <100 Surgical History Umbilical hernia (08/22/23) H/O colonoscopy H/O endoscopy History of laparoscopic cholecystectomy History of cataract surgery History of eye surgery History of inguinal hernia repair History of arthroscopy of right shoulder Family History Father Diabetes Mother Alzheimers disease Bone cancer Sister Heart failure Sister Hypertension Sister Diabetes Kidney failure Social History Household Members: Spouse Housing: House Alcohol intake: current Alcohol intake frequency: holidays/special occasions only Alcohol type: beer Patient Tobacco Use Status: Former Tobacco user Tobacco use type: Cigarette Cigarette Packs Per Day: 1.5 Cigarettes Per Day: 30.0 Years Smoked: 25 e-Cigarette/Vaping Use: Never Used Second Hand Smoke Exposure: Yes service: No Current occupational status: employed 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 1. Little interest or pleasure in doing things: not at all 2. Feeling down, depressed, or hopeless: not at all 3. Trouble falling or staying asleep, or sleeping too much: not at all 4. Feeling tired or having little energy: several days 5. Poor appetite or overeating: not at all 6. Feeling bad about yourself - or that you are a failure or have let yourself or your family down: not at all 7. Trouble concentrating on things, such as reading the newspaper or watching television: not at all 8. Moving or speaking so slowly that other people could have noticed. Or the opposite - being so fidgety or restless that you have been moving around a lot more than usual: not at all 9. Thoughts that you would be better off or of hurting yourself in some way: not at all Total score: 1 Depression Screening Interpretation: Negative Depression Screening Done: Yes 77448 - PHQ-9 Billing: Yes Source: Developed by Drs. Alex Pack, Iva Zhao, Kd Jones and colleagues, with an educational sonu from [employer]. Thrive Questionnaire Date Thrive assessed: 02/02/25 I am a: Patient What is your living situation today?: I have a steady place to live Within the past 12 months, did the food you bought not last and you didn't have the money to get more?: Never true Within the past 12 months, did you worry whether your food would run out before you got money to buy more?: Never true Do you have trouble paying for medicines?: No Do you have trouble getting transportation to medical appointments?: No Do you have trouble paying your heating and electricity bill?: No Do you have trouble taking care of your child, family member or friend?: No Do you have trouble with day-to-day activities such as bathing, preparing meals, shopping, managing finances, etc.?: No Are you currently unemployed and looking for a job?: No Are you interested in more education?: No Please select the resources that you would like help with: None Currently or been in a relationship where the following occur: No concerns reported THRIVE Score: 0 AUDIT C Alcohol Use Questionnaire (AUDIT-C) 1. How often do you have a drink containing alcohol?: Never 3. How often do you have six or more drinks on one occasion?: Never Total Score: 0 Score Reviewed/Action Taken: Yes HANK-7 AMB Questionnaire HANK-7 Date HANK - 7 assessed: 02/02/25 Feeling nervous, anxious, or on edge: 0 = Not at all Not being able to stop or control worryin = Not at all Worrying too much about different things: 0 = Not at all Trouble relaxin = Not at all Being so restless that it is hard to sit still: 0 = Not at all Becoming easily annoyed or irritable: 0 = Not at all Feeling afraid as if something awful might happen: 0 = Not at all Total HANK-7 score (0-4 normal; 5-9 mild; 10-14 moderate; 15-21 severe): 0 Source: Developed by Drs. Alex Pack, Iva Zhao, Kd Jones and colleagues, with an educational sonu from [employer]. Review of Systems Const Denies chills, Denies fatigue, Denies fever(s) and Denies headache(s) ENT Denies dysphagia, Reports dizziness (on and off dizziness/unsteadiness at times lately ), Denies otalgia, Denies headache(s), Reports hearing loss (in right ear (chronic) - has a hearing aid in his right ear), Denies neck pain, Denies odynophagia and Denies sore throat Card Denies chest pain, Denies palpitations and Denies dyspnea Resp Denies chest congestion, Denies cough and Denies dyspnea GI Denies abdominal pain, Denies constipation, Denies dysphagia, Denies heartburn, Denies diarrhea, Denies nausea, Denies odynophagia and Denies vomiting Denies difficulty urinating, Denies dysuria, Denies nocturia and Denies urinary frequency (improved with Rx) Musc Details: (+) pain over the right thigh, especially anteriorly (see HPI) Denies back pain, Denies neck pain, Reports numbness (on and off in both lower extremities ) and Reports tingling (on and off in both lower extremities ) Skin/Breast Details: (+) bruising over the anterior aspect of the right thigh Denies rash Neuro Reports dizziness (on and off dizziness/unsteadiness at times lately ), Denies headache(s), Reports numbness (on and off in both lower extremities ) and Reports tingling (on and off in both lower extremities ) Psych Reports depression (better controlled at present) Endo Denies fatigue and Denies palpitations Physical exam (Primary Care) Vital Signs: Last Vital Signs Pulse 86 02/02/25 09:30 BP 118/60 02/02/25 09:30 Pulse Ox 94 02/02/25 09:30 Oxygen Delivery Method Room Air 02/02/25 09:30 BMI result Body Mass Index 34.6 Tobacco/Smoking Status: Tobacco use Status Tobacco use date assessed 02/02/25 02/02/25 09:36 Patient Tobacco Use Status Former Tobacco user 02/02/25 09:36 Tobacco use type Cigarette 02/02/25 09:36 e-Cigarette/Vaping Use Never Used 02/02/25 09:36 PHQ-9: PHQ-9 Score PHQ-9: Total score 1 02/02/25 11:19 Depression Screening Interpretation: Negative Thrive Assessment: Date of Thrive Assessment Date Thrive assessed 02/02/25 02/02/25 09:36 Currently or been in a relationship where the following occur: No concerns reported Const General: no acute distress and alert HENMT Other: (+) hearing aid in the right ear Ears: TM's normal bilaterally and EAC's normal Throat: Yes posterior oropharynx normal and Yes tonsils normal (no TP congestion noted) Neck Neck: Yes supple and No lymphadenopathy Thyroid: Thyroid normal Resp Auscultation: clear to auscultation bilaterally, no rales and no wheezes Cardio Rate: regular rate Rhythm: regular rhythm Heart sounds: no murmurs GI Palpation (GI): Soft to palpation and nontender Auscultation: normal bowel sounds General: Yes no CVA tenderness Back/Spine/Pelvis Back: no CVA tenderness Thoracic/Lumbar Spine: No lumbar spinal tenderness Skin Other: (+) ecchymoses/bruising over the anterior aspect of the right thigh Rashes: no rashes Extrem Other: (+) tenderness (with bruising/ecchymoses) noted over the anterior aspect of the right thigh General: Yes no clubbing, cyanosis or edema Results Reviewed Results Reviewed: Laboratory Tests 01/29/25 01/29/25 06:32 06:37 WBC 5.1 Hgb 11.5 L Hct 34.9 L Plt Count 130 L Sodium 144 Potassium 4.5 Estimated GFR > 60 Fasting Glucose 105 H Hemoglobin A1c % 6.3 H Calcium 8.9 D AST 28 ALT 22 Triglycerides 136 Cholesterol 92 LDL Cholesterol, Calc 34 HDL Cholesterol 31 L Vitamin B12 231 25-OH Vitamin D Total 30.9 TSH 1.20 Ur Specific Reading >= 1.030 H Urine Protein Negative Urine Glucose (UA) >=1000 H Urine Blood Negative Urine Nitrite Negative Ur Leukocyte Esterase Negative Microalb/Creat Ratio 36.2 H Coding Level of Care Code Est Pt Level 4 (90256) Diagnoses Type 2 diabetes mellitus with diabetic polyneuropathy, with long-term current use of insulin E11.42; Z79.4 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 Diabetic polyneuropathy associated with type 2 diabetes mellitus E11.42 Diabetes mellitus type: type 2 Diabetic retinopathy of both eyes with macular edema associated with type 2 diabetes mellitus, unspecified retinopathy severity E11.311 Diabetes mellitus macular edema: with macular edema Diabetes mellitus type: type 2 Diabetic retinopathy severity: with unspecified retinopathy severity Laterality: bilateral Pure hypercholesterolemia E78.00 Paroxysmal atrial fibrillation I48.0 Coronary artery disease involving [place] coronary artery of [place] heart without angina pectoris I25.10 Associated angina: without angina Coronary Disease-Associated Artery/Lesion type: [place] artery [place] vs. transplanted heart: [place] heart Essential hypertension I10 At risk for obstructive sleep apnea Z91.89 Vitamin D deficiency E55.9 Gastroesophageal reflux disease without esophagitis K21.9 Esophagitis presence: without esophagitis Allergic rhinitis, unspecified seasonality, unspecified trigger J30.9 Allergic rhinitis seasonality: unspecified Allergic rhinitis trigger: unspecified Benign prostatic hyperplasia (BPH) with straining on urination N40.1; R39.16 Insomnia, unspecified type G47.00 Insomnia type: unspecified Depression, unspecified depression type F32.A Depression Type: unspecified Obesity (BMI 30-39.9) E66.9 Additional Codes PHQ-9 - 67145 - PHQ-9 Billing: Yes ([id number]) Assessment & Plan Assessment & Plan (1) Type 2 diabetes mellitus with diabetic polyneuropathy: Code(s): E11.42 - Type 2 diabetes mellitus with diabetic polyneuropathy Category: Medical Qualifiers: 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 Qualified Code(s): E11.42 - Type 2 diabetes mellitus with diabetic polyneuropathy; 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 Plan: His HgbA1c was at 6.3% on his labs done a few days ago (he was previously at 6.8% a few months ago) - goal is <7.0% Reinforced diabetic diet Continue Metformin 1000 mg BID, Jardiance 25 mg QD, Mounjaro 5 mg subcutaneous injection once a week, Tresiba 86 units daily and Humalog 16 units for breakfast, 26 units for lunch, 28 units for dinner with 10 units for snacks Follow up with [facility] as scheduled (2) Diabetic polyneuropathy: Code(s): E11.42 - Type 2 diabetes mellitus with diabetic polyneuropathy Category: Medical Qualifiers: Diabetes mellitus type: type 2 Qualified Code(s): E11.42 - Type 2 diabetes mellitus with diabetic polyneuropathy Plan: EMG & NCV done on 11/26/2019 revealed (+) 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 Repeat EMG and NCV in April 2023 revealed similar findings - (+) 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 Continue Pregabalin 50 mg Q HS (3) Diabetic retinopathy: Code(s): E11.319 - Type 2 diabetes mellitus with unspecified diabetic retinopathy without macular edema Category: Medical Qualifiers: Diabetes mellitus macular edema: with macular edema Diabetes mellitus type: type 2 Diabetic retinopathy severity: with unspecified retinopathy severity Laterality: bilateral Qualified Code(s): 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 Plan: Reinforced tight glucose control to slow down disease progression Follow up with ophthalmology as scheduled (4) Pure hypercholesterolemia: Code(s): E78.00 - Pure hypercholesterolemia, unspecified Category: Medical Plan: Results of his labs done a few days ago reviewed and discussed with patient Reinforced low-cholesterol diet Continue Rosuvastatin 20 mg QD Will recheck his labs and fasting lipids in 4 months for follow-up (5) Paroxysmal atrial fibrillation: Code(s): I48.0 - Paroxysmal atrial fibrillation Category: Medical Plan: Patient currently remains in (normal) sinus rhythm - he appears to have responded very well to rhythm control approach and his highly symptomatic paroxysmal atrial fibrillation have remained suppressed with Multaq Continue Multaq 400 mg BID; continue Xarelto 20 mg QD for thromboembolism prophylaxis He is currently getting EKGs done every 3 months and echocardiogram every 6 months for follow-up and monitoring Follow-up with cardiology as scheduled (6) CAD (coronary artery disease): Comment: Cardiac catheterization, 2018, mid LAD 70% and RPL 70%. Remainder of the vessels had nonobstructive disease Code(s): I25.10 - Atherosclerotic heart disease of [place] coronary artery without angina pectoris Category: Medical Qualifiers: Associated angina: without angina Coronary Disease-Associated Artery/Lesion type: [place] artery [place] vs. transplanted heart: [place] heart Qualified Code(s): I25.10 - Atherosclerotic heart disease of [place] coronary artery without angina pectoris Plan: Patient remains asymptomatic with no recent angina symptoms He is currently anticoagulated with Xarelto Continue with aggressive risk factor(s) reduction for primary prevention Follow-up with cardiology as scheduled (7) Essential hypertension: Code(s): I10 - Essential (primary) hypertension Category: Medical Plan: Reinforced low sodium diet - goal is systolic BP of 120 to 130 mm or less Continue Lisinopril 20 mg QD (8) At risk for obstructive sleep apnea: Code(s): Z91.89 - Other specified personal risk factors, not elsewhere classified Category: Medical Plan: Per recommendation of anesthesiologist during his hernia surgery in July 2023, he was referred to Sleep Medicine for evaluation for possible obstructive sleep apnea A sleep study was attempted earlier this year but he could not fall asleep and the study was cancelled States that he has an appointment now scheduled to see Sleep Medicine in March 2025 to help further address this and see if he can somehow get a sleep study done for further evaluation (9) Vitamin D deficiency: Code(s): E55.9 - Vitamin D deficiency, unspecified Category: Medical Plan: Continue Vitamin D3 2000 units QD (10) GERD (gastroesophageal reflux disease): Code(s): K21.9 - Gastro-esophageal reflux disease without esophagitis Category: Medical Qualifiers: Esophagitis presence: without esophagitis Qualified Code(s): K21.9 - Gastro-esophageal reflux disease without esophagitis Plan: Dietary restrictions reinforced Continue Omeprazole 20 mg QD (11) Allergic rhinitis: Code(s): J30.9 - Allergic rhinitis, unspecified Category: Medical Qualifiers: Allergic rhinitis seasonality: unspecified Allergic rhinitis trigger: unspecified Qualified Code(s): J30.9 - Allergic rhinitis, unspecified Plan: Continue Loratadine 10 mg QD PRN AND Fluticasone 50 mcg nasal spray QD PRN (12) Benign prostatic hyperplasia (BPH) with straining on urination: Code(s): N40.1 - Benign prostatic hyperplasia with lower urinary tract symptoms; R39.16 - Straining to void Category: Medical Plan: Most likely due to BPH; states that his symptoms have also been controlled on Rx Continue Tamsulosin 0.4 mg Q HS (13) Insomnia: Code(s): G47.00 - Insomnia, unspecified Category: Medical Qualifiers: Insomnia type: unspecified Qualified Code(s): G47.00 - Insomnia, unspe cified Plan: Sleep hygiene reinforced He used to take Trazodone 50 mg Q HS PRN but unclear at this time as to why he is no longer on it Can try him on this again for his sleep study when it is rescheduled (14) Depression: Code(s): F32.A - Depression, unspecified Category: Medical Qualifiers: Depression Type: unspecified Qualified Code(s): F32.A - Depression, unspecified Plan: Have offered to start patient on Rx for his depression and refer him to psychiatry previously but he declined Feels that he is currently doing much better on this and does not need anything else at this time for his mood disorder (15) Obesity (BMI 30-39.9): Code(s): E66.9 - Obesity, unspecified Category: Medical Plan: Reinforced diet/exercise as tolerated/lose weight Plan Follow up in 4 months Orders: Orders Complete Blood Count Auto Diff 4 Months D64.9 - Anemia, unspecified Microalbumin, Random (w Creat) 4 Months E11.9 - Type 2 diabetes mellitus without complications TSH reflex Free T4 4 Months E78.00 - Pure hypercholesterolemia, unspecified UA CC w/rflx Micro + Cult 4 Months R30.0 - Dysuria Vitamin D 25-OH Total 4 Months E55.9 - Vitamin D deficiency, unspecified Comprehensive [place]. Panel Fast 4 Months E78.00 - Pure hypercholesterolemia, u nspecified Lipid Panel 4 Months E78.00 - Pure hypercholesterolemia, unspecified Hemoglobin A1c 4 Months E11.9 - Type 2 diabetes mellitus without complications
[2025-02-02 09:30] VITALS: BP 118/60; PULSE 86; O2SAT 94; BMI 34.6
--- OUTSIDE RECORDS SUMMARY | 2025-02-02 10:22 | XMS_ITS | Encounter Summary ---
Author Organization [facility] Address [id number] [place] [id number] Care Team Providers Care Nurse Rn Bsn Name Role Phone Mehrdad Mon MD Primary Care Provider [phone] Reason for Visit * Reason Onset Date Comments prior auth 01/28/2025 Encounter Details Date Type Department Care Team (Late st Contact Info) Description 01/28/2025 Telephone Endocrinology - [place] [address] [place] [phone] Luann May PA [address] [place] [address] Social History Tobacco Use Types Packs/Day Years Used Date Smoking Tobacco: Never Smokeless Tobacco: Never Alcohol Use Standard Drinks/Week Comments Never 0 (1 standard drink = 0.6 oz pur e alcohol) Sex and Gender Information Value Date Recorded Sex Assigned at Not on file Legal Sex Male 11:02 AM EDT Gender Identity Not on file Sexual Orientation Not on file documented as of this encounter Progress Notes * Medina Hennessy RN - 02/01/2025 2:12 PM EST Additional Information Required Your PA has been resolved, no additional PA is required. For further inquiries please contact the number on the back of the member prescription card. (Message [phone]) Called the pharmacy no PA needed Pt picked up on 01/27 * Elsa Mcnally MA - 02/01/2025 10:24 AM EST Pa SUBMITTED VIA [employer]-WAITING FOR RESPOSE * Vianney Stephenson - 01/28/2025 12:20 PM EDT Endocrine Call Primary endocrine provider: Luann May PA-C Is the endocrine provider in the office toady?: yes Who is calling? [facility]. If not the patient or parent/guardian please check for authorization to share/verbal release. Why is the person calling? Prior authorization. Insulin pumps or CGM (Iris or Dexcom). Please forward to endocrine pool (p [phone]). Medication: Dexcom G7 SENSOR CMM CODE: [id number] documented in this encounter Plan of Treatment Not on file documented as of this encounter Visit Diagnoses Not on filedocumented in this encounter Care Teams Nurse Rn Bsn Relationship Specialty Start Date End Date Mehrdad Mon MD [address] [place] [address] Dr [address] [facility] [place] [address] PCP - General 06/21/11 documented as of this encounter
--- OUTSIDE RECORDS SUMMARY | 2025-02-02 10:22 | XMS_ITS | Clinical Summary ---
Author Organization [address] Address [address] [place] [phone] Phone Care Team Providers Care [facility] Nurse Name Role Phone Mehrdad Mon MD Primary Care Provider [phone] Allergies No known active allergies Medications atorvastatin (LIPITOR) 40 mg tablet Take 1 tablet (40 mg total) by mouth. 018 Active Multaq 400 mg tablet Take 1 tablet (400 mg total) by mouth 2 (two) times a day. 024 Active Trulicity 1.5 mg/0.5 mL pen injector injection Inject 0.5 mL (1.5 mg total) under the skin every 7 (seven) days. 024 Active Jardiance 25 mg tablet Take 1 tablet (25 mg total) by mouth 1 (one) time each day in the morning. 024 Active insulin degludec (TRESIBA FlexTouch U-200) 200 unit/mL (3 mL) CONCENTRATED injection penIndications: Type 2 diabetes mellitus with other specified complication, with long-term current use of insulin (CMS/HCC V24, CMS/HCC V28) Inject 86 Units under the skin at bedtime. 90 mL 2 025 Active insulin lispro (HumaLOG KwikPen) 100 unit/mL injection penIndications: Type 2 diabetes mellitus with other specified complication, with long-term current use of insulin (CMS/HCC V24, CMS/HCC V28) Three times a day before meals, as directed up to 75 units day 75 mL 2 025 Active blood-glucose meter,continuou s (FreeStyle Iris 3 [place]) miscIndications :Type 2 diabetes mellitus with other specified complication, with long-term current use of insulin (CMS/FORMERLY [facility] V24, CMS/FORMER[facility] V28) Check sugars regularly 1 each Active blood-glucose sensor (Dexcom G7 Sensor)Indicati ons:Type 2 diabetes mellitus without complication, with long-term current use of insulin (CMS/HCC V24, CMS/HCC V28) Apply 1 sensor and change every 10 days. Change sensor every 10 days. 9 each Active blood-glucose sensor (FreeStyle Iris 3 Sensor) deviceIndicatio ns:Type 2 diabetes mellitus with other specified complication, with long-term current use of insulin (CMS/[facility] V24, CMS/FORMER[facility] V28) Box = Kit = EA, change sensor every 14 days 6 kit 1 025 2024 Discontinued blood-glucose sensor (Dexcom G7 Sensor) deviceIndicatio ns:Type 2 diabetes mellitus without complication, with long-term current use of insulin ([facility]/FORMERLY [facility] V24, CMS/FORMERLY [facility] V28) 1 EA See administration instructions. Change sensor every 10 days. 9 each 1 025 2024 Discontinued(Deidra garcia) Encounters Date Type Department Care Team Description 01/28/2025 Telephone Endocrinology [id number] [place] [id number] Luann May PA from Last 3 Months Immunizations Immunization Administration Dates Next Due COVID-19 [...] Done Comments Colorectal Cancer Screening: Colonoscopy 1960 Diabetes: Annual GFR (Glomerular Filtration Rate) 1960 Diabetes: Annual Foot Exam 02/07/1970 Diabetes: Annual Retina Eye Exam 02/07/1970 RSV Immunization Adult Patients (1 - Risk 50-74 years 1-dose series) 02/07/2010 Zoster Vaccines (1 of 2) 02/07/2010 Pneumococcal Vaccine: 50+ Years (2 of 2 - PCV) 01/03/2019 01/03/2018 HIV Screening 10/25/2023 Hepatitis C Screening 10/25/2023 Social Influencers of Health Screening 10/25/2023 Depression Screening 04/01/2024 Influenza Vaccine (#1) 2024 , 01/22/2023, 01/15/2022, Additional history exists Diabetes: Annual Urine Albumin-Creatinine Ratio (uACR) 01/25/2025 10/22/2023 Diabetes: Blood Sugar Control Test (HGBA1C) 01/25/2025 10/22/2023 Cholesterol Screening (Lipid Panel) 10/21/2028 10/22/2023 [...] (10/22/2023) HM Urine Albumin Creatinine Ratio abstracted [facility] Provider HEALTH MAINTENANCE Final Result * Hemoglobin A1c (10/22/2023) Hemoglobin A1C 0.0 % Comment:no interpretation Blood Venous blood specimen / Unknown [facility] Provider LAB BLOOD ORDERABLES Martha l Result * Lipid panel (10/22/2023) Triglycerides 0 mg/dL Comment:no interpretation Cholesterol 0 mg/dL Comment:no interpretation HDL 0 mg/dL Comment:no interpretation LDL Cholesterol 0 mg/dL Comment:no interpretation Blood Venous blood specimen / Unknown [facility] Provider LAB BLOOD ORDERABLES Martha l Result from Last 3 Months or Most Recently Relevant to Health Maintenance Insurance [facility] Care Teams [facility] Nurse Relationship Specialty Start Date End Date Mehrdad Mon MD [address] [facility] [address] [facility] [place] [address] PCP - General 06/21/11
== END 2025-02-02 10:24 | disposition home or self-care (01) ==
LOC: HO.HMCH 09:24
PROVIDERS: PCP Internal Medicine; Visit Provider Internal Medicine
DX: E11.42 Type 2 diabetes mellitus with diabetic polyneuropathy (principal); Z79.4 Long term (current) use of insulin; E11.311 Type 2 diabetes mellitus with unspecified diabetic retinopathy with macular edema; I48.0 Paroxysmal atrial fibrillation; E78.00 Pure hypercholesterolemia, unspecified; I25.10 Atherosclerotic heart disease of native coronary artery without angina pectoris; I10 Essential (primary) hypertension; Z91.89 Other specified personal risk factors, not elsewhere classified; E55.9 Vitamin D deficiency, unspecified; K21.9 Gastro-esophageal reflux disease without esophagitis; J30.9 Allergic rhinitis, unspecified; N40.1 Benign prostatic hyperplasia with lower urinary tract symptoms

== ENCOUNTER → 2025-02-02 09:24 | Outpatient (BNVA) | payer MEDICARE, OTHER, SELFPAY | PROVIDERS: PCP Internal Medicine; Visit Provider Internal Medicine | DX: E11.42 Type 2 diabetes mellitus with diabetic polyneuropathy (principal); E11.311 Type 2 diabetes mellitus with unspecified diabetic retinopathy with macular edema; E78.00 Pure hypercholesterolemia, unspecified; I48.0 Paroxysmal atrial fibrillation; I25.10 Atherosclerotic heart disease of native coronary artery without angina pectoris; I10 Essential (primary) hypertension; E55.9 Vitamin D deficiency, unspecified; Z91.89 Other specified personal risk factors, not elsewhere classified; K21.9 Gastro-esophageal reflux disease without esophagitis; J30.9 Allergic rhinitis, unspecified; N40.1 Benign prostatic hyperplasia with lower urinary tract symptoms; R39.16 Straining to void; G47.00 Insomnia, unspecified; F32.A Depression, unspecified; E66.9 Obesity, unspecified; Z68.34 Body mass index [BMI] 34.0-34.9, adult; Z71.3 Dietary counseling and surveillance | CPT/HCPCS: 96127; 99212 ==

== ENCOUNTER 2025-02-10 14:58 | Outpatient (AMB) | payer MEDICARE, OTHER, SELFPAY ==
[2025-02-10 15:04] VITALS: BP 110/62; PULSE 69; O2SAT 96; BMI 33.7
--- NOTE | 2025-02-10 15:04 | A.OFFPC_ITS ---
Vital Signs 02/10/25 15:04 Height 5 ft 6 in Weight 209 lb 2 oz BMI 33.7 BP 110/62 Blood Pressure Location Lt brachial Position Sitting Pulse 69 Pulse Source Pulse Oximeter Pulse Oximetry (%) 96 Oxygen Delivery Method Room Air Intake Visit Reasons: swollen ankles Facilities Flight Check Pilot Required: No Accompanied by: Self / Same As Patient Allergies oxycodone (From PERCOCET) Allergy (Intermediate, Verified 02/15/25 01:56) CONSTIPATED Medication List - Last Reconciled 02/15/25 by Patrick Eden MD Baqsimi 3 mg/actuation (glucagon) 3 mg intranasal ONCE NS blood-glucose sensor (Dexcom G7 Sensor device) As directed cholecalciferol (vitamin D3) 50 mcg PO DAILY 90 days ciclopirox 0.77% 1 appl topical DAILY 4 months dronedarone (Multaq) 400 mg PO BID empagliflozin (Jardiance) 25 mg PO QAM fluticasone propionate 50 mcg/actuation 2 sprays intranasal DAILY 30 days Humalog KwikPen Insulin (insulin lispro) breakfast 16 units, Lunch 26 units, Dinner 28 units, Snack 10 units subcut 4 times a day; No substitutions. 30 days NS lisinopril 20 mg PO DAILY loratadine 10 mg PO DAILY PRN 90 days metformin 1,000 mg PO BID Mounjaro (tirzepatide) 5 mg (0.5 mL) subcut QWEEK NS omeprazole 20 mg PO DAILY 90 days pen needle, diabetic (BD Ultra-Fine Lou Pen Needle) As directed once aday pen needle, diabetic 1 ea miscellaneous five times a day; pregabalin 50 mg PO BEDTIME 30 days rivaroxaban (Xarelto) 20 mg PO DAILY rosuvastatin 20 mg PO DAILY tamsulosin 0.4 mg PO BEDTIME 90 days Tresiba FlexTouch U-200 (insulin degludec) 86 units (0.43 mL) subcut BEDTIME NS Tobacco use date assessed: 02/10/25 Fall risk assessment: 1 Fall in past year Last assessed Fall Risk: 02/10/25 Dental Screening Dental Screen Date: 02/10/25 Did you have a dental visit in the last 12 months?: No Did you have a dental problem in the last 6 months where you did not have access to dental care?: No Was dental information given to patient?: No HPI swollen ankles HPI Details Patient comes in today for evaluation of some swelling on his right ankle lately His daughter noted the swelling on his right lower leg and ankle recently and she is concerned about the possibility of a blood clot in his leg Patient reportedly sustained a fall about a week ago and he recalls landing on his right knee and he somehow sustained what appears to be a soft tissue hematoma over his right thigh, which he states feels sore and is slightly tender to touch but does not have any external bruising evident States that he did not hit his head when he fell Patient notes that his right thigh pain has been gradually decreasing over the past week His reported right ankle and foot swelling also appears to have mostly subsided at present He denies any increased SOB or chest pains lately No other acute complaints or symptoms are noted [facility] Medical History Restless legs syndrome (RLS) Hypersomnia Snoring Witnessed apneic spells Allergic rhinitis On anticoagulant therapy Obesity (BMI 30-39.9) Insomnia Vitamin D deficiency Diabetic retinopathy Pure hypercholesterolemia Diabetic polyneuropathy Hearing loss BMI 33.0-33.9,adult Paroxysmal atrial fibrillation CAD (coronary artery disease) Afib GERD (gastroesophageal reflux disease) 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 Essential hypertension Hyperlipidemia LDL goal <100 Surgical History Umbilical hernia (08/22/23) H/O colonoscopy H/O endoscopy History of laparoscopic cholecystectomy History of cataract surgery History of eye surgery History of inguinal hernia repair History of arthroscopy of right shoulder Family History Father Diabetes Mother Alzheimers disease Bone cancer Sister Heart failure Sister Hypertension Sister Diabetes Kidney failure Social History Household Members: Spouse Housing: House Alcohol intake: current Alcohol intake frequency: holidays/special occasions only Alcohol type: beer Patient Tobacco Use Status: Former Tobacco user Tobacco use type: Cigarette Cigarette Packs Per Day: 1.5 Cigarettes Per Day: 30.0 Years Smoked: 25 e-Cigarette/Vaping Use: Never Used Second Hand Smoke Exposure: Yes service: No Current occupational status: employed 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 1. Little interest or pleasure in doing things: not at all 2. Feeling down, depressed, or hopeless: not at all 3. Trouble falling or staying asleep, or sleeping too much: not at all 4. Feeling tired or having little energy: several days 5. Poor appetite or overeating: not at all 6. Feeling bad about yourself - or that you are a failure or have let yourself or your family down: not at all 7. Trouble concentrating on things, such as reading the newspaper or watching television: not at all 8. Moving or speaking so slowly that other people could have noticed. Or the opposite - being so fidgety or restless that you have been moving around a lot more than usual: not at all 9. Thoughts that you would be better off or of hurting yourself in some way: not at all Total score: 1 Depression Screening Interpretation: Negative Depression Screening Done: Yes [address]0528 - PHQ-9 Billing: Yes Source: Developed by Drs. Alex Pack, Iva Zhao, Kd Jones and colleagues, with an educational sonu from [employer] ([employer]). Thrive Questionnaire Date Thrive assessed: 02/10/25 I am a: Patient What is your living situation today?: I have a steady place to live Within the past 12 months, did the food you bought not last and you didn't have the money to get more?: Never true Within the past 12 months, did you worry whether your food would run out before you got money to buy more?: Never true Do you have trouble paying for medicines?: No Do you have trouble getting transportation to medical appointments?: No Do you have trouble paying your heating and electricity bill?: No Do you have trouble taking care of your child, family member or friend?: No Do you have trouble with day-to-day activities such as bathing, preparing meals, shopping, managing finances, etc.?: No Are you currently unemployed and looking for a job?: No Are you interested in more education?: No Please select the resources that you would like help with: None Currently or been in a relationship where the following occur: No concerns reported THRIVE Score: 0 AUDIT C Alcohol Use Questionnaire (AUDIT-C) 1. How often do you have a drink containing alcohol?: Never 3. How often do you have six or more drinks on one occasion?: Never Total Score: 0 Score Reviewed/Action Taken: Yes HANK-7 AMB Questionnaire HANK-7 Date HANK - 7 assessed: 02/10/25 Feeling nervous, anxious, or on edge: 0 = Not at all Not being able to stop or control worryin = Not at all Worrying too much about different things: 0 = Not at all Trouble relaxin = Not at all Being so restless that it is hard to sit still: 0 = Not at all Becoming easily annoyed or irritable: 0 = Not at all Feeling afraid as if something awful might happen: 0 = Not at all Total HANK-7 score (0-4 normal; 5-9 mild; 10-14 moderate; 15-21 severe): 0 Source: Developed by Drs. Alex Pack, Iva Zhao, Kd Jones and colleagues, with an educational sonu from [employer] ([employer]). Review of Systems Const Denies chills, Denies fatigue, Denies fever(s) and Denies headache(s) ENT Denies dysphagia, Denies dizziness, Denies otalgia, Denies headache(s), Reports hearing loss (in right ear (chronic) - has a hearing aid in his right ear), Denies neck pain, Denies odynophagia and Denies sore throat Card Denies chest pain, Denies palpitations and Denies dyspnea Resp Denies chest congestion, Denies cough and Denies dyspnea GI Denies abdominal pain, Denies constipation, Denies dysphagia, Denies heartburn, Denies diarrhea, Denies nausea, Denies odynophagia and Denies vomiting Denies difficulty urinating, Denies dysuria, Denies nocturia and Denies urinary frequency (improved with Rx) Musc Details: (+) mild pain over the right thigh anteriorly (see HPI) Denies back pain, Denies neck pain, Reports numbness (on and off in both lower extremities) and Reports tingling (on and off in both lower extremities) Skin/Breast Denies rash Neuro Denies dizziness, Denies headache(s), Reports numbness (on and off in both lower extremities) and Reports tingling (on and off in both lower extremities) Psych Reports depression (better controlled at present) Endo Denies fatigue and Denies palpitations Physical exam (Primary Care) Vital Signs: Last Vital Signs Pulse 69 02/10/25 15:04 BP 110/62 02/10/25 15:04 Pulse Ox 96 02/10/25 15:04 Oxygen Delivery Method Room Air 02/10/25 15:04 BMI result Body Mass Index 33.7 Tobacco/Smoking Status: Tobacco use Status Tobacco use date assessed 02/10/25 02/10/25 15:06 Patient Tobacco Use Status Former Tobacco user 02/10/25 15:06 Tobacco use type Cigarette 02/10/25 15:06 e-Cigarette/Vaping Use Never Used 02/10/25 15:06 PHQ-9: PHQ-9 Score PHQ-9: Total score 1 02/10/25 16:21 Depression Screening Interpretation: Negative Thrive Assessment: Date of Thrive Assessment Date Thrive assessed 02/10/25 02/10/25 15:06 Currently or been in a relationship where the following occur: No concerns reported Const General: no acute distress and alert HENMT Other: (+) hearing aid in the right ear Throat: Yes posterior oropharynx normal and Yes tonsils normal (no TP congestion noted) Neck Neck: Yes supple and No lymphadenopathy Thyroid: Thyroid normal Resp Auscultation: clear to auscultation bilaterally, no rales and no wheezes Cardio Rate: regular rate Rhythm: regular rhythm Heart sounds: no murmurs GI Palpation (GI): Soft to palpation and nontender Auscultation: normal bowel sounds General: Yes no CVA tenderness Back/Spine/Pelvis Back: no CVA tenderness Thoracic/Lumbar Spine: No lumbar spinal tenderness Skin Rashes: no rashes Extrem Other: (+) tenderness over the anterior aspect of the right thigh General: Yes no clubbing, cyanosis or edema Coding Level of Care Code Est Pt Level 3 (29556) Diagnoses Swelling of right lower extremity M79.89 Traumatic hematoma of right thigh, sequela S70.11XS Encounter type: sequela Additional Codes PHQ-9 - 25924 - PHQ-9 Billing: Yes ([id number]) Assessment & Plan Assessment & Plan (1) Swelling of right lower extremity: Code(s): M79.89 - Other specified soft tissue disorders Category: Medical Plan: This appears to be mostly resolved at present as patient currently has no significant edema noted on his right lower leg distally and on the right ankle and right foot Have reassured patient's daughter that his recent edema was most likely dependent edema and it is not consistent with a DVT, which she is concerned about Have reassured them as well that patient's recent lab results from a couple weeks ago revealed normal kidney function so his recent edema is also likely not due to any issues with his kidneys (2) Traumatic hematoma of right thigh: Code(s): S70.11XA - Contusion of right thigh, initial encounter Category: Medical Qualifiers: Encounter type: sequela Qualified Code(s): S70.11XS - Contusion of right thigh, sequela Plan: Gradually resolving/improving Patient is instructed to continue applying some warm compress over his anterior right thigh PRN for symptomatic relief and to help expedite resolution of his right thigh hematoma and bruising Plan Follow up as scheduled in May 2025
== END 2025-02-10 16:22 | disposition home or self-care (01) ==
LOC: HO.HMCH 14:59
PROVIDERS: PCP Internal Medicine; Visit Provider Internal Medicine
DX: M79.89 Other specified soft tissue disorders (principal); S70.11XS Contusion of right thigh, sequela

== ENCOUNTER → 2025-02-10 14:58 | Outpatient (BNVA) | payer MEDICARE, OTHER, SELFPAY | PROVIDERS: PCP Internal Medicine; Visit Provider Internal Medicine | DX: R60.0 Localized edema (principal); S70.11XS Contusion of right thigh, sequela | CPT/HCPCS: 96127; 99212 ==

== ENCOUNTER 2025-03-01 13:48 | Outpatient (REF) | payer MEDICARE, OTHER, SELFPAY ==
--- NOTE | ~2025-03-01 | US_ITS ---
EXAMINATION: US NONINVASIVE ASSESSMENT OF THE BILATERAL LOWER EXTREMITY CLINICAL INFORMATION: Peripheral vascular disease COMPARISON: None available. TECHNIQUE: Duplex Doppler techniques with waveform analysis and measurement of velocities in the common femoral, profunda femoris, superficial femoral, popliteal and tibial arteries were performed. The study was performed only at rest. FINDINGS: RIGHT LOWER EXTREMITY DUPLEX ULTRASOUND: Mild vessel wall calcification. Common femoral artery: 129 cm/s. Diastolic flow reversal: Biphasic Profunda femoris artery: 129 cm/s. Diastolic flow reversal: Biphasic Superficial femoral artery (proximal): 118 cm/s. Diastolic flow reversal: Biphasic Superficial femoral artery (mid): 118 cm/s. Diastolic flow reversal: Biphasic Superficial femoral artery (distal): 76 cm/s. Diastolic flow reversal: Biphasic Popliteal artery: 98 cm/s Diastolic flow reversal: Biphasic Posterior tibial artery: 148 cm/s Diastolic flow reversal: Biphasic LEFT LOWER EXTREMITY DUPLEX ULTRASOUND: Mild vessel wall calcification. Common femoral artery: 140 cm/s. Diastolic flow reversal: Biphasic Profunda femoris artery: 108 cm/s. Diastolic flow reversal: Biphasic Superficial femoral artery (proximal): 111 cm/s. Diastolic flow reversal: Biphasic Superficial femoral artery (mid): 142 cm/s. Diastolic flow reversal: Biphasic Superficial femoral artery (distal): 90 cm/s. Diastolic flow reversal: Biphasic Popliteal artery: 109 cm/s Diastolic flow reversal: Biphasic Posterior tibial artery: 155 cm/s Diastolic flow reversal: Biphasic US/US arterial duplex LE BI IMPRESSION: Diffuse mild vessel wall calcification. Mild atherosclerotic disease based on slightly elevated peak systolic velocities and biphasic waveforms throughout. No visible stenosis appreciated. Electronically signed by: Danielle Norman MD 03/01/2025 03:36 PM [facility]
== END 2025-03-01 13:49 | disposition home or self-care (01) ==
LOC: HO.US 13:48
PROVIDERS: PCP Internal Medicine; Visit Provider Student in an Organized Health Care Education/Training Program
DX: I73.9 Peripheral vascular disease, unspecified (principal)
CPT/HCPCS: 93925

== ENCOUNTER → 2025-03-01 13:51 | Outpatient (BNV) | payer MEDICARE, OTHER, SELFPAY | PROVIDERS: PCP Internal Medicine; Visit Provider Radiology Diagnostic Radiology | DX: I73.9 Peripheral vascular disease, unspecified (principal) | CPT/HCPCS: 93925 ==

== ENCOUNTER 2025-03-10 09:13 | Outpatient (AMB) | payer MEDICARE, OTHER, SELFPAY ==
[2025-03-10 09:16] VITALS: BMI 33.7
--- NOTE | 2025-03-10 09:16 | MHC.OFFVIS ---
Vital Signs 03/10/25 09:16 Height 5 ft 6 in Weight 209 lb BMI 33.7 Intake Visit Reasons: Follow up on arterial ultrasound test Intake Note: Abdoulaye is a 65 year old male who presents to the office today for a follow up arterial ultrasound. Pt states he is doing well with no further concerns at this time. Allergies oxycodone (From PERCOCET) Allergy (Intermediate, Verified 03/10/25 09:19) CONSTIPATED HPI HPI Follow up on arterial ultrasound test: Details: 64-year-old male with past medical history of diabetes mellitus type 2, coronary artery disease, hypertension, hyperlipidemia, GERD, obesity, returns for diabetic foot evaluation and discolored toenails. He notes improvement in his nerve pain in his feet, particularly after starting pregabalin. He denies any cramping or calf pain to his legs when walking. He has been applying the topical antifungal medication which he states has been helping in treated most of most of his fungal nails other than left big toenail. History: Patient endorses complaints of tingling to his feet bilaterally, that gets worse when sitting with his legs up or when getting up after sitting for awhile. He denies any symptoms of burning, numbness, or shooting pain to his legs. He notes a history of burning symptoms to his feet and then was started on pregabalin which states has helped treat most of his nerve pain symptoms that he would experience at nighttime. He also notes a history of lower back pain, does not see a spine surgeon. Also states he has symptoms of sciatica. The patient is also complaining of discolored left big toenail. He states that he had injured his left toe and the entire nail had fallen off approximately 1 year ago. When the nail grew back, it grew back discolored and thickened. Has tried [id number]-[id number] medications which have not helped thus far. Patient states he is not able to trim his own toenails due to his lower back pain and inability to bend over. [facility] Medical History Restless legs syndrome (RLS) Hypersomnia Snoring Witnessed apneic spells Allergic rhinitis On anticoagulant therapy Obesity (BMI 30-39.9) Insomnia Vitamin D deficiency Diabetic retinopathy Pure hypercholesterolemia Diabetic polyneuropathy Hearing loss BMI 33.0-33.9,adult Paroxysmal atrial fibrillation CAD (coronary artery disease) Afib GERD (gastroesophageal reflux disease) 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 Essential hypertension Hyperlipidemia LDL goal <100 Surgical History Umbilical hernia (08/22/23) H/O colonoscopy H/O endoscopy History of laparoscopic cholecystectomy History of cataract surgery History of eye surgery History of inguinal hernia repair History of arthroscopy of right shoulder Family History Father Diabetes Mother Alzheimers disease Bone cancer Sister Heart failure Sister Hypertension Sister Diabetes Kidney failure Social History Household Members: Spouse Housing: House Alcohol intake: current Alcohol intake frequency: holidays/special occasions only Alcohol type: beer Patient Tobacco Use Status: Former Tobacco user Tobacco use type: Cigarette Cigarette Packs Per Day: 1.5 Cigarettes Per Day: 30.0 Years Smoked: 25 e-Cigarette/Vaping Use: Never Used Second Hand Smoke Exposure: Yes service: No Current occupational status: employed 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 Biphasic PT artery to the right foot, monophasic DP to the right foot., CFT<3s to digits, TG warm to cool, no pedal edema, pedal hair absent Derm: Skin: No open lesions, ulcerations, or calluses. Interdigital spaces: Clear, no maceration or fungal infection. Nails: Thickened discolored elongated left hallux toenail with proximal clearing, ecchymosis underneath the nail plate to the left 2nd and 3rd toe, yellow discoloration without thickening to the right hallux nail. Elongated nails atx 10 bilaterally. Neuro: Eidson-alayna monofilament (10g) test 10/10 intact to right foot, 9/10 intact to left foot. Msk: Deformities: No evidence of hammertoes, bunions, Charcot changes, or other structural abnormalities. Muscle strength: 5/5 in all muscle groups. Gait: Normal, no antalgic or steppage gait observed. Footwear Assessment: Shoes inspected; appropriate fit, no excessive wear, or foreign objects noted. Results Reviewed Results Reviewed: Date of Service: 03/01/25 Procedure(s): US arterial duplex LE BI IMPRESSION: Diffuse mild vessel wall calcification. Mild atherosclerotic disease based on slightly elevated peak systolic velocities and biphasic waveforms throughout. No visible stenosis appreciated. Assessment & Plan Assessment & Plan (1) Type 2 diabetes mellitus with diabetic polyneuropathy: Code(s): E11.42 - Type 2 diabetes mellitus with diabetic polyneuropathy Category: Medical Qualifiers: Diabetes mellitus joint terminal attack controller insulin use: with joint terminal attack controller use Qualified Code(s): E11.42 - Type 2 diabetes mellitus with diabetic polyneuropathy; Z79.4 - joint terminal attack controller (current) use of insulin Plan: Educated patient on neuropathy and risks of wounds or infections. Instructed him to wear shoes at all times. (2) Tinea unguium: Code(s): B35.1 - Tinea unguium Category: Medical Plan: Reviewed left hallux nail pathology. May be a false negative however he does have a history of nail trauma and injury. Continue topical ciclopirox since he has been seeing improvement with it Follow up in 3 months (3) Peripheral artery disease: Code(s): I73.9 - Peripheral vascular disease, unspecified Category: Medical Plan: Reviewed arterial Doppler studies. Biphasic flow throughout with all vessels patent. We will continue to monitor. No indication for vascular surgery referral at this time. (4) Neuropathic pain, leg, bilateral: Code(s): G57.93 - Unspecified mononeuropathy of bilateral lower limbs Category: Medical Plan: Symptoms improved after starting pregabalin Coding Level of Care Code Est Pt Level 3 (83839) Diagnoses Type 2 diabetes mellitus with diabetic polyneuropathy, with long-term current use of insulin E11.42; Z79.4 Diabetes mellitus joint terminal attack controller insulin use: with joint terminal attack controller use Tinea unguium B35.1 Peripheral artery disease I73.9 Neuropathic pain, leg, bilateral G57.93 Time Spent (min) 30
== END 2025-03-10 10:46 | disposition home or self-care (01) ==
LOC: HO.HPODS 09:13
PROVIDERS: PCP Internal Medicine; Visit Provider Student in an Organized Health Care Education/Training Program
DX: E11.42 Type 2 diabetes mellitus with diabetic polyneuropathy (principal); Z79.4 Long term (current) use of insulin; B35.1 Tinea unguium; I73.9 Peripheral vascular disease, unspecified; G57.93 Unspecified mononeuropathy of bilateral lower limbs
CPT/HCPCS: 99213

== ENCOUNTER → 2025-03-10 09:13 | Outpatient (BNVA) | payer MEDICARE, OTHER, SELFPAY | PROVIDERS: PCP Internal Medicine; Visit Provider Student in an Organized Health Care Education/Training Program | DX: E11.42 Type 2 diabetes mellitus with diabetic polyneuropathy (principal); Z79.4 Long term (current) use of insulin; B35.1 Tinea unguium; I73.9 Peripheral vascular disease, unspecified; G57.93 Unspecified mononeuropathy of bilateral lower limbs | CPT/HCPCS: 99212 ==